=== PATIENT | female | born 1935 | race Caucasian/White ===

== ENCOUNTER 2017-10-13 20:02 | Inpatient (IN) | payer MEDICARE, OTHER ==
[2017-10-13 20:44] LABS: #Neutrophils 7.1 thou/uL (1.40-6.50); %Basophils 0.3 % (0.0-1.0); %Eosinophils 0.2 % (0.0-10.0); %Monocytes 11.1 % (0.0-10.0); Hematocrit 37.2 % (36.0-47.0); Mean Platelet Volume 7.3 fL (7.4-10.4); Red Blood Cell (RBC) Count 3.84 mill/uL (4.20-5.40); White Blood Cell (WBC) Count 9.1 thou/uL (4.8-10.8)
[2017-10-13 21:05] LABS: ALT (SGPT) 38 U/L (8-55); AST (SGOT) 43 U/L (5-34); Alkaline Phosphatase 103 U/L (40-150); Anion Gap 12 mmol/L (10-20); BUN (Urea Nitrogen) 11 mg/dL (9.8-20.1); Bilirubin, Total 1.1 mg/dL (0.2-1.2); Calc. Creatinine Clearance 0 mL/min (70-130); Calcium 9.4 mg/dL (7.8-10.44); Carbon Dioxide 30 mmol/L (23-31); Chloride 95 mmol/L (98-107); Estimated GFR-MDRD 83; Globulin 3.6 g/dL (2.4-3.5); Protein, Total 7.1 g/dL (6.0-8.3)
[2017-10-13 21:09] LABS: Troponin I 0.015 ng/mL (< 0.028)
[2017-10-13] MEDS ORDERED: Furosemide 40 MG/4 ML VIAL ONE (21:41)
[2017-10-14] MEDS ORDERED: hydrALAZINE 20 MG/ML VIAL SLOW IVP PRN (02:18)
[2017-10-14] MEDS ORDERED: Benzonatate 100 MG CAP PO PRN (02:18)
[2017-10-14] MEDS ORDERED: cloNIDine 0.1 MG TAB PO PRN (02:18)
[2017-10-14] MEDS ORDERED: Nitroglycerin 0.4 MG TAB (25 Tab Bottle) SL PRN (02:18)
[2017-10-14] MEDS ORDERED: Senokot 8.6 MG TAB PO PRN (02:18)
[2017-10-14] MEDS ORDERED: Calcium Carbonate 500 MG ChewTAB PO PRN (02:18)
[2017-10-14] MEDS ORDERED: Mag-Al 1200 mg/1200 mg/30 ML UDCUP PO PRN (02:18)
[2017-10-14] MEDS ORDERED: Bisacodyl 5 MG TAB PO PRN (02:18)
[2017-10-14] MEDS ORDERED: Guaifenesin DM 100-10/5 ML UDCUP PO PRN (02:18)
[2017-10-14] MEDS ORDERED: Ondansetron HCl/PF 4 MG/2 ML Vial IVP PRN (02:18)
[2017-10-14] MEDS ORDERED: Loratadine 10 MG TAB PO PRN (02:18)
[2017-10-14] MEDS ORDERED: traZODone HCl 50 MG TAB PO PRN (02:48)
[2017-10-14] MEDS: traZODone HCl 50 MG TAB PO PRN ×2 (03:58→20:57)
--- NOTE | 2017-10-14 04:01 | HP ---
DATE OF ADMISSION: 10/14/2017 PRIMARY CARE PHYSICIAN: Dr. Pope. CHIEF COMPLAINT: Cough and malaise. HISTORY OF PRESENT ILLNESS: Ms. Adame is a very pleasant 81-year-old female with past medical history of Alzheimer's disease, chronic atrial fibrillation as well as history of TIA and COPD who currently resides at [facility], presented to the emergency room for above-mentioned complaint s. History is mainly obtained by the present at bedside. Case has been discussed with the a dmitting ER physician and electronic medical records have been reviewed. According to Ms. Adame's she has been having worsening cough for the last day or so with produ ction of green sputum. She was taken to Urgent Care initially and was diagnosed with pneumonia and w as sent here in the emergency room for further evaluation. She reportedly also had a fever of 100.4 today. The patient herself is not able to provide any history. The visits her every other d ay and he also is not sure how long she has been not feeling well. They were recently seen by Gastroenterology, Dr. Todd for complaints of some bright red blood per rec maria m. She has history of hemorrhoids and diverticulosis. She was on Eliquis for her atrial fibrillat ion, but that was stopped on 10/13/2017. The plan was to resume the Eliquis after days on 10/16/2017 with repeat appointment with Dr. Todd on 10/19/2017. At this time, she does not have any colonoscop y scheduled. Upon presentation to the emergency room, she was hemodynamically stable with blood pressure 125/66, p ulse of 95, respirations 21 with oxygen saturation of 93% on 3 liters. Further workup included a 12- lead EKG which showed rate controlled sinus rhythm at 82 beats per minute and a chest x-ray which was consistent with right-sided pneumonia with right middle and lower lobe involvement. She also was fo und to have somewhat elevated BNP 467. She received IV Lasix x1 as well as IV antibiotics and is now being admitted for possible pneumonia as well as fluid overload/congestive heart failure. Her last transthoracic echocardiogram dated 11/2015 in our system, which was done mainly looking for thrombus. Prior to that, an echo done earlier that month showed lower limits of normal for the ejection fract ion. PAST MEDICAL HISTORY: 1. Chronic atrial fibrillation. 2. Alzheimer dementia. The patient lives at the dementia unit. 3. History of multiple compression fractures and fractures on hormone replacement therapy. 4. History of sleep apnea. 5. Chronic obstructive pulmonary disease. 6. Degenerative joint disease. 7. Hypothyroidism. PAST SURGICAL HISTORY: 1. Tonsillectomy. 2. Hysterectomy. 3. Appendectomy. 4. Bilateral cataract repair. ALLERGIES: PENICILLIN, SULFA and CODEINE. FAMILY HISTORY: Unclear at this time. The patient is not able to provide much history, but reported ly, she has no family history of premature coronary artery disease or stroke in her family. SOCIAL HISTORY: She has quit tobacco more than 30 years ago. She is and lives at [facility]. CURRENT MEDICATIONS: Need to be further clarified, but according to the ER record, she takes multivi tamin and mineral supplements. She is also on Multaq 400 mg daily as well as Eliquis 5 mg daily, whi ch is currently being held. In addition, she takes Namenda 10 mg b.i.d., and thyroid 6.25 mg once da evelyn, and trazodone 50 mg at bedtime. REVIEW OF SYSTEM: Unobtainable due to patient's dementia. She continues to say that she does not un derstand what is going on and does not feel well. PHYSICAL EXAMINATION: VITAL SIGNS: Her most recent vital signs include blood pressure 102/76, pulse of 76, respirations 20 , temperature 98.2, saturating 96% on 2 liters oxygen. GENERAL: No acute distress. The patient is lying under lots of covers and complaining of feeling ch ills. Otherwise, awake, alert, oriented to self and her . She is not in any respiratory dist ress. HEENT: Mucous membrane is moist and pink. No oropharyngeal exudate or erythema. Head is normocepha lic, atraumatic. Pupils are equal, reactive to light and accommodation. Extraocular movements intac t. NECK: Supple without any lymphadenopathy, JVD or bruit. CHEST: Clear to auscultation bilaterally with somewhat decreased breath sounds in the right side. R ate and rhythm is regular without any murmur, rubs, or gallops. ABDOMEN: Soft, nontender, nondistended with positive bowel sounds. EXTREMITIES: Free of any cyanosis, clubbing, or edema. NEUROLOGIC: Nonfocal. SKIN: Free of any rashes or bruises. VASCULAR: +2 pedal pulses felt bilaterally. PSYCHIATRIC: Normal affect. LABORATORY EXAMINATION: Her CBC shows WBCs at 9.1 with 77% neutrophils. Hemoglobin is 11.8, platele t count of 174. Serum chemistries show sodium of 134, potassium 3.4, chloride 95, glucose 127. Lact ic acid 1. AST 43, BNP of 467. Her cardiac enzymes are within normal limits. BUN and creatinine wi thin normal limits. Chest x-ray by my review shows right-sided infiltrates as per HPI. A 12-lead EK G by my review shows normal sinus rhythm without any acute ST or T-wave changes. IMPRESSION AND PLAN: 1. Community-acquired pneumonia. The patient will be treated with IV antibiotics and symptomatic an d supportive care with nebulizers, Mucinex, and incentive spirometry. We will also check for influen za. Currently, she is hemodynamically stable. 2. Elevated BNP. Possibility of congestive heart failure, likely diastolic is not ruled out as of y et. We will obtain a transthoracic echocardiogram. The patient has received 1 dose of IV Lasix in [facility] emergency room. We will try another smaller dose of IV Lasix in the morning. The patient appears euvolemic on clinical examination. 3. Chronic atrial fibrillation on chronic anticoagulation. We will continue with her Multaq for now . She is currently in sinus rhythm and rate control. Her Eliquis is on hold given recent episode of bright red blood per rectum. 4. Bright red blood per rectum. The patient will continue to hold Eliquis as per instructions from Dr. Todd from Gastroenterology services. If she is still here and is having any more bleeding per re ctum or for hemoglobin drops, we will consult Gastroenterology in house for possible colonoscopy. We will monitor H&H on a daily basis. 5. Alzheimer's dementia. 6. Code status: FULL CODE. Discussed with her who is also her medical power of transactional attorney 7. Add deep venous thrombosis and gastrointestinal prophylaxis. 8. Add p.r.n. medication orders. 9. Hypothyroidism. Resume her home medications once the dosages are confirmed. DISPOSITION: Ms. Adame is being admitted to medical floor for community-acquired pneumonia with possi ble congestive heart failure. She is currently hemodynamically stable. Estimated length of stay 2 t o 3 midnight. Further management will depend upon her clinical course.
[2017-10-14 06:13] LABS: #Lymphocytes 0.7 thou/uL (1.20-3.40); #Monocytes 0.9 thou/uL (0.11-0.59); #Neutrophils 6.2 thou/uL (1.40-6.50); %Basophils 0.2 % (0.0-1.0); %Eosinophils 0.2 % (0.0-10.0); %Lymphocytes 9.4 % (21.0-51.0); %Monocytes 11.1 % (0.0-10.0); Hematocrit 32.5 % (36.0-47.0); Mean Platelet Volume 7.5 fL (7.4-10.4); Red Blood Cell (RBC) Count 3.39 mill/uL (4.20-5.40); White Blood Cell (WBC) Count 7.9 thou/uL (4.8-10.8)
[2017-10-14] MEDS: Acetaminophen 325 MG TAB PO PRN (06:29)
[2017-10-14 06:36] LABS: Anion Gap 9 mmol/L (10-20); BUN (Urea Nitrogen) 10 mg/dL (9.8-20.1); Calc. Creatinine Clearance 0 mL/min (70-130); Calcium 8.5 mg/dL (7.8-10.44); Carbon Dioxide 35 mmol/L (23-31); Chloride 94 mmol/L (98-107); Estimated GFR-MDRD Greater than 90
[2017-10-14] MEDS: Mometasone/Formoterol 120 PUFF INHALER INH SCH ×2 (07:08→18:57)
[2017-10-14] MEDS ORDERED: Furosemide 40 MG TAB PO SCH (07:30)
[2017-10-14] MEDS ORDERED: Furosemide 20 MG TAB PO SCH (08:00)
[2017-10-14] MEDS: Dronedarone HCl 400 MG TAB PO SCH ×2 (08:38→17:56)
[2017-10-14] MEDS: guaiFENesin ER 600 MG TAB PO SCH ×3 (08:38→21:00)
[2017-10-14] MEDS ORDERED: Enoxaparin Sodium 40 MG/0.4 ML SYRINGE SC SCH (09:00)
[2017-10-14 09:15] LABS: Phosphorus 2.8 mg/dL (2.3-4.7)
[2017-10-14] MEDS ORDERED: Sodium Chloride 0.9% 500 ML IV SCH (10:15)
[2017-10-14] MEDS ORDERED: NS 0.9% w/ 40 MEQ KCL 1,000 ML IV SCH ×2 (10:15)
[2017-10-14] MEDS ORDERED: NS 0.9% w/ 40 MEQ KCL 500 ML IV SCH (10:15)
--- NOTE | 2017-10-14 10:15 | PDOC.EVN ---
Event Note - Event Note Event Note: RN called - Pt tachycardic with low BP. EKG showed Afib HR around 115. Will transfer to tele. DC Levaquin due to prolonged QTc. Will start Azactam with Doxy IV. AM labs. Cont to monitor closely. AM labs. Repeat CXR in AM. Await Echo. Patient seen and examined.
[2017-10-14] MEDS ORDERED: Aztreonam 1 GM in Sodium Chloride 0.9% 100 ML IVPB SCH (11:00)
[2017-10-14] MEDS ORDERED: ISOVUE-370 76%-LOCM 1 ML ONE (11:37)
[2017-10-14] MEDS: Aztreonam 1 GM in Sodium Chloride 0.9% 100 ML IVPB SCH (12:59)
[2017-10-14] MEDS: busPIRone HCl 5 MG TAB PO SCH ×2 (14:16→20:57)
--- NOTE | 2017-10-14 15:43 | PDOC.EVN ---
Event Note - Event Note Event Note: Echo reviewed. Will get CT chest to r/o PE due to abn Echo. Eliquis on hold per GI until Oct
--- NOTE | 2017-10-14 15:53 | EKG ---
Test Reason : Blood Pressure : / mmHG Vent. Rate : 115 BPM Atrial Rate : 141 BPM P-R Int : 000 ms QRS Dur : 156 ms QT Int : 388 ms P-R-T Axes : 000 -79 054 degrees QTc Int : 536 ms Atrial fibrillation with rapid ventricular response Left axis deviation Right bundle branch block Septal infarct (cited on or before 15-MAR-2012) Abnormal ECG When compared with ECG of 13-OCT-2017 20:20, (Unconfirmed) Atrial fibrillation has replaced Sinus rhythm Questionable change in initial forces of Septal leads Confirmed by GERONIMO MARCUS ([id number]) on 10/14/2017 3:53:35 PM Referred By: MEGHAN Confirmed By:GERONIMO MARCUS
[2017-10-14 17:27] LABS: Anion Gap 6 mmol/L (10-20); BUN (Urea Nitrogen) 11 mg/dL (9.8-20.1); Calc. Creatinine Clearance 0 mL/min (70-130); Calcium 8.3 mg/dL (7.8-10.44); Carbon Dioxide 33 mmol/L (23-31); Chloride 96 mmol/L (98-107); Estimated GFR-MDRD Greater than 90
[2017-10-14 17:36] LABS: Troponin I 0.054 ng/mL (< 0.028)
--- NOTE | 2017-10-14 17:39 | CT ---
CTA OF THE THORAX UTILIZING IV CONTRAST PE PROTOCOL AND 3D REFORMATTED IMAGING 10/14/17 INDICATION: 81-year-old female with right sided heart strain seen on echocardiogram concern for possible PE. TECHNIQUE: Multiple CTA images were obtained of the thorax with IV contrast utilizing PE protocol and 3D reforma tted imaging. COMPARISON: CT of the thorax dated 10/05/13. FINDINGS: No definite central or segmental pulmonary embolus is demonstrated. There is air space consolidation within the posterior segment of the right upper lobe as well as the lateral segment of the right middle lobe and posterolateral segment of the right lower lobe with a sm all right pleural effusion. Patchy air space opacity seen within the left lower lobe. There are prominent vascular calcification involving the thoracic aorta and coronary arteries. The ao rtic arch is mildly aneurysmal measuring 3.3 cm which is relatively stable to the prior exam. The rig ht main pulmonary artery is enlarged measuring 2.6 cm. The left main pulmonary artery is enlarged phillip suring 2.9 cm. There is severe scattered emphysema. There is moderate cardiomegaly. The visualized up per abdomen is unremarkable for acute abnormality. There is vertebroplasty change involving L1, L2, and T9. There is diffuse osteopenia. There is scatte red degenerative and osteoarthritic change. IMPRESSION: 1. No central or segmental pulmonary embolus. 2. Multifocal air space consolidation suspicious for pneumonia or aspiration. 3. Severe emphysema. 4. Enlargement of the pulmonary arterial tree likely related to underlying secondary pulmonary a rtery hypertension. 5. Stable aneurysmal dilatation of the thoracic aorta measuring up to 3.3 cm. 6. Other chronic findings as above. POS: ANGELIKA
[2017-10-14] MEDS ORDERED: Apixaban 5 MG TAB PO SCH (21:00)
[2017-10-15] MEDS: Aztreonam 1 GM in Sodium Chloride 0.9% 100 ML IVPB SCH (00:09)
[2017-10-15 05:24] LABS: #Lymphocytes 1.4 thou/uL (1.20-3.40); #Monocytes 0.8 thou/uL (0.11-0.59); #Neutrophils 5.4 thou/uL (1.40-6.50); %Eosinophils 0.2 % (0.0-10.0); %Lymphocytes 18.2 % (21.0-51.0); %Monocytes 9.9 % (0.0-10.0); Hematocrit 33.9 % (36.0-47.0); Mean Platelet Volume 7.7 fL (7.4-10.4); White Blood Cell (WBC) Count 7.6 thou/uL (4.8-10.8)
[2017-10-15] MEDS: busPIRone HCl 5 MG TAB PO SCH ×3 (05:29→21:10)
[2017-10-15 05:44] LABS: Anion Gap 8 mmol/L (10-20); BUN (Urea Nitrogen) 9 mg/dL (9.8-20.1); BUN/Creatinine Ratio 14.06; Calc. Creatinine Clearance 64 mL/min (70-130); Calcium 8.6 mg/dL (7.8-10.44); Carbon Dioxide 30 mmol/L (23-31); Chloride 100 mmol/L (98-107); Estimated GFR-MDRD 89; Magnesium 1.9 mg/dL (1.6-2.6); Phosphorus 2.5 mg/dL (2.3-4.7)
[2017-10-15] MEDS: Mometasone/Formoterol 120 PUFF INHALER INH SCH (07:02)
[2017-10-15] MEDS: Dronedarone HCl 400 MG TAB PO SCH ×2 (08:25→16:37)
[2017-10-15] MEDS: guaiFENesin ER 600 MG TAB PO SCH ×3 (08:28→21:10)
[2017-10-15] MEDS ORDERED: Digoxin 0.5 MG/2 ML AMP SLOW IVP SCH (11:00)
[2017-10-15] MEDS: Acetaminophen 325 MG TAB PO PRN (12:06)
[2017-10-15] MEDS: Aztreonam 1 GM, Admixture Fee 1 EACH in Sterile Water 10 ML SLOW IVP SCH ×2 (12:48→23:57)
--- NOTE | 2017-10-15 15:10 | CON ---
CARDIOLOGY CONSULTATION NOTE DATE OF CONSULTATION: 10/15/2017 REASON FOR CONSULTATION: AFib. PRIMARY [employer]: Dr. Andrew Alvarenga. HISTORY OF PRESENT ILLNESS: Ms. Adame is a very pleasant 81-year-old white female [facility]. She was diagnosed with a community-acquired pneumonia and possibly donal stolic dysfunction and was admitted for this. She has a history of atrial fibrillation. She is on M ultaq and Eliquis for this. Recently, she had some GI bleeding, so Eliquis was stopped after she saw a GI for this. Currently, is still on hold. She was admitted for IV antibiotics, placed in telemet ry. Yesterday, she went into atrial flutter with 2:1 block, so Cardiology has been consulted for thi s. Ms. Adame does not feel her heart pounding. She does not feel lightheaded. PAST MEDICAL HISTORY: 1. History of paroxysmal atrial fibrillation. 2. Alzheimer dementia. 3. Multiple compression fractures. 4. Sleep apnea. 5. Chronic obstructive pulmonary disease. 6. Degenerate joint disease. 7. Hypothyroidism. PAST SURGICAL HISTORY: 1. Tonsillectomy. 2. Hysterectomy. 3. Appendectomy. 4. Bilateral cataract repair. OUTPATIENT MEDICATIONS: Include; 1. Vitamin D. 2. Nature-Throid 16.25 mg a day. 3. Probiotic. 4. Dulcolax. 5. Eliquis 5 mg b.i.d. 6. Vitamin B12. 7. Vitamin B complex. 8. Trazodone. 9. Hyoscyamine. 10. Multaq 400 mg b.i.d. 11. Amantadine. 12. BuSpar 15 mg p.o. t.i.d. 13. Anoro Ellipta 1 puff daily. 14. Antioxidants b.i.d. ALLERGIES: CODEINE, PENICILLIN and SULFA DRUGS. FAMILY HISTORY: Noncontributory. SOCIAL HISTORY: Quit smoking 30 years ago. No alcohol or drugs. REVIEW OF SYSTEMS: Negative; however, it may not be significant as she has dementia. PHYSICAL EXAMINATION: VITAL SIGNS: Temperature 98.8, pulse 118, respiration rate 22, satting 94% on 2 liters and blood pre ssure 99/55. GENERAL: Awake, alert and oriented to person only, in no distress. HEENT: Normocephalic and atraumatic. NECK: Supple. LUNGS: Have reduced breath sounds bilateral. CARDIOVASCULAR: S1 and S2, irregularly irregular. Heart rate in the 120s. No murmurs. ABDOMEN: Soft. Positive bowel sounds. EXTREMITIES: No edema. SKIN: Warm and dry. LABORATORY DATA: Laboratory work was reviewed. CBC, chemistries were reviewed. Potassium was 2.8 l ast night, back to 3.8 today. Troponin was in the indeterminate range at 0.05. BNP was 467. Blood cultures are negative at 48 hours. IMAGING DATA: CT of the chest showed no PE constellation suspicious for pneumonia or aspiration, emp hysema for Karen enlarged pulmonary arterial tree secondary to pulmonary hypertension and thoracic ao rtic aneurysm at 3.3 cm. EKG and telemetry was reviewed. ASSESSMENT: 1. Atrial flutter with 2:1 AV block. 2. History of atrial fibrillation, on Multaq and Eliquis. 3. Recent lower gastrointestinal bleed, Eliquis on hold. 4. Acute on chronic diastolic heart failure. Much more euvolemic at this time. 5. Normal left ventricular function, ejection fraction at 60%. 6. Community-acquired pneumonia. PLAN: 1. Continue antibiotics. We will try to slow her or down a little bit more with digoxin. Cannot do any drips at this time as she is borderline hypotensive. We will continue Multaq for now. If she d oes not slow down and convert by tomorrow, we will switch her Multaq to IV amiodarone to try and slow it down a little bit better. 2. Electrolytes replacement. Currently, potassium is normal. Thank you for letting us to participate in the care of your patient. We will follow.
--- NOTE | 2017-10-15 15:29 | PDOC.PN ---
- Subjective Encounter Start Date: 10/15/17 Encounter Start Time: 15:27 Subjective: she thinks she is at home.reports feeling confused and scared -: she feels that she is well & does not need medical attention -: went into a-flutter yesterday - Objective Resuscitation Status: Resuscitation Status FULL:Full Resuscitation MAR Reviewed: Yes Vital Signs & Weight: Vital Signs (12 hours) Temp Pulse Resp BP Pulse Ox 10/15/17 12:12 120 H 18 96 10/15/17 11:59 117 H 10/15/17 11:31 98.8 F 118 H 22 H 99/55 L 94 L 10/15/17 08:00 99.4 F 117 H 18 91/50 L 92 L 10/15/17 07:00 116 H 18 96 10/15/17 04:00 98.0 F 117 H 20 90/54 L 97 Weight Weight 133 lb 6.4 oz I&O: 10/14/17 10/15/17 10/16/17 06:59 06:59 06:59 Intake Total 789 Output Total 250 Balance 539 Result Diagrams: 10/15/17 05:03 10/15/17 05:03 Additional Labs: Microbiology 10/13/17 20:36 Venous blood - Right Arm Blood Culture - Preliminary Specimen has been received and culture in progress. No Growth to date. 10/13/17 20:33 Venous blood - Left Arm Blood Culture - Preliminary Specimen has been received and culture in progress. No Growth to date. Laboratory Tests 10/05/13 01/20/17 10/13/17 11:18 00:45 20:36 Hgb 12.8 B-Natriuretic Peptide 379.5 H Troponin I 0.015 10/13/17 10/13/17 10/14/17 20:36 20:36 05:50 Hgb 11.8 L 10.5 L B-Natriuretic Peptide 467.7 H Troponin I 10/14/17 10/15/17 16:45 05:03 Hgb 10.7 L B-Natriuretic Peptide Troponin I 0.054 H Phys Exam - Physical Examination Constitutional: NAD HEENT: PERRLA, moist MMs, sclera anicteric, oral pharynx no lesions Neck: no nodes, no JVD, supple, full ROM Respiratory: no wheezing, no rales, no rhonchi, clear to auscultation bilateral Cardiovascular: RRR, no significant murmur Gastrointestinal: soft, non-tender, no distention, positive bowel sounds Musculoskeletal: no edema, pulses present Neurological: non-focal, normal sensation, moves all 4 limbs Psychiatric: normal affect Deviation from normal: oriented to self only Skin: no rash Dx/Plan (1) PNA (pneumonia) Code(s): J18.9 - PNEUMONIA, UNSPECIFIED ORGANISM Status: Acute (2) Atrial fibrillation with rapid ventricular response Code(s): I48.91 - UNSPECIFIED ATRIAL FIBRILLATION Status: Acute (3) Acute on chronic diastolic CHF (congestive heart failure) Code(s): I50.33 - ACUTE ON CHRONIC DIASTOLIC (CONGESTIVE) HEART FAILURE Status : Acute (4) CAD (coronary artery disease) Code(s): I25.10 - ATHSCL HEART DISEASE OF [place] CORONARY ARTERY W/O ANG PCTRS Status: Chronic (5) Dyslipidemia Code(s): E78.5 - HYPERLIPIDEMIA, UNSPECIFIED Status: Chronic (6) HTN (hypertension) Code(s): I10 - ESSENTIAL (PRIMARY) HYPERTENSION Status: Chronic (7) Hypothyroid Code(s): E03.9 - HYPOTHYROIDISM, UNSPECIFIED Status: Chronic Qualifiers: Hypothyroidism type: unspecified Qualified Code(s): E03.9 - Hypothyroidism , unspecified - Plan DVT proph w/SCDs appreciate cardiology input.Add digoxin.cont multaq.Monitor hemodynamics -: apperas euvolemic.will not give more diuretics. -: cont IV ABx.follow Cx results. -: am labs. supportive & symptomatic care -: eliquis on hold due to concerns for GIB.resume tomorrow per GI.H/H stable * . Review of Systems - Review of Systems Other: can not be obtained reliably due to dementia - Medications/Allergies Allergies/Adverse Reactions: Allergies Allergy/AdvReac Type Severity Reaction Status Date / Time codeine Allergy Verified 10/05/13 15:52 Penicillins Allergy Verified 10/05/13 15:52 Sulfa (Sulfonamide Allergy Verified 10/05/13 15:52 Antibiotics) Medications: Current Medications Acetaminophen (Tylenol) 650 mg PO Q4H PRN PRN Reason: Headache/Fever or Pain Last Admin: 10/15/17 12:06 Dose: 650 mg Al Hydroxide/Mg Hydroxide (Maalox) 30 ml PO Q6H PRN PRN Reason: Heartburn or Indigestion Albuterol/Ipratropium (Duoneb) 3 ml NEB Q6H PRN PRN Reason: SOB &/or Wheezing Albuterol/Ipratropium (Duoneb) 3 ml NEB [id number] [facility] Last Admin: 10/15/17 12:12 Dose: 3 ml Benzonatate (Tessalon) 100 mg PO Q4H PRN PRN Reason: Cough Bisacodyl (Dulcolax) 10 mg PO DAILYPRN PRN PRN Reason: Constipation Buspirone HCl (Buspar) 15 mg PO Q8HR [facility] Last Admin: 10/15/17 13:04 Dose: 15 mg Calcium Carbonate (Tums) 1,000 mg PO Q4H PRN PRN Reason: Heartburn or Indigestion Clonidine (Catapres) 0.1 mg PO Q4H PRN PRN Reason: Systolic BP > 160 Digoxin (Lanoxin) 0.25 mg PO DAILY [facility] Dronedarone (Multaq) 400 mg PO BID-[facility] Last Admin: 10/15/17 08:25 Dose: 400 mg Guaifenesin (Mucinex) 600 mg PO Q12HR [facility] Last Admin: 10/15/17 08:28 Dose: 600 mg Guaifenesin (Mucinex) 600 mg PO Q12HR [facility] Last Admin: 10/15/17 10:33 Dose: Not Given Guaifenesin/Dextromethorphan (Robitussin Dm) 15 ml PO Q4H PRN PRN Reason: Cough Hydralazine HCl (Apresoline) 10 mg SLOW IVP Q4H PRN PRN Reason: Systolic BP > 170 Doxycycline Hyclate 100 mg/ (Sodium Chloride) 100 mls @ 100 mls/hr IVPB 0100, 1300 [facility] Last Admin: 10/15/17 12:06 Dose: 100 mls Aztreonam 1 gm/ Miscellaneous Medication 1 each/ Sterile Water 10 mls @ 120 mls /hr SLOW IVP 1200,2359 [facility] Loratadine (Claritin) 10 mg PO DAILYPRN PRN PRN Reason: Sinus Symptoms Memantine (Namenda) 10 mg PO BID [facility] Last Admin: 10/15/17 08:25 Dose: 10 mg Miscellaneous Medication (Pharmacy To Dose) 0 each IVPB ASDIR PRN PRN Reason: Pharmacy to Dose [RENALLY ADJ Mometasone Furoate/Formoterol Fumar (Dulera 200 Mcg/5 Mcg Inhaler) 1 puff INH BID-RT [facility] Last Admin: 10/15/17 07:02 Dose: 1 puff Nitroglycerin (Nitrostat) 0.4 mg SL Q5MIN PRN PRN Reason: Chest Pain Ondansetron HCl (Zofran) 4 mg IVP Q6H PRN PRN Reason: Nausea/Vomiting Potassium Chloride (Klor-Con) 20 meq PO TID-[facility] Stop: 10/16/17 12:01 Last Admin: 10/15/17 12:07 Dose: 20 meq Senna (Senokot) 2 tab PO HSPRN PRN PRN Reason: Constipation Trazodone HCl (Desyrel) 50 mg PO HSPRN PRN PRN Reason: Insomnia Last Admin: 10/14/17 20:57 Dose: 50 mg
--- NOTE | 2017-10-15 16:43 | RAD ---
MODIFIED BARIUM SWALLOW WITH SPEECH THERAPIST 10/15/17 HISTORY: 81-year-old female with history of oropharyngeal dysphagia and feeding difficulty. Patient gives a hi story of dementia and pneumonia. FLUOROSCOPY TIME: 1.8 minutes. DOSE: 0.811 mGy*m2. Patient was given multiple consistencies in the upright lateral position. There was some pooling in t he vallecula with multiple consistencies but no evidence for penetration or aspiration. IMPRESSION: No penetration or aspiration. Pooling in the vallecula. Please see speech therapy report or additiona l findings and recommendations. POS: [facility]
--- NOTE | 2017-10-15 18:30 | CON ---
DATE OF SERVICE: 10/15/2017 SERVICE: Pulmonary Medicine. REASON FOR CONSULTATION: Respiratory failure. HISTORY OF PRESENT ILLNESS: The patient is an 81-year-old white female with past medical history sig nificant for advancing dementia. At baseline, she will walk around 2-3 times per day with assistance . Unfortunately, she spends most of her time in bed or in a chair. She presented to the hospital wi th increasing confusion, lethargy, and low grade fevers. She was having some coughing. In the hospi kamla, she was identified to have a pneumonia. For last 2 days, she was given some antibiotics and neb ulized medications and had a profound recovery. She does carry the diagnosis of COPD for which she t akes medications. Dr. Marrero is her primary occ ther. PAST MEDICAL HISTORY: 1. Dementia, advancing. 2. Atrial fibrillation. 3. Obstructive sleep apnea. 4. Chronic obstructive pulmonary disease. 5. Degenerative joint disease. 6. Hypothyroidism. PAST SURGICAL HISTORY: 1. Tonsillectomy. 2. Hysterectomy. 3. Appendectomy. 4. Cataract repair, bilateral. ALLERGIES: PENICILLIN, SULFA, CODEINE. MEDICATIONS: List of her inpatient medications was reviewed. No updates were made at this time. FAMILY HISTORY: Noncontributory. SOCIAL HISTORY: She has got a [id number] history of smoking, but quit over 30 years ago. She is m arried and lives in [facility]. She has no exposures to chemicals, dust, asbestosis, or tuberculosis. She does not use any alcohol or illicit drugs. REVIEW OF SYSTEMS: General, head, ears, eyes, nose, throat, cardiovascular, respiratory, GI, , mus culoskeletal, neurologic and skin is negative except as mentioned in the HPI. PHYSICAL EXAMINATION: VITAL SIGNS: Afebrile, pulse 120, blood pressure 88/54, respirations 22, saturation 95% on 2 liters nasal cannula. GENERAL: The patient is awake and alert, in no apparent distress. LUNGS: Decent air entry. There are rhonchi present. There is a prolonged expiratory phase, but I d o not appreciate anything except for very minimal expiratory wheeze. No crackles are appreciated. HEART: Normal rate, regular. ABDOMEN: Soft, nontender, nondistended, bowel sounds positive. MUSCULOSKELETAL: No cyanosis or clubbing. No pitting in the bilateral lower extremities. NEUROLOGIC: Grossly nonfocal. SKIN: There is no skin tenting. : No Zamorano. LABORATORY DATA: WBC 7.6, hemoglobin 10.7, platelets 171,000. Basic metabolic profile is completely unremarkable. Albumin is 2.8. Blood cultures x2 were unremarkable. Urinalysis and urine cultures were not performed. IMAGIN. Modified swallow evaluation demonstrates no evidence of aspiration or penetration. She does have some pooling in the vallecula. 2. CTA of the chest demonstrates no evidence of a pulmonary embolism. She does have findings consis tent with pulmonary hypertension with dilated pulmonary artery and a generous right ventricle and a l ittle deviating to the septum. She has severe emphysematous changes. There is a right lower lobe de pendently located pneumonia. This is almost certainly associated with aspiration related diseases in the supine position. 3. Echocardiogram demonstrates atrial fibrillation, dilated right ventricle and tachycardia. Ejecti on fraction is normal. ASSESSMENT: 1. Acute on chronic hypoxic respiratory failure. 2. Healthcare-associated pneumonia, almost certainly secondary to aspiration in the supine position. 3. Pulmonary hypertension. 4. Chronic obstructive pulmonary disease with acute exacerbation. 5. Atrial fibrillation. 6. Dementia, advanced. DISCUSSION AND PLAN: The patient has actually returned to her typical neurologic status. As such, wilma medina will continue doing what we are doing. My suspicion is that her culprit may very well have been th e urine. She has very powerful smelling urine. Unfortunately, urinalysis or culture was not perform ed when she came in to the hospital. The infiltrate in the lung is almost certainly associated with aspiration related disease from the supine position. The pulmonary hypertension is most likely multi factorial associated with atrial fibrillation and sleep apnea. I witnessed her having multiple sleep related events while we were in the room. She kept falling asleep and waking back up and was perfec tly appropriate. With her advanced cognitive impairment however, I do not think there is any utility in doing a formal pulmonary hypertension workup. Furthermore, is suggesting to me that unde r no circumstances would she truly be able to tolerate having a CPAP mask at this point in her life. As such, we should simply focus on minimizing aspiration related diseases from the supine position. She will continue sleeping on her wedge as she has done for many years for back discomfort. I would like for her to avoid eating or drinking anything within 2 hours of being in bed. Oxygen will be we aned away as tolerated. I will get a urinalysis and urine culture though we are unlikely to glean an y helpful information out of them because she has been on antibiotics for the past 3 days. I will di scontinue medications that suppress cough. I will continue to follow for the time being, but from my respiratory perspective, the patient is stable for discharge from the hospital. I will discontinue her inhaled Dulera. Her home inhalers can be continued on discharge.
[2017-10-16] MEDS: busPIRone HCl 5 MG TAB PO SCH ×3 (05:39→21:36)
[2017-10-16 06:06] LABS: #Eosinphils 0.1 thou/uL (0.0-0.7); #Lymphocytes 1.1 thou/uL (1.20-3.40); #Monocytes 0.5 thou/uL (0.11-0.59); #Neutrophils 5.4 thou/uL (1.40-6.50); %Basophils 0.2 % (0.0-1.0); %Eosinophils 0.8 % (0.0-10.0); %Lymphocytes 15.6 % (21.0-51.0); %Monocytes 6.9 % (0.0-10.0); Mean Platelet Volume 7.4 fL (7.4-10.4); Red Blood Cell (RBC) Count 3.59 mill/uL (4.20-5.40); White Blood Cell (WBC) Count 7.1 thou/uL (4.8-10.8)
[2017-10-16 07:00] LABS: Anion Gap 10 mmol/L (10-20); BUN (Urea Nitrogen) 10 mg/dL (9.8-20.1); Calc. Creatinine Clearance 68 mL/min (70-130); Calcium 8.5 mg/dL (7.8-10.44); Carbon Dioxide 28 mmol/L (23-31); Chloride 99 mmol/L (98-107); Estimated GFR-MDRD Greater than 90
[2017-10-16 07:06] LABS: Troponin I 0.022 ng/mL (< 0.028)
[2017-10-16] MEDS: Dronedarone HCl 400 MG TAB PO SCH (08:50)
[2017-10-16] MEDS ORDERED: Apixaban 5 MG TAB PO SCH (09:00)
[2017-10-16] MEDS: guaiFENesin ER 600 MG TAB PO SCH ×2 (09:48→21:36)
[2017-10-16] MEDS: Digoxin 0.25 MG TAB PO SCH (09:48)
[2017-10-16] MEDS: Aztreonam 1 GM, Admixture Fee 1 EACH in Sterile Water 10 ML SLOW IVP SCH (11:57)
[2017-10-16 12:00] LABS: Hematocrit 33.7 % (36.0-47.0)
--- NOTE | 2017-10-16 13:35 | PDOC.PN ---
- Subjective Encounter Start Date: 10/16/17 Encounter Start Time: 13:33 Subjective: pt reports feeling good and wants to go home -: nursing reports BRB-ME X1.[place] restarted this am - Objective Resuscitation Status: Resuscitation Status FULL:Full Resuscitation MAR Reviewed: Yes Vital Signs & Weight: Vital Signs (12 hours) Temp Pulse Resp BP Pulse Ox 10/16/17 11:46 96.5 F L 122 H 20 97/52 L 94 L 10/16/17 11:44 122 H 18 94 L 10/16/17 11:18 98 F 125 H 18 94 L 10/16/17 09:48 120 H 10/16/17 08:55 98 F 125 H 18 112/60 94 L 10/16/17 06:25 120 H 18 97 10/16/17 03:54 98.0 F 115 H 22 H 112/70 93 L Weight Weight 133 lb I&O: 10/15/17 10/16/17 10/17/17 06:59 06:59 06:59 Intake Total 789 1540 Output Total 250 1250 Balance 539 290 Result Diagrams: 10/16/17 11:49 10/16/17 05:34 Additional Labs: Microbiology 10/15/17 23:40 Urine clean catch Urine Culture - Preliminary NO GROWTH AT 12 HOURS 10/13/17 20:36 Venous blood - Right Arm Blood Culture - Preliminary NO GROWTH AT 48 HOURS 10/13/17 20:33 Venous blood - Left Arm Blood Culture - Preliminary NO GROWTH AT 48 HOURS Laboratory Tests 10/13/17 10/14/17 10/15/17 20:36 05:50 05:03 Hgb 11.8 L 10.5 L 10.7 L 10/16/17 10/16/17 05:34 11:49 Hgb 11.0 L 10.6 L Phys Exam - Physical Examination Constitutional: NAD HEENT: PERRLA, moist MMs, sclera anicteric, oral pharynx no lesions Neck: no nodes, no JVD, supple, full ROM Respiratory: no wheezing, no rales, no rhonchi, clear to auscultation bilateral Cardiovascular: RRR, no significant murmur Gastrointestinal: soft, non-tender, no distention, positive bowel sounds Musculoskeletal: no edema, pulses present Neurological: non-focal, normal sensation, moves all 4 limbs Psychiatric: normal affect Skin: no rash Dx/Plan (1) BRBPR (bright red blood per rectum) Code(s): K62.5 - HEMORRHAGE OF ANUS AND RECTUM Status: Acute (2) PNA (pneumonia) Code(s): J18.9 - PNEUMONIA, UNSPECIFIED ORGANISM Status: Acute (3) Atrial fibrillation with rapid ventricular response Code(s): I48.91 - UNSPECIFIED ATRIAL FIBRILLATION Status: Acute (4) Acute on chronic diastolic CHF (congestive heart failure) Code(s): I50.33 - ACUTE ON CHRONIC DIASTOLIC (CONGESTIVE) HEART FAILURE Status : Acute (5) CAD (coronary artery disease) Code(s): I25.10 - ATHSCL HEART DISEASE OF [place] CORONARY ARTERY W/O ANG PCTRS Status: Chronic (6) Dyslipidemia Code(s): E78.5 - HYPERLIPIDEMIA, UNSPECIFIED Status: Chronic (7) HTN (hypertension) Code(s): I10 - ESSENTIAL (PRIMARY) HYPERTENSION Status: Chronic (8) Hypothyroid Code(s): E03.9 - HYPOTHYROIDISM, UNSPECIFIED Status: Chronic Qualifiers: Hypothyroidism type: unspecified Qualified Code(s): E03.9 - Hypothyroidism , unspecified - Plan DVT proph w/SCDs Hold eliquis again.GI consult.H/H stable.monitor. -: HR still fast.May need Amiodarone drip.Cardiology following.cont Multaq -: cont IV ABx empirically for PNA. -: BAIT DIGGER cleared for pureed diet etc.no Aspiration on MBS -: not ready for DC yet.am labs * . Review of Systems - Review of Systems Constitutional: negative: Fever, Chills, Sweats, Weakness, Malaise, Other Respiratory: negative: Cough, Dry, Shortness of Breath, Hemoptysis, SOB with Excertion, Pleuritic Pain, Sputum, Wheezing Cardiovascular: negative: Chest Pain, Palpitations, Orthopnea, Paroxysmal Noc. Dyspnea, Edema, Light Headedness, Other Gastrointestinal: negative: Nausea, Vomiting, Abdominal Pain, Diarrhea, Constipation, Melena, Hematochezia, Other Genitourinary: negative: Dysuria, Frequency, Incontinence, Hematuria, Retention , Other Musculoskeletal: negative: Neck Pain, Shoulder Pain, Arm Pain, Back Pain, Hand Pain, Leg Pain, Foot Pain, Other Neurological: negative: Weakness, Numbness, Incoordination, Change in Speech, Confusion, Seizures, Other - Medications/Allergies Allergies/Adverse Reactions: Allergies Allergy/AdvReac Type Severity Reaction Status Date / Time codeine Allergy Verified 10/05/13 15:52 Penicillins Allergy Verified 10/05/13 15:52 Sulfa (Sulfonamide Allergy Verified 10/05/13 15:52 Antibiotics) Medications: Current Medications Acetaminophen (Tylenol) 650 mg PO Q4H PRN PRN Reason: Headache/Fever or Pain Last Admin: 10/15/17 12:06 Dose: 650 mg Al Hydroxide/Mg Hydroxide (Maalox) 30 ml PO Q6H PRN PRN Reason: Heartburn or Indigestion Albuterol/Ipratropium (Duoneb) 3 ml NEB [id number] [facility] Last Admin: 10/16/17 11:44 Dose: 3 ml Apixaban (Eliquis) 5 mg PO BID [facility] Last Admin: 10/16/17 09:49 Dose: 5 mg Bisacodyl (Dulcolax) 10 mg PO DAILYPRN PRN PRN Reason: Constipation Buspirone HCl (Buspar) 15 mg PO Q8HR [facility] Last Admin: 10/16/17 05:39 Dose: 15 mg Calcium Carbonate (Tums) 1,000 mg PO Q4H PRN PRN Reason: Heartburn or Indigestion Clonidine (Catapres) 0.1 mg PO Q4H PRN PRN Reason: Systolic BP > 160 Digoxin (Lanoxin) 0.25 mg PO DAILY [facility] Last Admin: 10/16/17 09:48 Dose: 0.25 mg Dronedarone (Multaq) 400 mg PO BID-[facility] Last Admin: 10/16/17 08:50 Dose: 400 mg Guaifenesin (Mucinex) 600 mg PO Q12HR [facility] Last Admin: 10/16/17 09:48 Dose: 600 mg Hydralazine HCl (Apresoline) 10 mg SLOW IVP Q4H PRN PRN Reason: Systolic BP > 170 Doxycycline Hyclate 100 mg/ (Sodium Chloride) 100 mls @ 100 mls/hr IVPB 0100, 1300 [facility] Last Admin: 10/16/17 11:57 Dose: 100 mls Aztreonam 1 gm/ Miscellaneous Medication 1 each/ Sterile Water 10 mls @ 120 mls /hr SLOW IVP 1200,2359 [facility] Last Admin: 10/16/17 11:57 Dose: 10 mls Loratadine (Claritin) 10 mg PO DAILYPRN PRN PRN Reason: Sinus Symptoms Memantine (Namenda) 10 mg PO BID [facility] Last Admin: 10/16/17 09:50 Dose: 10 mg Miscellaneous Medication (Pharmacy To Dose) 0 each IVPB ASDIR PRN PRN Reason: Pharmacy to Dose [RENALLY ADJ Nitroglycerin (Nitrostat) 0.4 mg SL Q5MIN PRN PRN Reason: Chest Pain Ondansetron HCl (Zofran) 4 mg IVP Q6H PRN PRN Reason: Nausea/Vomiting Senna (Senokot) 2 tab PO HSPRN PRN PRN Reason: Constipation Trazodone HCl (Desyrel) 50 mg PO HSPRN PRN PRN Reason: Insomnia Last Admin: 10/14/17 20:57 Dose: 50 mg
--- NOTE | 2017-10-16 14:55 | PDOC.CTH ---
Cardiology Progress Note - Subjective No new issues or complaints. - Objective Vital Signs Temp Pulse Resp BP Pulse Ox 10/16/17 11:46 96.5 F L 122 H 20 97/52 L 94 L 10/16/17 11:44 122 H 18 94 L 10/16/17 11:18 98 F 125 H 18 94 L 10/16/17 09:48 120 H 10/16/17 08:55 98 F 125 H 18 112/60 94 L 10/16/17 06:25 120 H 18 97 10/16/17 03:54 98.0 F 115 H 22 H 112/70 93 L Weight 133 lb 10/15/17 10/16/17 10/17/17 06:59 06:59 06:59 Intake Total 789 1540 Output Total 250 1250 Balance 539 290 - Physical Examination General/Neuro: alert & oriented x3, NAD Neck: no JVD present Lungs: unlabored respirations Heart: other: (irreg) Abdomen: NT/ND Extremities: other: (no edema) - Telemetry Telemetry Rhythm: A flutter 2-1 block - Labs Result Diagrams: 10/16/17 11:49 10/16/17 05:34 Troponin/CKMB CK-MB (CK-2) 5.6 ng/mL (0-6.6) 10/13/17 20:36 Troponin I 0.022 ng/mL (< 0.028) 10/16/17 05:34 - Assessment/Plan 1. Aflutter with 2-1 AV block 2. hx of afib 3. Acute on chronic diastolic heart failure., improved. 4. Aspiration pneumonia. 5. Recent lower GI bleed. PLAN: - Will switch her multaq to an amiodarone drip for better rate control. - On Eliquis for stroke prophylaxis but still on hold due to history of GI bleeding recently.
[2017-10-16] MEDS ORDERED: Amiodarone HCl 450 MG in Dextrose 5% in Water 250 ML IVPB SCH ×2 (15:00)
--- NOTE | 2017-10-16 23:36 | PRG ---
DATE OF SERVICE: 10/16/2017 SERVICE: Pulmonary Medicine. INTERVAL HISTORY: This evening I find the patient pleasantly confused. She is sleeping. When I wal ked into the room, she woke with a start and was afraid. She did not know where she was, and she tho ught that she had an intruder in her house. I was able to calm her back down and reorient her. Then , she was very upset with me for distracting her from the test that she was in the middle of. She ce rtainly was not in the middle of any test. Otherwise, there has been no interval change to her condi tion. PHYSICAL EXAMINATION: VITAL SIGNS: Afebrile, pulse 116, blood pressure 97/55, respirations 18, saturation 93% on 2 liters nasal cannula. GENERAL: Patient is awake, alert, in no apparent distress. LUNGS: Decent air entry. There is no prolonged expiratory phase or wheezing. HEART: Normal rate, regular. ABDOMEN: Soft, nontender, nondistended, bowel sounds positive. MUSCULOSKELETAL: No cyanosis or clubbing. No pitting in the bilateral lower extremities. NEUROLOGIC: Grossly nonfocal. LABORATORY DATA: WBC 7.1, hemoglobin 11.0, platelets 205,000. Basic metabolic profile is completely unremarkable. Blood cultures x2 and urine culture negative to date. ASSESSMENT: 1. Acute on chronic hypoxic respiratory failure, resolving. 2. Healthcare-associated pneumonia, almost certainly secondary to aspiration from the supine positio n. 3. Pulmonary hypertension. 4. Chronic obstructive pulmonary disease with acute exacerbation. 5. Atrial flutter with 2:1 block. 6. Dementia, advance. PLAN: Complete a 7-day course of antibiotics. Steroids can be discontinued after 5 days. From my p erspective, the patient is stable for transition out of the Hospitalist. She will need to repeat dee ging in roughly 6 weeks to verify that the infiltrate has resolved. No further workup is recommended for her pulmonary hypertension, or obstructive sleep apnea because of her advanced dementia. She sommers s no further requirements for inpatient Pulmonary Critical Care Opinion. As such, I will sign off. Please call with additional questions or concerns moving forward.
[2017-10-17] MEDS: Aztreonam 1 GM, Admixture Fee 1 EACH in Sterile Water 10 ML SLOW IVP SCH ×2 (00:31→11:53)
--- NOTE | 2017-10-17 00:49 | CON ---
DATE OF CONSULTATION: 10/16/2017 REFERRING PHYSICIAN: Dr. Mary Lynn. REASON FOR CONSULTATION: Hematochezia. HISTORY OF PRESENT ILLNESS: Ms. Julia Adame is a very pleasant 81-year-old female hospitalized with atrial fibrillation and cough with greenish sputum. The patient was found to have pneumonia and was on antibiotics. She has been seen by Dr. Chandler Rubin, Pulmonary Service's consultation. The patient also has UTI and her urine cultures were pending. The patient had seen Dr. Everette Todd recently because of hematochezia. The patient has past history of hemorrhoids and also diverticular disease. The patient takes Eliquis for atrial fibrillation.She had seen Dr. Todd few dayss ago The patient was restarted back on Eliquis this morning. She had only one dose of Eliquis. The patient had passed some blood stool this morning. I was asked to see the patient by Dr. Lynn because of rectal bleeding. I did speak to the nurse who takes care of Ms. Adame. She tells me that she is passing blood-stained mucus per rectum, but not any bleeding. The patient has history of Alzheimer dementia. Although she is awake, alert, and communicative, she is not a good historian. Unfortunately, the patient's is not in the room. I actually came twice today and both times the was not there. The patient cannot really recall having any bleeding in the past or in the present time. . The admitting history and physical reviewed and also the consult by Dr. Lawrence and Dr. Rubin reviewed. The patient at the present appears very comfortable. She is not short of breath. She denies any difficulty breathing, orthopnea, or PND. No history of any chest discomfort. She has no other relevant history. ALLERGIES: PENICILLIN, SULFA, CODEINE. MEDICAL ILLNESSES: 1. Alzheimer dementia, advanced. 2. Atrial fibrillation. 3. Sleep apnea. 4. Chronic obstructive pulmonary disease. 5. Hypothyroidism. 6. Degenerative joint disease. SURGERIES: 1. Status post hysterectomy. 2. Appendectomy. 3. Cataract surgery, both sides. 4. Tonsillectomy. SOCIAL HISTORY: The patient is . She has past history of smoking. No history of alcohol abuse. MEDICATIONS: List reviewed. REVIEW OF SYSTEMS: A 10-point system review unobtainable as the patient is not a good historian and she tends to say no to all system review questions. PHYSICAL EXAMINATION: GENERAL: The patient is awake, alert, and communicative. She is in no distress. She is not short of breath. VITAL SIGNS: Stable. Temperature 98 degrees Fahrenheit, pulse is 122, blood pressure is 97/58. HEENT: Conjunctivae clear. NECK: Supple. No adenitis or thyromegaly noted. CARDIOVASCULAR SYSTEM: First and second heart sounds normal. LUNGS: Clear to auscultation. ABDOMEN: Soft to palpate. Abdomen is nondistended. Abdomen is nontender. There is no organomegaly or masses. EXTREMITIES: Reveal no edema. RECTAL: Showed no external hemorrhoids and also, no blood on the examination finger seen. I did obtain some slight light brown stool on the examining finger , but I do not see any blood on my finger. Also, the rectum is actually empty. EXTREMITIES: Reveal no edema. LABORATORY DATA: CBC: WBC today is 7100, hemoglobin 11 today, yesterday was 10.7, the day before it was 10.5, hematocrit 35. MCV 97.3, platelet count is 205,000, polymorphs 76, lymphocytes 15, monocytes 6. Chemistries: Sodium 133, potassium 4, chloride 99, bicarbonate 28, BUN is 10, creatinine 0.60, glucose of 97, calcium 8.5. Troponin is 0.02, albumin 2.8. An 81-year-old female with aspiration pneumonia, urinary tract infection, and history of hematochezia. Surprisingly, his rectal exam showed no blood in the exam finger and also no masses felt. Rectum is empty and I do not appreciate any bright red blood in stool. CLINICAL IMPRESSION: 1. Rectal bleeding and has history of hematochezia, hemorrhoids, and also diverticular disease. At the present time, we do not see any active bleeding. It is very much possible the bleeding could be from the anal outlet as she has history of hemorrhoids. 2. Atrial fibrillation. 3. Aspiration pneumonia. 4. Urinary tract infection. 5. Sleep apnea. 6. Chronic obstructive pulmonary disease. 7. Dementia. RECOMMENDATIONS: 1. Continue present treatment. It is possible the bleeding could be from the anal outlet as the rectal exam showed no active bleeding. 2. Serial H&H. 3. Dr. Todd will assume care on Wednesday and decide if she needs any invasive procedures. I am really not sure when was the last colonoscopy. I will ask Dr. Everette Todd to decide if she needs to be scoped again. MTDD
[2017-10-17] MEDS: Amiodarone In Dextrose,Iso-Osm 200 ML IVPB SCH ×2 (01:28→15:41)
[2017-10-17] MEDS: busPIRone HCl 5 MG TAB PO SCH ×2 (05:23→13:15)
[2017-10-17] MEDS: guaiFENesin ER 600 MG TAB PO SCH ×2 (09:12→20:11)
[2017-10-17] MEDS: Digoxin 0.25 MG TAB PO SCH (09:12)
--- NOTE | 2017-10-17 11:54 | PDOC.PN ---
- Subjective Encounter Start Date: 10/17/17 Encounter Start Time: 11:53 Subjective: wants to go home.agitated as she doesn't understand the reason of stay -: no new compaints - Objective Resuscitation Status: Resuscitation Status FULL:Full Resuscitation MAR Reviewed: Yes Vital Signs & Weight: Vital Signs (12 hours) Temp Pulse Resp BP Pulse Ox 10/17/17 09:12 81 10/17/17 07:59 98.1 F 78 17 94 L 10/17/17 07:58 98.1 F 78 17 114/58 L 94 L 10/17/17 06:55 76 16 96 10/17/17 04:00 98.1 F 72 16 112/58 L 92 L 10/17/17 00:24 112 H 16 95 Weight Weight 4.766 oz I&O: 10/16/17 10/17/17 10/18/17 06:59 06:59 06:59 Intake Total 1540 2220 Output Total 1250 Balance 290 2220 Result Diagrams: 10/16/17 11:49 10/16/17 05:34 Phys Exam - Physical Examination Constitutional: NAD HEENT: PERRLA, moist MMs, sclera anicteric, oral pharynx no lesions Neck: no nodes, no JVD, supple, full ROM Respiratory: no wheezing, no rales, no rhonchi, clear to auscultation bilateral Cardiovascular: RRR, no significant murmur Gastrointestinal: soft, non-tender, no distention, positive bowel sounds Musculoskeletal: no edema, pulses present Neurological: non-focal, normal sensation, moves all 4 limbs Psychiatric: normal affect Skin: no rash Dx/Plan (1) BRBPR (bright red blood per rectum) Code(s): K62.5 - HEMORRHAGE OF ANUS AND RECTUM Status: Acute (2) PNA (pneumonia) Code(s): J18.9 - PNEUMONIA, UNSPECIFIED ORGANISM Status: Acute (3) Atrial fibrillation with rapid ventricular response Code(s): I48.91 - UNSPECIFIED ATRIAL FIBRILLATION Status: Acute (4) Acute on chronic diastolic CHF (congestive heart failure) Code(s): I50.33 - ACUTE ON CHRONIC DIASTOLIC (CONGESTIVE) HEART FAILURE Status : Acute (5) CAD (coronary artery disease) Code(s): I25.10 - ATHSCL HEART DISEASE OF [place] CORONARY ARTERY W/O ANG PCTRS Status: Chronic (6) Dyslipidemia Code(s): E78.5 - HYPERLIPIDEMIA, UNSPECIFIED Status: Chronic (7) HTN (hypertension) Code(s): I10 - ESSENTIAL (PRIMARY) HYPERTENSION Status: Chronic (8) Hypothyroid Code(s): E03.9 - HYPOTHYROIDISM, UNSPECIFIED Status: Chronic Qualifiers: Hypothyroidism type: unspecified Qualified Code(s): E03.9 - Hypothyroidism , unspecified - Plan continue antibiotics, PT/OT, director social service, out of bed/ambulate, DVT proph w/ SCDs HR controlled on IV Amiodarone. anticoagulation on hold d/t GIB -: Will consult GI Dr. Todd tomorrow if pt not cleared by cardiology for DC -: cont ABx for now. -: H/H stable. appreciate Dr. shi's input. -: hemodynamically stable * . Review of Systems - Review of Systems Other: can not be obtained due to dementia - Medications/Allergies Allergies/Adverse Reactions: Allergies Allergy/AdvReac Type Severity Reaction Status Date / Time codeine Allergy Verified 10/05/13 15:52 Penicillins Allergy Verified 10/05/13 15:52 Sulfa (Sulfonamide Allergy Verified 10/05/13 15:52 Antibiotics) Medications: Current Medications Acetaminophen (Tylenol) 650 mg PO Q4H PRN PRN Reason: Headache/Fever or Pain Last Admin: 10/15/17 12:06 Dose: 650 mg Al Hydroxide/Mg Hydroxide (Maalox) 30 ml PO Q6H PRN PRN Reason: Heartburn or Indigestion Albuterol/Ipratropium (Duoneb) 3 ml NEB [id number] [facility] Last Admin: 10/17/17 06:55 Dose: 3 ml Aspirin (Aspirin Chewable) 81 mg PO DAILY [facility] Last Admin: 10/17/17 09:11 Dose: 81 mg Bisacodyl (Dulcolax) 10 mg PO DAILYPRN PRN PRN Reason: Constipation Buspirone HCl (Buspar) 15 mg PO Q8HR [facility] Last Admin: 10/17/17 05:23 Dose: 15 mg Calcium Carbonate (Tums) 1,000 mg PO Q4H PRN PRN Reason: Heartburn or Indigestion Clonidine (Catapres) 0.1 mg PO Q4H PRN PRN Reason: Systolic BP > 160 Digoxin (Lanoxin) 0.25 mg PO DAILY [facility] Last Admin: 10/17/17 09:12 Dose: 0.25 mg Guaifenesin (Mucinex) 600 mg PO Q12HR [facility] Last Admin: 10/17/17 09:12 Dose: 600 mg Hydralazine HCl (Apresoline) 10 mg SLOW IVP Q4H PRN PRN Reason: Systolic BP > 170 Doxycycline Hyclate 100 mg/ (Sodium Chloride) 100 mls @ 100 mls/hr IVPB 0100, 1300 [facility] Last Admin: 10/17/17 00:31 Dose: 100 mls Aztreonam 1 gm/ Miscellaneous Medication 1 each/ Sterile Water 10 mls @ 120 mls /hr SLOW IVP 1200,2359 [facility] Last Admin: 10/17/17 11:53 Dose: 10 mls Amiodarone HCl/Dextrose (Nexterone) 200 mls @ 0 mls/hr IVPB INF [facility]; As Directed PRN Reason: Protocol Last Admin: 10/17/17 01:28 Dose: 200 mls Loratadine (Claritin) 10 mg PO DAILYPRN PRN PRN Reason: Sinus Symptoms Memantine (Namenda) 10 mg PO BID [facility] Last Admin: 10/17/17 09:12 Dose: 10 mg Miscellaneous Medication (Pharmacy To Dose) 0 each IVPB ASDIR PRN PRN Reason: Pharmacy to Dose [RENALLY ADJ Nitroglycerin (Nitrostat) 0.4 mg SL Q5MIN PRN PRN Reason: Chest Pain Ondansetron HCl (Zofran) 4 mg IVP Q6H PRN PRN Reason: Nausea/Vomiting Senna (Senokot) 2 tab PO HSPRN PRN PRN Reason: Constipation Trazodone HCl (Desyrel) 50 mg PO HSPRN PRN PRN Reason: Insomnia Last Admin: 10/14/17 20:57 Dose: 50 mg
--- NOTE | 2017-10-17 15:06 | PDOC.CTH ---
Cardiology Progress Note - Subjective She is doing better. No new issues. - Objective Vital Signs Temp Pulse Resp BP BP Pulse Ox 10/17/17 12:26 71 16 92 L 10/17/17 11:56 97.9 F 70 16 134/63 96 10/17/17 09:12 81 10/17/17 07:59 98.1 F 78 17 94 L 10/17/17 07:58 98.1 F 78 17 114/58 L 94 L 10/17/17 06:55 76 16 96 10/17/17 04:00 98.1 F 72 16 112/58 L 92 L Weight 4.766 oz 10/16/17 10/17/17 10/18/17 06:59 06:59 06:59 Intake Total 1540 2220 Output Total 1250 Balance 290 2220 - Physical Examination General/Neuro: alert & oriented x3, NAD Neck: no JVD present Lungs: unlabored respirations Heart: RRR Abdomen: NT/ND Extremities: other: (no edema.) - Telemetry Telemetry Rhythm: NSR - Labs Result Diagrams: 10/16/17 11:49 10/16/17 05:34 Troponin/CKMB CK-MB (CK-2) 5.6 ng/mL (0-6.6) 10/13/17 20:36 Troponin I 0.022 ng/mL (< 0.028) 10/16/17 05:34 - Assessment/Plan 1. Aflutter with 2-1 AV block, back in sinus since starting amiodarone drip. 2. Hx of afib 3. Acute on chronic diastolic heart failure., improved. 4. Aspiration pneumonia. 5. Recent lower GI bleed. PLAN: - Continue amiodarone drip for one more day, if she remains sinus may switch back to home dose of Multaq. - On Eliquis for stroke prophylaxis but still on hold due to history of GI bleeding recently. GI evaluating.
--- NOTE | 2017-10-17 15:32 | PRG ---
DATE OF SERVICE: 10/17/2017 HOSPITAL VISIT NOTE HISTORY OF PRESENT ILLNESS: This is an 81-year-old female seen by me because of hematochez ia. The rectal exam done yesterday showed no bleeding in the rectum. The patient had some light bro wn stool, but no blood on the exam finger. The patient appears to have mostly bleeding from anal out let. She has had no recurrence of bleeding. Her blood count is the same as before. On 10/14/2017 i t was 10.5 and went up to 11 yesterday and today 10.6. She offers no complaints. The patient's husb and is not there in the room. PHYSICAL EXAMINATION: VITAL SIGNS: Afebrile, pulse is 78, blood pressure 114/58. CARDIOVASCULAR SYSTEM: First and second heart sounds normal. LUNGS: Clear to auscultation. ABDOMEN: Soft to palpate. No organomegaly. No tenderness. No masses. CLINICAL IMPRESSION: Rectal bleeding, on further physical exam, it appears to be most likely from an al outlet as rectal exam does not show any blood on the exam finger. White count is stable. RECOMMENDATIONS: 1. Follow up hemoglobin and hematocrit. 2. Dr. Todd has seen the patient before and I will leave it to Dr. Todd to decide if he wants to do a colonoscopy.
[2017-10-18] MEDS ORDERED: Sodium Chloride 0.9% 20 ML ONE (00:28)
[2017-10-18] MEDS: busPIRone HCl 5 MG TAB PO SCH ×4 (00:29→21:31)
[2017-10-18] MEDS: traZODone HCl 50 MG TAB PO PRN (00:29)
[2017-10-18] MEDS: Aztreonam 1 GM, Admixture Fee 1 EACH in Sterile Water 10 ML SLOW IVP SCH ×2 (00:30→12:21)
[2017-10-18 05:24] LABS: Hematocrit 37.5 % (36.0-47.0)
[2017-10-18] MEDS: Amiodarone In Dextrose,Iso-Osm 200 ML IVPB SCH (05:35)
[2017-10-18 05:47] LABS: Anion Gap 11 mmol/L (10-20); BUN (Urea Nitrogen) 10 mg/dL (9.8-20.1); Calc. Creatinine Clearance 62 mL/min (70-130); Calcium 8.6 mg/dL (7.8-10.44); Carbon Dioxide 29 mmol/L (23-31); Chloride 99 mmol/L (98-107); Estimated GFR-MDRD 87
[2017-10-18] MEDS: Digoxin 0.25 MG TAB PO SCH (08:38)
[2017-10-18] MEDS: guaiFENesin ER 600 MG TAB PO SCH ×2 (08:38→21:32)
--- NOTE | 2017-10-18 13:40 | PRG ---
DATE OF SERVICE: 10/18/2017 Ms. Adame's status is stable. She continues to be in sinus rhythm on IV amiodarone therapy. She has previously been on Multaq. Eliquis has been held due to a gastrointestinal bleed. PHYSICAL EXAMINATION: VITAL SIGNS: Blood pressure 130/63, pulse 69, temperature 98.3. LUNGS: Clear to auscultation. CARDIAC: Regular rate and rhythm. ABDOMEN: Soft, nontender, nondistended. EXTREMITIES: No edema. IMPRESSION: 1. Paroxysmal atrial fibrillation. 2. Dementia. 3. Gastrointestinal bleed. RECOMMENDATIONS: 1. Stop IV amiodarone and add Multaq. 2. Hold anticoagulation therapy until opinion from GI is noted. 3. At this point, her rate appears to be controlled.
--- NOTE | 2017-10-18 13:47 | PDOC.PN ---
- Subjective Encounter Start Date: 10/18/17 Encounter Start Time: 13:46 Subjective: wants to go home. easily agitated as she can't remember why she is here -: pt re-orineted and care discussed w in detail on phone - Objective Resuscitation Status: Resuscitation Status FULL:Full Resuscitation MAR Reviewed: Yes Vital Signs & Weight: Vital Signs (12 hours) Temp Pulse Resp BP Pulse Ox 10/18/17 12:12 71 18 96 10/18/17 11:59 98.3 F 69 16 130/63 91 L 10/18/17 08:38 73 10/18/17 07:45 98.5 F 70 16 96 10/18/17 07:43 98.5 F 70 16 114/57 L 96 10/18/17 03:30 99.1 F 75 20 119/52 L 95 Weight Weight 132 lb 9 oz I&O: 10/17/17 10/18/17 10/19/17 06:59 06:59 06:59 Intake Total 2220 1553 Output Total 702 Balance 2220 851 Result Diagrams: 10/18/17 05:12 10/18/17 05:12 Additional Labs: Microbiology 10/15/17 23:40 Urine clean catch Urine Culture - Final NO GROWTH AT 36 HOURS 10/13/17 20:36 Venous blood - Right Arm Blood Culture - Preliminary NO GROWTH AT 48 HOURS 10/13/17 20:33 Venous blood - Left Arm Blood Culture - Preliminary NO GROWTH AT 48 HOURS Phys Exam - Physical Examination Constitutional: NAD HEENT: PERRLA, moist MMs, sclera anicteric, oral pharynx no lesions Neck: no nodes, no JVD, supple, full ROM Respiratory: no wheezing, no rales, no rhonchi, clear to auscultation bilateral Cardiovascular: RRR, no significant murmur Gastrointestinal: soft, non-tender, no distention, positive bowel sounds Musculoskeletal: no edema, pulses present Neurological: non-focal, normal sensation, moves all 4 limbs Psychiatric: normal affect, A&O x 3 Dx/Plan (1) BRBPR (bright red blood per rectum) Code(s): K62.5 - HEMORRHAGE OF ANUS AND RECTUM Status: Acute Comment: no more episodes (2) PNA (pneumonia) Code(s): J18.9 - PNEUMONIA, UNSPECIFIED ORGANISM Status: Acute (3) Atrial fibrillation with rapid ventricular response Code(s): I48.91 - UNSPECIFIED ATRIAL FIBRILLATION Status: Acute Comment: Improved rate.NSR now post IV Amiodarone (4) Acute on chronic diastolic CHF (congestive heart failure) Code(s): I50.33 - ACUTE ON CHRONIC DIASTOLIC (CONGESTIVE) HEART FAILURE Status : Acute (5) CAD (coronary artery disease) Code(s): I25.10 - ATHSCL HEART DISEASE OF [place] CORONARY ARTERY W/O ANG PCTRS Status: Chronic (6) Dyslipidemia Code(s): E78.5 - HYPERLIPIDEMIA, UNSPECIFIED Status: Chronic (7) HTN (hypertension) Code(s): I10 - ESSENTIAL (PRIMARY) HYPERTENSION Status: Chronic (8) Hypothyroid Code(s): E03.9 - HYPOTHYROIDISM, UNSPECIFIED Status: Chronic Qualifiers: Hypothyroidism type: unspecified Qualified Code(s): E03.9 - Hypothyroidism , unspecified - Plan plan discussed w/ family, PT/OT, social science analyst, respiratory therapy, incentive spirometry, DVT proph w/SCDs Apppreciate cardiology input.change amiodarone back to multaq. -: Cont holding antocoagulation pending GI eval -: H/H stable. Likley hemorrhoidal bleed. -: cont ABx. chnage to Po on DC.clinically better * . Review of Systems - Review of Systems Constitutional: negative: Fever, Chills, Sweats, Weakness, Malaise, Other Cardiovascular: negative: Chest Pain, Palpitations, Orthopnea, Paroxysmal Noc. Dyspnea, Edema, Light Headedness, Other Gastrointestinal: negative: Nausea, Vomiting, Abdominal Pain, Diarrhea, Constipation, Melena, Hematochezia, Other Genitourinary: negative: Dysuria, Frequency, Incontinence, Hematuria, Retention , Other Musculoskeletal: negative: Neck Pain, Shoulder Pain, Arm Pain, Back Pain, Hand Pain, Leg Pain, Foot Pain, Other Neurological: negative: Weakness, Numbness, Incoordination, Change in Speech, Confusion, Seizures, Other - Medications/Allergies Allergies/Adverse Reactions: Allergies Allergy/AdvReac Type Severity Reaction Status Date / Time codeine Allergy Verified 10/05/13 15:52 Penicillins Allergy Verified 10/05/13 15:52 Sulfa (Sulfonamide Allergy Verified 10/05/13 15:52 Antibiotics) Medications: Current Medications Acetaminophen (Tylenol) 650 mg PO Q4H PRN PRN Reason: Headache/Fever or Pain Last Admin: 10/15/17 12:06 Dose: 650 mg Al Hydroxide/Mg Hydroxide (Maalox) 30 ml PO Q6H PRN PRN Reason: Heartburn or Indigestion Albuterol/Ipratropium (Duoneb) 3 ml NEB [id number] [facility] Last Admin: 10/18/17 12:12 Dose: 3 ml Aspirin (Aspirin Chewable) 81 mg PO DAILY [facility] Last Admin: 10/18/17 08:38 Dose: 81 mg Bisacodyl (Dulcolax) 10 mg PO DAILYPRN PRN PRN Reason: Constipation Buspirone HCl (Buspar) 15 mg PO Q8HR [facility] Last Admin: 10/18/17 05:03 Dose: 15 mg Calcium Carbonate (Tums) 1,000 mg PO Q4H PRN PRN Reason: Heartburn or Indigestion Clonidine (Catapres) 0.1 mg PO Q4H PRN PRN Reason: Systolic BP > 160 Digoxin (Lanoxin) 0.25 mg PO DAILY [facility] Last Admin: 10/18/17 08:38 Dose: 0.25 mg Dronedarone (Multaq) 400 mg PO BID-[facility] [place] Guaifenesin (Mucinex) 600 mg PO Q12HR [facility] Last Admin: 10/18/17 08:38 Dose: 600 mg Hydralazine HCl (Apresoline) 10 mg SLOW IVP Q4H PRN PRN Reason: Systolic BP > 170 Doxycycline Hyclate 100 mg/ (Sodium Chloride) 100 mls @ 100 mls/hr IVPB 0100, 1300 [facility] Last Admin: 10/18/17 00:36 Dose: 100 mls Aztreonam 1 gm/ Miscellaneous Medication 1 each/ Sterile Water 10 mls @ 120 mls /hr SLOW IVP 1200,2359 [facility] Last Admin: 10/18/17 12:21 Dose: 10 mls Loratadine (Claritin) 10 mg PO DAILYPRN PRN PRN Reason: Sinus Symptoms Memantine (Namenda) 10 mg PO BID [facility] Last Admin: 10/18/17 08:38 Dose: 10 mg Miscellaneous Medication (Pharmacy To Dose) 0 each IVPB ASDIR PRN PRN Reason: Pharmacy to Dose [RENALLY ADJ Nitroglycerin (Nitrostat) 0.4 mg SL Q5MIN PRN PRN Reason: Chest Pain Ondansetron HCl (Zofran) 4 mg IVP Q6H PRN PRN Reason: Nausea/Vomiting Senna (Senokot) 2 tab PO HSPRN PRN PRN Reason: Constipation Trazodone HCl (Desyrel) 50 mg PO HSPRN PRN PRN Reason: Insomnia Last Admin: 10/18/17 00:29 Dose: 50 mg
[2017-10-18] MEDS: Dronedarone HCl 400 MG TAB PO SCH (17:26)
--- NOTE | 2017-10-18 18:44 | PRG ---
DATE OF SERVICE: 10/18/2017 SUBJECTIVE: The patient was seen by me in the office recently and recommended she stop her Eliquis f or few days and see if the bleeding resolved. The bleeding seemed to be an anal outlet bleeding. Ac cording to Dr. Martinez who saw her in the hospital, she did not have any blood on the examining fin marcos. She has been off the Eliquis now for several days. OBJECTIVE: VITAL SIGNS: Temperature 99.2, pulse 75, respirations 16, blood pressure 127/61. CHEST: Clear. CARDIOVASCULAR: Regular rate and rhythm. ABDOMEN: Benign. LABORATORY DATA: Shows hemoglobin 12.2, hematocrit 37.1. Chemistries significant for sodium 136. ASSESSMENT: 1. Anal outlet bleeding -- Hemoglobin and hematocrit is normal. She had a colonoscopy 4 years ago. At this time, I do not see any need to repeat that. 2. Pneumonia. 3. Atrial fibrillation. 4. Coronary artery disease. 5. Dementia. RECOMMENDATIONS: 1. Okay to resume Eliquis if needed. 2. No need to follow hemoglobin and hematocrit further. 3. No colonoscopy at this time. 4. We will sign off.
[2017-10-19] MEDS: Aztreonam 1 GM, Admixture Fee 1 EACH in Sterile Water 10 ML SLOW IVP SCH ×2 (01:59→14:09)
[2017-10-19] MEDS: busPIRone HCl 5 MG TAB PO SCH (05:07)
[2017-10-19] MEDS ORDERED: Sodium Chloride 0.9% 10 ML ONE (07:49)
[2017-10-19] MEDS ORDERED: Apixaban 5 MG TAB PO SCH (09:00)
[2017-10-19] MEDS: Digoxin 0.25 MG TAB PO SCH (09:57)
[2017-10-19] MEDS: Dronedarone HCl 400 MG TAB PO SCH (09:57)
[2017-10-19] MEDS: guaiFENesin ER 600 MG TAB PO SCH (09:57)
[2017-10-19 12:52] VITALS: BP 135/71; TEMP 98.1
--- NOTE | 2017-10-19 13:35 | PQF ---
CLINICAL DOCUMENTATION IMPROVEMENT CLARIFICATION FORM: ICD-10 Updated PLEASE DO AN ADDENDUM TO THE PROGRESS NOTE WITH ANY DOCUMENTATION UPDATES OR ADDITIONS AND CARRY THROUGH TO DC SUMMARY. THANK YOU. DATE: 10/19/17 ATTN: DR. LOYA Please exercise your independent, professional judgment in responding to the clarification form. Clinical indicators are provided on the bottom of this form for your review Please check appropriate box(s): [ ] Aspiration Pneumonia [ ] Empirically treating Gram Negative Pneumonia [ ] Empirically treating Anaerobic Pneumonia [ ] Pneumonia secondary to (specify organism / underlying disease) [ ] Simple Pneumonia (community acquired - nosocomial) [ ] Bronchopneumonia [ ] Pneumonia of unknown etiology [ ] Other diagnosis [ ] Unable to determine In addition, please specify: Present on Admission (POA): [ ] Yes [ ] No [ ] Unable to determine For continuity of documentation, please document condition throughout progress notes and discharge summary. Thank You. CLINICAL INDICATORS - SIGNS / SYMPTOMS / LABS H&P 10/14: "COMMUNITY ACQUIRED PNEUMONIA" CONSULTATION NOTE 10/15: "HEALTHCARE-ASSOCIATED PNEUMONIA, ALMOST CERTAINLY SECONDARY TO ASPIRATION IN THE SUPINE POSITION." "CHRONIC OBSTRUCTIVE PULMONARY DISEASE WITH ACUTE EXACERBATION." PROGRESS NOTE 10/17 : "PNEUMONIA-ACUTE" CT CHEST 10/14: "MULTIFOCAL AIR SPACE CONSOLIDATION SUSPICIOUS FOR PNEUMONIA OR ASPIRATION." RISKS: CONFUSION W/ HISTORY OF DEMENTIA OROPHARYNGEAL DYSPHAGIA AND FEEDING DIFFICULTY SWALLOWING STATUS 20/39% IMPAIRED PER SPEECH THERAPY NOTE 10/14 TREATMENT: PULMONARY CONSULT SPEECH THERAPY CONSULT IV AZACTAM (10/15-PRESENT) IV VIBRAMYCIN (10/14-PRESENT) MUCINEX 10/14-PRESENT) BARIUM SWALLOW ASPIRATION PRECAUTIONS PER SPEECH THERAPY NOTE 10/14 (This form is maintained as a part of the permanent medical record) 2014 [employer]. All Rights Reserved MAITE [email or web address] Office: [phone] [facility] HOSPITALSaman
--- NOTE | 2017-10-19 13:51 | DIS ---
DATE OF ADMISSION: 10/13/2017 DATE OF DISCHARGE: 10/19/2017 CONDITION AT THE TIME OF DISCHARGE: Stable and improved. PRIMARY CARE PHYSICIAN: Dr. Luciano Pope. DISCHARGE DIAGNOSES: 1. Community-acquired pneumonia. 2. Chronic atrial fibrillation with rapid ventricular rate on chronic anticoagulation. 3. Bright red blood per rectum and found to be outlet bleeding due to hemorrhoids. 4. History of chronic diastolic congestive heart failure. 5. Coronary artery disease. 6. Dyslipidemia. 7. Hypertension. 8. Hypothyroidism. DISCHARGE MEDICATIONS: Resume home medications as per my HPI. New medications include: 1. Eliquis 2.5 mg p.o. b.i.d., the dose has been decreased from 5 mg p.o. b.i.d. 2. Doxycycline 100 mg p.o. b.i.d. for 5 more days. INHOUSE CONSULTATIONS: Include: 1. Cardiology, Dr. Lawrence. 2. Gastroenterology, Dr. Martinez and Dr. Todd. 3. Pulmonary medicine, Dr. Rubin. PROCEDURES DONE: In the hospital include: 1. Transthoracic echocardiogram, which is dilated right ventricle with concerns for pulmonary emboli sm. 2. CT angio of the thorax, which is negative for any pulmonary embolism, but shows airspace consolid ation suspicious for pneumonia and pulmonary hypertension. 3. Modified barium swallow, which is negative for any penetration or aspiration. HISTORY OF PRESENT ILLNESS: Ms. Adame is a pleasant 81-year-old female who was brought in from [facility] by her for complaints of cough, fever, and malaise. She had a fever of 100.4 at the Urgent Care. She was found to be stable upon presentation, but the chest x-ray was cons istent with right-sided pneumonia and also mildly elevated BNP with concerns of possible acute diasto lic congestive heart failure. She was admitted after she received IV Lasix and IV antibiotic in the emergency room. Please see admission history and physical for further details. HOSPITAL COURSE: The patient was stabilized and continued on IV antibiotics. Cardiology was consult ed when she started to have rapid ventricular rate, given her history of chronic atrial fibrillation. She was already on Multaq, which was tried in the hospital, but with rapid ventricular rate, she sommers s to be transiently treated with IV amiodarone, which helped convert her into normal sinus rhythm and controlled her heart rate. She was switched back to Multaq. Upon presentation, the patient gave the history that her Eliquis was held by Gastroenterology for teagan e concerns of bright red blood per rectum. Instructions were followed and it was supposed to be rest arted on 10/16/2017. She did receive 1 dose, but unfortunately had some mucousy bloody stools, after that Eliquis was held again and Gastroenterology was consulted in house. Initially, Dr. Martinez s aw the patient and in his opinion, it was all outlet bleeding. He deferred the care to her own gastr oenterologist, Dr. Todd, who also saw the patient yesterday. He restarted her Eliquis at a lower dos e and recommended the same thing that it is an outlet bleeding. Her H&H was followed and it remained stable and actually improved without any transfusion. She, at this time, is not requiring any furth er Gastroenterology workup. She was also seen by Dr. Rubin for complaints of respiratory distress upon presentation. She mariposa lly follows up with Dr. Marrero at the pulmonary clinic. Dr. Rubin followed along. There was a suspicion of some sleep apnea, but with advanced dementia, it was doubtful that the patient will b e able to wear the CPAP mask. There was also concern for aspiration, so she underwent a modified bar ium swallow, which was negative for the same. Eventually, the patient was stable. Her hemoglobin has remained stable. Gastroenterology and Cardio logy as well as Pulmonary Medicine has signed off. The patient has been eager to go home and at this time, she is not having any respiratory distress or any bleeding per rectum. Her heart rate is unde r control with oral Multaq. She will be discharged back to [facility]. She was seen and examined prior to discharge. PHYSICAL EXAMINATION: GENERAL: No acute distress. VITAL SIGNS: Temperature 98.1, pulse of 70, respirations 18, saturating 97% on room air, blood press ure 135/71. CHEST: Clear to auscultation without any wheezing, rales or rhonchi. Rate and rhythm is regular wit hout any murmur, rubs or gallops. LABORATORY DATA: Hemoglobin is 12.2 with hematocrit of 37.5. Serum chemistry shows sodium of 135, o therwise unremarkable. Cardiac enzymes, troponin peaked to 0.054 and trended down to of 0.022. Her urine culture and blood culture have remained negative. Discharge plan was discussed with the patient's who verbalized understanding. Total time spent in the discharge of this patient 32 minutes.
--- NOTE | 2017-10-20 14:13 | PRG ---
DATE OF SERVICE: 10/19/2017 SUBJECTIVE: Ms. Adame is doing well, no significant changes in her mentation. She continues to be co nfused. She continues to be in sinus rhythm. OBJECTIVE: VITAL SIGNS: Blood pressure 135/71, pulse 78, temperature 98.1. LUNGS: Clear to auscultation. CARDIAC: Regular rate and rhythm. ABDOMEN: Soft, nontender, nondistended. EXTREMITIES: No edema. IMPRESSION: Atrial fibrillation with rapid ventricular response. RECOMMENDATIONS: She is currently in sinus rhythm. We will resume Multaq. Dr. Everette Todd did seen and evaluated Ms. Adame and felt that was okay to resume Eliquis. We will resume 2.5 mg p.o. b.i.d. Plan is to have Ms. Adame to follow up with Dr. Andrew Alvarenga. No further recommendations for Ms. Adame.
== END 2017-10-19 14:15 | DRG 193 ==
LOC: ERS 20:02 → SURG A 22:18 → 2NO 10-14 11:22
PROVIDERS: ADMIT Internal Medicine; ATTEND Internal Medicine
DX: J18.9 Pneumonia, unspecified organism (principal); J96.21 Acute and chronic respiratory failure with hypoxia; I50.33 Acute on chronic diastolic (congestive) heart failure; I48.92 Unspecified atrial flutter; I11.0 Hypertensive heart disease with heart failure; I48.0 Paroxysmal atrial fibrillation; G30.9 Alzheimer's disease, unspecified; I48.2 Chronic atrial fibrillation; F02.80 Dementia in other diseases classified elsewhere, unspecified severity, without behavioral disturbance, psychotic disturbance, mood disturbance, and anxiety; J43.9 Emphysema, unspecified; K64.8 Other hemorrhoids; I25.10 Atherosclerotic heart disease of native coronary artery without angina pectoris; E78.5 Hyperlipidemia, unspecified; E03.9 Hypothyroidism, unspecified; Z79.02 Long term (current) use of antithrombotics/antiplatelets; G47.30 Sleep apnea, unspecified; I27.20 Pulmonary hypertension, unspecified; Z86.73 Personal history of transient ischemic attack (TIA), and cerebral infarction without residual deficits
CPT/HCPCS: 36415; 71275; 74230; 80048; 80053; 80069; 82553; 83605; 83735; 83880; 84100; 84484; 85014; 85018; 85025; 87040; 87086; 93005; 93010; 93306; 94640; 94760; 96365; 96366; 96367; 96375; A4216; G8978-GP-CL; G8979-GP-CK; G8987-GO-CK; G8988-GO-CJ; G8996-GN-CI; G8996-GN-CJ; G8997-GN-CI; J0282; J1160; J1650; J1940; J1956; J3370; J3490; J7050; J7070; J7620

== ENCOUNTER 2017-11-09 15:56 | Inpatient (IN) | payer MEDICARE, OTHER ==
--- NOTE | 2017-11-09 17:49 | RAD ---
LEFT FEMUR TWO VIEWS 11/09/17 HISTORY: Fall. Pain. COMPARISON: None. FINDINGS/IMPRESSION: Extensive vascular calcifications. No fracture. No cortical irregularity or periosteal reaction. No posttraumatic change. POS: ANGELIKA
[2017-11-09] MEDS ORDERED: Fentanyl 100 MCG/2 ML VIAL ONE ×2 (17:53→19:52)
--- NOTE | 2017-11-09 17:58 | RAD ---
EXAM: TWO VIEWS LEFT HUMERUS 11/09/17 HISTORY: Fall. Left shoulder deformity and pain. COMPARISON: None. FINDINGS: Displaced proximal humerus fracture is present. Refer to shoulder radiograph for further details. No additional humeral fractures. IMPRESSION: Proximal humerus fracture. POS: ANGELIKA
[2017-11-09 18:01] LABS: #Eosinphils 0.1 thou/uL (0.0-0.7); #Lymphocytes 1.4 thou/uL (1.20-3.40); #Monocytes 0.6 thou/uL (0.11-0.59); #Neutrophils 3.9 thou/uL (1.40-6.50); %Basophils 0.4 % (0.0-1.0); %Eosinophils 1.4 % (0.0-10.0); %Lymphocytes 23.8 % (21.0-51.0); %Monocytes 10.2 % (0.0-10.0); %Neutrophils 64.2 % (42.0-75.0); Hemoglobin 10.5 g/dL (12.0-16.0); Mean Corpuscular Hemoglobin 30.4 pg (27.0-31.0); Mean Corpuscular Volume 98.2 fl (81.0-99.0); Mean Platelet Volume 6.8 fL (7.4-10.4); Platelet Count 209 thou/uL (130-400); RBC Distribution Width 14.3 % (11.5-14.5); Red Blood Cell (RBC) Count 3.46 mill/uL (4.20-5.40); White Blood Cell (WBC) Count 6.1 thou/uL (4.8-10.8)
--- NOTE | 2017-11-09 18:05 | RAD ---
TWO VIEWS LEFT FOREARM: 11/09/17 HISTORY: Injury. Pain. COMPARISON: None. FINDINGS: Mild bone demineralization. No fracture. No cortical irregularity. No periosteal reaction. Nonspecifi c soft tissue calcifications. IMPRESSION: No fracture. POS: ANGELIKA
[2017-11-09 18:26] LABS: ALT (SGPT) 16 U/L (8-55); AST (SGOT) 22 U/L (5-34); Albumin 2.8 g/dL (3.4-4.8); Alkaline Phosphatase 81 U/L (40-150); Anion Gap 12 mmol/L (10-20); BUN (Urea Nitrogen) 8 mg/dL (9.8-20.1); Bilirubin, Total 0.4 mg/dL (0.2-1.2); CK (CPK) 83 U/L (29-168); CKMB 2.9 ng/mL (0-6.6); Calc. Creatinine Clearance 0 mL/min (70-130); Calcium 8.6 mg/dL (7.8-10.44); Carbon Dioxide 27 mmol/L (23-31); Chloride 101 mmol/L (98-107); Estimated GFR-MDRD Greater than 90; Globulin 3.2 g/dL (2.4-3.5); Glucose 104 mg/dL (83-110); Lipase 13 U/L (8-78); Potassium 3.4 mmol/L (3.5-5.1); Sodium 137 mmol/L (136-145); Troponin I Less than 0.010 ng/mL (< 0.028)
--- NOTE | 2017-11-09 18:31 | RAD ---
RIGHT SHOULDER THREE VIEWS: 11/09/17 HISTORY: Injury. Fall. Deformity and pain. COMPARISON: None. FINDINGS: Impacted proximal left humeral fracture with mild angulation and cortical disruption. Acromioclavicular and coracoclavicular distance is maintained. Visualized left ribs do not demonstrat e fracture. IMPRESSION: Proximal humerus fracture with deformity. POS: [facility]
--- NOTE | 2017-11-09 18:37 | RAD ---
EXAM: ONE VIEW CHEST 11/09/17 COMPARISON: 01/20/17 HISTORY: Fall. Injury. Pain. FINDINGS: Atherosclerosis of the aorta. Enlarged cardiac silhouette. Pulmonary vessels are slightly prominent. Patchy interstitial opacities which are felt to be chronic change. More focal opacification likely al veolar in the right mid lung and right lung base. Lungs are mildly hyperinflated. There is no pneumot horax. There is diffuse bone demineralization. Previous vertebroplasty changes noted at multiple levels. IMPRESSION: 1. Cardiomegaly. 2. Atherosclerosis. 3. Chronic interstitial changes. 4. Focal opacity in the right upper lobe and right lower lobe. Multilobar infiltrate is suspecte d. Continued surveillance to ensure resolution. POS: [facility]
--- NOTE | 2017-11-09 18:39 | RAD ---
RADIOGRAPH PELVIS 1 VIEW: Date: 11/09/17 Time: 4:58 p.m. HISTORY: 81-year-old female status post traumatic injury to the pelvis. FINDINGS: Vertebroplasty cement is demonstrated at L5. There is diffuse osteopenia. No grossly displaced pelvic fracture is identified (although the osteopenia could mask a mildly displaced or nondisplaced fractu re). There is no dislocation of bilateral hips. The bilateral hips appear fairly normal. IMPRESSION: 1. Osteopenia. 2. No grossly displaced acute fracture identified. 3. Status post vertebroplasty of lower lumbar spine. POS: [facility]
[2017-11-09] MEDS ORDERED: Senokot 8.6 MG TAB PO PRN (19:48)
[2017-11-09] MEDS ORDERED: predniSONE 20 MG TAB PO SCH (20:00)
--- NOTE | 2017-11-09 20:29 | RAD ---
RADIOGRAPH LEFT HAND 3 VIEWS: Date: 11/09/17 Time: 4:57 p.m. HISTORY: 81-year-old female status post acute traumatic injury to the left hand. FINDINGS: There is diffuse, severe osteopenia. No displaced fracture is identified. The osteopenia could mask a nondisplaced fracture. On the AP view, there are vertically oriented linear lucencies at the base of the first metacarpal, extending to the mid shaft, questionable for a nondisplaced acute fracture. Th ere is DJD, severe at the first CMC, second DIP, third PIP and DIP, fourth PIP. There are central ero sions associated with these severe degenerative changes at the PIPs and DIPs. There are also central erosions with moderate degree of DJD at fifth DIP. The MCPs and the rest of the carpal joints are rel atively spared. IMPRESSION: 1. Questionable nondisplaced fracture (versus trabecular lines) at the mid and proximal aspect o f the first metacarpal. 2. Severe osteoporosis. 3. Severe osteoarthritis at the first carpometacarpal joint, and several of the proximal interph alangeal joints and distal interphalangeal joints, in a pattern suggestive of erosive osteoarthritis. POS: [facility]
[2017-11-09] MEDS ORDERED: Cefepime 1 GM in Sodium Chloride 0.9% 100 ML IVPB SCH (21:00)
--- NOTE | 2017-11-09 21:10 | CT ---
EXAM: NONCONTRAST HEAD CT 11/09/17 HISTORY: Injury. Fall. Posttraumatic fracture. COMPARISON: 01/20/17. TECHNIQUE: Noncontrast head CT is performed from skull base to skull vertex. FINDINGS: No parenchymal hemorrhage. No extra-axial hematoma. No midline shift. Basilar cisterns are patent. Age appropriate atrophy. Cortical kelley-white matter differentiation is preserved. The ventricles and sulci are patent and symmetric. Adequate aeration of the mastoid air cells. There is left sphenoid sinus and right maxillary sinus di sease. Small mucous retention cyst in the left maxillary sinus. The calvarium is intact. IMPRESSION: No intracranial posttraumatic sequela. POS: [facility]
--- NOTE | 2017-11-09 21:19 | CT ---
EXAM: CT CERVICAL SPINE WITHOUT CONTRAST 11/09/17 HISTORY: Injury. Fall. Posttraumatic fractures. COMPARISON: 01/20/17. TECHNIQUE: Cervical spine CT is performed without contrast. Reformatted images are submitted for interpretation. FINDINGS: Lateral masses or C1 and C2 articulate appropriately. Appropriate articulation of the facets. Odontoi d process is intact. There is straightening of the normal cervical lordosis which may be due to patient position, muscle s pasm or cervical collar. Current study is not tailored to assess for ligamentous injury. The visualized soft tissue neck structures, upper mediastinum, and lung apices do not demonstrate any posttraumatic change. Mild bullous change in both lung apices. Varying degrees of central canal sten osis and foraminal narrowing on the basis of degenerative change. Evaluation is limited by technique. Cervical spine vertebral body height is maintained. No fracture. IMPRESSION: 1. No fracture. 2. Straightening of the normal cervical lordosis as above. POS: [facility]
[2017-11-09] MEDS ORDERED: Ondansetron HCl/PF 4 MG/2 ML Vial IVP PRN (21:42)
[2017-11-09] MEDS ORDERED: Ondansetron ODT 4 MG TAB SL PRN (21:42)
[2017-11-09] MEDS: Apixaban 5 MG TAB PO SCH (22:15)
[2017-11-09] MEDS: Fluticasone Propionate Nasal Spray 16 gm Bottle NASAL SCH (22:18)
[2017-11-09] MEDS: Cefepime 1 GM, Admixture Fee 1 EACH in Sterile Water 10 ML SLOW IVP SCH (23:05)
[2017-11-09] MEDS: Sodium Chloride 0.9% 1,000 ML IV SCH (23:05)
[2017-11-09] MEDS: Famotidine 20 MG TAB PO SCH (23:06)
[2017-11-09] MEDS: Lactinex Tablet PO SCH (23:07)
[2017-11-09] MEDS: busPIRone HCl 10 MG TAB PO SCH (23:07)
[2017-11-09] MEDS: traZODone HCl 50 MG TAB PO SCH (23:07)
[2017-11-09] MEDS: Acetaminophen 325 MG TAB PO PRN (23:07)
[2017-11-09 23:48] VITALS: BMI 22.6
--- NOTE | 2017-11-10 01:05 | HP ---
REASON FOR ADMISSION: Possible right lung pneumonia. HISTORY OF PRESENTING ILLNESS: The patient was sent from [facility] after she had a f all around 3:40 p.m. The retirement called her about the fall. He is here at bedside and gives all the information as patient has dementia. She has had multiple imaging studies done in the emergency room and was found to have had left proximal humerus fracture. The left upper extremity wa s placed in a sling. The also mentions that 2 weeks back she was admitted here for pneumonia . He also mentions that when she gets stressed out her atrial fibrillation will act up. She has got chronic COPD and is on home oxygen at retirement. PAST MEDICAL AND SURGICAL HISTORY: Dementia; atrial fibrillation; hypertension; prior history of com pression fractures; sleep apnea; COPD, which is oxygen dependent; osteoarthritis; hypothyroidism; ton sillectomy; hysterectomy; appendectomy; and cataract surgery. CURRENT MEDICATIONS: Per retirement records, the patient is on buspirone 15 mg p.o. 3 times daily, Colace 100 mg p.o. daily, Eliquis 2.5 mg p.o. twice daily, fluticasone nasal spray one spray to each nostril at bedtime, Namenda 10 mg p.o. twice daily, Multaq 400 mg p.o. twice daily, thyroid 16.25 mg p.o. daily, trazodone 50 mg p.o. at bedtime. Please note the patient is on multiple over the counte r medications. ALLERGIES: Allergic to PENICILLIN, SULFA, and CODEINE. PERSONAL HISTORY: Quit smoking more than 20 years ago, but has smoked for nearly 35 years before clay[place] t. Does not abuse alcohol or drugs. FAMILY HISTORY: Mother in her 90s and has had pneumonia. Father had dementia and of old a ge at the age of 86 years. REVIEW OF SYSTEMS: The following complete review of systems was negative, unless otherwise mentioned in the HPI or below: Constitutional: Weight loss or gain, ability to conduct usual activities. Skin: Rash, itching. Eyes: Double vision, pain. ENT/Mouth: Nose bleeding, neck stiffness, pain, tenderness. Cardiovascular: Palpitations, dyspnea on exertion, orthopnea. Respiratory: Shortness of breath, wheezing, cough, hemoptysis, fever or night sweats. Gastrointestinal: Poor appetite, abdominal pain, heartburn, nausea, vomiting, constipation, or diarr hea. Genitourinary: Urgency, frequency, dysuria, nocturia. Musculoskeletal: Pain, swelling. Neurologic/Psychiatric: Anxiety, depression. Allergy/Immunologic: Skin rash, bleeding tendency. PHYSICAL EXAMINATION: GENERAL: The patient is an 81-year-old female, who is currently not in any acute distress. VITAL SIGNS: Blood pressure 137/64, pulse 76 per minute, respiratory rate 19 per minute, temperature 98.1 degrees Fahrenheit, saturating 94% on 2 liters nasal cannula. NECK: Supple, no elevated JVD. HEENT: Eyes: Extraocular muscles are intact. Pupils are reacting to light. Oral cavity: Mucous m embranes are dry. No exudates or congestion. CARDIOVASCULAR SYSTEM: S1, S2 heard. Irregular rhythm. RESPIRATORY SYSTEM: Air entry 1+ bilateral. Scattered rhonchi plus bilateral. ABDOMEN: Soft, bowel sounds heard. No tenderness, rigidity or guarding. EXTREMITIES: Mild peripheral edema, no calf tenderness. VASCULAR SYSTEM: Peripheral pulses 1+ bilateral. No ischemic ulcerations or gangrene. Left upper e xtremity is in a sling. Also, the swelling of left shoulder joint felt. She is able to move all the fingers on the left upper extremity. Radial and ulnar pulses are felt. CENTRAL NERVOUS SYSTEM: No gross focal deficits seen. PSYCHIATRIC SYSTEM: The patient is anxious, otherwise no hallucinations or delusions. LABORATORY AND X-RAY FINDINGS: Has had multiple imaging studies including pelvic x-ray done shows os teopenia, no displaced acute fracture seen. There is vertebroplasty of lower lumbar spine seen. Two -view left forearm x-ray shows no fracture. Left shoulder three-view shows proximal humerus fracture with deformity, acromioclavicular and coracoclavicular distances maintained, visualize left ribs do not show any fracture. Two-view left humerus fracture again confirms proximal humerus fracture. lef t femur two-view shows no fracture. White count of 6, H&H 10 and 33, platelet count is 209 with 64% neutrophils, MCV is 98. Potassium 3.4, BUN 8, creatinine 0.5, glucose is 104. Liver enzymes within normal limits. Albumin is 2.8. Lipase is 13. One set of cardiac enzymes are negative. Please note her CT brain and CT cervical spine, CAT scan results are pending at present. CLINICAL IMPRESSION AND PLAN: The patient will be admitted to medical floor for recurrent pneumonia. It is unclear if she is aspirating. states she is on a mechanical soft diet and occasional ly coughs when she is eating, but not always. She will be placed on cefepime and Levaquin for now, o n normal saline at 70 mL per hour. DuoNeb q.6 hourly. We will also place her on a small dose of tawny roids, oral prednisone 10 mg daily. We will consult Dr. Rubin, who has evaluated the patient karyn cruzito in the month of October for pneumonia. We will continue her Eliquis, Multaq, buspirone, Namenda , trazodone, thyroid pork as before. She will be on aspiration precautions. We will also consult sp eech therapy for evaluation while she is here. I have discussed code status with and patient , they would want to be FULL CODE for now.
[2017-11-10] MEDS ORDERED: Lorazepam 1 MG TAB PO SCH (02:00)
[2017-11-10] MEDS: Guaifenesin DM 100-10/5 ML UDCUP PO PRN ×2 (02:13→20:30)
[2017-11-10 06:36] LABS: #Monocytes 0.3 thou/uL (0.11-0.59); #Neutrophils 5.1 thou/uL (1.40-6.50); %Basophils 0.4 % (0.0-1.0); %Eosinophils 0.4 % (0.0-10.0); %Lymphocytes 15.4 % (21.0-51.0); %Monocytes 4.5 % (0.0-10.0); %Neutrophils 79.3 % (42.0-75.0); Hemoglobin 9.5 g/dL (12.0-16.0); Mean Corpuscular HGB CONC 30.5 g/dL (32.0-36.0); Mean Corpuscular Hemoglobin 29.8 pg (27.0-31.0); Mean Corpuscular Volume 97.8 fl (81.0-99.0); Mean Platelet Volume 6.8 fL (7.4-10.4); Platelet Count 193 thou/uL (130-400); RBC Distribution Width 14.3 % (11.5-14.5); Red Blood Cell (RBC) Count 3.17 mill/uL (4.20-5.40); White Blood Cell (WBC) Count 6.5 thou/uL (4.8-10.8)
[2017-11-10 06:51] LABS: Anion Gap 9 mmol/L (10-20); BUN (Urea Nitrogen) 7 mg/dL (9.8-20.1); Calc. Creatinine Clearance 66 mL/min (70-130); Calcium 8.2 mg/dL (7.8-10.44); Carbon Dioxide 30 mmol/L (23-31); Chloride 103 mmol/L (98-107); Estimated GFR-MDRD Greater than 90; Glucose 127 mg/dL (83-110); Potassium 3.3 mmol/L (3.5-5.1); Sodium 139 mmol/L (136-145)
[2017-11-10] MEDS ORDERED: predniSONE 20 MG TAB PO SCH (08:00)
--- NOTE | 2017-11-10 08:00 | CON ---
DATE OF CONSULTATION: 11/10/2017 CHIEF COMPLAINT: Left shoulder pain. HISTORY OF PRESENT ILLNESS: Ms. Adame is an 81-year-old female. She presented to the emergency depar tment yesterday after a fall. She has been at [facility]. She lost her balance. She has been having a cough from a recent admission for pneumonia. She has been feeling weak. She was found to have a left proximal humerus fracture. Upon evaluation, Orthopedics was consulted for this. She has been admitted to the hospital for her pulmonary condition and I have been consulted to jenae patel the humerus. She is resting in a sling. She denies significant pain currently. PAST MEDICAL HISTORY: Dementia, atrial fibrillation, hypertension, sleep apnea, COPD on home oxygen, osteoarthritis, hypothyroidism, and osteoporosis. PAST SURGICAL HISTORY: Tonsillectomy, hysterectomy, appendectomy, previous cataract surgery. ALLERGIES: PENICILLIN, SULFA, and CODEINE. SOCIAL HISTORY: The patient denies smoking, alcohol or drug use. She lives in a nursing facility. FAMILY MEDICAL HISTORY: Noncontributory. REVIEW OF SYSTEMS: The patient complains of mild shoulder pain with motion. She complains of the ur ge to urinate. Otherwise, 10 point review of systems is negative. PHYSICAL EXAMINATION: VITAL SIGNS: Temperature is 98.0, pulse is 81, respiratory rate 19, oxygen saturation 94% on oxygen, blood pressure is 122/61. GENERAL: The patient is lying supine. She is somewhat confused, but will answer questions. HEENT: Normocephalic, atraumatic. RESPIRATORY: Breathing comfortably. ABDOMEN: Soft, nontender, nondistended. MUSCULOSKELETAL: Left arm is resting in a sling. She has swelling about her shoulder. She has pain with shoulder motion. She is neurovascularly intact in the hand and has a palpable radial pulse. IMAGING DATA: X-rays of the left shoulder demonstrate a two-part proximal humerus fracture with mild angulation. IMPRESSION: Elderly female with dementia with a proximal humerus fracture and underlying pneumonia. PLAN: At this point, the patient will have her ongoing treatment for her COPD and pulmonary infectio n. She can be treated in a sling regarding her shoulder without any plans for operative intervention . She can remove the sling for hygiene and for range of motion of the elbow and wrist. She should f ollow up in the Orthopedic Clinic in 3-4 weeks for reevaluation with x-ray. Orthopedics will sign of f for now.
[2017-11-10] MEDS: Dronedarone HCl 400 MG TAB PO SCH ×2 (08:54→17:35)
[2017-11-10] MEDS: busPIRone HCl 10 MG TAB PO SCH ×3 (08:54→20:32)
[2017-11-10] MEDS: Docusate 100 MG CAP PO SCH (08:56)
[2017-11-10] MEDS: Famotidine 20 MG TAB PO SCH ×2 (08:57→20:31)
[2017-11-10] MEDS: Apixaban 5 MG TAB PO SCH ×2 (08:58→19:53)
[2017-11-10] MEDS: Cefepime 1 GM, Admixture Fee 1 EACH in Sterile Water 10 ML SLOW IVP SCH ×2 (10:44→20:31)
--- NOTE | 2017-11-10 12:20 | PDOC.PN ---
- Subjective Encounter Start Date: 11/10/17 Encounter Start Time: 11:25 Subjective: awake, responds to verbal questions -: not in distress, not fully oriented - Objective Resuscitation Status: Resuscitation Status FULL:Full Resuscitation MAR Reviewed: Yes Vital Signs & Weight: Vital Signs (12 hours) Temp Pulse Resp BP Pulse Ox 11/10/17 08:00 98.0 F 80 15 115/62 98 11/10/17 04:00 98.0 F 81 19 122/61 94 L 11/10/17 02:04 94 L 11/10/17 02:02 94 L Weight Weight 132 lb 2 oz I&O: 11/09/17 11/10/17 11/11/17 06:59 06:59 06:59 Intake Total 1160 Balance 1160 Result Diagrams: 11/10/17 06:15 11/10/17 06:16 Phys Exam - Physical Examination HEENT: PERRLA, moist MMs Neck: no nodes, no JVD Respiratory: no wheezing, no rales Cardiovascular: RRR, no significant murmur Gastrointestinal: soft, non-tender, positive bowel sounds Musculoskeletal: no edema, pulses present Neurological: moves all 4 limbs left shoulder in sling Dx/Plan (1) PNA (pneumonia) Code(s): J18.9 - PNEUMONIA, UNSPECIFIED ORGANISM Status: Acute Qualifiers: Pneumonia type: aspiration pneumonia Aspiration pneumonia type: due to regurgitated food Laterality: right (2) left humerus fracture Status: Acute Comment: prox, per (3) Dementia Code(s): F03.90 - UNSPECIFIED DEMENTIA WITHOUT BEHAVIORAL DISTURBANCE Status: Chronic Qualifiers: Dementia type: Alzheimer's disease Dementia behavioral disturbance: without behavioral disturbance (4) Chronic a-fib Code(s): I48.2 - CHRONIC ATRIAL FIBRILLATION Status: Chronic (5) CAD (coronary artery disease) Code(s): I25.10 - ATHSCL HEART DISEASE OF [place] CORONARY ARTERY W/O ANG PCTRS Status: Chronic Qualifiers: Associated angina: without angina (6) Dyslipidemia Code(s): E78.5 - HYPERLIPIDEMIA, UNSPECIFIED Status: Chronic (7) HTN (hypertension) Code(s): I10 - ESSENTIAL (PRIMARY) HYPERTENSION Status: Chronic Qualifiers: Hypertension type: essential hypertension Qualified Code(s): I10 - Essential (primary) hypertension - Plan is on cefepime and levaquin -: nebs, may dc prednisone in am -: multaq and eliquis for afib, rate controlled -: dc plan in am to snf if stable -: on [facility] soft diet * . Review of Systems - Medications/Allergies Allergies/Adverse Reactions: Allergies Allergy/AdvReac Type Severity Reaction Status Date / Time codeine Allergy Verified 10/05/13 15:52 Penicillins Allergy Verified 10/05/13 15:52 Sulfa (Sulfonamide Allergy Verified 10/05/13 15:52 Antibiotics) Medications: Current Medications Acetaminophen (Tylenol) 650 mg PO Q4H PRN PRN Reason: Headache/Fever or Pain Last Admin: 11/09/17 23:07 Dose: 650 mg Acidophilus (Floranex) 1 tab PO HS [facility] Last Admin: 11/09/17 23:07 Dose: 1 tab Albuterol/Ipratropium (Duoneb) 3 ml NEB [id number] [facility] Last Admin: 11/10/17 02:02 Dose: 3 ml Apixaban (Eliquis) 2.5 mg PO BID [facility] Last Admin: 11/10/17 08:58 Dose: 2.5 mg Buspirone HCl (Buspar) 15 mg PO TID [facility] Last Admin: 11/10/17 08:54 Dose: 15 mg Docusate Sodium (Colace) 100 mg PO DAILY [facility] Last Admin: 11/10/17 08:56 Dose: 100 mg Dronedarone (Multaq) 400 mg PO BID-[facility] Last Admin: 11/10/17 08:54 Dose: 400 mg Famotidine (Pepcid) 20 mg PO BID [facility] Last Admin: 11/10/17 08:57 Dose: 20 mg Fluticasone Propionate (Flonase Nasal [place]) 0 gm NASAL HS [facility] Last Admin: 11/09/17 22:18 Dose: Not Given Guaifenesin/Dextromethorphan (Robitussin Dm) 15 ml PO Q4H PRN PRN Reason: Cough Last Admin: 11/10/17 02:13 Dose: 15 ml Levofloxacin 500 mg/ Device 100 mls @ 100 mls/hr IVPB 2000 [facility] Sodium Chloride (Normal Saline 0.9%) 1,000 mls @ 70 mls/hr IV .[id number] [facility] Last Admin: 11/09/17 23:05 Dose: 1,000 mls Cefepime HCl 1 gm/Miscellaneous Medication 1 each/ Sterile Water 10 mls @ 120 mls/hr SLOW IVP Q12HR [facility] Last Admin: 11/10/17 10:44 Dose: 10 mls Memantine (Namenda) 10 mg PO BID [facility] Last Admin: 11/10/17 08:56 Dose: 10 mg Prednisone (Prednisone) 10 mg PO QAM-WM [facility] Last Admin: 11/10/17 08:55 Dose: 10 mg Senna (Senokot) 2 tab PO HSPRN PRN PRN Reason: Constipation Sodium Chloride (Flush - Normal Saline) 10 ml IVF Q12HR [facility] Last Admin: 11/10/17 10:47 Dose: Not Given Sodium Chloride (Flush - Normal Saline) 10 ml IVF PRN PRN PRN Reason: Saline Flush Thyroid ([place] Thyroid) 15 mg PO DAILY [facility] Last Admin: 11/10/17 10:45 Dose: 15 mg Trazodone HCl (Desyrel) 50 mg PO HS [facility] Last Admin: 11/09/17 23:07 Dose: 50 mg
[2017-11-10] MEDS: Sodium Chloride 0.9% 1,000 ML IV SCH (13:45)
[2017-11-10] MEDS: Acetaminophen 325 MG TAB PO PRN (20:31)
[2017-11-10] MEDS: traZODone HCl 50 MG TAB PO SCH (20:32)
[2017-11-10] MEDS: Lactinex Tablet PO SCH (20:32)
[2017-11-10] MEDS: Fluticasone Propionate Nasal Spray 16 gm Bottle NASAL SCH (20:33)
--- NOTE | 2017-11-11 00:22 | CON ---
DATE OF CONSULTATION: 11/10/2017 SERVICE: Pulmonary Medicine. HISTORY OF PRESENT ILLNESS: Patient is an 81-year-old white female with past medical history signifi cant for advancing cognitive impairment. She was in her usual state of health at [facility]. She fell around 3:40 p.m. After multiple imaging studies were performed, a proximal left hu merus fracture was identified. The left upper extremity was placed in a sling. Two weeks ago, she w as admitted for pneumonia. She has a history of COPD. She underwent full course of therapy for the pneumonia. It is my understanding that this fall was not associated with illness. PAST MEDICAL HISTORY: 1. Dementia, advanced. 2. Atrial fibrillation, paroxysmal. 3. Hypertension. 4. Dyslipidemia. 5. Essential sleep apnea. 6. Chronic obstructive pulmonary disease, possible. 7. Osteoarthritis. 8. Hypothyroidism. PAST SURGICAL HISTORY: 1. Tonsillectomy. 2. Hysterectomy. 3. Appendectomy. 4. Cataract surgery. ALLERGIES: PENICILLIN, SULFA, CODEINE. MEDICATIONS LIST FOR INPATIENT MEDICATIONS: Reviewed. No specific updates were made at this time. SOCIAL HISTORY: She had a 30-40 pack year history of smoking, but quit over 20 years ago. She does not use any alcohol or illicit drugs. She is currently in the [facility]. FAMILY HISTORY: Noncontributory. REVIEW OF SYSTEMS: The patient is completely unaware of why she is here. She tells me that she has no pain or difficulty breathing. Entire review of systems including general, head, eyes, nose, throa t, cardiovascular, respiratory, GI, , musculoskeletal, neurologic and skin is negative except as me ntioned in the HPI though. Her cognitive impairment precludes accurate recent evaluation of these th ings. PHYSICAL EXAMINATION: VITAL SIGNS: Afebrile, pulse 82, blood pressure 98/59, respiration 16, saturation 93% on 2 liters na davonte cannula. GENERAL: The patient is awake and alert. She is in absolutely no distress. LUNGS: There is very excellent air entry with no prolonged expiratory phase or wheezing present. HEART: Normal rate, regular. ABDOMEN: Soft, nontender, nondistended. Bowel sounds are positive. MUSCULOSKELETAL: No cyanosis or clubbing. No pitting in the bilateral lower extremities. NEUROLOGIC: Grossly nonfocal. LABORATORY DATA: WBC 6.5, hemoglobin 9.5, platelets 193,000. Basic metabolic profile is otherwise u nremarkable. Potassium is 3.5. IMAGIN. CT of the C-spine demonstrates no acute osseous abnormality or subluxation. There is straighteni ng of the normal cervical lordosis: 2. CT of the brain demonstrates no acute intracranial abnormality. 3. Chest x-ray demonstrates cardiomegaly, atherosclerosis, interstitial changes, and focal opacity i n the right upper lobe, and right lower lobe. 4. Pelvis x-ray, forearm x-ray, hand x-ray, femur x-ray were unremarkable. 5. Shoulder x-ray demonstrates proximal humerus fracture with deformity. 6. Humerus x-ray demonstrates a fracture of the proximal humerus. ASSESSMENT: 1. Chronic hypoxic respiratory failure. 2. Chronic obstructive pulmonary disease without current exacerbation. 3. Oropharyngeal dysphagia. 4. Dementia, advanced. 5. Chronic aspiration related changes to the lung. DISCUSSION AND PLAN: At this point, the patient is not tachycardic. She is euthymic and has a [place] l white blood cell count. She is certainly not tachypneic and is breathing very comfortably. I have very little suspicion of a true new acute infectious process. Typically, pneumonia can take 6-8 wee ks to resolve. That being said, she has ongoing oropharyngeal dysphagia and almost certainly has asp irated on a day by day basis. These infiltrates do not need to be treated currently. Palliative Car e consult should be considered. There is no further requirements for antibiotics directed at lung pa thology. As such, these things will be discontinued. Nebulized medications will be continued for th e time being. If at any point, she spikes a fever or has a significant shift in her white blood cell count, I think it would be reasonable for us to treat her for healthcare associated pneumonia. Repe at chest x-ray should be considered in 1 month. That being said, the infiltrate persists once again with negative evidence for any inflammatory profile, I probably would not treat it at that point eith er. She will receive a dose of potassium. Currently, the patient has no further requirements for in patient Pulmonary Critical Care opinion. I will sign off. Please call with additional questions or concerns.
[2017-11-11] MEDS: Sodium Chloride 0.9% 1,000 ML IV SCH (03:06)
[2017-11-11] MEDS ORDERED: busPIRone HCl 5 MG TAB PO SCH (09:00)
[2017-11-11] MEDS: Apixaban 5 MG TAB PO SCH (09:31)
[2017-11-11] MEDS: Dronedarone HCl 400 MG TAB PO SCH (09:31)
[2017-11-11] MEDS: Famotidine 20 MG TAB PO SCH (09:32)
[2017-11-11] MEDS: Docusate 100 MG CAP PO SCH (09:32)
[2017-11-11 10:50] VITALS: BP 110/67; TEMP 97.7
--- NOTE | 2017-11-11 12:39 | PDOC.PN ---
- Subjective Encounter Start Date: 11/11/17 Encounter Start Time: 10:20 Subjective: awake, sitting on bed, no trouble breathing - Objective Resuscitation Status: Resuscitation Status FULL:Full Resuscitation MAR Reviewed: Yes Vital Signs & Weight: Vital Signs (12 hours) Temp Pulse Resp BP Pulse Ox 11/11/17 10:49 97.7 F 82 16 110/67 98 11/11/17 08:26 75 99 11/11/17 08:00 97.9 F 61 14 120/76 100 11/11/17 03:49 97.9 F 92 16 114/62 99 11/11/17 02:00 94 L Weight Weight 132 lb 2 oz I&O: 11/10/17 11/11/17 11/12/17 06:59 06:59 06:59 Intake Total 1160 2640 Balance 1160 2640 Result Diagrams: 11/10/17 06:15 11/10/17 06:16 Phys Exam - Physical Examination HEENT: PERRLA, moist MMs Neck: no JVD, supple Respiratory: no wheezing, no rales Cardiovascular: RRR, no significant murmur Gastrointestinal: soft, non-tender, positive bowel sounds Musculoskeletal: no edema, pulses present Neurological: non-focal, moves all 4 limbs Dx/Plan (1) PNA (pneumonia) Code(s): J18.9 - PNEUMONIA, UNSPECIFIED ORGANISM Status: Acute Qualifiers: Pneumonia type: aspiration pneumonia Aspiration pneumonia type: due to regurgitated food Laterality: right (2) left humerus fracture Status: Acute Comment: prox, per (3) Dementia Code(s): F03.90 - UNSPECIFIED DEMENTIA WITHOUT BEHAVIORAL DISTURBANCE Status: Chronic Qualifiers: Dementia type: Alzheimer's disease Dementia behavioral disturbance: without behavioral disturbance (4) Chronic a-fib Code(s): I48.2 - CHRONIC ATRIAL FIBRILLATION Status: Chronic (5) CAD (coronary artery disease) Code(s): I25.10 - ATHSCL HEART DISEASE OF [place] CORONARY ARTERY W/O ANG PCTRS Status: Chronic Qualifiers: Associated angina: without angina (6) Dyslipidemia Code(s): E78.5 - HYPERLIPIDEMIA, UNSPECIFIED Status: Chronic (7) HTN (hypertension) Code(s): I10 - ESSENTIAL (PRIMARY) HYPERTENSION Status: Chronic Qualifiers: Hypertension type: essential hypertension Qualified Code(s): I10 - Essential (primary) hypertension - Plan hemostable -: dc pt to snf -: cleared by -: has chronic aspiration * .
--- NOTE | 2017-11-12 14:38 | DIS ---
DATE OF ADMISSION: 11/09/2017 DATE OF DISCHARGE: 11/11/2017 DISCHARGE DISPOSITION: To [facility]. PRIMARY DISCHARGE DIAGNOSES: Aspiration pneumonia and left proximal humerus fracture. SECONDARY DISCHARGE DIAGNOSES: Chronic atrial fibrillation, which is rate controlled; dementia, like ly advanced; coronary artery disease; dyslipidemia; and hypertension. PROCEDURES DONE DURING HOSPITALIZATION: Please note patient has had multiple imaging studies done, a ll of which revealed proximal humerus fracture on the left. There were no other acute abnormalities. Blood cultures x2 no growth. Hemoglobin and hematocrit 9 and 31, platelet count 193. MCV was 97, BUN 7, creatinine 0.6. One set of cardiac enzymes were negative. Albumin is 2.8. INPATIENT CONSULTS: Dr. Samson for Orthopedics and Dr. Rubin for Pulmonology. DISCHARGE PLAN: Patient to follow up with her primary care physician in 1 week. BRIEF COURSE DURING HOSPITALIZATION: Patient initially was sent from [facility] after she had a fall around 3:40 p.m. She has had multiple imaging studies done. She was also found to h ave had right lung pneumonia which likely is due to aspiration with her advanced dementia. She is no rmally on mechanical soft diet and has had prior episodes of aspirations. Her left shoulder x-ray sh owed proximal humerus fracture with deformity and has had consultation with Dr. Samson for the jose e. She is in a splint with sling for nonoperative management at present. Dr. Rubin evaluated the patient here. The patient has chronic aspiration and she was not septic at present and all her antib iotics were discontinued. She needs to follow aspiration precautions at the [facility]. She is be ing discharged to [facility]. A total of 35 minutes was spent on discharge plan. She needs to follow up with Dr. Samson in 4 we eks to see progress of her fracture healing. Please see a face to face documentation on [facility] for the day of discharge. DISCHARGE MEDICATIONS: Eliquis 2.5 mg twice daily, buspirone 5 mg twice daily, Colace 100 mg daily, Multaq 400 mg twice daily, memantine 10 mg twice daily, thyroid pork 16.25 mg daily, trazodone 50 mg at bedtime and host of over the counter medications. ALLERGIES: CODEINE, PENICILLIN, SULFA, MILK, and ORANGE JUICE.
== END 2017-11-11 11:47 | DRG 178 ==
LOC: ERS 15:56 → SURG A 19:41
PROVIDERS: ADMIT Internal Medicine; ATTEND Internal Medicine
DX: J69.0 Pneumonitis due to inhalation of food and vomit (principal); S42.202A Unspecified fracture of upper end of left humerus, initial encounter for closed fracture; J96.11 Chronic respiratory failure with hypoxia; I48.2 Chronic atrial fibrillation; R13.12 Dysphagia, oropharyngeal phase; Z99.81 Dependence on supplemental oxygen; J44.0 Chronic obstructive pulmonary disease with (acute) lower respiratory infection; G30.9 Alzheimer's disease, unspecified; F02.80 Dementia in other diseases classified elsewhere, unspecified severity, without behavioral disturbance, psychotic disturbance, mood disturbance, and anxiety; E03.9 Hypothyroidism, unspecified; M19.90 Unspecified osteoarthritis, unspecified site; I10 Essential (primary) hypertension; Z87.81 Personal history of (healed) traumatic fracture; Z88.5 Allergy status to narcotic agent; Z88.0 Allergy status to penicillin; Z88.2 Allergy status to sulfonamides; Z91.011 Allergy to milk products; Z91.018 Allergy to other foods; Z81.8 Family history of other mental and behavioral disorders; Z83.1 Family history of other infectious and parasitic diseases; W19.XXXA Unspecified fall, initial encounter
CPT/HCPCS: 36415; 70450; 71045; 72125; 72170; 80048; 80053; 82550; 82553; 83605; 83690; 84484; 85025; 87040; 87070; 87205; 94640; 96374; A4216; G8978-GP-CM; G8979-GP-CK; G8996-GN-CL; G8997-GN-CK; J0692; J1956; J3010; J7506; J7620

== ENCOUNTER 2018-03-16 14:28 | Outpatient (CLI) | payer MEDICARE, OTHER | END 2018-03-16 14:29 | disposition home or self-care (01) | LOC: BICMAMMO 14:28 | PROVIDERS: ATTEND Physician Assistant Surgical | DX: M81.0 Age-related osteoporosis without current pathological fracture (principal); M85.852 Other specified disorders of bone density and structure, left thigh | CPT/HCPCS: 77080 ==

== ENCOUNTER 2018-04-30 18:24 | Inpatient (IN) | payer MEDICARE, OTHER ==
[~2018-04-30 18:24] MED LIST: ISOVUE-370 76%-LOCM 1 ML ONE
[2018-04-30 18:58] LABS: #Lymphocytes 1.6 thou/uL (1.20-3.40); #Neutrophils 11.2 thou/uL (1.40-6.50); %Basophils 0.3 % (0.0-1.0); %Eosinophils 0.1 % (0.0-10.0); %Lymphocytes 11.8 % (21.0-51.0); %Monocytes 7.3 % (0.0-10.0); %Neutrophils 80.6 % (42.0-75.0); Hemoglobin 11.1 g/dL (12.0-16.0); Mean Corpuscular HGB CONC 33.1 g/dL (32.0-36.0); Mean Corpuscular Hemoglobin 27.2 pg (27.0-31.0); Mean Platelet Volume 9.2 fL (7.4-10.4); Platelet Count 166 thou/uL (130-400); RBC Distribution Width 15.9 % (11.5-14.5); White Blood Cell (WBC) Count 13.9 thou/uL (4.8-10.8)
[2018-04-30] MEDS ORDERED: Cefepime 2 GM VIAL ONE (19:08)
[2018-04-30] MEDS ORDERED: Acetaminophen 500 MG TAB ONE (19:13)
--- NOTE | 2018-04-30 19:14 | RAD ---
PORTABLE CHEST ONE VIEW: 04/30/18 at 6:11 p.m. HISTORY: Abdominal pain. FINDINGS: Comparison is made with exam of 10/13/17. The heart size is normal. The aorta is tortuous. The lungs are well expanded without focal areas of c onsolidation, pneumothoraces or pleural effusions. There are changes of vertebroplasty in the spine. IMPRESSION: No radiographic evidence of acute cardiopulmonary process. POS: BILL
[2018-04-30 19:20] LABS: ALT (SGPT) 12 U/L (8-55); AST (SGOT) 24 U/L (5-34); Albumin 3.8 g/dL (3.4-4.8); Alkaline Phosphatase 104 U/L (40-150); Anion Gap 18 mmol/L (10-20); BUN (Urea Nitrogen) 13 mg/dL (9.8-20.1); CK (CPK) 28 U/L (29-168); Calc. Creatinine Clearance 0 mL/min (70-130); Calcium 9.1 mg/dL (7.8-10.44); Carbon Dioxide 23 mmol/L (23-31); Chloride 95 mmol/L (98-107); Estimated GFR-MDRD 65; Globulin 3.4 g/dL (2.4-3.5); Glucose 207 mg/dL (83-110); Lipase 12 U/L (8-78); Protein, Total 7.2 g/dL (6.0-8.3); Sodium 133 mmol/L (136-145)
[2018-04-30 19:23] LABS: CKMB 1.1 ng/mL (0-6.6); Potassium 2.7 mmol/L (3.5-5.1); Troponin I Less than 0.010 ng/mL (< 0.028)
[2018-04-30] MEDS ORDERED: D5 1/2 NS w/40 mEq KCL 1,000 ML IV SCH (20:30)
[2018-04-30 21:28] LABS: Bilirubin Negative (Negative); Blood, Urine Negative (Negative); Clarity CLEAR (Clear); Glucose, Urine (Dipstick) Negative (Negative); Leukocyte Negative (Negative); Nitrite Negative (Negative); Protein, Urine (Dipstick) Negative (Neg-Trace); Specific Gravity, Urine 1.027 (1.002-1.036); Urobilinogen 0.2 mg/dL (0.2-1.0)
[2018-04-30] MEDS ORDERED: Potassium Chloride 20 MEQ TAB ONE (21:31)
--- NOTE | 2018-04-30 21:43 | CT ---
CT BRAIN WITHOUT CONTRAST: 04/30/18 HISTORY: Altered mental status. FINDINGS: Comparison is made with the exam of 11/09/17. Changes of cortical atrophy and chronic small vessel ischemic disease again seen. The ventricular siz e is stable and the basilar cisterns patent. No evidence of acute infarct, hemorrhage, midline shift or abnormal extra-axial fluid collections are seen. The bony calvarium is intact. The visualized para nasal sinuses and mastoid air cells are well aerated. IMPRESSION: No CT evidence of acute intracranial process. POS: [facility]
[2018-04-30] MEDS ORDERED: Norepinephrine 8 MG/0.9% NS 250 ML ONE (21:55)
[2018-04-30] MEDS ORDERED: CCU Electrolyte Replacement 1 EACH FS ONE (22:04)
[2018-04-30] MEDS ORDERED: Ondansetron HCl/PF 4 MG/2 ML Vial IVP PRN (22:04)
[2018-04-30] MEDS ORDERED: Potassium Phosphate 9 MMOL in Sodium Chloride 0.9% 100 ML IVPB PRN (22:10)
[2018-04-30] MEDS ORDERED: Potassium Phosphate 15 MMOL in Sodium Chloride 0.9% 250 ML 250 ML IV PRN (22:10)
[2018-04-30] MEDS ORDERED: Potassium Chloride 20 MEQ TAB PO PRN (22:10)
[2018-04-30] MEDS ORDERED: CCU ELECTROLYTE REPLACEMENT PROTOCOL FS PRN (22:10)
[2018-04-30] MEDS ORDERED: Magnesium Oxide 400 MG TAB PO PRN ×2 (22:10)
[2018-04-30] MEDS ORDERED: Potassium Chloride 40 MEQ in Sodium Chloride 0.9% 250 ML 250 ML IVPB PRN (22:10)
[2018-04-30] MEDS ORDERED: Magnesium 2 GM/NS 0.9% 100 ML 2 GM in Premix Bag 1 BAG IVPB PRN (22:10)
[2018-04-30] MEDS ORDERED: Potassium Phosphate 12 MMOL in Sodium Chloride 0.9% 250 ML 250 ML IV PRN (22:10)
[2018-04-30] MEDS ORDERED: Norepinephrine 8 MG/0.9% NS 250 ML IVPB PRN (22:14)
[2018-04-30] MEDS ORDERED: Lorazepam 2 MG/ML VIAL ONE ×2 (22:17→22:30)
--- NOTE | 2018-04-30 22:24 | CT ---
CTA ABDOMEN WITH IV CONTRAST AND 3D POSTPROCESSING CTA PELVIS WITH IV CONTRAST AND 3D POSTPROCESSING 04/30/18 HISTORY: Concern for mesenteric ischemia. Patient complains of abdominal pain, fever, tachycardia, hypertensio n. No nausea, vomiting or diarrhea. FINDINGS: A small right basilar infiltrate is present. Vascular calcifications are present without evidence of aneurysmal dilation of the thoracic aorta. No intraluminal intimal flap is seen to suggest dissection . There is mild stenosis at the origins of the celiac axis and SMA. There is good flow in the celiac axis, SMA and ARABELLA. There is moderate stenosis at the origin of the right renal artery and mild stenos is at the origin of the left renal artery. No free air is seen. There is a tiny amount of free fluid noted in the pelvis. The small bowel loops are not abnormally dilated. There is sigmoid diverticulosis with thickening of the all of the sigmoid and descending colon with mild pericolonic inflammatory changes in the left lower quadrant. No calcified gallstones are noted. An indeterminate 1 cm cortical lesion is seen in the left mid kidn ey. There are postop changes of vertebroplasty in the lumbar spine at multiple levels. IMPRESSION: 1. Colonic diverticulosis with diverticulitis in the left lower quadrant. 2. Probable right basilar pneumonia. 3. Indeterminate 1 cm left renal lesion. POS: [facility]
[2018-04-30] MEDS ORDERED: VANCOMYCIN IVPB PRN (22:46)
--- NOTE | 2018-04-30 23:24 | RAD ---
PORTABLE CHEST ONE VIEW: 04/30/18 at 10:22 p.m. HISTORY: Central line placement. FINDINGS/IMPRESSION: Comparison is made to earlier exam from the same date. There has been interval placement of a right subclavian central line with tip in the projection of th e SVC. No pneumothorax is seen. The remainder of the exam is otherwise stable. POS: BILL
[2018-04-30 23:33] LABS: Lactic Acid 0.8 mmol/L (0.5-2.2)
[2018-05-01 00:55] VITALS: BMI 21.4
[2018-05-01] MEDS: Sodium Chloride 0.9% 1,000 ML IV SCH ×3 (02:33→17:02)
[2018-05-01] MEDS: Potassium Chloride 40 MEQ in Premix Bag 1 BAG IVPB PRN (02:33)
--- NOTE | 2018-05-01 02:59 | HP ---
PRIMARY CARE PHYSICIAN: Dr. Luciano Pope. CODE STATUS: FULL CODE. TIME OF EVALUATION: 2145 hours. CHIEF COMPLAINT: Change in mental status, difficulty breathing. HISTORY OF PRESENT ILLNESS: This is an 82-year-old female patient with past medical history of COPD, skilled nursing resident, history of Alzheimer dementia, came to the hospital after having change in mental status, difficulty breathing , needing higher oxygen that which she wears in the skilled nursing. The symptoms have been present for the past few days, also associated with failure to thrive. Symptoms are severe. No paresthesias, no alleviating factors. In the ER, she was found to have multilobar pneumonia. She has been admitted for that reason. Initially, blood pressure was in the 70s and 60s and after hydration, the blood pressure was recorded to 100 and has returned back down to the 80s. We have placed a central line, placed the patient on vasopressors. We will place the patient in ICU. We consult the ICU for assisting with this case. I have discussed details with the family member, as of now decisions are to do all the medical treatment needed, including life-sustaining measures. REVIEW OF SYSTEMS: Unable to obtain since patient has dementia, and also who is confused. PAST MEDICAL HISTORY: COPD, Alzheimer's, atrial fibrillation, TIA. FAMILY HISTORY: Reviewed and noncontributory for current presentation. PAST SURGICAL HISTORY: Back surgery x6, hysterectomy, appendectomy, cholecystectomy. PSYCHIATRIC HISTORY: Anxiety and depression. SOCIAL HISTORY: No alcohol, no smoking. The patient quit smoking more than 10 years ago. ALLERGIES: CODEINE SULFATE, MILK CONTAINING PRODUCTS, PENICILLIN, SULFA. REPORTED MEDICATIONS: Buspirone 15 mg 3 times a day, Breo Ellipta inhalation 1 puff inhaled once a day, Docusate 100 mg orally once a day, Eliquis 2.5 mg orally 2 times a day, fluticasone 50 mcg intranasal once a day, furosemide 20 mg once a day, lithium carbonate 150 mg orally b.i.d. with meals, magnesium 100 mg a day, Namenda 10 mg 2 times a day, montelukast 10 mg orally 2 times a day, Multaq 400 mg orally 2 times a day, and acetylcysteine 600 mg orally once a day , hyoscyamine orally 4 times a day, phosphatidylserine patient has 150 mg orally 2 times a day, Refresh Optive 0.5-0.9 ophthalmic 2 drops both eyes 4 times a day. Thyroid 16.25 mg orally once a day, trazodone 50 mg orally once a day. PHYSICAL EXAMINATION: VITAL SIGNS: Blood pressure on presentation with a systolic blood pressure 75/ 59 with heart rate 124, respiratory rate was 22, oxygen saturation 96 on 2 liters oxygen after initial bolus x2 liters. Her blood pressure improved to 100 after a few minutes, it dropped into the 80s. GENERAL: The patient is alert, disoriented, not in acute distress. HEENT: Eyes, normocephalic, conjunctivae. Dry oral mucosa. Anicteric. NECK: No JVD. RESPIRATORY: Bilateral air entry. No rales, no wheezing. Symmetric expansion. CARDIOVASCULAR: Tachycardia, hypertension. No murmurs, no gallop. No edema. ABDOMEN: Soft, normal bowel sounds. MUSCULOSKELETAL: Baseline range of motion and strength. No tenderness. SKIN: Warm and intact. No pallor, no rash, no redness. NEUROLOGIC: Baseline sensory. No evidence of any new focal weakness. Baseline speech. Cranial nerves. SENSORY: Intact. PSYCHIATRIC: The patient is in a good mood. The patient reacts due to acute process. LABORATORY DATA: Reviewed. The patient has white count 13.9, hemoglobin 11.1, MCV 82, platelet count 166. Sodium 133, potassium 2.7, chloride 95, carbon dioxide 23, anion gap 18, BUN 13, creatinine 0.8, GFR 65, glucose 207. Lactic acid 3.1, repeat lactic acid 0.8. Beta natriuretic peptide 334. Urine was negative. IMAGING: A chest x-ray was reviewed. The patient had right subclavian central line with tip in the projection of the SVC. No pneumothorax. Abdomen and pelvis CTA was done. The patient had colonic diverticulosis with diverticulitis in the left lower quadrant, probably right basilar pneumonia, indeterminate 1 cm left renal lesion. Brain CT was negative and this chest x- ray that was done showed no radiographic evidence of acute pulmonary process. EKG as discussed with performing physician from ER showed atrial fibrillation with RVR at the rate of 134 with wide complex tachycardia . ASSESSMENT AND PLAN: 1. Septic shock, patient presented with a systolic in the 70s, initially responding to fluids, after 2 L plus of fluids. The blood pressure dropped again to 80s. We have placed the patient on Levophed, central lines have been placed by ER. The patient has been started on broad-spectrum antibiotics, monitor cultures. 1. Possible right lower lobe pneumonia as seen on the CAT scan of the abdomen, treatment as above. 2. Acute diverticulitis, the patient is already on broad-spectrum antibiotics. We will monitor. We will adjust treatment as needed. 3. Acute encephalopathy, on top of underlying dementia, this is likely secondary to sepsis. We will monitor. We will treat the underlying condition. 4. Normocytic anemia, this may be a chronic finding. We will monitor, no need for any acute intervention. 5. Hyponatremia, replace electrolytes as needed. 6. Hypokalemia. Potassium 2.7, this is moderate. Replace electrolytes as needed as per protocol. 7. Hyperglycemia. No reported diabetes, likely due to underlying physical distress and sepsis. We will monitor. We will treat accordingly. 8. Lactic acidosis on presentation secondary to sepsis. It was 3.1, came down to 0.8 after hydration. - resolved. 9. Deep venous thrombosis prophylaxis. 10. Acute on chronic respiratory failure- likely secondary to pna, pt needing higher level of oxygen, continue respiratory support. MTDD
[2018-05-01] MEDS ORDERED: Sodium Chloride 0.9% 1,000 ML IV SCH (05:30)
[2018-05-01] MEDS ORDERED: Potassium Chloride 40 MEQ in Premix Bag 1 BAG IVPB SCH (06:00)
[2018-05-01 06:01] LABS: #Lymphocytes 1.8 thou/uL (1.20-3.40); #Monocytes 1.3 thou/uL (0.11-0.59); %Basophils 0.1 % (0.0-1.0); %Eosinophils 0.4 % (0.0-10.0); %Lymphocytes 16.4 % (21.0-51.0); %Monocytes 11.7 % (0.0-10.0); %Neutrophils 71.4 % (42.0-75.0); Hemoglobin 8.9 g/dL (12.0-16.0); Mean Corpuscular HGB CONC 31.8 g/dL (32.0-36.0); Mean Corpuscular Hemoglobin 26.4 pg (27.0-31.0); Mean Corpuscular Volume 83.2 fL (78.0-98.0); Mean Platelet Volume 8.8 fL (7.4-10.4); Platelet Count 135 thou/uL (130-400); RBC Distribution Width 16.2 % (11.5-14.5); Red Blood Cell (RBC) Count 3.37 mill/uL (4.20-5.40); White Blood Cell (WBC) Count 11.2 thou/uL (4.8-10.8)
[2018-05-01 06:29] LABS: Anion Gap 8 mmol/L (10-20); BUN (Urea Nitrogen) 10 mg/dL (9.8-20.1); Calc. Creatinine Clearance 69 mL/min (70-130); Calcium 7.9 mg/dL (7.8-10.44); Carbon Dioxide 25 mmol/L (23-31); Chloride 107 mmol/L (98-107); Estimated GFR-MDRD Greater than 90; Glucose 94 mg/dL (83-110); Potassium 4.3 mmol/L (3.5-5.1); Sodium 136 mmol/L (136-145)
[2018-05-01] MEDS ORDERED: Cefepime 2 GM in Sodium Chloride 0.9% 100 ML IVPB SCH (07:00)
[2018-05-01 07:14] LABS: Magnesium 2.1 mg/dL (1.6-2.6); Phosphorus 2.7 mg/dL (2.3-4.7)
[2018-05-01] MEDS: metroNIDAZOLE 500 MG in Premix Bag 1 BAG IVPB SCH ×3 (07:28→23:54)
[2018-05-01] MEDS: Docusate 100 MG CAP PO SCH (09:06)
[2018-05-01] MEDS: Dronedarone HCl 400 MG TAB PO SCH ×2 (09:06→16:52)
[2018-05-01] MEDS: GENTEAL SEVERE 10 GM TUBE EA EYE SCH ×4 (09:06→21:10)
--- NOTE | 2018-05-01 11:00 | CON ---
DATE OF CONSULTATION: 05/01/2018 SERVICE: Pulmonary Medicine. REASON FOR CONSULTATION: ICU patient. HISTORY OF PRESENT ILLNESS: The patient is an 82-year-old white female who is known to me. She has dementia with oropharyngeal dysphagia and is having recurrent aspiration related pneumonias. She presented to the hospital with increasing altered mentation and complains of abdominal discomfort. Ultimately , chest x-ray was abnormal. There was also CT of the abdomen and pelvis that had findings consistent with diverticulitis. She was given 3 liters of fluid, but failed to completely correct period of a central line was placed, and she was initiated on some pressors. She is tucked in the ICU. She came in with an acute kidney injury and was profoundly dehydrated. This is improved ever so slightly and she start to make a little urine output. Otherwise, there were no events overnight. PAST MEDICAL HISTORY: 1. Alzheimer's disease. 2. Oropharyngeal dysphagia. 3. Atrial fibrillation. 4. History of transient ischemic attack. 5. Hypothyroidism. 6. Osteoarthritis with degenerative joint disease. 7. Chronic obstructive pulmonary disease. 8. Obstructive sleep apnea. PAST SURGICAL HISTORY: 1. Tonsillectomy. 2. Hysterectomy. 3. Cataract surgery. 4. Appendectomy. 5. Back surgeries, multiple. SOCIAL HISTORY: Negative for alcohol, tobacco or illicit drug use. She got a greater than [id number] history of smoking, but quit over 10 years ago. FAMILY HISTORY: Noncontributory. ALLERGIES: CODEINE, MILK, PENICILLIN, SULFA. MEDICATIONS: List of her inpatient medications were reviewed. Couple of small updates were made at this time. REVIEW OF SYSTEMS: General, head, ears, eyes, nose, throat, cardiovascular, respiratory, GI, , musculoskeletal, neurologic and skin is negative except as mentioned in the HPI. PHYSICAL EXAMINATION: VITAL SIGNS: Afebrile, pulse 107, blood pressure 108/66, respirations 14, saturation 99% on 2 liters nasal cannula. HEENT: Normocephalic, atraumatic. Sclerae are white, conjunctivae pink. Oral mucosa is moist without lesions. LUNGS: Decent air entry bilaterally. I do not hear any prolonged expiratory phase, wheezing or rhonchi present. HEART: Normal rate, regular. ABDOMEN: Tender and distended. There is minimal rebound. No guarding is present. Bowel sounds are hypoactive. GENITOURINARY: Zamorano catheter in place. NEUROLOGIC: Grossly nonfocal. LABORATORY DATA: WBC 13.9, hemoglobin 11.1, platelets 166,000. INR 1.2. Potassium 2.7. Basic metabolic profile and liver function studies are otherwise unremarkable. Lactate was 3.1, but has subsequently cleared. BNP 334. Urinalysis was unremarkable. IMAGIN. Chest x-ray demonstrates right subclavian central venous catheter is in good position projecting over the cavoatrial junction. No pneumothorax is identified. I do not see acute cardiopulmonary abnormality present. 2. CT of the brain demonstrates no acute intracranial abnormality. 3. CT of the abdomen and pelvis demonstrates diverticulosis without evidence of diverticulitis in the left lower quadrant, possible aspiration of the right lower lobe. There is also evidence of diverticulitis in the left lower quadrant. ASSESSMENT: 1. Septic shock. 2. Diverticulitis. 3. Oropharyngeal dysphagia with chronic aspiration related changes of the lung without acute process. 4. Dehydration, severe. 5. Hypokalemia. 6. Dementia, advanced. DISCUSSION AND PLAN: We are going to mobilize the patient to the best of our ability while she is here. I will give her another liter of fluid because clinically she is still dry. We will wean Levophed away. When she is off of this drip, she can be considered for transition to the floor. Potassium will be replaced aggressively. We will also check magnesium and phosphorus with the morning laboratories. Pulmonary Critical Care will continue to follow along. 70 minutes have been devoted to this patient in various activities. I personally reviewed all imaging studies and laboratory data noted within this document. For fifty percent of this time, I was interacting with the patient at the bedside or coordinating care with the care team. For the remainder of the time I was immediately available to the patient in the hospital unit. [facility]
[2018-05-01] MEDS: busPIRone HCl 5 MG TAB PO SCH ×2 (12:36→21:09)
[2018-05-01] MEDS: Apixaban 2.5 MG TAB PO SCH ×2 (12:36→21:09)
--- NOTE | 2018-05-01 13:48 | PDOC.PN ---
- Subjective Encounter Start Date: 05/01/18 Encounter Start Time: 13:47 (seen and examined ) Subjective: remains forgetful and confused but awake and alert. -: re orineted multiple times .no acute events overnight - Objective Resuscitation Status: Resuscitation Status FULL:Full Resuscitation MAR Reviewed: Yes Vital Signs & Weight: Vital Signs (12 hours) Temp Pulse Ox 05/01/18 11:00 98.3 F 05/01/18 07:00 98.1 F 05/01/18 06:47 100 05/01/18 04:00 98.8 F 05/01/18 02:04 96 Weight Weight 136 lb 7.458 oz Most Recent Monitor Data Heart Rate from ECG 101 NIBP 93/55 NIBP BP-Mean 63 Respiration from ECG 15 SpO2 100 I&O: 04/30/18 05/01/18 05/02/18 06:59 06:59 06:59 Intake Total 700 500 Output Total 675 375 Balance 25 125 Result Diagrams: 05/01/18 05:40 05/01/18 05:40 Additional Labs: Microbiology 10/15/17 23:40 Urine clean catch Urine Culture - Final NO GROWTH AT 36 HOURS 10/13/17 20:36 Venous blood - Right Arm Blood Culture - Final NO GROWTH IN 5 DAYS 10/13/17 20:33 Venous blood - Left Arm Blood Culture - Final NO GROWTH IN 5 DAYS 04/30/18 21:13 Urine Straight Catheter Urine Culture - Preliminary NO GROWTH AT 12 HOURS 04/30/18 18:49 Venous blood - Left Hand Blood Culture - Preliminary Specimen has been received and culture in progress. No Growth to date. 04/30/18 18:33 Venous blood - Right Arm Blood Culture - Preliminary Specimen has been received and culture in progress. No Growth to date. Laboratory Tests 05/01/18 05:40 Phosphorus 2.7 Magnesium 2.1 labs reviewed Radiology Reviewed by me: Yes Phys Exam - Physical Examination Constitutional: NAD HEENT: PERRLA, moist MMs, sclera anicteric, oral pharynx no lesions Neck: no nodes, no JVD, supple, full ROM Respiratory: no wheezing, no rales, no rhonchi, clear to auscultation bilateral Cardiovascular: RRR, no significant murmur, no rub Gastrointestinal: soft, non-tender, no distention, positive bowel sounds Musculoskeletal: no edema, pulses present Neurological: non-focal, normal sensation, moves all 4 limbs Deviation from normal: oriented to self only,awake and alert Dx/Plan (1) Septic shock Code(s): A41.9 - SEPSIS, UNSPECIFIED ORGANISM; R65.21 - SEVERE SEPSIS WITH SEPTIC SHOCK Status: Acute (2) Sepsis Code(s): A41.9 - SEPSIS, UNSPECIFIED ORGANISM Status: Acute (3) Acute diverticulitis Code(s): K57.92 - DVTRCLI OF INTEST, PART UNSP, W/O PERF OR ABSCESS W/O BLEED Status: Acute (4) Aspiration pneumonia Code(s): J69.0 - PNEUMONITIS DUE TO INHALATION OF FOOD AND VOMIT Status: Acute (5) CAD (coronary artery disease) Code(s): I25.10 - ATHSCL HEART DISEASE OF [place] CORONARY ARTERY W/O ANG PCTRS Status: Chronic Qualifiers: Associated angina: without angina (6) Chronic a-fib Code(s): I48.2 - CHRONIC ATRIAL FIBRILLATION Status: Chronic Comment: rate controlled . cont multaq and eliquis.Monitor H/H in setting of anticoagulation with Acute diverticultis (7) Dementia Code(s): F03.90 - UNSPECIFIED DEMENTIA WITHOUT BEHAVIORAL DISTURBANCE Status: Chronic Qualifiers: Dementia type: Alzheimer's disease Dementia behavioral disturbance: without behavioral disturbance (8) Dyslipidemia Code(s): E78.5 - HYPERLIPIDEMIA, UNSPECIFIED Status: Chronic (9) HTN (hypertension) Code(s): I10 - ESSENTIAL (PRIMARY) HYPERTENSION Status: Chronic Qualifiers: Hypertension type: essential hypertension Qualified Code(s): I10 - Essential (primary) hypertension (10) Hypothyroid Code(s): E03.9 - HYPOTHYROIDISM, UNSPECIFIED Status: Chronic Qualifiers: Hypothyroidism type: unspecified Qualified Code(s): E03.9 - Hypothyroidism , unspecified - Plan krause catheter, continue antibiotics, PT/OT, respiratory therapy, incentive spirometry, DVT proph w/SCDs cont broad spectrum IV ABx, IV fluids,supportive care. -: wean off levophed.advance diet as tolerated -: home meds as below. -: clinically stable now.appreciate PCCM input. -: replace & recheck lytes prn.am labs. * . Review of Systems - Review of Systems Other: can not be obtained due confusion and dementia.does not follow commands - Medications/Allergies Allergies/Adverse Reactions: Allergies Allergy/AdvReac Type Severity Reaction Status Date / Time codeine Allergy Verified 10/05/13 15:52 Penicillins Allergy Verified 10/05/13 15:52 Sulfa (Sulfonamide Allergy Verified 10/05/13 15:52 Antibiotics) milk AdvReac Verified 11/11/17 11:02 orange juice AdvReac Verified 11/11/17 11:02 Medications: Current Medications Acidophilus (Floranex) 1 tab PO HS [facility] Apixaban (Eliquis) 2.5 mg PO BID [facility] Last Admin: 05/01/18 12:36 Dose: 2.5 mg Buspirone HCl (Buspar) 5 mg PO BID [facility] Last Admin: 05/01/18 12:36 Dose: 5 mg Docusate Sodium (Colace) 100 mg PO DAILY [facility] Last Admin: 05/01/18 09:06 Dose: 100 mg Dronedarone (Multaq) 400 mg PO BID[facility] Last Admin: 05/01/18 09:06 Dose: 400 mg Fluticasone Propionate (Flonase Nasal [place]) 0 gm NASAL HS [facility] Hypromellose (Genteal Severe) 0 gm EA EYE QID [facility] Last Admin: 05/01/18 12:38 Dose: 2 drop Sodium Chloride (Normal Saline 0.9%) 1,000 mls @ 100 mls/hr IV .Q10H [facility] Last Admin: 05/01/18 09:07 Dose: 1,000 mls Potassium Chloride 40 meq/ (Sodium Chloride) 270 mls @ 135 mls/hr IVPB ASDIR PRN PRN Reason: FOR SERUM K+ 2.5 - 3.5 Potassium Chloride 40 meq/ (Device) 100 mls @ 50 mls/hr IVPB ASDIR PRN PRN Reason: FOR SERUM K+ 2.5 - 3.5 Last Admin: 05/01/18 02:33 Dose: 100 mls Magnesium Sulfate 1 gm/ Sodium (Chloride) 102 mls @ 102 mls/hr IV PRN PRN PRN Reason: MAG LEVEL 1.4 - 2.0 Magnesium Sulfate 2 gm/ Device 100 mls @ 100 mls/hr IVPB ASDIR PRN PRN Reason: MAGNESIUM < 1.4 Potassium Phosphate 9 mmol/ (Sodium Chloride) 103 mls @ 25.75 mls/hr IVPB ASDIR PRN PRN Reason: Phosphate 1.0-1.8 Potassium Phosphate 12 mmol/ (Sodium Chloride) 254 mls @ 63.5 mls/hr IV ASDIR PRN PRN Reason: Serum phosphate 0.5-0.9 Potassium Phosphate 15 mmol/ (Sodium Chloride) 255 mls @ 63.75 mls/hr IV ASDIR PRN PRN Reason: Serum Phos < 0.5 Norepinephrine Bitartrate (Levophed) 250 mls @ 0 mls/hr IVPB INF PRN; Protocol ; Titrate PRN Reason: SBP<90,MAP<65 Ciprofloxacin/Dextrose 400 mg/ (Device) 200 mls @ 200 mls/hr IVPB Q12HR [facility] Last Admin: 05/01/18 09:07 Dose: 200 mls Metronidazole 500 mg/ Device 100 mls @ 100 mls/hr IVPB Q8HR [facility] Last Admin: 05/01/18 07:28 Dose: 100 mls Magnesium Oxide (Magnesium Oxide) 400 mg PO BIDPRN PRN PRN Reason: FOR SERUM MAG 1.4 - 2.0 Magnesium Oxide (Magnesium Oxide) 800 mg PO PRN PRN PRN Reason: FOR SERUM MAG < 1.4 Miscellaneous Medication (Phos-Nak) 1 pkt PO TIDPRN PRN PRN Reason: FOR PHOS LEVEL 1.0 - 1.8 Miscellaneous Medication (Phos-Nak) 2 pkt PO TIDPRN PRN PRN Reason: FOR PHOS LEVEL 0.5 - 1.0 Miscellaneous Medication (Pharmacy To Dose) 1 each IVPB PRN PRN PRN Reason: RPH TO DOSE Non-Formulary Medication (Acetylcysteine [Nac]) 600 mg PO QAM [facility]cu Electrolyte (Replacement Protocol) 0 each FS PRN PRN PRN Reason: FOR ELECTROLYTE REPLACEMENT Ondansetron HCl (Zofran) 4 mg IVP Q6H PRN PRN Reason: Nausea/Vomiting ([place] Orotate 10 (Mg)) 1 each PO BID [facility] (Magnesium L (Threonate 144 Mg)) 1 each PO BID [facility] (Thyroid,Pork [ Nature-Throid] 16.25 Mg) 1 each PO QAM [facility] Potassium Chloride (K-Dur) 40 meq PO ASDIR PRN PRN Reason: FOR SERUM K+ 2.5 - 3.5 Potassium Chloride (Klor-Con) 40 meq PER TUBE ASDIR PRN PRN Reason: FOR SERUM K+ 2.5-3.5 Trazodone HCl (Desyrel) 50 mg PO HS [facility]
[2018-05-01] MEDS ORDERED: Vancomycin HCl 1 GM in Premix Bag 1 BAG IVPB SCH (18:00)
[2018-05-01] MEDS: traZODone HCl 50 MG TAB PO SCH (21:09)
[2018-05-01] MEDS: Lactinex Tablet PO SCH (21:09)
[2018-05-01] MEDS: Fluticasone Propionate Nasal Spray 16 gm Bottle NASAL SCH (21:10)
[2018-05-02] MEDS: Sodium Chloride 0.9% 1,000 ML IV SCH ×2 (04:48→08:32)
[2018-05-02 05:07] LABS: #Eosinphils 0.1 thou/uL (0.0-0.7); #Lymphocytes 1.8 thou/uL (1.20-3.40); #Monocytes 0.6 thou/uL (0.11-0.59); #Neutrophils 5.3 thou/uL (1.40-6.50); %Basophils 0.3 % (0.0-1.0); %Lymphocytes 22.8 % (21.0-51.0); %Monocytes 7.9 % (0.0-10.0); Hemoglobin 8.2 g/dL (12.0-16.0); Mean Corpuscular HGB CONC 31.1 g/dL (32.0-36.0); Mean Corpuscular Hemoglobin 26.1 pg (27.0-31.0); Mean Corpuscular Volume 84.1 fL (78.0-98.0); Mean Platelet Volume 8.9 fL (7.4-10.4); Platelet Count 121 thou/uL (130-400); RBC Distribution Width 16.3 % (11.5-14.5); Red Blood Cell (RBC) Count 3.16 mill/uL (4.20-5.40); White Blood Cell (WBC) Count 7.8 thou/uL (4.8-10.8)
[2018-05-02 05:11] LABS: Anion Gap 8 mmol/L (10-20); BUN (Urea Nitrogen) 8 mg/dL (9.8-20.1); Calc. Creatinine Clearance 71 mL/min (70-130); Calcium 7.9 mg/dL (7.8-10.44); Carbon Dioxide 24 mmol/L (23-31); Chloride 107 mmol/L (98-107); Estimated GFR-MDRD Greater than 90; Glucose 83 mg/dL (83-110); Magnesium 1.7 mg/dL (1.6-2.6); Phosphorus 2.6 mg/dL (2.3-4.7); Potassium 3.1 mmol/L (3.5-5.1); Sodium 136 mmol/L (136-145)
[2018-05-02] MEDS: metroNIDAZOLE 500 MG in Premix Bag 1 BAG IVPB SCH ×3 (06:15→21:49)
[2018-05-02] MEDS: Potassium Chloride 40 MEQ in Premix Bag 1 BAG IVPB PRN (06:47)
[2018-05-02] MEDS ORDERED: Potassium Chloride 40 MEQ in Sodium Chloride 0.9% 250 ML 250 ML IVPB SCH (07:00)
[2018-05-02] MEDS ORDERED: Magnesium 2 GM/NS 0.9% 100 ML 2 GM in Premix Bag 1 BAG IVPB SCH (07:00)
--- NOTE | 2018-05-02 07:07 | PRG ---
DATE OF SERVICE: 05/02/2018 SERVICE: Pulmonary Medicine INTERVAL HISTORY: The patient is a little confused this morning. She gave me a third tongue lashing for not knowing where her was at this hour. That being said, she does not have any complain ts of fevers, chills, shortness of breath or chest discomfort. PHYSICAL EXAMINATION: VITAL SIGNS: Afebrile, pulse 105, blood pressure 106/64, respirations 21, saturation 100% on room ai r. GENERAL: The patient is awake and alert, in no apparent distress. LUNGS: Decent air entry. I do not appreciate wheezing, rhonchi or crackles. HEART: Normal rate, regular. ABDOMEN: Soft. Minimal tenderness to palpation in the right upper quadrant. No rebound or guarding is appreciated. Bowel sounds are present. GENITOURINARY: Zamorano catheter in place. NEUROLOGIC: Grossly nonfocal. LABORATORY: WBC 7.8, hemoglobin 8.2, platelets 121,000 and down trending. Her potassium 3.1. Basic metabolic profile, magnesium and phosphorus are otherwise unremarkable. Blood cultures x2 and urine culture unremarkable. ASSESSMENT: 1. Septic shock, resolved. 2. Diverticulitis. 3. Oropharyngeal dysphagia with chronic aspiration related changes of the lung without acute process . 4. Dehydration, severe. 5. Hypokalemia. 6. Dementia, advanced. DISCUSSION AND PLAN: We will replace potassium and magnesium today. At this point, she is stable fo r transition to the medical unit. Pulmonary Critical Care will continue to follow along for the time being, but if she remains stable, she can likely transition home on oral antibiotics within 24-48 ho urs.
[2018-05-02] MEDS: Potassium Chloride 20 MEQ TAB PO SCH ×2 (09:57→14:36)
[2018-05-02] MEDS: Docusate 100 MG CAP PO SCH (09:57)
[2018-05-02] MEDS: busPIRone HCl 5 MG TAB PO SCH ×2 (09:57→21:40)
[2018-05-02] MEDS ORDERED: Magnesium Sulfate 2 GM in Sodium Chloride 0.9% 100 ML IVPB SCH (10:30)
[2018-05-02] MEDS: Dronedarone HCl 400 MG TAB PO SCH ×2 (11:10→17:02)
[2018-05-02] MEDS: Apixaban 2.5 MG TAB PO SCH ×2 (11:10→21:00)
[2018-05-02] MEDS: GENTEAL SEVERE 10 GM TUBE EA EYE SCH ×4 (11:10→21:00)
[2018-05-02] MEDS: Magnesium Sulfate 2 GM in Sodium Chloride 0.9% 100 ML IVPB SCH ×2 (12:25→13:05)
--- NOTE | 2018-05-02 12:32 | PDOC.PN ---
- Subjective Encounter Start Date: 05/02/18 Encounter Start Time: 12:30 Subjective: no overnight events. transferred to medical this morning -: more alert today and keeps asking about her - Objective Resuscitation Status: Resuscitation Status FULL:Full Resuscitation MAR Reviewed: Yes Vital Signs & Weight: Vital Signs (12 hours) Temp Pulse Resp BP Pulse Ox 05/02/18 11:30 97.7 F 106 H 20 98/54 L 93 L 05/02/18 08:30 97.5 F L 107 H 18 98/53 L 90 L 05/02/18 08:00 97.5 F L 107 H 18 90 L 05/02/18 04:00 98.5 F Weight Weight 136 lb 7.458 oz Most Recent Monitor Data Heart Rate from ECG 106 NIBP 98/70 NIBP BP-Mean 79 Respiration from ECG 28 SpO2 100 I&O: 05/01/18 05/02/18 05/03/18 06:59 06:59 06:59 Intake Total 700 4709 Output Total 675 1680 130 Balance 25 3029 -130 Result Diagrams: 05/02/18 04:25 05/02/18 04:25 Additional Labs: Microbiology 04/30/18 21:13 Urine Straight Catheter Urine Culture - Final NO GROWTH AT 36 HOURS 04/30/18 18:49 Venous blood - Left Hand Blood Culture - Preliminary Specimen has been received and culture in progress. No Growth to date. 04/30/18 18:33 Venous blood - Right Arm Blood Culture - Preliminary Specimen has been received and culture in progress. No Growth to date. Labs reviewed Phys Exam - Physical Examination Constitutional: NAD HEENT: PERRLA, moist MMs, sclera anicteric, oral pharynx no lesions Neck: no nodes, no JVD, supple, full ROM Respiratory: no wheezing, no rales, no rhonchi, clear to auscultation bilateral Cardiovascular: RRR, no significant murmur Gastrointestinal: soft, non-tender, no distention, positive bowel sounds Musculoskeletal: no edema, pulses present Neurological: non-focal, normal sensation, moves all 4 limbs Psychiatric: normal affect, A&O x 3 Skin: no rash Dx/Plan (1) Sepsis Code(s): A41.9 - SEPSIS, UNSPECIFIED ORGANISM Status: Acute (2) Acute diverticulitis Code(s): K57.92 - DVTRCLI OF INTEST, PART UNSP, W/O PERF OR ABSCESS W/O BLEED Status: Acute (3) Aspiration pneumonia Code(s): J69.0 - PNEUMONITIS DUE TO INHALATION OF FOOD AND VOMIT Status: Acute (4) Hypokalemia Code(s): E87.6 - HYPOKALEMIA Status: Acute (5) CAD (coronary artery disease) Code(s): I25.10 - ATHSCL HEART DISEASE OF [place] CORONARY ARTERY W/O ANG PCTRS Status: Chronic Qualifiers: Associated angina: without angina (6) Chronic a-fib Code(s): I48.2 - CHRONIC ATRIAL FIBRILLATION Status: Chronic Comment: rate controlled . cont multaq and eliquis.Monitor H/H in setting of anticoagulation with Acute diverticultis (7) Dementia Code(s): F03.90 - UNSPECIFIED DEMENTIA WITHOUT BEHAVIORAL DISTURBANCE Status: Chronic Qualifiers: Dementia type: Alzheimer's disease Dementia behavioral disturbance: without behavioral disturbance (8) Dyslipidemia Code(s): E78.5 - HYPERLIPIDEMIA, UNSPECIFIED Status: Chronic (9) HTN (hypertension) Code(s): I10 - ESSENTIAL (PRIMARY) HYPERTENSION Status: Chronic Qualifiers: Hypertension type: essential hypertension Qualified Code(s): I10 - Essential (primary) hypertension (10) Hypothyroid Code(s): E03.9 - HYPOTHYROIDISM, UNSPECIFIED Status: Chronic Qualifiers: Hypothyroidism type: unspecified Qualified Code(s): E03.9 - Hypothyroidism , unspecified (11) Septic shock Code(s): A41.9 - SEPSIS, UNSPECIFIED ORGANISM; R65.21 - SEVERE SEPSIS WITH SEPTIC SHOCK Status: Resolved - Plan continue antibiotics, PT/OT, respiratory therapy, incentive spirometry, out of bed/ambulate, DVT proph w/SCDs hemodynamically stable. off of pressors & BP stable.cont IVF -: cont empiric IV Abx. follow Cx -: replace & recheeck Potassium. -: encourage ambulation -: am labs * . Review of Systems - Review of Systems Constitutional: negative: fever, chills, sweats, weakness, malaise, other Respiratory: negative: Cough, Dry, Shortness of Breath, Hemoptysis, SOB with Excertion, Pleuritic Pain, Sputum, Wheezing Cardiovascular: negative: chest pain, palpitations, orthopnea, paroxysmal nocturnal dyspnea, edema, light headedness, other Gastrointestinal: negative: Nausea, Vomiting, Abdominal Pain, Diarrhea, Constipation, Melena, Hematochezia, Other Genitourinary: negative: Dysuria, Frequency, Incontinence, Hematuria, Retention , Other Musculoskeletal: negative: Neck Pain, Shoulder Pain, Arm Pain, Back Pain, Hand Pain, Leg Pain, Foot Pain, Other Neurological: negative: Weakness, Numbness, Incoordination, Change in Speech, Confusion, Seizures, Other - Medications/Allergies Allergies/Adverse Reactions: Allergies Allergy/AdvReac Type Severity Reaction Status Date / Time codeine Allergy Verified 10/05/13 15:52 Penicillins Allergy Verified 10/05/13 15:52 Sulfa (Sulfonamide Allergy Verified 10/05/13 15:52 Antibiotics) milk AdvReac Verified 11/11/17 11:02 orange juice AdvReac Verified 11/11/17 11:02 Medications: Current Medications Acidophilus (Floranex) 1 tab PO HS [facility] Last Admin: 05/01/18 21:09 Dose: 1 tab Apixaban (Eliquis) 2.5 mg PO BID [facility] Last Admin: 05/02/18 11:10 Dose: Not Given Buspirone HCl (Buspar) 5 mg PO BID [facility] Last Admin: 05/02/18 09:57 Dose: 5 mg Docusate Sodium (Colace) 100 mg PO DAILY [facility] Last Admin: 05/02/18 09:57 Dose: 100 mg Dronedarone (Multaq) 400 mg PO BID-[facility] Last Admin: 05/02/18 11:10 Dose: Not Given Fluticasone Propionate (Flonase Nasal [place]) 0 gm NASAL HS [facility] Last Admin: 05/01/18 21:10 Dose: 1 spr Hypromellose (Genteal Severe) 0 gm EA EYE QID [facility] Last Admin: 05/02/18 11:10 Dose: Not Given Ciprofloxacin/Dextrose 400 mg/ (Device) 200 mls @ 200 mls/hr IVPB Q12HR [facility] Last Admin: 05/02/18 10:03 Dose: 200 mls Metronidazole 500 mg/ Device 100 mls @ 100 mls/hr IVPB Q8HR [facility] Last Admin: 05/02/18 06:15 Dose: 100 mls Sodium Chloride (Normal Saline 0.9%) 1,000 mls @ 50 mls/hr IV .Q20H [facility] Last Admin: 05/02/18 08:32 Dose: Not Given Miscellaneous Medication (Phos-Nak) 1 pkt PO TIDPRN PRN PRN Reason: FOR PHOS LEVEL 1.0 - 1.8 Miscellaneous Medication (Phos-Nak) 2 pkt PO TIDPRN PRN PRN Reason: FOR PHOS LEVEL 0.5 - 1.0 Miscellaneous Medication (Pharmacy To Dose) 1 each IVPB PRN PRN PRN Reason: RPH TO DOSE Non-Formulary Medication (Acetylcysteine [Nac]) 600 mg PO QAM [facility] Ondansetron HCl (Zofran) 4 mg IVP Q6H PRN PRN Reason: Nausea/Vomiting ([place] Orotate 10 (Mg)) 1 each PO BID [facility] (Magnesium L (Threonate 144 Mg)) 1 each PO BID [facility] (Thyroid,Pork [ Nature-Throid] 16.25 Mg) 1 each PO QAM [facility] Trazodone HCl (Desyrel) 50 mg PO HS [facility] Last Admin: 05/01/18 21:09 Dose: 50 mg
[2018-05-02] MEDS ORDERED: Potassium Chloride 40 MEQ in Premix Bag 1 BAG IVPB ONE (14:30)
[2018-05-02] MEDS: Fluticasone Propionate Nasal Spray 16 gm Bottle NASAL SCH (21:00)
[2018-05-02] MEDS: Lactinex Tablet PO SCH (21:39)
[2018-05-02] MEDS: traZODone HCl 50 MG TAB PO SCH (21:40)
[2018-05-03] MEDS: Sodium Chloride 0.9% 1,000 ML IV SCH (03:03)
[2018-05-03] MEDS: metroNIDAZOLE 500 MG in Premix Bag 1 BAG IVPB SCH ×3 (05:14→22:03)
[2018-05-03 05:45] LABS: Hemoglobin 8.8 g/dL (12.0-16.0)
[2018-05-03 06:08] LABS: Anion Gap 10 mmol/L (10-20); BUN (Urea Nitrogen) 7 mg/dL (9.8-20.1); Calc. Creatinine Clearance 71 mL/min (70-130); Carbon Dioxide 23 mmol/L (23-31); Chloride 108 mmol/L (98-107); Estimated GFR-MDRD Greater than 90; Glucose 84 mg/dL (83-110); Potassium 3.5 mmol/L (3.5-5.1); Sodium 137 mmol/L (136-145)
[2018-05-03] MEDS: Dronedarone HCl 400 MG TAB PO SCH ×2 (09:03→16:39)
[2018-05-03] MEDS: busPIRone HCl 5 MG TAB PO SCH ×2 (09:03→20:29)
[2018-05-03] MEDS: Apixaban 2.5 MG TAB PO SCH ×2 (09:03→20:28)
[2018-05-03] MEDS: GENTEAL SEVERE 10 GM TUBE EA EYE SCH ×4 (09:07→20:27)
[2018-05-03] MEDS: Docusate 100 MG CAP PO SCH (09:07)
[2018-05-03 10:53] LABS: Hemoglobin 9.3 g/dL (12.0-16.0)
[2018-05-03] MEDS: Dicyclomine 10 MG CAP PO PRN (11:54)
[2018-05-03] MEDS ORDERED: Carvedilol 3.125 MG TAB PO SCH (12:00)
--- NOTE | 2018-05-03 13:53 | PDOC.PN ---
- Subjective Encounter Start Date: 05/03/18 Encounter Start Time: 13:52 Subjective: c/o severe abd pain in lower half and poor appetite -: nursing report high HR. -: care discussed w at bedside - Objective Resuscitation Status: Resuscitation Status FULL:Full Resuscitation MAR Reviewed: Yes Vital Signs & Weight: Vital Signs (12 hours) Temp Pulse Resp BP Pulse Ox 05/03/18 11:25 98.0 F 111 H 18 113/59 L 92 L 05/03/18 08:11 97.9 F 110 H 16 130/69 95 05/03/18 08:00 97.9 F 110 H 16 95 Weight Weight 136 lb 7.458 oz Most Recent Monitor Data Heart Rate from ECG 106 NIBP 98/70 NIBP BP-Mean 79 Respiration from ECG 28 SpO2 100 I&O: 05/02/18 05/03/18 05/04/18 06:59 06:59 06:59 Intake Total 4709 Output Total 1680 130 Balance 3029 -130 Result Diagrams: 05/03/18 10:42 05/03/18 05:30 Additional Labs: Microbiology 04/30/18 21:13 Urine Straight Catheter Urine Culture - Final NO GROWTH AT 36 HOURS 04/30/18 18:49 Venous blood - Left Hand Blood Culture - Preliminary NO GROWTH AT 48 HOURS 04/30/18 18:33 Venous blood - Right Arm Blood Culture - Preliminary NO GROWTH AT 48 HOURS labs reviewed Phys Exam - Physical Examination Constitutional: NAD HEENT: PERRLA, moist MMs, sclera anicteric, oral pharynx no lesions Neck: no nodes, no JVD, supple, full ROM Respiratory: no wheezing, no rales, no rhonchi, clear to auscultation bilateral Cardiovascular: RRR, no significant murmur, no rub Gastrointestinal: soft, no distention, positive bowel sounds TTP lower abdomen Musculoskeletal: no edema, pulses present Neurological: non-focal, normal sensation, moves all 4 limbs Psychiatric: normal affect, A&O x 3 Skin: no rash Dx/Plan (1) Atrial fibrillation with rapid ventricular response Code(s): I48.91 - UNSPECIFIED ATRIAL FIBRILLATION Status: Acute Comment: Improved rate.NSR now post IV Amiodarone (2) Sepsis Code(s): A41.9 - SEPSIS, UNSPECIFIED ORGANISM Status: Acute (3) Acute diverticulitis Code(s): K57.92 - DVTRCLI OF INTEST, PART UNSP, W/O PERF OR ABSCESS W/O BLEED Status: Acute (4) Aspiration pneumonia Code(s): J69.0 - PNEUMONITIS DUE TO INHALATION OF FOOD AND VOMIT Status: Acute (5) Hypokalemia Code(s): E87.6 - HYPOKALEMIA Status: Acute (6) CAD (coronary artery disease) Code(s): I25.10 - ATHSCL HEART DISEASE OF [place] CORONARY ARTERY W/O ANG PCTRS Status: Chronic Qualifiers: Associated angina: without angina (7) Chronic a-fib Code(s): I48.2 - CHRONIC ATRIAL FIBRILLATION Status: Chronic Comment: rate controlled . cont multaq and eliquis.Monitor H/H in setting of anticoagulation with Acute diverticultis (8) Dementia Code(s): F03.90 - UNSPECIFIED DEMENTIA WITHOUT BEHAVIORAL DISTURBANCE Status: Chronic Qualifiers: Dementia type: Alzheimer's disease Dementia behavioral disturbance: without behavioral disturbance (9) Dyslipidemia Code(s): E78.5 - HYPERLIPIDEMIA, UNSPECIFIED Status: Chronic (10) HTN (hypertension) Code(s): I10 - ESSENTIAL (PRIMARY) HYPERTENSION Status: Chronic Qualifiers: Hypertension type: essential hypertension Qualified Code(s): I10 - Essential (primary) hypertension (11) Hypothyroid Code(s): E03.9 - HYPOTHYROIDISM, UNSPECIFIED Status: Chronic Qualifiers: Hypothyroidism type: unspecified Qualified Code(s): E03.9 - Hypothyroidism , unspecified (12) Septic shock Code(s): A41.9 - SEPSIS, UNSPECIFIED ORGANISM; R65.21 - SEVERE SEPSIS WITH SEPTIC SHOCK Status: Resolved (13) Anemia Code(s): D64.9 - ANEMIA, UNSPECIFIED Status: Acute Qualifiers: Anemia type: unspecified type Qualified Code(s): D64.9 - Anemia, unspecified Comment: H/H drop likley due to IVF.no hematochezia or melena. (14) Chronic diastolic CHF (congestive heart failure) Code(s): I50.32 - CHRONIC DIASTOLIC (CONGESTIVE) HEART FAILURE Status: Chronic - Plan plan discussed w/ family, continue antibiotics, PT/OT, DVT proph w/SCDs Check FOBt as pt on Anticoagulation.recheck H/h better. -: consult Gi for worsening AP despite ABx for diverticulitis.add prn Bentyl. -: Add Coreg for rate control for RVR.cont Multaq and Eliquis for now. -: change diet to full liquid.cont gentle IVF cautiously -: am labs. monitor lytes * .high risk of aspiration * blood and urine Cx -ve so far. follow * am labs Review of Systems - Review of Systems Constitutional: weakness, malaise Gastrointestinal: Abdominal Pain Other: difficult to obtain due to Abd pain - Medications/Allergies Allergies/Adverse Reactions: Allergies Allergy/AdvReac Type Severity Reaction Status Date / Time codeine Allergy Verified 10/05/13 15:52 Penicillins Allergy Verified 10/05/13 15:52 Sulfa (Sulfonamide Allergy Verified 10/05/13 15:52 Antibiotics) orange juice AdvReac Verified 11/11/17 11:02 dairy Allergy Uncoded 05/02/18 17:08 Medications: Current Medications Acidophilus (Floranex) 1 tab PO HS [facility] Last Admin: 05/02/18 21:39 Dose: 1 tab Apixaban (Eliquis) 2.5 mg PO BID [facility] Last Admin: 05/03/18 09:03 Dose: 2.5 mg Buspirone HCl (Buspar) 5 mg PO BID [facility] Last Admin: 05/03/18 09:03 Dose: 5 mg Carvedilol (Coreg) 3.125 mg PO BID[facility] Carvedilol (Coreg) 3.125 mg PO NOW [facility] Stop: 05/03/18 14:00 Last Admin: 05/03/18 12:04 Dose: 3.125 mg Dicyclomine HCl (Bentyl) 10 mg PO QID PRN PRN Reason: abdominal cramps Last Admin: 05/03/18 11:54 Dose: 10 mg Docusate Sodium (Colace) 100 mg PO DAILY [facility] Last Admin: 05/03/18 09:07 Dose: Not Given Dronedarone (Multaq) 400 mg PO BID[facility] Last Admin: 05/03/18 09:03 Dose: 400 mg Fluticasone Propionate (Flonase Nasal [place]) 0 gm NASAL HS [facility] Last Admin: 05/02/18 21:00 Dose: Not Given Hypromellose (Genteal Severe) 0 gm EA EYE QID [facility] Last Admin: 06/26/18 09:07 Dose: Not Given Ciprofloxacin/Dextrose 400 mg/ (Device) 200 mls @ 200 mls/hr IVPB Q12HR [facility] Last Admin: 05/03/18 09:04 Dose: 200 mls Metronidazole 500 mg/ Device 100 mls @ 100 mls/hr IVPB Q8HR [facility] Last Admin: 05/03/18 05:14 Dose: 100 mls Sodium Chloride (Normal Saline 0.9%) 1,000 mls @ 50 mls/hr IV .Q20H [facility] Last Admin: 05/03/18 03:03 Dose: Not Given Miscellaneous Medication (Phos-Nak) 1 pkt PO TIDPRN PRN PRN Reason: FOR PHOS LEVEL 1.0 - 1.8 Miscellaneous Medication (Phos-Nak) 2 pkt PO TIDPRN PRN PRN Reason: FOR PHOS LEVEL 0.5 - 1.0 Miscellaneous Medication (Pharmacy To Dose) 1 each IVPB PRN PRN PRN Reason: RPH TO DOSE Non-Formulary Medication (Acetylcysteine [Nac]) 600 mg PO QAM [facility] Ondansetron HCl (Zofran) 4 mg IVP Q6H PRN PRN Reason: Nausea/Vomiting ([place] Orotate 10 (Mg)) 1 each PO BID [facility] (Magnesium L (Threonate 144 Mg)) 1 each PO BID [facility] (Thyroid,Pork [ Nature-Throid] 16.25 Mg) 1 each PO QAM [facility] Trazodone HCl (Desyrel) 50 mg PO HS [facility] Last Admin: 05/02/18 21:40 Dose: 50 mg
[2018-05-03] MEDS: Sodium Chloride 0.45% 1,000 ML IV SCH (16:39)
--- NOTE | 2018-05-03 16:43 | PRG ---
DATE OF SERVICE: 05/03/2018 SERVICE: Pulmonary Medicine. INTERVAL HISTORY: The patient is doing great from a respiratory standpoint. She denies any current chest pain, nausea, vomiting, fevers or chills. Otherwise, there has been no interval change to her condition. PHYSICAL EXAMINATION: VITAL SIGNS: Afebrile, pulse 111, blood pressure 113/59, respirations 18, saturation 92% on room air . GENERAL: The patient is awake, alert, no apparent distress. LUNGS: Excellent air entry. There is no prolonged expiratory phase, wheezing, rhonchi, or crackles present. HEART: Normal rate, regular. ABDOMEN: Soft, nontender, nondistended. Bowel sounds are positive. MUSCULOSKELETAL: No cyanosis or clubbing. There is no pitting in the bilateral lower extremities. NEUROLOGIC: Grossly nonfocal. GENITOURINARY: No Zamorano. LABORATORY: Hemoglobin 9.3 and roughly stable, basic metabolic profile is essentially unremarkable. Potassium 3.5. Blood cultures x2 are unremarkable. Urine culture is normal. ASSESSMENT: 1. Acute hypoxic respiratory failure, resolved. 2. Septic shock, resolved. 3. Diverticulitis. 4. Oropharyngeal dysphagia with chronic aspiration related changes of the lung without acute process . 5. Dehydration, resolved. 6. Hypokalemia. 7. Dementia, advanced. DISCUSSION AND PLAN: At this point, the patient has been weaned down to room air. She has no furthe r requirements for inpatient Pulmonary or Critical Care opinion. Potassium will be replaced once aga in. No antibiotics require directed at lung issues. There is no pneumonia here. We do know that carmen medina is a chronic aspirator and will be at increased risk of developing respiratory related infections f or the rest of her life. We will continue to monitor for this and try to minimize aspiration by keep ing her upright and observing good swallow technique. She has no further requirements for Pulmonary opinion. As such, I will sign off.
[2018-05-03] MEDS: Carvedilol 3.125 MG TAB PO SCH (17:30)
[2018-05-03] MEDS: traZODone HCl 50 MG TAB PO SCH (20:28)
[2018-05-03] MEDS: Lactinex Tablet PO SCH (20:29)
[2018-05-03] MEDS: Fluticasone Propionate Nasal Spray 16 gm Bottle NASAL SCH (20:40)
[2018-05-03] MEDS ORDERED: Melatonin 3 MG TAB PO SCH (22:00)
[2018-05-04 04:33] LABS: #Eosinphils 0.1 thou/uL (0.0-0.7); #Lymphocytes 1.7 thou/uL (1.20-3.40); #Monocytes 0.4 thou/uL (0.11-0.59); #Neutrophils 3.8 thou/uL (1.40-6.50); %Basophils 0.5 % (0.0-1.0); %Lymphocytes 27.9 % (21.0-51.0); %Monocytes 7.1 % (0.0-10.0); %Neutrophils 63.6 % (42.0-75.0); Hemoglobin 8.6 g/dL (12.0-16.0); Mean Corpuscular HGB CONC 31.7 g/dL (32.0-36.0); Mean Corpuscular Volume 85.1 fL (78.0-98.0); Mean Platelet Volume 9.6 fL (7.4-10.4); Platelet Count 123 thou/uL (130-400); RBC Distribution Width 16.5 % (11.5-14.5); Red Blood Cell (RBC) Count 3.19 mill/uL (4.20-5.40)
[2018-05-04 04:39] LABS: Anion Gap 9 mmol/L (10-20); BUN (Urea Nitrogen) 5 mg/dL (9.8-20.1); Calc. Creatinine Clearance 69 mL/min (70-130); Calcium 8.1 mg/dL (7.8-10.44); Carbon Dioxide 25 mmol/L (23-31); Chloride 105 mmol/L (98-107); Estimated GFR-MDRD Greater than 90; Glucose 103 mg/dL (83-110); Magnesium 1.7 mg/dL (1.6-2.6); Potassium 3.2 mmol/L (3.5-5.1); Sodium 136 mmol/L (136-145)
--- NOTE | 2018-05-04 05:17 | CON ---
HISTORY OF PRESENT ILLNESS: Patient is an 82-year-old female well known to me from prior t reatment of irritable bowel syndrome who presented on 04/30/2018 with septic shock and diagnosed with acute diverticulitis. She is also diagnosed with a pneumonia; however, according to nursing that sommers s been ruled out. She reports that her abdominal pain is in the lower abdomen. She kind of points a ll over her abdomen when asking about the pain. She has had one bowel movement. She denies any sixto na, hematochezia. She was last seen by me in 10/2017, at that time for some low anal outlet bleeding . Her last colonoscopy and endoscopy was in 11/07/2013 showed a normal EGD and diffuse diverticula, internal hemorrhoids, but no other abnormalities. The patient underwent a CT, which showed sigmoid d iverticulosis with thickening of all of the sigmoid colon and descending colon with some mild pericol onic inflammatory changes in the left lower quadrant. 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 PAST MEDICAL HISTORY: Significant for Alzheimer dementia, atrial fibrillation, COPD, and transient i schemic attacks. PAST MEDICAL HISTORY: Includes back surgery, hysterectomy, appendectomy, cholecystectomy. SOCIAL HISTORY: She is presently in memory care. Does not smoke or drink. ALLERGIES: CODEINE, MILK, PENICILLIN and SULFA. MEDICATIONS: Include buspirone 15 mg p.o. t.i.d., magnesium 144 mg p.o. b.i.d., Probiotic 1 p.o. at bedtime, hyoscyamine 0.125 mg sublingual q.i.d. p.r.n., fluticasone 50 mg each naris b.i.d., Dulcolax 100 mg p.o. daily, Lasix 20 mg p.o. q.a.m., Eliquis 2.5 mg p.o. b.i.d., Multaq 400 mg p.o. b.i.d., m emantine 10 mg p.o. b.i.d., trazodone 50 mg p.o. at bedtime. ALLERGIES: Include as mentioned CODEINE, PENICILLIN, SULFA, ORANGE JUICE, and DAIRY. REVIEW OF SYSTEMS: Unobtainable. PHYSICAL EXAMINATION: GENERAL: Shows an elderly white female in no acute distress. VITAL SIGNS: Temperature 97.9, pulse 110, respiratory rate 16, blood pressure 107/59. HEENT: Unremarkable. NECK: Supple. CHEST: Clear. CARDIOVASCULAR: Regular rate and rhythm. ABDOMEN: Soft, diffusely tender, somewhat tympanitic. Bowel sounds are present. RECTAL: Deferred. EXTREMITIES: Normal. NEUROLOGIC: Nonfocal. LABORATORY: Shows a hemoglobin 11.1, decreasing to 9.3. Last white blood cell count was 7.8. Chemi stries shows a potassium 3.1, CO2 of 24, BUN 8, creatinine 0.58. ASSESSMENT: 1. Left-sided colitis - more suspicious for ischemic colitis and diverticulitis. 2. Alzheimer dementia. 3. History of diffuse diverticulosis coli. RECOMMENDATIONS: 1. Would continue conservative treatment with liquid diet and antibiotics. 2. Keep patient active. 3. May need flex-sig to secure diagnosis.
[2018-05-04] MEDS: metroNIDAZOLE 500 MG in Premix Bag 1 BAG IVPB SCH ×3 (06:06→21:58)
[2018-05-04] MEDS: Dicyclomine 10 MG CAP PO PRN (06:37)
[2018-05-04] MEDS: Dronedarone HCl 400 MG TAB PO SCH ×2 (09:27→17:13)
[2018-05-04] MEDS: Carvedilol 3.125 MG TAB PO SCH ×2 (09:27→17:13)
[2018-05-04] MEDS: busPIRone HCl 5 MG TAB PO SCH ×2 (09:27→21:29)
[2018-05-04] MEDS: Sodium Chloride 0.45% 1,000 ML IV SCH ×2 (09:28→17:24)
[2018-05-04] MEDS: Docusate 100 MG CAP PO SCH (09:29)
[2018-05-04] MEDS: GENTEAL SEVERE 10 GM TUBE EA EYE SCH ×4 (09:30→21:29)
--- NOTE | 2018-05-04 12:25 | PDOC.PN ---
- Subjective Encounter Start Date: 05/04/18 Encounter Start Time: 11:15 Subjective: no abd pain or nausea -: tolerating oral liq diet -: not fully oriented - Objective Resuscitation Status: Resuscitation Status FULL:Full Resuscitation MAR Reviewed: Yes Vital Signs & Weight: Vital Signs (12 hours) Temp Pulse Resp BP Pulse Ox 05/04/18 07:22 97.7 F 82 20 130/60 97 05/04/18 07:15 97.7 F 82 20 97 Weight Weight 136 lb 7.458 oz Most Recent Monitor Data Heart Rate from ECG 106 NIBP 98/70 NIBP BP-Mean 79 Respiration from ECG 28 SpO2 100 I&O: 05/03/18 05/04/18 05/05/18 06:59 06:59 06:59 Intake Total 3005 Output Total 130 Balance -130 3005 Result Diagrams: 05/04/18 04:21 05/04/18 04:21 Phys Exam - Physical Examination HEENT: PERRLA, moist MMs Neck: no JVD, supple Respiratory: no wheezing, no rales Cardiovascular: RRR, no significant murmur Gastrointestinal: soft, no distention, positive bowel sounds Musculoskeletal: no edema, pulses present Neurological: non-focal, moves all 4 limbs Dx/Plan (1) Acute diverticulitis Code(s): K57.92 - DVTRCLI OF INTEST, PART UNSP, W/O PERF OR ABSCESS W/O BLEED Status: Acute (2) Chronic diastolic CHF (congestive heart failure) Code(s): I50.32 - CHRONIC DIASTOLIC (CONGESTIVE) HEART FAILURE Status: Chronic (3) CAD (coronary artery disease) Code(s): I25.10 - ATHSCL HEART DISEASE OF [place] CORONARY ARTERY W/O ANG PCTRS Status: Chronic Qualifiers: [place] vs. transplanted heart: [place] heart Associated angina: without angina (4) Chronic a-fib Code(s): I48.2 - CHRONIC ATRIAL FIBRILLATION Status: Chronic Comment: rate controlled . cont multaq (5) Dementia Code(s): F03.90 - UNSPECIFIED DEMENTIA WITHOUT BEHAVIORAL DISTURBANCE Status: Chronic Qualifiers: Dementia type: Alzheimer's disease Dementia behavioral disturbance: without behavioral disturbance (6) Dyslipidemia Code(s): E78.5 - HYPERLIPIDEMIA, UNSPECIFIED Status: Chronic (7) HTN (hypertension) Code(s): I10 - ESSENTIAL (PRIMARY) HYPERTENSION Status: Chronic Qualifiers: Hypertension type: essential hypertension Qualified Code(s): I10 - Essential (primary) hypertension (8) Hypothyroid Code(s): E03.9 - HYPOTHYROIDISM, UNSPECIFIED Status: Chronic Qualifiers: Hypothyroidism type: unspecified Qualified Code(s): E03.9 - Hypothyroidism , unspecified (9) Acute blood loss anemia Code(s): D62 - ACUTE POSTHEMORRHAGIC ANEMIA Status: Acute - Plan hold eliquis due to Hb of 8g this am -: continue cipro and flagyl -: encourage po intake -: likely dc plan in am to snf if stable -: may dc iv fluids if tolerating oral diet well, advance diet per GI advice * . Review of Systems - Medications/Allergies Allergies/Adverse Reactions: Allergies Allergy/AdvReac Type Severity Reaction Status Date / Time codeine Allergy Verified 10/05/13 15:52 Penicillins Allergy Verified 10/05/13 15:52 Sulfa (Sulfonamide Allergy Verified 10/05/13 15:52 Antibiotics) orange juice AdvReac Verified 11/11/17 11:02 dairy Allergy Uncoded 05/02/18 17:08 Medications: Current Medications Acidophilus (Floranex) 1 tab PO HS [facility] Last Admin: 05/03/18 20:29 Dose: 1 tab Buspirone HCl (Buspar) 5 mg PO BID [facility] Last Admin: 05/04/18 09:27 Dose: 5 mg Carvedilol (Coreg) 3.125 mg PO BID-[facility] Last Admin: 05/04/18 09:27 Dose: 3.125 mg Dicyclomine HCl (Bentyl) 10 mg PO QID PRN PRN Reason: abdominal cramps Last Admin: 05/04/18 06:37 Dose: 10 mg Docusate Sodium (Colace) 100 mg PO DAILY [facility] Last Admin: 05/04/18 09:29 Dose: Not Given Dronedarone (Multaq) 400 mg PO BID-[facility] Last Admin: 05/04/18 09:27 Dose: 400 mg Fluticasone Propionate (Flonase Nasal [place]) 0 gm NASAL HS [facility] Last Admin: 05/03/18 20:40 Dose: Not Given Hypromellose (Genteal Severe) 0 gm EA EYE QID [facility] Last Admin: 05/04/18 09:30 Dose: Not Given Ciprofloxacin/Dextrose 400 mg/ (Device) 200 mls @ 200 mls/hr IVPB Q12HR [facility] Last Admin: 05/04/18 09:28 Dose: 200 mls Metronidazole 500 mg/ Device 100 mls @ 100 mls/hr IVPB Q8HR [facility] Last Admin: 05/04/18 06:06 Dose: 100 mls Sodium Chloride (1/2 Normal Saline) 1,000 mls @ 75 mls/hr IV .[id number] [facility] Last Admin: 05/04/18 09:28 Dose: 1,000 mls Miscellaneous Medication (Phos-Nak) 1 pkt PO TIDPRN PRN PRN Reason: FOR PHOS LEVEL 1.0 - 1.8 Miscellaneous Medication (Phos-Nak) 2 pkt PO TIDPRN PRN PRN Reason: FOR PHOS LEVEL 0.5 - 1.0 Miscellaneous Medication (Pharmacy To Dose) 1 each IVPB PRN PRN PRN Reason: RPH TO DOSE Non-Formulary Medication (Acetylcysteine [Nac]) 600 mg PO QAM [facility] Ondansetron HCl (Zofran) 4 mg IVP Q6H PRN PRN Reason: Nausea/Vomiting ([place] Orotate 10 (Mg)) 1 each PO BID [facility] (Magnesium L (Threonate 144 Mg)) 1 each PO BID [facility] (Thyroid,Pork [ Nature-Throid] 16.25 Mg) 1 each PO QAM [facility] Trazodone HCl (Desyrel) 50 mg PO HS [facility] Last Admin: 05/03/18 20:28 Dose: 50 mg
--- NOTE | 2018-05-04 19:54 | PRG ---
DATE OF SERVICE: 05/04/2018 DATE OF SERVICE: The patient is feeling better today. She has had a bowel movement. She is tolerat ing diet fairly well. OBJECTIVE: VITAL SIGNS: Temperature is 97.7, pulse 82, respiratory rate 20, blood pressure 130/60. CHEST: Clear. CARDIOVASCULAR: Regular rate and rhythm. ABDOMEN: Protuberant, somewhat tympanitic, but less tender than yesterday. LABORATORY DATA: Shows white blood cell count of 6.0, hemoglobin of 8.6, hematocrit of 27.2, and rupesh telet count 123. Chemistries significant for potassium 3.2 and creatinine 0.59. ASSESSMENT: 1. Descending and sigmoid colitis - suspect ischemia, less likely diverticulitis. 2. Alzheimer's dementia. RECOMMENDATIONS: 1. Agree with antibiotics and continue these for a total course of 10-14 days. 2. Increase activity. 3. Stable for discharge from gastrointestinal standpoint tomorrow if doing better.
[2018-05-04] MEDS: Lactinex Tablet PO SCH (21:28)
[2018-05-04] MEDS: traZODone HCl 50 MG TAB PO SCH (21:28)
[2018-05-04] MEDS: Fluticasone Propionate Nasal Spray 16 gm Bottle NASAL SCH (21:29)
[2018-05-04] MEDS ORDERED: Temazepam 15 MG CAP PO SCH (23:45)
[2018-05-05 03:48] LABS: Anion Gap 10 mmol/L (10-20); BUN (Urea Nitrogen) 4 mg/dL (9.8-20.1); Calc. Creatinine Clearance 68 mL/min (70-130); Calcium 8.1 mg/dL (7.8-10.44); Carbon Dioxide 25 mmol/L (23-31); Chloride 106 mmol/L (98-107); Estimated GFR-MDRD Greater than 90; Glucose 97 mg/dL (83-110); Magnesium 1.7 mg/dL (1.6-2.6); Potassium 3.1 mmol/L (3.5-5.1); Sodium 138 mmol/L (136-145)
[2018-05-05] MEDS: metroNIDAZOLE 500 MG in Premix Bag 1 BAG IVPB SCH (05:16)
[2018-05-05] MEDS: Dronedarone HCl 400 MG TAB PO SCH ×2 (09:38→17:42)
[2018-05-05] MEDS: Carvedilol 3.125 MG TAB PO SCH ×2 (09:38→17:42)
[2018-05-05] MEDS: metroNIDAZOLE 500 MG TAB PO SCH ×3 (09:38→21:33)
[2018-05-05] MEDS: busPIRone HCl 5 MG TAB PO SCH ×2 (09:38→21:33)
[2018-05-05] MEDS: Docusate 100 MG CAP PO SCH (09:39)
[2018-05-05] MEDS: GENTEAL SEVERE 10 GM TUBE EA EYE SCH ×4 (09:39→21:33)
[2018-05-05] MEDS: Potassium Chloride 20 MEQ TAB PO SCH ×2 (09:39→17:42)
[2018-05-05] MEDS ORDERED: Furosemide 40 MG/4 ML VIAL SLOW IVP SCH (09:45)
--- NOTE | 2018-05-05 09:51 | PDOC.PN ---
- Subjective Encounter Start Date: 05/05/18 Encounter Start Time: 09:15 Subjective: is sitting up in bed and eating breakfast -: no sob but had to be put on oxygen this am for low spo2 of 85% -: no abd pain or nausea, not fully oriented - Objective Resuscitation Status: Resuscitation Status FULL:Full Resuscitation MAR Reviewed: Yes Vital Signs & Weight: Weight Weight 136 lb 7.458 oz Most Recent Monitor Data Heart Rate from ECG 106 NIBP 98/70 NIBP BP-Mean 79 Respiration from ECG 28 SpO2 100 I&O: 05/04/18 05/05/18 05/06/18 06:59 06:59 06:59 Intake Total 3005 1795 Balance 3005 1795 Result Diagrams: 05/04/18 04:21 05/05/18 03:17 Phys Exam - Physical Examination HEENT: PERRLA, moist MMs Neck: no JVD, supple Respiratory: no wheezing, no rales Cardiovascular: RRR, no significant murmur Gastrointestinal: soft, non-tender, positive bowel sounds Musculoskeletal: no edema, pulses present Neurological: non-focal, moves all 4 limbs Dx/Plan (1) Acute diverticulitis Code(s): K57.92 - DVTRCLI OF INTEST, PART UNSP, W/O PERF OR ABSCESS W/O BLEED Status: Acute (2) Chronic diastolic CHF (congestive heart failure) Code(s): I50.32 - CHRONIC DIASTOLIC (CONGESTIVE) HEART FAILURE Status: Chronic (3) CAD (coronary artery disease) Code(s): I25.10 - ATHSCL HEART DISEASE OF [place] CORONARY ARTERY W/O ANG PCTRS Status: Chronic Qualifiers: [place] vs. transplanted heart: [place] heart Associated angina: without angina (4) Chronic a-fib Code(s): I48.2 - CHRONIC ATRIAL FIBRILLATION Status: Chronic Comment: rate controlled . cont multaq (5) Dementia Code(s): F03.90 - UNSPECIFIED DEMENTIA WITHOUT BEHAVIORAL DISTURBANCE Status: Chronic Qualifiers: Dementia type: Alzheimer's disease Dementia behavioral disturbance: without behavioral disturbance (6) Dyslipidemia Code(s): E78.5 - HYPERLIPIDEMIA, UNSPECIFIED Status: Chronic (7) HTN (hypertension) Code(s): I10 - ESSENTIAL (PRIMARY) HYPERTENSION Status: Chronic Qualifiers: Hypertension type: essential hypertension Qualified Code(s): I10 - Essential (primary) hypertension (8) Hypothyroid Code(s): E03.9 - HYPOTHYROIDISM, UNSPECIFIED Status: Chronic Qualifiers: Hypothyroidism type: unspecified Qualified Code(s): E03.9 - Hypothyroidism , unspecified (9) Acute blood loss anemia Code(s): D62 - ACUTE POSTHEMORRHAGIC ANEMIA Status: Acute - Plan will get cxr with abd xray for f/u -: one dose iv lasix, off iv fluids -: encourage po intake -: on cipro and flagyl -: multaq, coreg, solid diet. Replace K * . Review of Systems - Medications/Allergies Allergies/Adverse Reactions: Allergies Allergy/AdvReac Type Severity Reaction Status Date / Time codeine Allergy Verified 10/05/13 15:52 Penicillins Allergy Verified 10/05/13 15:52 Sulfa (Sulfonamide Allergy Verified 10/05/13 15:52 Antibiotics) orange juice AdvReac Verified 11/11/17 11:02 Medications: Current Medications Acidophilus (Floranex) 1 tab PO HS [facility] Last Admin: 05/04/18 21:28 Dose: 1 tab Buspirone HCl (Buspar) 5 mg PO BID [facility] Last Admin: 05/04/18 21:29 Dose: 5 mg Carvedilol (Coreg) 3.125 mg PO BID-[facility] Last Admin: 05/04/18 17:13 Dose: 3.125 mg Ciprofloxacin (Cipro) 500 mg PO 06,1999 [facility] Dicyclomine HCl (Bentyl) 10 mg PO QID PRN PRN Reason: abdominal cramps Last Admin: 05/04/18 06:37 Dose: 10 mg Docusate Sodium (Colace) 100 mg PO DAILY [facility] Last Admin: 05/04/18 09:29 Dose: Not Given Dronedarone (Multaq) 400 mg PO BID-[facility] Last Admin: 05/04/18 17:13 Dose: 400 mg Fluticasone Propionate (Flonase Nasal [place]) 0 gm NASAL HS [facility] Last Admin: 05/04/18 21:29 Dose: Not Given Furosemide (Lasix) 40 mg SLOW IVP ONE [facility] Stop: 05/05/18 11:00 Hypromellose (Genteal Severe) 0 gm EA EYE QID [facility] Last Admin: 05/04/18 21:29 Dose: Not Given Metronidazole (Flagyl) 500 mg PO TID [facility] Miscellaneous Medication (Phos-Nak) 1 pkt PO TIDPRN PRN PRN Reason: FOR PHOS LEVEL 1.0 - 1.8 Miscellaneous Medication (Phos-Nak) 2 pkt PO TIDPRN PRN PRN Reason: FOR PHOS LEVEL 0.5 - 1.0 Miscellaneous Medication (Pharmacy To Dose) 1 each IVPB PRN PRN PRN Reason: RPH TO DOSE Ondansetron HCl (Zofran) 4 mg IVP Q6H PRN PRN Reason: Nausea/Vomiting Potassium Chloride (K-Dur) 40 meq PO BID-[facility] Sodium Chloride (Flush - Normal Saline) 10 ml IVF Q12HR [facility] Sodium Chloride (Flush - Normal Saline) 10 ml IVF PRN PRN PRN Reason: Saline Flush Trazodone HCl (Desyrel) 50 mg PO HS [facility] Last Admin: 05/04/18 21:28 Dose: 50 mg
[2018-05-05] MEDS: ACETYLCYSTEINE 600 MG PO SCH ×2 (11:52→11:58)
[2018-05-05] MEDS: LITHIUM OROTATE PO SCH ×2 (11:53→11:59)
[2018-05-05] MEDS: MAGNESIUM L THREONATE PO SCH ×4 (11:57→12:00)
[2018-05-05] MEDS: THYROID PORK 16.25 MG PO SCH ×2 (11:58→12:00)
--- NOTE | 2018-05-05 12:13 | RAD ---
CHEST 1 VIEW ABDOMEN 2 VIEWS: HISTORY: Chest and abdomen pain. COMPARISON: 04/30/18. FINDINGS: Cardiac silhouette magnified and upper limits of normal in size. Pulmonary vasculature is unremarkab le. Mediastinum midline with aortic calcification and a right subclavian central venous catheter in place. Mild atelectasis projects over the right lung base. Blunting of each costophrenic angle. No evidence of free subdiaphragmatic gas. Gas and stool are apparent within the colon and rectum. Air fluid levels are apparent within the col on. No differential air fluid levels within the small bowel or evidence of free intraperitoneal gas. Multilevel vertebroplasty cement of the thoracolumbar spine. Osseous structures are demineralized. Degenerative changes of the hips. IMPRESSION: 1. Nonspecific bowel gas pattern. 2. Mild right basilar lung atelectasis. Small bilateral pleural effusions. Cause is not evident. 3. Atherosclerosis. 4. Osteoporosis. POS: ANGELIKA
[2018-05-05 16:12] LABS: #Eosinphils 0.1 thou/uL (0.0-0.7); #Lymphocytes 1.3 thou/uL (1.20-3.40); #Monocytes 0.7 thou/uL (0.11-0.59); #Neutrophils 3.7 thou/uL (1.40-6.50); %Basophils 0.2 % (0.0-1.0); %Eosinophils 2.3 % (0.0-10.0); %Lymphocytes 22.6 % (21.0-51.0); %Monocytes 11.7 % (0.0-10.0); %Neutrophils 63.2 % (42.0-75.0); Hemoglobin 9.1 g/dL (12.0-16.0); Mean Corpuscular HGB CONC 31.8 g/dL (32.0-36.0); Mean Corpuscular Hemoglobin 26.7 pg (27.0-31.0); Mean Corpuscular Volume 83.9 fL (78.0-98.0); Mean Platelet Volume 9.5 fL (7.4-10.4); Platelet Count 138 thou/uL (130-400); RBC Distribution Width 16.8 % (11.5-14.5); White Blood Cell (WBC) Count 5.8 thou/uL (4.8-10.8)
--- NOTE | 2018-05-05 16:18 | PRG ---
DATE OF SERVICE: 05/05/2018 SUBJECTIVE: The patient is without new complaints. OBJECTIVE: VITAL SIGNS: Temperature 97.4, pulse 73, respiratory rate 18, blood pressure 144/71. CHEST: Clear. CARDIOVASCULAR: Regular rate and rhythm. ABDOMEN: Soft, protuberant without much muscle tone, tympanitic. Bowel sounds are present. She is nontender. LABORATORY DATA: Shows hemoglobin 8.6, hematocrit 27.2, potassium 3.1. Abdominal films show nonspecific bowel gas pattern. ASSESSMENT: 1. Colitis - suspect ischemia. 2. Alzheimer dementia. RECOMMENDATIONS: Flex sig tomorrow.
[2018-05-05] MEDS ORDERED: Magnesium Citrate 300 ML BOT PO SCH (18:15)
[2018-05-05] MEDS: Lactinex Tablet PO SCH (21:33)
[2018-05-05] MEDS: Ciprofloxacin 500 MG TAB PO SCH (21:33)
[2018-05-05] MEDS: Fluticasone Propionate Nasal Spray 16 gm Bottle NASAL SCH (21:33)
[2018-05-05] MEDS: Temazepam 15 MG CAP PO PRN (21:34)
[2018-05-05] MEDS: traZODone HCl 50 MG TAB PO SCH (21:34)
[2018-05-06 04:44] LABS: #Eosinphils 0.1 thou/uL (0.0-0.7); #Lymphocytes 1.5 thou/uL (1.20-3.40); #Monocytes 0.6 thou/uL (0.11-0.59); #Neutrophils 2.5 thou/uL (1.40-6.50); %Basophils 0.9 % (0.0-1.0); %Lymphocytes 31.2 % (21.0-51.0); %Monocytes 13.2 % (0.0-10.0); %Neutrophils 52.7 % (42.0-75.0); Hemoglobin 8.4 g/dL (12.0-16.0); Mean Corpuscular Hemoglobin 26.3 pg (27.0-31.0); Mean Corpuscular Volume 84.6 fL (78.0-98.0); Mean Platelet Volume 9.1 fL (7.4-10.4); Platelet Count 143 thou/uL (130-400); RBC Distribution Width 17.1 % (11.5-14.5); Red Blood Cell (RBC) Count 3.21 mill/uL (4.20-5.40); White Blood Cell (WBC) Count 4.7 thou/uL (4.8-10.8)
[2018-05-06 04:55] LABS: Anion Gap 9 mmol/L (10-20); BUN (Urea Nitrogen) 4 mg/dL (9.8-20.1); Calc. Creatinine Clearance 68 mL/min (70-130); Calcium 7.9 mg/dL (7.8-10.44); Carbon Dioxide 29 mmol/L (23-31); Chloride 106 mmol/L (98-107); Estimated GFR-MDRD Greater than 90; Glucose 88 mg/dL (83-110); Magnesium 1.8 mg/dL (1.6-2.6); Potassium 3.5 mmol/L (3.5-5.1); Sodium 140 mmol/L (136-145)
[2018-05-06] MEDS: Ciprofloxacin 500 MG TAB PO SCH (05:40)
[2018-05-06] MEDS: metroNIDAZOLE 500 MG TAB PO SCH ×2 (08:38→15:33)
[2018-05-06] MEDS: Potassium Chloride 20 MEQ TAB PO SCH ×2 (08:38→17:19)
[2018-05-06] MEDS: Dronedarone HCl 400 MG TAB PO SCH ×2 (08:38→17:18)
[2018-05-06] MEDS: Carvedilol 3.125 MG TAB PO SCH ×2 (08:38→17:19)
[2018-05-06] MEDS: Docusate 100 MG CAP PO SCH (08:38)
[2018-05-06] MEDS: busPIRone HCl 5 MG TAB PO SCH ×2 (08:38→20:22)
[2018-05-06] MEDS: GENTEAL SEVERE 10 GM TUBE EA EYE SCH ×4 (08:53→20:26)
[2018-05-06] MEDS ORDERED: Iopamidol 370 76% 100 ML VIAL ONE (10:00)
[2018-05-06] MEDS ORDERED: PROPOFOL 200 MG/20 ML VIAL ONE (10:22)
[2018-05-06] MEDS ORDERED: Ketamine 50 MG/ML VIAL ONE (11:11)
[2018-05-06] MEDS ORDERED: Midazolam HCl 2 mg/2 ml Vial ONE (11:16)
[2018-05-06] MEDS ORDERED: Ondansetron HCl/PF 4 MG/2 ML Vial IVP PRN (11:29)
--- NOTE | 2018-05-06 12:26 | OP ---
DATE OF PROCEDURE: 05/06/2018 PROCEDURE: Flexible sigmoidoscopy with biopsy. INDICATIONS FOR PROCEDURE: Abnormal GI imaging, hematochezia. DESCRIPTION OF PROCEDURE: After the risks and benefits of the procedure were explained to the patien t's surrogate including risk of bleeding, infection, perforation, reaction to anesthesia and/or pain, informed consent was obtained. The patient was then taken to the endoscopy suite where deep sedatio n was administered via ketamine and Ativan. Once adequate sedation was achieved, a digital rectal ex amination was performed followed by the introduction of the standard colonoscope into the rectum and advanced to approximately 60 cm past the anal verge. The quality of the prep was good. Further pass age of the colonoscope past 60 cm was difficult due to increased patient's discomfort during the proc edure and significant diverticulosis and tortuosity of the colon. The patient tolerated the procedur e fairly well with no immediate perioperative complications. Flexible sigmoidoscopy findings. Digital rectal examination normal. COLON FINDINGS: The colonoscope was advanced to approximately 60 cm past the anal verge with further progression, difficult due to increasing patient discomfort as well as tortuosity of the colon in li ght of significant diverticulosis. The colon was then carefully visualized upon withdrawal. From ap proximately 60 cm to 45 cm, there was significant diverticulosis, characterized as small and large di verticula without any evidence of diverticulitis. There was no evidence of increased mucosal erythem a, erosions or ulcerations in this region; however, extending from 20 to 40 cm past the anal verge, t here was a large fungating mass located along one wall of the rectosigmoid and sigmoid colon. The ma ss was nonobstructive and occupying approximately 50% of the colonic lumen and easily traversed with the colonoscope; however, it was extremely friable to the passage of the colonoscope with oozing of b lood upon further examination. Multiple biopsies were taken from this mass for pathology evaluation for probable adenocarcinoma. Two tattoos were then placed along the colonic mucosa at the proximal a nd distal end to further delineate the extent of involvement of this particular mass. The remainder of the colon from 20 cm to the rectum was normal without any evidence of polyps, erosions, ulceration s, or mass lesions. Normal appearance of the colon was upon rectal retroflexion. IMPRESSION: 1. A large linear fungating mass extending from 20 to 40 cm in the colon occupying approximately 50% of the colonic lumen consistent with colonic malignancy, now status post biopsies for evaluation. 2. Moderate to severe left-sided diverticulosis. RECOMMENDATIONS: 1. We will follow up on the biopsy results with further plan of care depending on these results. 2. Would obtain staging CT to determine extent of invasion of this colonic mass. 3. Would consider Oncology and/or General Surgery consultation for evaluation of the patient and opt ions presented. However, given the patient's advanced age and dementia, she is a poor surgical ivett date. 4. We will continue to trend hemoglobin and hematocrit and transfuse as necessary to maintain an hem oglobin and hematocrit of 7/21. 5. Continue to monitor for signs of active gastrointestinal bleeding. We will continue to follow. Please call with any questions.
--- NOTE | 2018-05-06 15:47 | PDOC.PN ---
- Subjective Encounter Start Date: 05/06/18 Encounter Start Time: 15:45 Subjective: f/u for abd pain and GI bleeding with flex sig showing large fungating -: mass in colon. Surgery eval pending but likely will need hospice due to -: co-morbid status and advanced dementia. - Objective Resuscitation Status: Resuscitation Status FULL:Full Resuscitation MAR Reviewed: Yes Vital Signs & Weight: Vital Signs (12 hours) Temp Pulse Resp BP Pulse Ox 05/06/18 13:17 98.1 F 75 20 122/56 L 93 L 05/06/18 08:00 98.8 F 72 20 133/63 92 L 05/06/18 04:07 98.6 F 64 16 115/57 L 92 L Weight Weight 136 lb 7.458 oz Most Recent Monitor Data Heart Rate from ECG 106 NIBP 98/70 NIBP BP-Mean 79 Respiration from ECG 28 SpO2 100 I&O: 05/05/18 05/06/18 05/07/18 06:59 06:59 06:59 Intake Total 1795 120 Balance 1795 120 Result Diagrams: 05/06/18 04:35 05/06/18 04:35 Additional Labs: Microbiology 05/03/18 13:47 Stool Stool Occult Blood (LILI) - Final 04/30/18 21:13 Urine Straight Catheter Urine Culture - Final NO GROWTH AT 36 HOURS 04/30/18 18:49 Venous blood - Left Hand Blood Culture - Final NO GROWTH IN 5 DAYS 04/30/18 18:33 Venous blood - Right Arm Blood Culture - Final NO GROWTH IN 5 DAYS Laboratory Tests 05/03/18 05/03/18 05/03/18 05:30 05:30 10:42 Hgb 8.8 L 9.3 L Potassium 3.5 05/04/18 05/04/18 05/05/18 04:21 04:21 03:17 Hgb 8.6 L Potassium 3.2 L 3.1 L 05/05/18 15:55 Hgb 9.1 L Potassium Radiology Reviewed by me: Yes (Flex sig - large fungating mass approx 20cm in length) Phys Exam - Physical Examination Constitutional: NAD HEENT: PERRLA, sclera anicteric, oral pharynx no lesions Neck: no nodes, no JVD, supple, full ROM Respiratory: no wheezing, no rales, no rhonchi, clear to auscultation bilateral S1, S2 Cardiovascular: no significant murmur, no rub, gallop, irregular Gastrointestinal: soft, non-tender, no distention, positive bowel sounds Musculoskeletal: no edema, pulses present Neurological: normal sensation, moves all 4 limbs A x O x 1 Skin: no rash, normal turgor, cap refill <2 seconds Dx/Plan (1) Colonic mass Code(s): K63.9 - DISEASE OF INTESTINE, UNSPECIFIED Status: Acute Comment: Suspicious for adenocarcinoma with biopsy pending, likely not a candidate for surgical resection however will have surgery evaluation for an opinion (2) Acute blood loss anemia Code(s): D62 - ACUTE POSTHEMORRHAGIC ANEMIA Status: Acute Comment: Likely due to #1, serial H/H monitoring (3) Dementia Code(s): F03.90 - UNSPECIFIED DEMENTIA WITHOUT BEHAVIORAL DISTURBANCE Status: Chronic Qualifiers: Dementia type: Alzheimer's disease Dementia behavioral disturbance: without behavioral disturbance Comment: Advanced, continue (4) Chronic a-fib Code(s): I48.2 - CHRONIC ATRIAL FIBRILLATION Status: Chronic Comment: rate controlled . cont multaq, Coreg, no anticoagulation due to GI bleeding - Plan plan discussed w/ family, PT/OT, [employer] social worker, out of bed/ambulate, DVT proph w/SCDs Stable currently -: D/C Cipro and Flagyl -: Await Gen surgery evaluation -: CT of abd/pelvis for staging purposes -: Continue Reg Diet * May consider Hospice evaluation * AM lab: BMP, Mg++, H/H
--- NOTE | 2018-05-06 17:38 | CT ---
CT CHEST WITH CONTRAST: 05/06/18 Multiple axial tomograms obtained through the chest with IV enhancement. INDICATIONS: Dementia. History of colon cancer. Staging for colon cancer. FINDINGS: There are bilateral pleural effusions, slightly larger on the right. There is bibasilar lung atelecta sis. Lung diaz are otherwise clear. The pulmonary arteries are well opacified and there is no evidence of pulmonary embolus. The thoracic aorta is opacified and there is no evidence of aortic dissection. Atherosclerotic changes are noted. No evidence of adenopathy. There are chronic lung parenchymal changes. Images through the upper abdo men appear unremarkable. Prior vertebroplasty procedures are noted in the mid thoracic vertebrae as well as the upper lumbar v ertebrae. IMPRESSION: 1. Small bilateral pleural effusions and bibasilar lung atelectasis. 2. No evidence of pulmonary nodule or infiltrate. POS: BILL
[2018-05-06] MEDS: Temazepam 15 MG CAP PO PRN (20:22)
[2018-05-06] MEDS: traZODone HCl 50 MG TAB PO SCH (20:22)
[2018-05-06] MEDS: Lactinex Tablet PO SCH (20:22)
[2018-05-06] MEDS: Fluticasone Propionate Nasal Spray 16 gm Bottle NASAL SCH (20:26)
[2018-05-07 05:05] LABS: Hemoglobin 9.2 g/dL (12.0-16.0); Platelet Count 161 thou/uL (130-400)
[2018-05-07 05:18] LABS: Anion Gap 10 mmol/L (10-20); BUN (Urea Nitrogen) 4 mg/dL (9.8-20.1); Calc. Creatinine Clearance 68 mL/min (70-130); Calcium 8.1 mg/dL (7.8-10.44); Carbon Dioxide 29 mmol/L (23-31); Chloride 102 mmol/L (98-107); Estimated GFR-MDRD Greater than 90; Glucose 94 mg/dL (83-110); Magnesium 1.8 mg/dL (1.6-2.6); Potassium 3.6 mmol/L (3.5-5.1); Sodium 137 mmol/L (136-145)
[2018-05-07] MEDS: Dronedarone HCl 400 MG TAB PO SCH ×2 (08:24→17:26)
[2018-05-07] MEDS: busPIRone HCl 5 MG TAB PO SCH ×2 (08:24→20:27)
[2018-05-07] MEDS: Docusate 100 MG CAP PO SCH (08:24)
[2018-05-07] MEDS: Carvedilol 3.125 MG TAB PO SCH ×2 (08:24→17:26)
[2018-05-07] MEDS: Potassium Chloride 20 MEQ TAB PO SCH ×2 (08:25→17:26)
[2018-05-07] MEDS: GENTEAL SEVERE 10 GM TUBE EA EYE SCH ×4 (08:27→20:27)
--- NOTE | 2018-05-07 11:22 | PDOC.PN ---
- Subjective Encounter Start Date: 05/07/18 Encounter Start Time: 08:00 Subjective: awake, no abd pain or nausea - Objective Resuscitation Status: Resuscitation Status FULL:Full Resuscitation MAR Reviewed: Yes Vital Signs & Weight: Vital Signs (12 hours) Temp Pulse Resp BP Pulse Ox 05/07/18 08:00 97.9 F 73 16 145/70 H 93 L 05/07/18 00:14 93 L Weight Weight 136 lb 7.458 oz Most Recent Monitor Data Heart Rate from ECG 106 NIBP 98/70 NIBP BP-Mean 79 Respiration from ECG 28 SpO2 100 I&O: 05/06/18 05/07/18 05/08/18 06:59 06:59 06:59 Intake Total 120 1300 250 Output Total 5 Balance 120 1295 250 Result Diagrams: 05/07/18 04:59 05/07/18 04:59 Phys Exam - Physical Examination HEENT: PERRLA, moist MMs Neck: no JVD, supple Respiratory: no wheezing, no rales Cardiovascular: RRR, no significant murmur Gastrointestinal: soft, non-tender, positive bowel sounds Musculoskeletal: no edema, pulses present Neurological: non-focal, moves all 4 limbs Psychiatric: A&O x 3 Dx/Plan (1) sigmoid colon mass Status: Acute (2) Acute diverticulitis Code(s): K57.92 - DVTRCLI OF INTEST, PART UNSP, W/O PERF OR ABSCESS W/O BLEED Status: Chronic (3) Chronic diastolic CHF (congestive heart failure) Code(s): I50.32 - CHRONIC DIASTOLIC (CONGESTIVE) HEART FAILURE Status: Chronic (4) CAD (coronary artery disease) Code(s): I25.10 - ATHSCL HEART DISEASE OF [place] CORONARY ARTERY W/O ANG PCTRS Status: Chronic Qualifiers: [place] vs. transplanted heart: [place] heart Associated angina: without angina (5) Chronic a-fib Code(s): I48.2 - CHRONIC ATRIAL FIBRILLATION Status: Chronic Comment: rate controlled . cont multaq, Coreg, no anticoagulation due to GI bleeding (6) Dementia Code(s): F03.90 - UNSPECIFIED DEMENTIA WITHOUT BEHAVIORAL DISTURBANCE Status: Chronic Qualifiers: Dementia type: Alzheimer's disease Dementia behavioral disturbance: without behavioral disturbance Comment: Advanced, continue (7) Dyslipidemia Code(s): E78.5 - HYPERLIPIDEMIA, UNSPECIFIED Status: Chronic (8) HTN (hypertension) Code(s): I10 - ESSENTIAL (PRIMARY) HYPERTENSION Status: Chronic Qualifiers: Hypertension type: essential hypertension Qualified Code(s): I10 - Essential (primary) hypertension (9) Hypothyroid Code(s): E03.9 - HYPOTHYROIDISM, UNSPECIFIED Status: Chronic Qualifiers: Hypothyroidism type: unspecified Qualified Code(s): E03.9 - Hypothyroidism , unspecified (10) Acute blood loss anemia Code(s): D62 - ACUTE POSTHEMORRHAGIC ANEMIA Status: Acute Comment: Likely due to #1, serial H/H monitoring - Plan will get CT abd/pelvis -: surgical opinion -: d/w at bedside, is aware of mass in colon, is wanting to talk to -: -. -: h/h are stable today * . continue, coreg and multaq. If no surgery is planned then hospice at snf. Await histopath report, clinically was more like cancer with fungating mass on flex sig. Review of Systems - Medications/Allergies Allergies/Adverse Reactions: Allergies Allergy/AdvReac Type Severity Reaction Status Date / Time codeine Allergy Verified 10/05/13 15:52 Penicillins Allergy Verified 10/05/13 15:52 Sulfa (Sulfonamide Allergy Verified 10/05/13 15:52 Antibiotics) orange juice AdvReac Verified 11/11/17 11:02 Medications: Current Medications Acidophilus (Floranex) 1 tab PO HS [facility] Last Admin: 05/06/18 20:22 Dose: 1 tab Buspirone HCl (Buspar) 5 mg PO BID [facility] Last Admin: 05/07/18 08:24 Dose: 5 mg Carvedilol (Coreg) 3.125 mg PO BID-[facility] Last Admin: 05/07/18 08:24 Dose: 3.125 mg Dicyclomine HCl (Bentyl) 10 mg PO QID PRN PRN Reason: abdominal cramps Last Admin: 05/04/18 06:37 Dose: 10 mg Docusate Sodium (Colace) 100 mg PO DAILY [facility] Last Admin: 05/07/18 08:24 Dose: 100 mg Dronedarone (Multaq) 400 mg PO BID-[facility] Last Admin: 05/07/18 08:24 Dose: 400 mg Fluticasone Propionate (Flonase Nasal [place]) 0 gm NASAL [facility] Last Admin: 05/06/18 20:26 Dose: Not Given Hypromellose (Genteal Severe) 0 gm EA EYE QID [facility] Last Admin: 05/07/18 08:27 Dose: 1 drop Miscellaneous Medication (Phos-Nak) 1 pkt PO TIDPRN PRN PRN Reason: FOR PHOS LEVEL 1.0 - 1.8 Miscellaneous Medication (Phos-Nak) 2 pkt PO TIDPRN PRN PRN Reason: FOR PHOS LEVEL 0.5 - 1.0 Miscellaneous Medication (Pharmacy To Dose) 1 each IVPB PRN PRN PRN Reason: RPH TO DOSE Ondansetron HCl (Zofran) 4 mg IVP Q6H PRN PRN Reason: Nausea/Vomiting Potassium Chloride (K-Dur) 40 meq PO BID-[facility] Last Admin: 05/07/18 08:25 Dose: 40 meq Sodium Chloride (Flush - Normal Saline) 10 ml IVF Q12HR [facility] Last Admin: 05/07/18 08:26 Dose: 10 ml Sodium Chloride (Flush - Normal Saline) 10 ml IVF PRN PRN PRN Reason: Saline Flush Last Admin: 05/05/18 09:59 Dose: 10 ml Temazepam (Restoril) 15 mg PO HS PRN PRN Reason: Insomnia Last Admin: 05/06/18 20:22 Dose: 15 mg Trazodone HCl (Desyrel) 50 mg PO HS [facility] Last Admin: 05/06/18 20:22 Dose: 50 mg
--- NOTE | 2018-05-07 12:09 | CON ---
DATE OF CONSULTATION: 05/07/2018 CHIEF COMPLAINT: Colon mass. HISTORY OF PRESENT ILLNESS: This is an 82-year-old female who has dementia who normally resides in a Alzheimer's type unit who presents to the hospital after being admitted for what her states was feeling ill. Overall not feeling well, not eating, having some diarrhea. Evaluation in the hosp ital thus far has led to colonoscopy, which revealed colon mass. The colon mass extends from 10 cm t o 20 cm in the sigmoid colon. The patient has not necessarily had obstructive symptoms, only loose s tools. No significant blood in stools. CT of the chest reveals no obvious pulmonary metastatic dise ase. She had CT of the abdomen and pelvis, which was an angio on admission for unknown reason and th is showed no obvious intra-abdominal metastatic disease either. The biopsy specimens from the colono scopy are still pending. There is no family history of GI malignancy. No history of chronic abdomin al pain, anorexia, nausea, vomiting, weight loss. She is comfortable today and smiling, although gurvinder ble to participate in the history exam, her does most of it. PAST MEDICAL HISTORY: Includes COPD, history of atrial fibrillation, dementia. PAST SURGICAL HISTORY: Multiple back surgeries, hysterectomy, appendectomy, cholecystectomy. MEDICINES: See list. ALLERGIES: CODEINE, MILK, PENICILLIN and SULFA. SOCIAL HISTORY: Former smoker, no alcohol. Lives in the jail type facility. GI is noncontr ibutory to GI malignancy or anesthetic related complication. REVIEW OF SYSTEMS: Ten system review of systems is performed with the 's assistance and other dupont negative. PHYSICAL EXAMINATION: VITAL SIGNS: Blood pressure is 145/70, pulse 73, respirations 16. She is afebrile. HEENT: Sclerae are anicteric. Oropharynx clear. NECK: No lymphadenopathy. CHEST: Clear. HEART: Regular rate and rhythm. ABDOMEN: Soft, nontender, nondistended, well healed incisions without hernia. EXTREMITIES: No ischemia or edema to extremities. LABORATORY DATA AND IMAGING: The hemoglobin and hematocrit are 9 and 29.9 today, creatinine was 0.6 yesterday. Urine was clear. CT of the chest reveals no obvious intra-chest evidence of metastatic d isease. CTA of the abdomen revealed no obvious metastatic disease. ASSESSMENT: 1. Colon mass, likely cancer. Pathology pending on biopsies. 2. History of dementia. 3. Chronic obstructive pulmonary disease. PLAN: I had a long discussion with the about treatment options. One option would be to do n othing at all. Ultimately, this would lead to colon obstruction and . Another option would be only a diverting type procedure. I think it would be reasonable to perform sigmoid colectomy in a pa lliative fashion, but not perform anastomosis. This would significantly lower her risk of surgery, t here to be no anastomosis with the potential for leak. My plan would be sigmoid colectomy with end c olostomy. The seems amenable to this. My plan would be to perform that on Wednesday.
[2018-05-07] MEDS ORDERED: ISOVUE-370 76%-LOCM 1 ML ONE (14:25)
--- NOTE | 2018-05-07 14:50 | EKG ---
Test Reason : Blood Pressure : / mmHG Vent. Rate : 134 BPM Atrial Rate : 098 BPM P-R Int : 000 ms QRS Dur : 162 ms QT Int : 332 ms P-R-T Axes : 000 -85 062 degrees QTc Int : 495 ms Atrial fibrillation with rapid ventricular response with premature ventricular or aberrantly conducte d complexes Left axis deviation Right bundle branch block Anteroseptal infarct , age undetermined Abnormal ECG Confirmed by AZAM WASHINGTON ([id number]), supervising editor news reel BELINDA BORDEN ([id number]) on 05/07/2018 2:49:58 PM Referred By: Confirmed By:AZAM WASHINGTON
--- NOTE | 2018-05-07 14:51 | CT ---
CT ABDOMEN AND PELVIS WITH IV CONTRAST: Date: 05/07/18 Multiple axial tomograms obtained through the abdomen and pelvis with IV enhancement. Oral contrast w as administered. INDICATION: Sigmoid mass. Exam performed for staging. Correlation made to recent CT angio abdomen and pelvis dated 04/30/18. FINDINGS: Small bilateral pleural effusions have occurred since prior exam. There is bibasilar atelectasis, mor e prominent in the right lung base. Liver, spleen, and pancreas are unremarkable. Adrenal glands unremarkable. Kidneys unremarkable. There are tiny low density lesions in both kidneys, which are too small to adeq uately characterize, all being subcentimeter in dimension. No hydronephrosis. Small bowel loops are opacified and appear unremarkable. There is a 3.6 cm exophytic mass from the mid sigmoid which doesn't appear to involve the sigmoid muc eric. Mild mural thickening of the sigmoid with mild diverticulosis. Aorta shows calcification, but normal caliber. No adenopathy identified. Nonspecific periaortic lymph nodes are seen. A left periaortic lymph node measures 1.0 cm. Aortocaval lymph node measures up to 1 .0 cm. Osseous structures show osteopenia and degenerative change. Evidence of prior vertebroplasty. IMPRESSION: 1. Small bilateral pleural effusions and bibasilar atelectasis, more prominent on the right. 2. Exophytic mass in the mid sigmoid with mural thickening in the mid sigmoid associated with this e xophytic mass. 3. Tiny low density lesions in both kidneys, too small to adequately characterize. 4. Nonspecific periaortic lymph nodes. POS: ANGELIKA
--- NOTE | 2018-05-07 15:36 | PRG ---
DATE OF SERVICE: 05/07/2018 REASON FOR CONSULTATION: Abnormal gastrointestinal imaging, hematochezia. The patient states that she is doing well this morning with no acute events or problems overnight. S he denies any abdominal pain at the current point in time, but could not remember having a procedure performed yesterday. OBJECTIVE: VITAL SIGNS: Temperature 97.9, pulse 67, blood pressure 138/64, respiratory rate 18, satting 94% on 3 liters nasal cannula. GENERAL: The patient is alert and awake, oriented only to self. CARDIOVASCULAR: Regular rate and rhythm. RESPIRATORY: Clear to auscultation bilaterally. ABDOMEN: Soft, nontender, nondistended, normoactive bowel sounds. EXTREMITIES: No cyanosis, clubbing, or edema. LABORATORY DATA: CBC with a hemoglobin of 9.2, hematocrit 29.9. Chemistry with a sodium of 137, pot assium 3.6, chloride 102, CO2 of 29, BUN 4, creatinine 0.6, glucose 94. IMAGING DATA: CT scan of the chest revealed no obvious intrathoracic or metastatic disease. CT of t he abdomen also did not reveal any evidence of metastatic disease. ASSESSMENT: The patient is an 82-year-old female with past medical history of chronic obstructive pu lmonary disease, atrial fibrillation, and [id number] dementia, presenting with probable colon m alignancy. Colonic malignancy. The patient was admitted to the hospital with complaints of general malaise and diarrhea. During the hospitalization, she did have some minimal hematochezia that prompted further e valuation. CT of the abdomen and pelvis showed possible diverticulitis, but given her symptoms, this was felt to be unlikely. She ultimately underwent a flexible sigmoidoscopy on 05/06/2018, which song wed the presence of a large colonic lesion within the rectosigmoid and extending proximally into the sigmoid and descending colon concerning for colonic malignancy. At this point, the biopsies are stil l pending for the mass lesions, but a colonic malignancy is likely. RECOMMENDATIONS: I agree with consultation with Colorectal Surgery, given lack of evidence of metast atic disease on both the CT of the chest and abdomen/pelvis. We will sign off at this time. Please call with any additional questions.
[2018-05-07] MEDS: Temazepam 15 MG CAP PO PRN (20:27)
[2018-05-07] MEDS: traZODone HCl 50 MG TAB PO SCH (20:27)
[2018-05-07] MEDS: Lactinex Tablet PO SCH (20:27)
[2018-05-07] MEDS: Fluticasone Propionate Nasal Spray 16 gm Bottle NASAL SCH (20:28)
[2018-05-08 05:34] LABS: Anion Gap 9 mmol/L (10-20); BUN (Urea Nitrogen) 4 mg/dL (9.8-20.1); Calc. Creatinine Clearance 73 mL/min (70-130); Calcium 8.1 mg/dL (7.8-10.44); Carbon Dioxide 32 mmol/L (23-31); Chloride 100 mmol/L (98-107); Estimated GFR-MDRD Greater than 90; Glucose 87 mg/dL (83-110); Magnesium 1.7 mg/dL (1.6-2.6); Potassium 3.8 mmol/L (3.5-5.1); Sodium 137 mmol/L (136-145)
[2018-05-08] MEDS: Carvedilol 3.125 MG TAB PO SCH ×2 (08:28→17:20)
[2018-05-08] MEDS: Dronedarone HCl 400 MG TAB PO SCH ×2 (08:28→17:20)
[2018-05-08] MEDS: busPIRone HCl 5 MG TAB PO SCH ×2 (08:28→20:38)
[2018-05-08] MEDS: Potassium Chloride 20 MEQ TAB PO SCH ×2 (08:28→17:20)
[2018-05-08] MEDS: Docusate 100 MG CAP PO SCH (08:30)
[2018-05-08] MEDS: GENTEAL SEVERE 10 GM TUBE EA EYE SCH ×4 (08:30→20:50)
[2018-05-08] MEDS ORDERED: Magnesium Citrate 300 ML BOT PO SCH (12:45)
--- NOTE | 2018-05-08 12:46 | PRG ---
DATE OF SERVICE: 05/08/2018 Ms. Adame has no complaints. Her is not available. I had discussed with the yesterda y treatment options, one of which would include no surgical treatment at all, however, ultimately thi s area in her sigmoid colon is going to advance to obstructive disease, we can prevent that by resect ion, even though that would be a palliative resection. Even if she were to have positive lymph node, she is no candidate for chemotherapy given her dementia. My plan would be a sigmoid colectomy with end colostomy. He understands the risks, benefits, alternative. After a long discussion including t he option of doing nothing at all, he does wish to proceed with local resection. We will give magnes ium citrate prep today and plan for surgery tomorrow.
--- NOTE | 2018-05-08 18:30 | PDOC.PN ---
- Subjective Encounter Start Date: 05/08/18 Encounter Start Time: 18:28 Ms. Adame was seen today in follow-up of colon mass. She does not have any complaints. - Objective Resuscitation Status: Resuscitation Status FULL:Full Resuscitation MAR Reviewed: Yes Vital Signs & Weight: Vital Signs (12 hours) Temp Pulse Resp BP 05/08/18 08:25 98.5 F 74 16 05/08/18 08:10 98.5 F 74 16 140/67 Weight Weight 136 lb 7.458 oz Most Recent Monitor Data Heart Rate from ECG 106 NIBP 98/70 NIBP BP-Mean 79 Respiration from ECG 28 SpO2 100 I&O: 05/07/18 05/08/18 05/09/18 06:59 06:59 06:59 Intake Total 1300 840 Output Total 5 Balance 1295 840 Result Diagrams: 05/07/18 04:59 05/08/18 05:16 Phys Exam - Physical Examination HEENT: PERRLA Respiratory: no wheezing, no rales, no rhonchi, clear to auscultation bilateral Cardiovascular: RRR, no significant murmur, no rub Gastrointestinal: soft, non-tender, no distention, positive bowel sounds Musculoskeletal: no edema Dx/Plan (1) Colonic mass Code(s): K63.9 - DISEASE OF INTESTINE, UNSPECIFIED Status: Acute Comment: Suspicious for adenocarcinoma with biopsy pending, likely not a candidate for surgical resection however will have surgery evaluation for an opinion (2) Sepsis Code(s): A41.9 - SEPSIS, UNSPECIFIED ORGANISM Status: Suspected (3) CAD (coronary artery disease) Code(s): I25.10 - ATHSCL HEART DISEASE OF [place] CORONARY ARTERY W/O ANG PCTRS Status: Chronic Qualifiers: [place] vs. transplanted heart: [place] heart Associated angina: without angina (4) Dementia Code(s): F03.90 - UNSPECIFIED DEMENTIA WITHOUT BEHAVIORAL DISTURBANCE Status: Chronic Qualifiers: Dementia type: Alzheimer's disease Dementia behavioral disturbance: without behavioral disturbance Comment: Advanced, continue - Plan * Colon Mass- the patient's has decided to proceed with partial colectomy * CAD- stable * Sepsis and aspiration pneumonia have been ruled out * Dementia- advanced.
[2018-05-08] MEDS: traZODone HCl 50 MG TAB PO SCH (20:38)
[2018-05-08] MEDS: Lactinex Tablet PO SCH (20:38)
[2018-05-08] MEDS: Temazepam 15 MG CAP PO PRN (20:38)
[2018-05-08] MEDS: Fluticasone Propionate Nasal Spray 16 gm Bottle NASAL SCH (20:50)
[2018-05-09 04:06] LABS: Anion Gap 8 mmol/L (10-20); BUN (Urea Nitrogen) Less than 4 mg/dL (9.8-20.1); Calc. Creatinine Clearance 74 mL/min (70-130); Calcium 8.1 mg/dL (7.8-10.44); Carbon Dioxide 33 mmol/L (23-31); Chloride 100 mmol/L (98-107); Estimated GFR-MDRD Greater than 90; Glucose 83 mg/dL (83-110); Magnesium 1.9 mg/dL (1.6-2.6); Potassium 3.6 mmol/L (3.5-5.1); Sodium 137 mmol/L (136-145)
--- NOTE | 2018-05-09 07:15 | PDOC.PN ---
- Subjective Encounter Start Date: 05/09/18 Encounter Start Time: 07:14 Ms. Adame was see today in follow-up of colon mass. She does not have any complaints. - Objective Resuscitation Status: Resuscitation Status FULL:Full Resuscitation MAR Reviewed: Yes Vital Signs & Weight: Vital Signs (12 hours) Temp Pulse Resp BP Pulse Ox 05/08/18 20:00 97.8 F 62 16 126/60 97 Weight Weight 136 lb 7.458 oz Most Recent Monitor Data Heart Rate from ECG 106 NIBP 98/70 NIBP BP-Mean 79 Respiration from ECG 28 SpO2 100 I&O: 05/08/18 05/09/18 05/10/18 06:59 06:59 06:59 Intake Total 840 Balance 840 Result Diagrams: 05/07/18 04:59 05/09/18 03:00 Phys Exam - Physical Examination HEENT: PERRLA, sclera anicteric Respiratory: no wheezing, no rales, no rhonchi, clear to auscultation bilateral Cardiovascular: RRR, no significant murmur, no rub Gastrointestinal: soft, non-tender, no distention, positive bowel sounds Musculoskeletal: no edema Dx/Plan (1) Colonic mass Code(s): K63.9 - DISEASE OF INTESTINE, UNSPECIFIED Status: Acute Comment: Suspicious for adenocarcinoma with biopsy pending, likely not a candidate for surgical resection however will have surgery evaluation for an opinion (2) Sepsis Code(s): A41.9 - SEPSIS, UNSPECIFIED ORGANISM Status: Suspected (3) CAD (coronary artery disease) Code(s): I25.10 - ATHSCL HEART DISEASE OF [place] CORONARY ARTERY W/O ANG PCTRS Status: Chronic Qualifiers: [place] vs. transplanted heart: [place] heart Associated angina: without angina (4) Dementia Code(s): F03.90 - UNSPECIFIED DEMENTIA WITHOUT BEHAVIORAL DISTURBANCE Status: Chronic Qualifiers: Dementia type: Alzheimer's disease Dementia behavioral disturbance: without behavioral disturbance Comment: Advanced, continue (5) COPD (chronic obstructive pulmonary disease) Status: Chronic (6) Chronic a-fib Code(s): I48.2 - CHRONIC ATRIAL FIBRILLATION Status: Chronic Comment: rate controlled . cont multaq, Coreg, no anticoagulation due to GI bleeding - Plan * CAD- stable * Chronic AFIB- her heart rate is controlled- on Multaq * Sepsis- ruled out * COPD- stable * Sigmoid colon mass- plan is for surgery today.
[2018-05-09] MEDS: Dronedarone HCl 400 MG TAB PO SCH ×2 (08:05→16:58)
[2018-05-09] MEDS: Carvedilol 3.125 MG TAB PO SCH ×2 (08:05→16:57)
[2018-05-09] MEDS: Potassium Chloride 20 MEQ TAB PO SCH (08:06)
[2018-05-09] MEDS: Docusate 100 MG CAP PO SCH (08:06)
[2018-05-09] MEDS: GENTEAL SEVERE 10 GM TUBE EA EYE SCH ×4 (08:06→20:31)
[2018-05-09] MEDS: busPIRone HCl 5 MG TAB PO SCH ×2 (08:06→21:30)
[2018-05-09] MEDS ORDERED: Midazolam HCl 2 mg/2 ml Vial ONE (08:15)
[2018-05-09] MEDS ORDERED: Fentanyl 100 MCG/2 ML VIAL ONE ×3 (08:15→14:07)
[2018-05-09] MEDS ORDERED: Bupivacaine/Epinephrine 0.25% 30 ML VIAL ONE (10:50)
[2018-05-09] MEDS ORDERED: Fentanyl 250 MCG/5 ML VIAL ONE (10:53)
[2018-05-09] MEDS ORDERED: Levofloxacin 500 mg/D5W 100 ml Premix Bag ONE (11:03)
[2018-05-09] MEDS ORDERED: Albumin 5% 500 ML ONE (11:11)
[2018-05-09] MEDS ORDERED: Promethazine HCl 25 MG/ML VIAL SLOW IVP PRN ×2 (13:21→13:40)
[2018-05-09] MEDS ORDERED: Promethazine HCl 25 MG/ML VIAL IM PRN ×3 (13:21→14:59)
[2018-05-09] MEDS ORDERED: Ondansetron HCl/PF 4 MG/2 ML Vial IVP PRN ×3 (13:21→14:59)
[2018-05-09] MEDS ORDERED: Dexamethasone 20 MG/5 ML VIAL ONE (14:40)
[2018-05-09] MEDS ORDERED: Ondansetron HCl/PF 4 MG/2 ML Vial ONE (14:40)
[2018-05-09] MEDS ORDERED: Glycopyrrolate 0.2 MG/ML 5 ML SYRINGE ONE (14:40)
[2018-05-09] MEDS ORDERED: PROPOFOL 200 MG/20 ML VIAL ONE (14:40)
[2018-05-09] MEDS ORDERED: Lidocaine 1% PF 5 ML VIAL ONE (14:40)
[2018-05-09] MEDS ORDERED: ePHEDrine/0.9% NaCl/PF SYRINGE 50 mg/10 ml ONE (14:40)
[2018-05-09] MEDS ORDERED: hydrALAZINE 20 MG/ML VIAL SLOW IVP PRN (14:59)
[2018-05-09] MEDS ORDERED: Fentanyl 100 MCG/2 ML VIAL SLOW IVP PRN (14:59)
[2018-05-09] MEDS: Sodium Chloride 0.9% 1,000 ML IV SCH (15:33)
[2018-05-09] MEDS: Acetaminophen 1,000 MG in Premix Bag 1 BAG IVPB SCH (18:27)
[2018-05-09] MEDS: Famotidine/PF 20 mg/2ml Vial SLOW IVP SCH (20:30)
[2018-05-09] MEDS: Fluticasone Propionate Nasal Spray 16 gm Bottle NASAL SCH (20:31)
[2018-05-09] MEDS: Enoxaparin Sodium 40 MG/0.4 ML SYRINGE SC SCH (21:30)
[2018-05-09] MEDS: Famotidine 20 MG TAB PO SCH (21:30)
[2018-05-10] MEDS: Acetaminophen 1,000 MG in Premix Bag 1 BAG IVPB SCH ×3 (00:38→12:30)
[2018-05-10 06:09] LABS: #Lymphocytes 1.2 thou/uL (1.20-3.40); #Monocytes 0.7 thou/uL (0.11-0.59); #Neutrophils 8.6 thou/uL (1.40-6.50); %Basophils 0.2 % (0.0-1.0); %Eosinophils 0.1 % (0.0-10.0); %Lymphocytes 11.4 % (21.0-51.0); %Monocytes 6.9 % (0.0-10.0); %Neutrophils 81.5 % (42.0-75.0); Anion Gap 8 mmol/L (10-20); BUN (Urea Nitrogen) 5 mg/dL (9.8-20.1); Calc. Creatinine Clearance 73 mL/min (70-130); Calcium 7.8 mg/dL (7.8-10.44); Carbon Dioxide 32 mmol/L (23-31); Chloride 99 mmol/L (98-107); Estimated GFR-MDRD Greater than 90; Glucose 113 mg/dL (83-110); Hemoglobin 8.8 g/dL (12.0-16.0); Mean Corpuscular HGB CONC 30.8 g/dL (32.0-36.0); Mean Corpuscular Hemoglobin 26.7 pg (27.0-31.0); Mean Corpuscular Volume 86.6 fL (78.0-98.0); Mean Platelet Volume 9.6 fL (7.4-10.4); Platelet Count 145 thou/uL (130-400); Potassium 3.8 mmol/L (3.5-5.1); RBC Distribution Width 16.8 % (11.5-14.5); Red Blood Cell (RBC) Count 3.31 mill/uL (4.20-5.40); Sodium 135 mmol/L (136-145); White Blood Cell (WBC) Count 10.5 thou/uL (4.8-10.8)
[2018-05-10] MEDS: Famotidine 20 MG TAB PO SCH ×2 (08:34→20:14)
[2018-05-10] MEDS: Dronedarone HCl 400 MG TAB PO SCH ×2 (08:34→18:00)
[2018-05-10] MEDS: busPIRone HCl 5 MG TAB PO SCH ×2 (08:35→20:14)
[2018-05-10] MEDS: Carvedilol 3.125 MG TAB PO SCH ×2 (09:35→18:00)
[2018-05-10] MEDS: Famotidine/PF 20 mg/2ml Vial SLOW IVP SCH ×2 (09:37→20:14)
[2018-05-10] MEDS: GENTEAL SEVERE 10 GM TUBE EA EYE SCH ×4 (09:37→20:19)
[2018-05-10] MEDS: Sodium Chloride 0.9% 1,000 ML IV SCH (12:30)
[2018-05-10] MEDS ORDERED: Sodium Chloride 0.9% 1,000 ML IV SCH (14:03)
--- NOTE | 2018-05-10 14:05 | PDOC.GSPN ---
Surgery Progress Note: Subj - Subjective Narrative: No complaints today. Denies nausea although confused Surgery Progress Note: Obj - Vital signs Vital signs: Vital Signs - Most Recent Temp Pulse Resp BP Pulse Ox 98.4 F 72 14 107/61 95 05/10/18 11:09 05/10/18 11:09 05/10/18 11:09 05/10/18 11:09 05/10/18 11:09 - Physical Exam General: no distress Cardiovascular: no murmur Respiratory: clear to auscultation Abdomen: soft, non tender, distended, other (Colostomy viable, no stool in bag yet) Wound: healing well Surgery Progress Note: Results - Labs Result Diagrams: 05/10/18 05:36 05/10/18 05:36 Lab results: Laboratory Results - last 24 hr 05/10/18 05/10/18 05:36 05:36 WBC 10.5 RBC 3.31 L Hgb 8.8 L Hct 28.6 L MCV 86.6 MCH 26.7 L MCHC 30.8 L RDW 16.8 H Plt Count 145 MPV 9.6 Neutrophils % 81.5 H Lymphocytes % 11.4 L Monocytes % 6.9 Eosinophils % 0.1 Basophils % 0.2 Neutrophils # 8.6 H Lymphocytes # 1.2 Monocytes # 0.7 H Eosinophils # 0.0 Basophils # 0.0 Sodium 135 L Potassium 3.8 Chloride 99 Carbon Dioxide 32 H Anion Gap 8 L BUN 5 L Creatinine 0.56 L Estimated GFR (MDRD) Greater than 90 Glucose 113 H Calcium 7.8 Surgery Progress Note: A/P - Problem (1) Colonic mass Current Visit: Yes Code(s): K63.9 - DISEASE OF INTESTINE, UNSPECIFIED Status : Acute - Plan Plan: Distended today. Will encourage her to go slow on liquids. Await bowel function
--- NOTE | 2018-05-10 14:38 | PDOC.PN ---
- Subjective Encounter Start Date: 05/10/18 Encounter Start Time: 12:35 Subjective: pt up in bed appears confused - Objective Resuscitation Status: Resuscitation Status FULL:Full Resuscitation Vital Signs & Weight: Vital Signs (12 hours) Temp Pulse Resp BP BP Pulse Ox 05/10/18 11:09 98.4 F 72 14 107/61 95 05/10/18 08:48 98.5 F 77 15 103/59 L 99 05/10/18 08:28 98.5 F 77 15 97 05/10/18 08:20 118/65 97 05/10/18 03:58 97.6 F 73 16 90/50 L 98 Weight Admit Weight 136 lb 7.456 oz Weight 136 lb 7.456 oz Most Recent Monitor Data Heart Rate from ECG 106 NIBP 98/70 NIBP BP-Mean 79 Respiration from ECG 28 SpO2 100 I&O: 05/09/18 05/10/18 05/11/18 06:59 06:59 06:59 Intake Total 1820 Output Total 835 Balance 985 Result Diagrams: 05/10/18 05:36 05/10/18 05:36 Phys Exam - Physical Examination HEENT: PERRLA, moist MMs, sclera anicteric, TM's clear, oral pharynx no lesions , 2+ tonsils Neck: no nodes, no JVD, supple, full ROM Respiratory: no wheezing, no rales, no rhonchi, wheezing present, clear to auscultation bilateral Cardiovascular: RRR, no significant murmur, no rub, gallop, irregular mild distention, bsx2, colostomy and mid abd inscision intact Musculoskeletal: no edema, pulses present, edema present Dx/Plan (1) Acute blood loss anemia Code(s): D62 - ACUTE POSTHEMORRHAGIC ANEMIA Status: Acute Comment: Likely due to #1, serial H/H monitoring (2) Colonic mass Code(s): K63.9 - DISEASE OF INTESTINE, UNSPECIFIED Status: Acute Comment: Suspicious for adenocarcinoma with biopsy pending, likely not a candidate for surgical resection however will have surgery evaluation for an opinion (3) Dementia Code(s): F03.90 - UNSPECIFIED DEMENTIA WITHOUT BEHAVIORAL DISTURBANCE Status: Chronic Qualifiers: Dementia type: Alzheimer's disease Dementia behavioral disturbance: without behavioral disturbance Comment: Advanced, continue (4) HTN (hypertension) Code(s): I10 - ESSENTIAL (PRIMARY) HYPERTENSION Status: Chronic Qualifiers: Hypertension type: essential hypertension Qualified Code(s): I10 - Essential (primary) hypertension - Plan PT ordered for pt. will check hh and transfuse if hh <7. -: palliative care consulted. pt takes lithum and thyroid pork? will ask -: . * . Review of Systems - Review of Systems Other: unable to obtain - Medications/Allergies Allergies/Adverse Reactions: Allergies Allergy/AdvReac Type Severity Reaction Status Date / Time codeine Allergy Verified 10/05/13 15:52 Penicillins Allergy Verified 10/05/13 15:52 Sulfa (Sulfonamide Allergy Verified 10/05/13 15:52 Antibiotics) orange juice AdvReac Verified 11/11/17 11:02 Medications: Current Medications Acetaminophen (Tylenol) 650 mg PO Q4H PRN PRN Reason: Headache/Fever Or Mild Pain Albuterol/Ipratropium (Duoneb) 3 ml NEB Q4H PRN PRN Reason: Wheezing Buspirone HCl (Buspar) 5 mg PO BID [facility] Last Admin: 05/10/18 08:35 Dose: 5 mg Carvedilol (Coreg) 3.125 mg PO BID-[facility] Last Admin: 05/10/18 09:35 Dose: 3.125 mg Dronedarone (Multaq) 400 mg PO BID-[facility] Last Admin: 05/10/18 08:34 Dose: 400 mg Enoxaparin Sodium (Lovenox) 40 mg SC 2100 [facility] Last Admin: 05/09/18 21:30 Dose: 40 mg Famotidine (Pepcid) 20 mg PO Q12HR [facility] Last Admin: 05/10/18 08:34 Dose: 20 mg Famotidine (Pepcid) 20 mg SLOW IVP Q12HR [facility] Last Admin: 05/10/18 09:37 Dose: Not Given Fentanyl (Sublimaze) 25 mcg SLOW IVP Q2H PRN PRN Reason: Moderate to Severe Pain (6-10) Fluticasone Propionate (Flonase Nasal [place]) 0 gm NASAL HS [facility] Last Admin: 05/09/18 20:31 Dose: Not Given Hydralazine HCl (Apresoline) 10 mg SLOW IVP Q4H PRN PRN Reason: SBP > 170 or DBP > 100 Hypromellose (Genteal Severe) 0 gm EA EYE QID [facility] Last Admin: 05/10/18 14:04 Dose: Not Given Sodium Chloride (Normal Saline 0.9%) 1,000 mls @ 0 mls/hr IV .Q0M [facility] PRN Reason: KVO Ondansetron HCl (Zofran) 4 mg IVP Q6H PRN PRN Reason: Nausea/Vomiting Promethazine HCl (Phenergan) 12.5 mg IM Q4H PRN PRN Reason: Nausea/Vomiting Sodium Chloride (Flush - Normal Saline) 10 ml IVF PRN PRN PRN Reason: Saline Flush Last Admin: 05/10/18 08:37 Dose: 10 ml
[2018-05-10] MEDS: Acetaminophen 325 MG TAB PO PRN ×2 (18:31→22:45)
[2018-05-10] MEDS: Enoxaparin Sodium 40 MG/0.4 ML SYRINGE SC SCH (20:14)
[2018-05-10] MEDS: Fluticasone Propionate Nasal Spray 16 gm Bottle NASAL SCH (20:19)
[2018-05-11 05:43] LABS: #Eosinphils 0.1 thou/uL (0.0-0.7); #Lymphocytes 1.3 thou/uL (1.20-3.40); #Monocytes 0.6 thou/uL (0.11-0.59); #Neutrophils 8.1 thou/uL (1.40-6.50); %Basophils 0.2 % (0.0-1.0); %Eosinophils 0.5 % (0.0-10.0); %Monocytes 5.8 % (0.0-10.0); %Neutrophils 80.6 % (42.0-75.0); Hemoglobin 9.3 g/dL (12.0-16.0); Mean Corpuscular HGB CONC 30.8 g/dL (32.0-36.0); Mean Corpuscular Hemoglobin 26.1 pg (27.0-31.0); Mean Corpuscular Volume 84.6 fL (78.0-98.0); Mean Platelet Volume 9.1 fL (7.4-10.4); Platelet Count 159 thou/uL (130-400); RBC Distribution Width 16.9 % (11.5-14.5); Red Blood Cell (RBC) Count 3.55 mill/uL (4.20-5.40); White Blood Cell (WBC) Count 10.1 thou/uL (4.8-10.8)
[2018-05-11 06:06] LABS: Anion Gap 9 mmol/L (10-20); BUN (Urea Nitrogen) 6 mg/dL (9.8-20.1); Calc. Creatinine Clearance 72 mL/min (70-130); Calcium 7.9 mg/dL (7.8-10.44); Carbon Dioxide 32 mmol/L (23-31); Chloride 99 mmol/L (98-107); Estimated GFR-MDRD Greater than 90; Glucose 107 mg/dL (83-110); Potassium 3.6 mmol/L (3.5-5.1); Sodium 136 mmol/L (136-145)
[2018-05-11] MEDS: Dronedarone HCl 400 MG TAB PO SCH ×2 (08:12→16:35)
[2018-05-11] MEDS: Acetaminophen 325 MG TAB PO PRN (08:12)
[2018-05-11] MEDS: Famotidine 20 MG TAB PO SCH ×2 (08:12→21:15)
[2018-05-11] MEDS: Carvedilol 3.125 MG TAB PO SCH ×2 (08:12→16:35)
[2018-05-11] MEDS: busPIRone HCl 5 MG TAB PO SCH ×2 (08:12→21:14)
[2018-05-11] MEDS: Famotidine/PF 20 mg/2ml Vial SLOW IVP SCH ×2 (08:20→21:15)
[2018-05-11] MEDS: GENTEAL SEVERE 10 GM TUBE EA EYE SCH ×4 (08:20→21:17)
--- NOTE | 2018-05-11 08:31 | PDOC.GSPN ---
Surgery Progress Note: Subj - Subjective Narrative: More distended today. Says she is not feeling well. Surgery Progress Note: Obj - Vital signs Vital signs: Vital Signs - Most Recent Temp Pulse Resp BP Pulse Ox 97.4 F L 83 18 149/68 H 94 L 05/11/18 04:09 05/11/18 04:09 05/11/18 04:09 05/11/18 04:09 05/11/18 04:09 - Physical Exam General: no distress Abdomen: soft, distended, other (occasional bowel sounds, colostomy mucosa pink) Wound: healing well Surgery Progress Note: Results - Labs Result Diagrams: 05/11/18 05:25 05/11/18 05:25 Lab results: Laboratory Results - last 24 hr 05/11/18 05/11/18 05:25 05:25 WBC 10.1 RBC 3.55 L Hgb 9.3 L Hct 30.0 L MCV 84.6 MCH 26.1 L MCHC 30.8 L RDW 16.9 H Plt Count 159 MPV 9.1 Neutrophils % 80.6 H Lymphocytes % 13.0 L Monocytes % 5.8 Eosinophils % 0.5 Basophils % 0.2 Neutrophils # 8.1 H Lymphocytes # 1.3 Monocytes # 0.6 H Eosinophils # 0.1 Basophils # 0.0 Sodium 136 Potassium 3.6 Chloride 99 Carbon Dioxide 32 H Anion Gap 9 L BUN 6 L Creatinine 0.57 L Estimated GFR (MDRD) Greater than 90 Glucose 107 Calcium 7.9 Surgery Progress Note: A/P - Problem (1) Colonic mass Current Visit: Yes Code(s): K63.9 - DISEASE OF INTESTINE, UNSPECIFIED Status : Acute Assessment and Plan: POD 2. -will back up to sips of clears only. I don't want her to vomit and risk aspiration. -keep hob elevated
[2018-05-11] MEDS: D5 1/2 NS w/20 mEq KCL 1,000 ML IV SCH ×2 (09:04→21:23)
--- NOTE | 2018-05-11 16:37 | PDOC.PN ---
- Subjective Encounter Start Date: 05/11/18 Encounter Start Time: 11:00 Subjective: pt up in bed confused. Pt complains of abdominal pain - Objective Resuscitation Status: Resuscitation Status DNR:Do Not Resuscitate Vital Signs & Weight: Vital Signs (12 hours) Temp Pulse Resp BP Pulse Ox 05/11/18 16:21 98.6 F 65 16 100/59 L 94 L 05/11/18 11:17 98.3 F 70 16 124/65 95 05/11/18 08:12 98.6 F 76 14 96 05/11/18 07:39 98.6 F 76 14 138/77 96 Weight Admit Weight 136 lb 7.456 oz Weight 136 lb 7.456 oz Most Recent Monitor Data Heart Rate from ECG 106 NIBP 98/70 NIBP BP-Mean 79 Respiration from ECG 28 SpO2 100 I&O: 05/10/18 05/11/18 05/12/18 06:59 06:59 06:59 Intake Total 1820 2120 Output Total 835 1550 Balance 985 570 Result Diagrams: 05/11/18 05:25 05/11/18 05:25 Phys Exam - Physical Examination HEENT: PERRLA, moist MMs, sclera anicteric, TM's clear, oral pharynx no lesions , 2+ tonsils Neck: no nodes, no JVD, supple, full ROM Respiratory: no wheezing, no rales, no rhonchi, wheezing present, clear to auscultation bilateral Cardiovascular: RRR, no significant murmur, no rub, gallop, irregular Gastrointestinal: soft mild distention, bowl sound present, incision intact Musculoskeletal: no edema, pulses present, edema present Dx/Plan (1) Acute blood loss anemia Code(s): D62 - ACUTE POSTHEMORRHAGIC ANEMIA Status: Acute Comment: Likely due to #1, serial H/H monitoring (2) Colonic mass Code(s): K63.9 - DISEASE OF INTESTINE, UNSPECIFIED Status: Acute Comment: Suspicious for adenocarcinoma with biopsy pending, likely not a candidate for surgical resection however will have surgery evaluation for an opinion (3) Dementia Code(s): F03.90 - UNSPECIFIED DEMENTIA WITHOUT BEHAVIORAL DISTURBANCE Status: Chronic Qualifiers: Dementia type: Alzheimer's disease Dementia behavioral disturbance: without behavioral disturbance Comment: Advanced, continue (4) HTN (hypertension) Code(s): I10 - ESSENTIAL (PRIMARY) HYPERTENSION Status: Chronic Qualifiers: Hypertension type: essential hypertension Qualified Code(s): I10 - Essential (primary) hypertension - Plan pt is on cl liquid diet -: Pt is being ambulated by PT -: hh stable * . Review of Systems - Review of Systems Eyes: negative: Pain, Vision Change, Conjunctivae Inflammation, Eyelid Inflammation, Redness, Other ENT: negative: Ear Pain, Ear Discharge, Nose Pain, Nose Discharge, Nose Congestion, Mouth Pain, Mouth Swelling, Throat Pain, Throat Swelling, Other Respiratory: negative: Cough, Dry, Shortness of Breath, Hemoptysis, SOB with Excertion, Pleuritic Pain, Sputum, Wheezing Gastrointestinal: Abdominal Pain Genitourinary: negative: Dysuria, Frequency, Incontinence, Hematuria, Retention , Other - Medications/Allergies Allergies/Adverse Reactions: Allergies Allergy/AdvReac Type Severity Reaction Status Date / Time codeine Allergy Verified 10/05/13 15:52 Penicillins Allergy Verified 10/05/13 15:52 Sulfa (Sulfonamide Allergy Verified 10/05/13 15:52 Antibiotics) orange juice AdvReac Verified 11/11/17 11:02 Medications: Current Medications Acetaminophen (Tylenol) 650 mg PO Q4H PRN PRN Reason: Headache/Fever Or Mild Pain Last Admin: 05/11/18 08:12 Dose: 650 mg Albuterol/Ipratropium (Duoneb) 3 ml NEB Q4H PRN PRN Reason: Wheezing Buspirone HCl (Buspar) 5 mg PO BID [facility] Last Admin: 05/11/18 08:12 Dose: 5 mg Carvedilol (Coreg) 3.125 mg PO BID-[facility] Last Admin: 05/11/18 16:35 Dose: 3.125 mg Dronedarone (Multaq) 400 mg PO BID-[facility] Last Admin: 05/11/18 16:35 Dose: 400 mg Enoxaparin Sodium (Lovenox) 40 mg SC 2100 [facility] Last Admin: 05/10/18 20:14 Dose: 40 mg Famotidine (Pepcid) 20 mg PO Q12HR [facility] Last Admin: 05/11/18 08:12 Dose: 20 mg Famotidine (Pepcid) 20 mg SLOW IVP Q12HR [facility] Last Admin: 05/11/18 08:20 Dose: Not Given Fentanyl (Sublimaze) 25 mcg SLOW IVP Q2H PRN PRN Reason: Moderate to Severe Pain (6-10) Fluticasone Propionate (Flonase Nasal [place]) 0 gm NASAL HS [facility] Last Admin: 05/10/18 20:19 Dose: Not Given Hydralazine HCl (Apresoline) 10 mg SLOW IVP Q4H PRN PRN Reason: SBP > 170 or DBP > 100 Hypromellose (Genteal Severe) 0 gm EA EYE QID [facility] Last Admin: 05/11/18 16:35 Dose: Not Given Potassium Chloride/Dextrose/Sod Cl (D5 1/2 Ns W/20 Meq Kcl) 1,000 mls @ 75 mls/ hr IV .[id number] [facility] Last Admin: 05/11/18 09:04 Dose: 1,000 mls Ondansetron HCl (Zofran) 4 mg IVP Q6H PRN PRN Reason: Nausea/Vomiting Last Admin: 05/11/18 08:16 Dose: 4 mg Promethazine HCl (Phenergan) 12.5 mg IM Q4H PRN PRN Reason: Nausea/Vomiting Sodium Chloride (Flush - Normal Saline) 10 ml IVF PRN PRN PRN Reason: Saline Flush Last Admin: 05/11/18 08:13 Dose: 10 ml
[2018-05-11] MEDS: Enoxaparin Sodium 40 MG/0.4 ML SYRINGE SC SCH (21:14)
[2018-05-11] MEDS: Fluticasone Propionate Nasal Spray 16 gm Bottle NASAL SCH (21:17)
[2018-05-12 05:59] LABS: #Eosinphils 0.1 thou/uL (0.0-0.7); #Lymphocytes 1.2 thou/uL (1.20-3.40); #Monocytes 0.6 thou/uL (0.11-0.59); #Neutrophils 5.3 thou/uL (1.40-6.50); %Basophils 0.1 % (0.0-1.0); %Lymphocytes 17.2 % (21.0-51.0); %Neutrophils 73.8 % (42.0-75.0); Hemoglobin 8.3 g/dL (12.0-16.0); Mean Corpuscular HGB CONC 31.3 g/dL (32.0-36.0); Mean Corpuscular Hemoglobin 26.7 pg (27.0-31.0); Mean Corpuscular Volume 85.1 fL (78.0-98.0); Platelet Count 148 thou/uL (130-400); RBC Distribution Width 16.9 % (11.5-14.5); Red Blood Cell (RBC) Count 3.11 mill/uL (4.20-5.40); White Blood Cell (WBC) Count 7.2 thou/uL (4.8-10.8)
[2018-05-12 06:08] LABS: Anion Gap 7 mmol/L (10-20); BUN (Urea Nitrogen) 5 mg/dL (9.8-20.1); Calc. Creatinine Clearance 72 mL/min (70-130); Calcium 7.7 mg/dL (7.8-10.44); Carbon Dioxide 33 mmol/L (23-31); Chloride 100 mmol/L (98-107); Estimated GFR-MDRD Greater than 90; Glucose 118 mg/dL (83-110); Potassium 3.7 mmol/L (3.5-5.1); Sodium 136 mmol/L (136-145)
[2018-05-12] MEDS: Dronedarone HCl 400 MG TAB PO SCH ×2 (09:30→17:43)
[2018-05-12] MEDS: Acetaminophen 325 MG TAB PO PRN (09:31)
[2018-05-12] MEDS: Famotidine 20 MG TAB PO SCH ×2 (09:31→21:06)
[2018-05-12] MEDS: busPIRone HCl 5 MG TAB PO SCH ×2 (09:31→21:06)
[2018-05-12] MEDS: Carvedilol 3.125 MG TAB PO SCH ×2 (09:31→17:44)
[2018-05-12] MEDS: Famotidine/PF 20 mg/2ml Vial SLOW IVP SCH ×2 (09:31→21:28)
[2018-05-12] MEDS: GENTEAL SEVERE 10 GM TUBE EA EYE SCH ×4 (09:32→20:48)
[2018-05-12] MEDS: D5 1/2 NS w/20 mEq KCL 1,000 ML IV SCH (11:11)
--- NOTE | 2018-05-12 14:56 | OP ---
PREOPERATIVE DIAGNOSIS: Rectosigmoid colon mass. POSTOPERATIVE DIAGNOSIS: Rectosigmoid colon mass. PROCEDURE: Open left colectomy with colostomy. SURGEON: Dr. Stephens. ANESTHESIA: General. ESTIMATED BLOOD LOSS: 50 mL. COMPLICATIONS: None. SPECIMEN: Left colon with stitch on distal. INDICATION: The patient is an 82-year-old female who presents with diarrhea and bleeding per rectum. Inpatient colonoscopy reveals partially obstructing mass at the rectosigmoid junction. After a hever g discussion with her , we decided on surgery because of her bedbound state dementia and advan michell age, the decision was made to perform resection and diversion without anastomosis to lower her pe rioperative risk. DESCRIPTION OF PROCEDURE: Taken to the operating room after tap blocks were performed. Abdomen is p repped and draped in a sterile fashion and a Zamorano was placed. Left subcostal 5-mm Optiview trocar p laced. High-flow pneumoperitoneum was obtained. Two right lower quadrant 5 mm ports were placed. T he patient had multiple adhesions in her pelvis that made getting the small bowel up and out away fro m the sigmoid colon very difficult. Decision was made to open. Midline incision is made. Bookwalte r retractor was placed. Small bowel adhesions are taken down sharply. The peritoneum is incised on the medial aspect of the rectosigmoid. A window was made to the left lateral thigh. The ureter was found and excluded from the dissection. The ARABELLA artery was taken using Mitali clamp and silk ties. D issection taken down on top of the pelvis bone all the way into the pelvis. Circumferential dissecti on performed on the upper rectum. Staplers fired across the upper rectum. The left colon was mobili zed along the white line of Toldt. Reload of the stapler was fired across the descending colon above the sigmoid junction. The specimen is marked distal and sent to path for final diagnosis. Ellipse of skin is made in the left abdomen and a tunnel and cruciate incision is made in the fascia and is a ble to be brought up through this opening under no tension. All instrument counts, needle counts, la p counts were correct. The abdomen is irrigated using sterile saline until returns are clear. No on going bleeding, no damage to any intraabdominal structures. Small bowel was run from ligament of Nakul ifeanyi to ileocecal valve without evidence of obvious injury. PDS was used to close the fascia defect f rom the top and the bottom and tied in the middle. Subcutaneous tissues are irrigated, closed using 3-0 Vicryl, 4-0 Monocryl, and Dermabond. The other laparoscopic port sites were closed using 4-0 Mon ocryl and Dermabond. The colostomy was then matured in the usual fashion using 3-0 Vicryl. Colostom y devices placed. The patient en route to recovery in stable condition. All instrument counts, need le counts, lap counts are correct.
[2018-05-12] MEDS ORDERED: D5 1/2 NS w/20 mEq KCL 1,000 ML IV SCH (16:41)
--- NOTE | 2018-05-12 16:43 | PDOC.GSPN ---
Surgery Progress Note: Subj - Subjective Narrative: More colostomy gas. Surgery Progress Note: Obj - Vital signs Vital signs: Vital Signs - Most Recent Temp Pulse Resp BP Pulse Ox 98.2 F 67 14 92/56 L 92 L 05/12/18 15:00 05/12/18 15:00 05/12/18 15:00 05/12/18 15:00 05/12/18 15:00 - Physical Exam General: no distress Respiratory: clear to auscultation Abdomen: soft, non tender, nondistended, positive bowel sounds Wound: dressing clean,dry,intact Surgery Progress Note: Results - Labs Result Diagrams: 05/12/18 05:30 05/12/18 05:30 Lab results: Laboratory Results - last 24 hr 05/12/18 05/12/18 05:30 05:30 WBC 7.2 RBC 3.11 L Hgb 8.3 L Hct 26.5 L MCV 85.1 MCH 26.7 L MCHC 31.3 L RDW 16.9 H Plt Count 148 MPV 9.0 Neutrophils % 73.8 Lymphocytes % 17.2 L Monocytes % 8.0 Eosinophils % 1.0 Basophils % 0.1 Neutrophils # 5.3 Lymphocytes # 1.2 Monocytes # 0.6 H Eosinophils # 0.1 Basophils # 0.0 Sodium 136 Potassium 3.7 Chloride 100 Carbon Dioxide 33 H Anion Gap 7 L BUN 5 L Creatinine 0.57 L Estimated GFR (MDRD) Greater than 90 Glucose 118 H Calcium 7.7 L Surgery Progress Note: A/P - Problem (1) Colonic mass Current Visit: Yes Code(s): K63.9 - DISEASE OF INTESTINE, UNSPECIFIED Status : Acute - Plan Plan: More bowel function: -clears today, likely advance tomorrow -back to [facility] next few days.
--- NOTE | 2018-05-12 18:07 | PDOC.PN ---
- Subjective Encounter Start Date: 05/12/18 Encounter Start Time: 11:30 Subjective: pt up in walking appears confused - Objective Resuscitation Status: Resuscitation Status DNR:Do Not Resuscitate Vital Signs & Weight: Vital Signs (12 hours) Temp Pulse Resp BP BP Pulse Ox 05/12/18 17:41 60 18 105/62 97 05/12/18 15:00 98.2 F 67 14 92/56 L 92 L 05/12/18 11:27 98.3 F 68 16 103/66 92 L 05/12/18 08:00 98.6 F 64 14 97 05/12/18 07:02 98.6 F 64 14 115/64 94 L Weight Admit Weight 136 lb 7.456 oz Weight 136 lb 7.456 oz Most Recent Monitor Data Heart Rate from ECG 106 NIBP 98/70 NIBP BP-Mean 79 Respiration from ECG 28 SpO2 100 I&O: 05/11/18 05/12/18 05/13/18 06:59 06:59 06:59 Intake Total 2120 1945 850 Output Total 1550 435 200 Balance 570 1510 650 Result Diagrams: 05/12/18 05:30 05/12/18 05:30 Phys Exam - Physical Examination HEENT: PERRLA, moist MMs, sclera anicteric, TM's clear, oral pharynx no lesions , 2+ tonsils Neck: no nodes, no JVD, supple, full ROM mild crackles to bases Cardiovascular: RRR, no significant murmur, no rub, gallop, irregular Gastrointestinal: soft, positive bowel sounds colostomy with flatus Musculoskeletal: no edema, pulses present, edema present Dx/Plan (1) Acute blood loss anemia Code(s): D62 - ACUTE POSTHEMORRHAGIC ANEMIA Status: Acute Comment: Likely due to #1, serial H/H monitoring (2) Colonic mass Code(s): K63.9 - DISEASE OF INTESTINE, UNSPECIFIED Status: Acute Comment: Suspicious for adenocarcinoma with biopsy pending, likely not a candidate for surgical resection however will have surgery evaluation for an opinion (3) Dementia Code(s): F03.90 - UNSPECIFIED DEMENTIA WITHOUT BEHAVIORAL DISTURBANCE Status: Chronic Qualifiers: Dementia type: Alzheimer's disease Dementia behavioral disturbance: without behavioral disturbance Comment: Advanced, continue (4) HTN (hypertension) Code(s): I10 - ESSENTIAL (PRIMARY) HYPERTENSION Status: Chronic Qualifiers: Hypertension type: essential hypertension Qualified Code(s): I10 - Essential (primary) hypertension - Plan HH is low normal -: will decrease fluids to 50ml/hr -: will check electrolytes in am * . Review of Systems - Review of Systems ENT: negative: Ear Pain, Ear Discharge, Nose Pain, Nose Discharge, Nose Congestion, Mouth Pain, Mouth Swelling, Throat Pain, Throat Swelling, Other Respiratory: negative: Cough, Dry, Shortness of Breath, Hemoptysis, SOB with Excertion, Pleuritic Pain, Sputum, Wheezing Cardiovascular: negative: chest pain, palpitations, orthopnea, paroxysmal nocturnal dyspnea, edema, light headedness, other Gastrointestinal: negative: Nausea, Vomiting, Abdominal Pain, Diarrhea, Constipation, Melena, Hematochezia, Other - Medications/Allergies Allergies/Adverse Reactions: Allergies Allergy/AdvReac Type Severity Reaction Status Date / Time codeine Allergy Verified 10/05/13 15:52 Penicillins Allergy Verified 10/05/13 15:52 Sulfa (Sulfonamide Allergy Verified 10/05/13 15:52 Antibiotics) orange juice AdvReac Verified 11/11/17 11:02 Medications: Current Medications Acetaminophen (Tylenol) 650 mg PO Q4H PRN PRN Reason: Headache/Fever Or Mild Pain Last Admin: 05/12/18 09:31 Dose: 650 mg Albuterol/Ipratropium (Duoneb) 3 ml NEB Q4H PRN PRN Reason: Wheezing Buspirone HCl (Buspar) 5 mg PO BID [facility] Last Admin: 05/12/18 09:31 Dose: 5 mg Carvedilol (Coreg) 3.125 mg PO BID-[facility] Last Admin: 05/12/18 17:44 Dose: Not Given Dronedarone (Multaq) 400 mg PO BID-[facility] Last Admin: 05/12/18 17:43 Dose: 400 mg Enoxaparin Sodium (Lovenox) 40 mg SC 2100 [facility] Last Admin: 05/11/18 21:14 Dose: 40 mg Famotidine (Pepcid) 20 mg PO Q12HR [facility] Last Admin: 05/12/18 09:31 Dose: 20 mg Famotidine (Pepcid) 20 mg SLOW IVP Q12HR [facility] Last Admin: 05/12/18 09:31 Dose: Not Given Fentanyl (Sublimaze) 25 mcg SLOW IVP Q2H PRN PRN Reason: Moderate to Severe Pain (6-10) Fluticasone Propionate (Flonase Nasal [place]) 0 gm NASAL HS [facility] Last Admin: 05/11/18 21:17 Dose: Not Given Hydralazine HCl (Apresoline) 10 mg SLOW IVP Q4H PRN PRN Reason: SBP > 170 or DBP > 100 Hypromellose (Genteal Severe) 0 gm EA EYE QID [facility] Last Admin: 05/12/18 12:30 Dose: 1 drop Potassium Chloride/Dextrose/Sod Cl (D5 1/2 Ns W/20 Meq Kcl) 1,000 mls @ 0 mls/ hr IV .Q0M [facility] PRN Reason: KVO Ondansetron HCl (Zofran) 4 mg IVP Q6H PRN PRN Reason: Nausea/Vomiting Last Admin: 05/11/18 08:16 Dose: 4 mg Promethazine HCl (Phenergan) 12.5 mg IM Q4H PRN PRN Reason: Nausea/Vomiting Sodium Chloride (Flush - Normal Saline) 10 ml IVF PRN PRN PRN Reason: Saline Flush Last Admin: 05/11/18 08:13 Dose: 10 ml
[2018-05-12] MEDS: Fluticasone Propionate Nasal Spray 16 gm Bottle NASAL SCH (20:48)
[2018-05-12] MEDS: Enoxaparin Sodium 40 MG/0.4 ML SYRINGE SC SCH (21:06)
[2018-05-13 05:32] LABS: #Eosinphils 0.1 thou/uL (0.0-0.7); #Lymphocytes 1.3 thou/uL (1.20-3.40); #Monocytes 0.4 thou/uL (0.11-0.59); #Neutrophils 3.7 thou/uL (1.40-6.50); %Basophils 0.3 % (0.0-1.0); %Eosinophils 1.4 % (0.0-10.0); %Lymphocytes 24.4 % (21.0-51.0); %Monocytes 6.7 % (0.0-10.0); %Neutrophils 67.2 % (42.0-75.0); Hemoglobin 8.4 g/dL (12.0-16.0); Mean Corpuscular HGB CONC 30.8 g/dL (32.0-36.0); Mean Corpuscular Hemoglobin 26.1 pg (27.0-31.0); Mean Corpuscular Volume 84.6 fL (78.0-98.0); Mean Platelet Volume 8.8 fL (7.4-10.4); Platelet Count 149 thou/uL (130-400); RBC Distribution Width 16.8 % (11.5-14.5); Red Blood Cell (RBC) Count 3.21 mill/uL (4.20-5.40); White Blood Cell (WBC) Count 5.4 thou/uL (4.8-10.8)
[2018-05-13 05:55] LABS: Anion Gap 6 mmol/L (10-20); BUN (Urea Nitrogen) 4 mg/dL (9.8-20.1); Calc. Creatinine Clearance 73 mL/min (70-130); Carbon Dioxide 34 mmol/L (23-31); Chloride 100 mmol/L (98-107); Estimated GFR-MDRD Greater than 90; Glucose 102 mg/dL (83-110); Magnesium 1.8 mg/dL (1.6-2.6); Phosphorus 2.9 mg/dL (2.3-4.7); Potassium 3.8 mmol/L (3.5-5.1); Sodium 136 mmol/L (136-145)
[2018-05-13] MEDS: Carvedilol 3.125 MG TAB PO SCH ×2 (09:03→17:39)
[2018-05-13] MEDS: Famotidine 20 MG TAB PO SCH ×2 (09:03→21:18)
[2018-05-13] MEDS: busPIRone HCl 5 MG TAB PO SCH ×2 (09:03→21:18)
[2018-05-13] MEDS: Dronedarone HCl 400 MG TAB PO SCH ×2 (09:03→17:39)
[2018-05-13] MEDS: Famotidine/PF 20 mg/2ml Vial SLOW IVP SCH ×2 (09:04→20:20)
[2018-05-13] MEDS: GENTEAL SEVERE 10 GM TUBE EA EYE SCH ×4 (09:04→20:21)
--- NOTE | 2018-05-13 10:38 | PDOC.GSPN ---
Surgery Progress Note: Subj - Subjective Patient reports: no new complaints, tolerating liquids well Surgery Progress Note: Obj - Vital signs Vital signs: Vital Signs - Most Recent Temp Pulse Resp BP Pulse Ox 98.8 F 71 12 114/58 L 93 L 05/13/18 08:10 05/13/18 08:10 05/13/18 08:10 05/13/18 08:10 05/13/18 08:10 - Physical Exam General: no distress Abdomen: soft, non tender, nondistended, positive bowel sounds Wound: healing well Surgery Progress Note: Results - Labs Result Diagrams: 05/13/18 05:19 05/13/18 05:19 Lab results: Laboratory Results - last 24 hr 05/13/18 05/13/18 05:19 05:19 WBC 5.4 RBC 3.21 L Hgb 8.4 L Hct 27.1 L MCV 84.6 MCH 26.1 L MCHC 30.8 L RDW 16.8 H Plt Count 149 MPV 8.8 Neutrophils % 67.2 Lymphocytes % 24.4 Monocytes % 6.7 Eosinophils % 1.4 Basophils % 0.3 Neutrophils # 3.7 Lymphocytes # 1.3 Monocytes # 0.4 Eosinophils # 0.1 Basophils # 0.0 Sodium 136 Potassium 3.8 Chloride 100 Carbon Dioxide 34 H Anion Gap 6 L BUN 4 L Creatinine 0.56 L Estimated GFR (MDRD) Greater than 90 Glucose 102 Calcium 8.0 Phosphorus 2.9 Magnesium 1.8 Surgery Progress Note: A/P - Problem (1) Colonic mass Current Visit: Yes Code(s): K63.9 - DISEASE OF INTESTINE, UNSPECIFIED Status : Acute - Plan Plan: Post op left colectomy/colostomy -advance to full liquids -likely ready to transfer to care home tomorrow or Wednesday
--- NOTE | 2018-05-13 14:18 | PDOC.PN ---
- Subjective Encounter Start Date: 05/13/18 Encounter Start Time: 10:30 Subjective: pt up in bed confused, denies any pain - Objective Resuscitation Status: Resuscitation Status DNR:Do Not Resuscitate Vital Signs & Weight: Vital Signs (12 hours) Temp Pulse Resp BP Pulse Ox 05/13/18 11:41 99.8 F H 77 18 144/75 H 91 L 05/13/18 08:10 98.8 F 71 12 114/58 L 93 L 05/13/18 08:00 99.8 F H 77 18 05/13/18 04:30 98.6 F 67 14 119/68 93 L Weight Admit Weight 136 lb 7.456 oz Weight 136 lb 7.456 oz Most Recent Monitor Data Heart Rate from ECG 106 NIBP 98/70 NIBP BP-Mean 79 Respiration from ECG 28 SpO2 100 I&O: 05/12/18 05/13/18 05/14/18 06:59 06:59 06:59 Intake Total 1945 1310 Output Total 435 200 Balance 1510 1110 Result Diagrams: 05/13/18 05:19 05/13/18 05:19 Phys Exam - Physical Examination HEENT: PERRLA, moist MMs, sclera anicteric, TM's clear, oral pharynx no lesions , 2+ tonsils Neck: no nodes, no JVD, supple, full ROM mild crackles to bases Cardiovascular: RRR, no significant murmur, no rub, gallop, irregular Gastrointestinal: soft, positive bowel sounds Musculoskeletal: no edema, pulses present, edema present Dx/Plan (1) Acute blood loss anemia Code(s): D62 - ACUTE POSTHEMORRHAGIC ANEMIA Status: Acute Comment: Likely due to #1, serial H/H monitoring (2) Colonic mass Code(s): K63.9 - DISEASE OF INTESTINE, UNSPECIFIED Status: Acute Comment: Suspicious for adenocarcinoma with biopsy pending, likely not a candidate for surgical resection however will have surgery evaluation for an opinion (3) Dementia Code(s): F03.90 - UNSPECIFIED DEMENTIA WITHOUT BEHAVIORAL DISTURBANCE Status: Chronic Qualifiers: Dementia type: Alzheimer's disease Dementia behavioral disturbance: without behavioral disturbance Comment: Advanced, continue (4) HTN (hypertension) Code(s): I10 - ESSENTIAL (PRIMARY) HYPERTENSION Status: Chronic Qualifiers: Hypertension type: essential hypertension Qualified Code(s): I10 - Essential (primary) hypertension - Plan hh is stable -: diet advanced per surgery -: will give one dose of lasix iv now * . Review of Systems - Review of Systems ENT: negative: Ear Pain, Ear Discharge, Nose Pain, Nose Discharge, Nose Congestion, Mouth Pain, Mouth Swelling, Throat Pain, Throat Swelling, Other Respiratory: negative: Cough, Dry, Shortness of Breath, Hemoptysis, SOB with Excertion, Pleuritic Pain, Sputum, Wheezing Cardiovascular: negative: chest pain, palpitations, orthopnea, paroxysmal nocturnal dyspnea, edema, light headedness, other Gastrointestinal: negative: Nausea, Vomiting, Abdominal Pain, Diarrhea, Constipation, Melena, Hematochezia, Other Genitourinary: negative: Dysuria, Frequency, Incontinence, Hematuria, Retention , Other - Medications/Allergies Allergies/Adverse Reactions: Allergies Allergy/AdvReac Type Severity Reaction Status Date / Time codeine Allergy Verified 10/05/13 15:52 Penicillins Allergy Verified 10/05/13 15:52 Sulfa (Sulfonamide Allergy Verified 10/05/13 15:52 Antibiotics) orange juice AdvReac Verified 11/11/17 11:02 Medications: Current Medications Acetaminophen (Tylenol) 650 mg PO Q4H PRN PRN Reason: Headache/Fever Or Mild Pain Last Admin: 05/12/18 09:31 Dose: 650 mg Albuterol/Ipratropium (Duoneb) 3 ml NEB Q4H PRN PRN Reason: Wheezing Buspirone HCl (Buspar) 5 mg PO BID [facility] Last Admin: 05/13/18 09:03 Dose: 5 mg Carvedilol (Coreg) 3.125 mg PO BID-[facility] Last Admin: 05/13/18 09:03 Dose: Not Given Dronedarone (Multaq) 400 mg PO BID-[facility] Last Admin: 05/13/18 09:03 Dose: 400 mg Enoxaparin Sodium (Lovenox) 40 mg SC 2100 [facility] Last Admin: 05/12/18 21:06 Dose: 40 mg Famotidine (Pepcid) 20 mg PO Q12HR [facility] Last Admin: 05/13/18 09:03 Dose: 20 mg Famotidine (Pepcid) 20 mg SLOW IVP Q12HR [facility] Last Admin: 05/13/18 09:04 Dose: Not Given Fentanyl (Sublimaze) 25 mcg SLOW IVP Q2H PRN PRN Reason: Moderate to Severe Pain (6-10) Fluticasone Propionate (Flonase Nasal [place]) 0 gm NASAL HS [facility] Last Admin: 05/12/18 20:48 Dose: Not Given Furosemide (Lasix) 20 mg SLOW IVP [facility] Hydralazine HCl (Apresoline) 10 mg SLOW IVP Q4H PRN PRN Reason: SBP > 170 or DBP > 100 Hypromellose (Genteal Severe) 0 gm EA EYE QID [facility] Last Admin: 05/13/18 12:44 Dose: Not Given Ondansetron HCl (Zofran) 4 mg IVP Q6H PRN PRN Reason: Nausea/Vomiting Last Admin: 05/11/18 08:16 Dose: 4 mg Promethazine HCl (Phenergan) 12.5 mg IM Q4H PRN PRN Reason: Nausea/Vomiting Sodium Chloride (Flush - Normal Saline) 10 ml IVF PRN PRN PRN Reason: Saline Flush Last Admin: 05/11/18 08:13 Dose: 10 ml
[2018-05-13] MEDS ORDERED: Furosemide 20 MG/2 ML VIAL SLOW IVP SCH (14:30)
[2018-05-13] MEDS: Fluticasone Propionate Nasal Spray 16 gm Bottle NASAL SCH (20:21)
[2018-05-13] MEDS: Enoxaparin Sodium 40 MG/0.4 ML SYRINGE SC SCH (21:18)
[2018-05-13] MEDS: Acetaminophen 325 MG TAB PO PRN (21:18)
[2018-05-14] MEDS: Dronedarone HCl 400 MG TAB PO SCH ×2 (08:11→16:44)
[2018-05-14] MEDS: Famotidine 20 MG TAB PO SCH ×2 (08:11→20:32)
[2018-05-14] MEDS: busPIRone HCl 5 MG TAB PO SCH ×2 (08:11→20:32)
[2018-05-14] MEDS: Carvedilol 3.125 MG TAB PO SCH ×2 (08:16→16:42)
[2018-05-14] MEDS: GENTEAL SEVERE 10 GM TUBE EA EYE SCH ×4 (08:16→20:19)
[2018-05-14] MEDS: Acetaminophen 325 MG TAB PO PRN (11:15)
--- NOTE | 2018-05-14 13:54 | PDOC.PN ---
- Subjective Encounter Start Date: 05/14/18 Encounter Start Time: 11:15 Subjective: pt up in bed confused - Objective Resuscitation Status: Resuscitation Status DNR:Do Not Resuscitate Vital Signs & Weight: Vital Signs (12 hours) Temp Pulse Resp BP BP Pulse Ox 05/14/18 10:32 95 05/14/18 08:21 98.7 F 66 15 106/64 95 05/14/18 08:11 98.7 F 66 15 95 05/14/18 04:00 98.4 F 69 18 104/61 94 L 05/14/18 02:03 94 L Weight Admit Weight 136 lb 7.456 oz Weight 136 lb 7.456 oz Most Recent Monitor Data Heart Rate from ECG 106 NIBP 98/70 NIBP BP-Mean 79 Respiration from ECG 28 SpO2 100 I&O: 05/13/18 05/14/18 05/15/18 06:59 06:59 06:59 Intake Total 1310 1470 1000 Output Total 200 875 Balance 0266 378 1661 Result Diagrams: 05/13/18 05:19 05/13/18 05:19 Additional Labs: Accuchecks 05/13/18 16:14 POC Glucose 133 H Phys Exam - Physical Examination HEENT: PERRLA, moist MMs, sclera anicteric, TM's clear, oral pharynx no lesions , 2+ tonsils Neck: no nodes, no JVD, supple, full ROM Respiratory: no wheezing, no rales, no rhonchi, wheezing present, clear to auscultation bilateral Gastrointestinal: soft, positive bowel sounds colostomy has output Musculoskeletal: no edema, pulses present, edema present Dx/Plan (1) Acute blood loss anemia Code(s): D62 - ACUTE POSTHEMORRHAGIC ANEMIA Status: Acute Comment: Likely due to #1, serial H/H monitoring (2) Colonic mass Code(s): K63.9 - DISEASE OF INTESTINE, UNSPECIFIED Status: Acute Comment: Suspicious for adenocarcinoma with biopsy pending, likely not a candidate for surgical resection however will have surgery evaluation for an opinion (3) Dementia Code(s): F03.90 - UNSPECIFIED DEMENTIA WITHOUT BEHAVIORAL DISTURBANCE Status: Chronic Qualifiers: Dementia type: Alzheimer's disease Dementia behavioral disturbance: without behavioral disturbance Comment: Advanced, continue (4) HTN (hypertension) Code(s): I10 - ESSENTIAL (PRIMARY) HYPERTENSION Status: Chronic Qualifiers: Hypertension type: essential hypertension Qualified Code(s): I10 - Essential (primary) hypertension - Plan pt's bp is low she is only only coreg which has been held. -: will give pt one unit of blood for symtomatic anemia * . Review of Systems - Review of Systems ENT: negative: Ear Pain, Ear Discharge, Nose Pain, Nose Discharge, Nose Congestion, Mouth Pain, Mouth Swelling, Throat Pain, Throat Swelling, Other Respiratory: negative: Cough, Dry, Shortness of Breath, Hemoptysis, SOB with Excertion, Pleuritic Pain, Sputum, Wheezing Cardiovascular: negative: chest pain, palpitations, orthopnea, paroxysmal nocturnal dyspnea, edema, light headedness, other Gastrointestinal: negative: Nausea, Vomiting, Abdominal Pain, Diarrhea, Constipation, Melena, Hematochezia, Other - Medications/Allergies Allergies/Adverse Reactions: Allergies Allergy/AdvReac Type Severity Reaction Status Date / Time codeine Allergy Verified 10/05/13 15:52 Penicillins Allergy Verified 10/05/13 15:52 Sulfa (Sulfonamide Allergy Verified 10/05/13 15:52 Antibiotics) orange juice AdvReac Verified 11/11/17 11:02 Medications: Current Medications Acetaminophen (Tylenol) 650 mg PO Q4H PRN PRN Reason: Headache/Fever Or Mild Pain Last Admin: 05/14/18 11:15 Dose: 650 mg Albuterol/Ipratropium (Duoneb) 3 ml NEB Q4H PRN PRN Reason: Wheezing Buspirone HCl (Buspar) 5 mg PO BID [facility] Last Admin: 05/14/18 08:11 Dose: 5 mg Carvedilol (Coreg) 3.125 mg PO BID-[facility] Last Admin: 05/14/18 08:16 Dose: Not Given Dronedarone (Multaq) 400 mg PO BID-[facility] Last Admin: 05/14/18 08:11 Dose: 400 mg Enoxaparin Sodium (Lovenox) 40 mg SC 2100 [facility] Last Admin: 05/13/18 21:18 Dose: 40 mg Famotidine (Pepcid) 20 mg PO Q12HR [facility] Last Admin: 05/14/18 08:11 Dose: 20 mg Fentanyl (Sublimaze) 25 mcg SLOW IVP Q2H PRN PRN Reason: Moderate to Severe Pain (6-10) Fluticasone Propionate (Flonase Nasal [place]) 0 gm NASAL HS [facility] Last Admin: 05/13/18 20:21 Dose: Not Given Hydralazine HCl (Apresoline) 10 mg SLOW IVP Q4H PRN PRN Reason: SBP > 170 or DBP > 100 Hypromellose (Genteal Severe) 0 gm EA EYE QID [facility] Last Admin: 05/14/18 13:43 Dose: Not Given Ondansetron HCl (Zofran) 4 mg IVP Q6H PRN PRN Reason: Nausea/Vomiting Last Admin: 05/11/18 08:16 Dose: 4 mg Promethazine HCl (Phenergan) 12.5 mg IM Q4H PRN PRN Reason: Nausea/Vomiting Sodium Chloride (Flush - Normal Saline) 10 ml IVF PRN PRN PRN Reason: Saline Flush Last Admin: 05/11/18 08:13 Dose: 10 ml
--- NOTE | 2018-05-14 15:54 | PRG ---
DATE OF SERVICE: 05/14/2018 SUBJECTIVE: Ms. Adame doing well after colon resection and colostomy. She remains in her demented st ate. She has questions and appropriate. OBJECTIVE: VITAL SIGNS: 99.7 degrees, 66, 106/64. GENERAL: The patient is nonambulatory and does not orthostatic. VITAL SIGNS: Her blood pressure is the same and has been since admission. LUNGS: Clear to auscultation. CARDIAC: Regular rate and rhythm without murmur or gallop. ABDOMEN: Soft and nontender. LABORATORY DATA: Hemoglobin stable at 8.4, white count 5.4. Basic metabolic profile normal. ASSESSMENT AND PLAN: 1. Patient's colostomy is functioning well. She is eating well. [facility] can be [facility] to [facility] at any time 2. Anemia, stable and asymptomatic. She is nonambulatory.
[2018-05-14] MEDS: Fluticasone Propionate Nasal Spray 16 gm Bottle NASAL SCH (20:19)
[2018-05-14] MEDS: Enoxaparin Sodium 40 MG/0.4 ML SYRINGE SC SCH (20:32)
[2018-05-15] MEDS: Carvedilol 3.125 MG TAB PO SCH ×2 (08:27→16:46)
[2018-05-15] MEDS: Dronedarone HCl 400 MG TAB PO SCH ×2 (08:27→16:48)
[2018-05-15] MEDS: Famotidine 20 MG TAB PO SCH ×2 (08:27→20:41)
[2018-05-15] MEDS: busPIRone HCl 5 MG TAB PO SCH ×2 (08:27→20:41)
[2018-05-15] MEDS: GENTEAL SEVERE 10 GM TUBE EA EYE SCH ×4 (08:29→20:44)
[2018-05-15] MEDS: Acetaminophen 325 MG TAB PO PRN (09:44)
[2018-05-15 09:58] LABS: #Monocytes 0.6 thou/uL (0.11-0.59); #Neutrophils 3.7 thou/uL (1.40-6.50); %Basophils 0.7 % (0.0-1.0); %Eosinophils 0.8 % (0.0-10.0); %Monocytes 10.2 % (0.0-10.0); %Neutrophils 69.3 % (42.0-75.0); Hemoglobin 9.7 g/dL (12.0-16.0); Mean Corpuscular HGB CONC 31.5 g/dL (32.0-36.0); Mean Corpuscular Hemoglobin 26.9 pg (27.0-31.0); Mean Corpuscular Volume 85.2 fL (78.0-98.0); Platelet Count 148 thou/uL (130-400); RBC Distribution Width 16.3 % (11.5-14.5); Red Blood Cell (RBC) Count 3.62 mill/uL (4.20-5.40); White Blood Cell (WBC) Count 5.4 thou/uL (4.8-10.8)
--- NOTE | 2018-05-15 14:24 | PDOC.PN ---
- Subjective Encounter Start Date: 05/15/18 Encounter Start Time: 11:00 Subjective: pt up in bed confused - Objective Resuscitation Status: Resuscitation Status DNR:Do Not Resuscitate Vital Signs & Weight: Vital Signs (12 hours) Temp Pulse Resp BP BP Pulse Ox 05/15/18 11:01 97.5 F L 63 16 111/66 96 05/15/18 08:27 98.3 F 75 14 95 05/15/18 07:49 98.3 F 75 14 135/75 96 05/15/18 04:00 98.3 F 63 16 124/66 95 Weight Admit Weight 136 lb 7.456 oz Weight 136 lb 7.456 oz Most Recent Monitor Data Heart Rate from ECG 106 NIBP 98/70 NIBP BP-Mean 79 Respiration from ECG 28 SpO2 100 I&O: 05/14/18 05/15/18 05/16/18 06:59 06:59 06:59 Intake Total 1470 2490 960 Output Total 875 900 Balance 595 1590 960 Result Diagrams: 05/15/18 09:39 05/13/18 05:19 Phys Exam - Physical Examination HEENT: PERRLA, moist MMs, sclera anicteric, TM's clear, oral pharynx no lesions , 2+ tonsils Neck: no nodes, no JVD, supple, full ROM Respiratory: no wheezing, no rales, no rhonchi, wheezing present, clear to auscultation bilateral Cardiovascular: RRR, no significant murmur, no rub, gallop, irregular Gastrointestinal: soft, positive bowel sounds Musculoskeletal: no edema, pulses present, edema present Dx/Plan (1) Acute blood loss anemia Code(s): D62 - ACUTE POSTHEMORRHAGIC ANEMIA Status: Acute Comment: Likely due to #1, serial H/H monitoring (2) Colonic mass Code(s): K63.9 - DISEASE OF INTESTINE, UNSPECIFIED Status: Acute Comment: Suspicious for adenocarcinoma with biopsy pending, likely not a candidate for surgical resection however will have surgery evaluation for an opinion (3) Dementia Code(s): F03.90 - UNSPECIFIED DEMENTIA WITHOUT BEHAVIORAL DISTURBANCE Status: Chronic Qualifiers: Dementia type: Alzheimer's disease Dementia behavioral disturbance: without behavioral disturbance Comment: Advanced, continue (4) HTN (hypertension) Code(s): I10 - ESSENTIAL (PRIMARY) HYPERTENSION Status: Chronic Qualifiers: Hypertension type: essential hypertension Qualified Code(s): I10 - Essential (primary) hypertension - Plan s/p one unit of blood hh is stable -: possible discharge to snf soon -: bp still soft holding parameter for her coreg * . Review of Systems - Review of Systems ENT: negative: Ear Pain, Ear Discharge, Nose Pain, Nose Discharge, Nose Congestion, Mouth Pain, Mouth Swelling, Throat Pain, Throat Swelling, Other Respiratory: negative: Cough, Dry, Shortness of Breath, Hemoptysis, SOB with Excertion, Pleuritic Pain, Sputum, Wheezing Cardiovascular: negative: chest pain, palpitations, orthopnea, paroxysmal nocturnal dyspnea, edema, light headedness, other Gastrointestinal: negative: Nausea, Vomiting, Abdominal Pain, Diarrhea, Constipation, Melena, Hematochezia, Other Genitourinary: negative: Dysuria, Frequency, Incontinence, Hematuria, Retention , Other - Medications/Allergies Allergies/Adverse Reactions: Allergies Allergy/AdvReac Type Severity Reaction Status Date / Time codeine Allergy Verified 10/05/13 15:52 Penicillins Allergy Verified 10/05/13 15:52 Sulfa (Sulfonamide Allergy Verified 10/05/13 15:52 Antibiotics) orange juice AdvReac Verified 11/11/17 11:02 Medications: Current Medications Acetaminophen (Tylenol) 650 mg PO Q4H PRN PRN Reason: Headache/Fever Or Mild Pain Last Admin: 05/15/18 09:44 Dose: 650 mg Albuterol/Ipratropium (Duoneb) 3 ml NEB Q4H PRN PRN Reason: Wheezing Buspirone HCl (Buspar) 5 mg PO BID [facility] Last Admin: 05/15/18 08:27 Dose: 5 mg Carvedilol (Coreg) 3.125 mg PO BID-[facility] Last Admin: 05/15/18 08:27 Dose: 3.125 mg Dronedarone (Multaq) 400 mg PO BID-[facility] Last Admin: 05/15/18 08:27 Dose: 400 mg Enoxaparin Sodium (Lovenox) 40 mg SC 2100 [facility] Last Admin: 05/14/18 20:32 Dose: 40 mg Famotidine (Pepcid) 20 mg PO Q12HR [facility] Last Admin: 05/15/18 08:27 Dose: 20 mg Fentanyl (Sublimaze) 25 mcg SLOW IVP Q2H PRN PRN Reason: Moderate to Severe Pain (6-10) Fluticasone Propionate (Flonase Nasal [place]) 0 gm NASAL HS [facility] Last Admin: 05/14/18 20:19 Dose: Not Given Hydralazine HCl (Apresoline) 10 mg SLOW IVP Q4H PRN PRN Reason: SBP > 170 or DBP > 100 Hypromellose (Genteal Severe) 0 gm EA EYE QID [facility] Last Admin: 05/15/18 08:29 Dose: Not Given Ondansetron HCl (Zofran) 4 mg IVP Q6H PRN PRN Reason: Nausea/Vomiting Last Admin: 05/11/18 08:16 Dose: 4 mg Promethazine HCl (Phenergan) 12.5 mg IM Q4H PRN PRN Reason: Nausea/Vomiting Sodium Chloride (Flush - Normal Saline) 10 ml IVF PRN PRN PRN Reason: Saline Flush Last Admin: 05/11/18 08:13 Dose: 10 ml
[2018-05-15] MEDS ORDERED: Acetaminophen 500 MG TAB PO PRN (16:03)
[2018-05-15] MEDS ORDERED: traMADol HCl 50 MG TAB PO PRN ×2 (16:03)
[2018-05-15] MEDS ORDERED: Ibuprofen 100 MG/5 ML UDCUP PO PRN (16:03)
--- NOTE | 2018-05-15 16:47 | PRG ---
DATE OF SERVICE: 05/15/2018 SUBJECTIVE: Julia Adame is doing well today. OBJECTIVE: VITAL SIGNS: Temperature 97.5 degrees, pulse 63, respiratory rate 16. HEENT: Unremarkable. LUNGS: Clear to auscultation. CARDIAC: Regular rate and rhythm without murmur or gallop. ABDOMEN: Soft. Colostomy healthy. Wound looks good. ASSESSMENT AND PLAN: Doing well. Patient is ready for transfer to [facility] tomorrow. The patient is 4 days postop.
[2018-05-15] MEDS: Fluticasone Propionate Nasal Spray 16 gm Bottle NASAL SCH (20:44)
[2018-05-15] MEDS: Enoxaparin Sodium 40 MG/0.4 ML SYRINGE SC SCH (20:44)
[2018-05-16 08:19] VITALS: TEMP 98.1
[2018-05-16] MEDS ORDERED: Polyethylene Glycol 3350 17 GM Packet PO SCH (09:00)
[2018-05-16] MEDS: Famotidine 20 MG TAB PO SCH (09:41)
[2018-05-16] MEDS: busPIRone HCl 5 MG TAB PO SCH (09:41)
[2018-05-16] MEDS: GENTEAL SEVERE 10 GM TUBE EA EYE SCH (09:41)
[2018-05-16] MEDS: Carvedilol 3.125 MG TAB PO SCH (09:41)
[2018-05-16] MEDS: Dronedarone HCl 400 MG TAB PO SCH (09:41)
[2018-05-16 12:27] VITALS: BP 137/81
--- NOTE | 2018-05-18 12:02 | PQF ---
LILIA YINTHIA GINO BURCIAGA [id number] [facility] 3336 [id number] CLINICAL DOCUMENTATION CLARIFICATION FORM: POST DISCHARGE Addendum to original discharge summary date: ____ Late entry note date: __ Your assistance is needed to assign the appropriate principal diagnosis. Documetation within the H&P and early progress notes indicate the diagnosis of SEPTIC SHOCK. However, begining with progress note 05/08, documetation indicates .......SEPTIC SHOCK- RULED OUT Please confirm the presence of Septic shock. Please exercise your independent, professional judgment in responding to the clarification form. Clinical indicators are provided on the bottom of this form for your review Please check appropriate box(s): Conflicting documentation was noted in the Medical Record, please clarify if patient is being treated/monitored for: [ ] SEPTIC SHOCK [ x]SEPTIC SHOCK RULED OUT In addition, please specify: Present on Admission (POA): [ ] Yes [x ] No [ ] Unable to determine For continuity of documentation, please document condition throughout progress notes and discharge summary. Thank You. CLINICAL INDICATORS - SIGNS / SYMPTOMS/ LABS ? aspiration pneumonia abnormal lab finding RISK FACTORS colon mass diverticulosis TREATMENT antibiotics (This form is maintained as a part of the permanent medical record) 2014 [employer]. All Rights Reserved Batool [email or web address] [phone] MTDD
--- NOTE | 2018-05-18 12:07 | PQF ---
LILIA YINTHIA GINO BURCIAGA [id number] [facility] 3336 [id number] CLINICAL DOCUMENTATION CLARIFICATION FORM: POST DISCHARGE Addendum to original discharge summary date: ____ Late entry note date: __ Your assistance is needed to confirm or deny the diagnosis of Aspiration Pneumonia, as 05/08 progress note indicated ...Aspiration Pneumonia- Ruled out. Please exercise your independent, professional judgment in responding to the clarification form. Clinical indicators are provided on the bottom of this form for your review Please check appropriate box(s): Conflicting documentation was noted in the Medical Record, please clarify if patient is being treated/monitored for: [ ] ASPIRATION PNEUMONIA [ x ]ASPIRATION PNEUMONIA RULED OUT In addition, please specify: Present on Admission (POA): [ ] Yes [ ] No [x ] Unable to determine For continuity of documentation, please document condition throughout progress notes and discharge summary. Thank You. CLINICAL INDICATORS - SIGNS / SYMPTOMS/ LABS confusion respirations of 20 n 2L oxygen RISK FACTORS oropharyngeal dysphagia TREATMENT nasal cannula/oxygen (This form is maintained as a part of the permanent medical record) 2014 [employer]. All Rights Reserved Rin [email or web address] [phone] [email or web address]
== END 2018-05-16 12:50 | DRG 329 ==
LOC: ERS 18:24 → CCU 21:29 → ONC 05-02 08:38 → SURG A 05-09 14:32
PROVIDERS: ADMIT Hospitalist; ATTEND Hospitalist
PROC: 3E043XZ Introduction of Vasopressor into Central Vein, Percutaneous Approach (ICD-10-PCS; 2018-04-30)
PROC: 02HV33Z Insertion of Infusion Device into Superior Vena Cava, Percutaneous Approach (ICD-10-PCS; 2018-04-30)
PROC: 3E053XZ Introduction of Vasopressor into Peripheral Artery, Percutaneous Approach (ICD-10-PCS; 2018-04-30)
PROC: 0DBN8ZX Excision of Sigmoid Colon, Via Natural or Artificial Opening Endoscopic, Diagnostic (ICD-10-PCS; 2018-05-06)
PROC: 0DTG0ZZ Resection of Left Large Intestine, Open Approach (ICD-10-PCS; principal; 2018-05-09)
PROC: 0DN80ZZ Release Small Intestine, Open Approach (ICD-10-PCS; 2018-05-09)
PROC: 0D1M0Z4 Bypass Descending Colon to Cutaneous, Open Approach (ICD-10-PCS; 2018-05-09)
DX: C18.6 Malignant neoplasm of descending colon (principal); G93.41 Metabolic encephalopathy; J96.20 Acute and chronic respiratory failure, unspecified whether with hypoxia or hypercapnia; E87.1 Hypo-osmolality and hyponatremia; E87.2 Acidosis; I50.32 Chronic diastolic (congestive) heart failure; D62 Acute posthemorrhagic anemia; K57.30 Diverticulosis of large intestine without perforation or abscess without bleeding; I48.2 Chronic atrial fibrillation; I11.0 Hypertensive heart disease with heart failure; K66.0 Peritoneal adhesions (postprocedural) (postinfection); I45.10 Unspecified right bundle-branch block; E87.6 Hypokalemia; G30.9 Alzheimer's disease, unspecified; F02.80 Dementia in other diseases classified elsewhere, unspecified severity, without behavioral disturbance, psychotic disturbance, mood disturbance, and anxiety; R73.9 Hyperglycemia, unspecified; R13.12 Dysphagia, oropharyngeal phase; F41.9 Anxiety disorder, unspecified; E03.9 Hypothyroidism, unspecified; I25.10 Atherosclerotic heart disease of native coronary artery without angina pectoris; E86.0 Dehydration; E78.5 Hyperlipidemia, unspecified; F32.9 Major depressive disorder, single episode, unspecified; J44.9 Chronic obstructive pulmonary disease, unspecified; M19.90 Unspecified osteoarthritis, unspecified site; Z66 Do not resuscitate; G47.33 Obstructive sleep apnea (adult) (pediatric); Z78.1 Physical restraint status; Z91.81 History of falling; Z86.73 Personal history of transient ischemic attack (TIA), and cerebral infarction without residual deficits; Z87.891 Personal history of nicotine dependence; Z90.49 Acquired absence of other specified parts of digestive tract; Z90.710 Acquired absence of both cervix and uterus; Z91.011 Allergy to milk products; Z88.5 Allergy status to narcotic agent; Z88.0 Allergy status to penicillin; Z88.2 Allergy status to sulfonamides; Z91.09 Other allergy status, other than to drugs and biological substances; Z79.01 Long term (current) use of anticoagulants; Z79.51 Long term (current) use of inhaled steroids; Z79.899 Other long term (current) drug therapy; Z74.01 Bed confinement status
CPT/HCPCS: 36415; 36416; 36430; 36556; 51701; 70450; 71045; 71260; 74022; 74174; 74177; 80048; 80053; 81003; 82274; 82553; 83605; 83690; 83735; 83880; 84100; 84484; 85014; 85018; 85025; 85049; 86850; 86900; 86901; 87040; 87086; 88305; 88309; 93005; 94760; 96361; 96365; 96366; 96367; 96375; A4216; A4353; G8978-GP-CL; G8978-GP-CM; G8979-GP-CJ; G8996-GN-CJ; G8997-GN-CJ; J0131; J0360; J0692; J0744; J1100; J1650; J1940; J1956; J2001; J2060; J2250; J2405; J2704; J3010; J3370; J3475; J3480; J7050; P9016; P9045

== ENCOUNTER 2018-07-27 15:33 | Outpatient (CLI) | payer MEDICARE, OTHER ==
--- NOTE | 2018-07-27 23:42 | HP ---
DATE OF ADMISSION: 07/27/2018 HISTORY OF PRESENT ILLNESS: Ms. Julia Adame is a very pleasant 82-year-old accompanied by her spo use who presents to the [facility] for evaluation of a midline abdominal wound subsequent to open l eft colectomy with colostomy for a mass at the rectosigmoid colon. 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 The patient presently resides at [facility]. The patient's hu sband states that at the time of the visit with Dr. Stephens on 07/19/2018, the wound was treated with the application of silver nitrate. The patient's states that he was told by Dr. Angelo arnold t the healing of the wound appears to be complicated by stitch abscesses. The patient underwent open left colectomy with a colostomy on 05/09/2018. PAST MEDICAL HISTORY: 1. COPD. 2. Anemia. 3. Hypertension. 4. History of transient ischemic attack. 5. Hypothyroidism. 6. Alzheimer's. 7. Adenocarcinoma of the sigmoid colon. PAST SURGICAL HISTORY: 1. Open left colectomy with colostomy. 2. Back surgery. 3. Hysterectomy. 4. Knee surgery x3. MEDICATIONS: 1. Pepcid. 2. Theanine. 3. Trazodone. 4. Trelegy Ellipta. 5. Vitamin B. 6. Doxycycline. 7. Singulair. 8. [facility]. 9. Multaq. 10. Nature-Throid. 11. . 12. Coreg. 13. Lasix. ALLERGIES: PENICILLIN, SULFA, CODEINE. SOCIAL HISTORY: Negative for tobacco or ETOH use. FAMILY HISTORY: Negative for diabetes mellitus or coronary artery disease. PHYSICAL EXAMINATION: VITAL SIGNS: Temperature 98.2, pulse 72, respirations 21, blood pressure 104/61. GENERAL: An 82-year-old female lying on stretcher in examination room in no acute distress. HEENT: Normocephalic, atraumatic. NECK: No nuchal rigidity. CHEST: Clear to auscultation. CARDIAC: Regular rate and rhythm. ABDOMEN: Soft. BACK: A midline abdominal incision is present, which measures approximately 13.0 x 1.5 cm. The inci sharmin has divided into multiple smaller wounds. Granulation tissue is present within the margins of e ach wound. No purulent drainage is associated with any of the wounds. No cellulitis of the anterior abdominal wall is present. No maceration of the skin of the periwound of any of the wounds is noted . EXTREMITIES: No clubbing or cyanosis. ASSESSMENT AND PLAN: 1. Midline abdominal wound as described above, subsequent to open left colectomy with colostomy on 0 05/09/2018. Dressing changes of Silvercel followed by ABD and tape will be initiated today. These dr essing changes are to be performed 3 times per week after cleansing and irrigation at [facility]. I will see Ms. Adame again in two weeks. The patient's understands and is in agreement with e preceding treatment plan. 2. Chronic obstructive pulmonary disease. 3. Anemia. 4. Hypertension. 5. History of transient ischemic attack. 6. Hypothyroidism. 7. Alzheimer's. 8. Adenocarcinoma of the colon.
== END 2018-07-27 15:34 | disposition home or self-care (01) ==
LOC: WCC 15:33
PROVIDERS: ATTEND Family Medicine
DX: T81.89XD Other complications of procedures, not elsewhere classified, subsequent encounter (principal); J44.9 Chronic obstructive pulmonary disease, unspecified; D64.9 Anemia, unspecified; I10 Essential (primary) hypertension; E03.9 Hypothyroidism, unspecified; G30.9 Alzheimer's disease, unspecified; F02.80 Dementia in other diseases classified elsewhere, unspecified severity, without behavioral disturbance, psychotic disturbance, mood disturbance, and anxiety; C18.9 Malignant neoplasm of colon, unspecified; Z93.3 Colostomy status; Z86.73 Personal history of transient ischemic attack (TIA), and cerebral infarction without residual deficits; Z88.0 Allergy status to penicillin; Z88.5 Allergy status to narcotic agent; Z88.2 Allergy status to sulfonamides; Z98.890 Other specified postprocedural states; Z79.899 Other long term (current) drug therapy
CPT/HCPCS: 97602; 99204; G0463

== ENCOUNTER 2018-08-10 14:26 | Outpatient (CLI) | payer MEDICARE, OTHER ==
--- NOTE | 2018-08-10 16:39 | PRG ---
DATE OF SERVICE: 08/10/2018 HISTORY: Ms. Julia Adame is a very pleasant 82-year-old accompanied by her spouse who presents t o the [facility] for evaluation of a midline abdominal wound subsequent to open left colectomy with colostomy for a mass of the rectosigmoid colon. Pathology returned invasive moderately differentiat ed adenocarcinoma. The patient continues to reside at [facility]. The patient has been previously stated that at the time of the patient's visit with Dr. Stephens on 07/19/2018, the wound was treated with the application of silver nitrate. The patient's stated that he was told by Dr. Stephens that the healing of the wound appeared to be complicated by stitch abscesses. The patient underwent open left colectomy with a colostomy on 05/09/2018. PHYSICAL EXAMINATION: VITAL SIGNS: Temperature 98.0, pulse 59, respirations 18, blood pressure 115/60. ABDOMEN: A midline abdominal incision is present which has divided into multiple smaller wounds monique uring 1.9 x 1.0 cm, 0.8 x 1.0 cm, 0.7 x 0.8 cm, 1.5 x 1.0 cm and 0.4 x 0.5 cm. Granulation tissue is present within the margins of each wound. No purulent drainage is associated with any of the wounds . No cellulitis of the anterior abdominal wall is present. No maceration of the skin of the periwou nd of any of the wounds is noted. ASSESSMENT AND PLAN: 1. Midline abdominal wound as described above, subsequent to open left colectomy with colostomy on 0 05/09/2018. Dressing changes of Xeroform gauze will be initiated today. An ABD secured with tape natan l be utilized as a secondary dressing. These dressing changes are to be performed 3 times per week a fter cleansing and irrigation at [facility]. I will see Ms. Adame again in two weeks. The patient's understands and is in agreement with the preceding treatment plan. The patient will be seen by Dr. Stephens in one week. 2. Chronic obstructive pulmonary disease. 3. Anemia. 4. Hypertension. 5. History of transient ischemic attack. 6. Hypothyroidism. 7. Alzheimer's. 8. Adenocarcinoma of the colon.
== END 2018-08-10 14:27 | disposition home or self-care (01) ==
LOC: WCC 14:26
PROVIDERS: ATTEND Family Medicine
DX: T81.89XD Other complications of procedures, not elsewhere classified, subsequent encounter (principal); J44.9 Chronic obstructive pulmonary disease, unspecified; I10 Essential (primary) hypertension; D64.9 Anemia, unspecified; E03.9 Hypothyroidism, unspecified; G30.9 Alzheimer's disease, unspecified; C18.9 Malignant neoplasm of colon, unspecified; Z86.73 Personal history of transient ischemic attack (TIA), and cerebral infarction without residual deficits

== ENCOUNTER 2018-08-24 15:08 | Outpatient (CLI) | payer MEDICARE, OTHER ==
[~2018-08-24 15:08] MED LIST changes: -ISOVUE-370 76%-LOCM 1 ML ONE; +Sodium Chloride 0.9% 15 ML NEB ONE
--- NOTE | 2018-08-24 16:25 | PRG ---
DATE OF SERVICE: 08/24/2018 HISTORY: Ms. Julia dAame is an 82-year-old accompanied by her spouse who presents to the [facility] enter for evaluation of a midline abdominal wound subsequent to open left colectomy with colostomy fo r a mass of the rectosigmoid colon. Pathology returned invasive moderately differentiated adenocarci noma. The patient is still residing at [facility]. The patient's previously stated that at the time of the patient's visit with Dr. Stephens on 07/19/2018, the wound was treated with the appli cation of silver nitrate. The patient's stated that he was told by Dr. Stephens that the heal ing of the wound appeared to be complicated by stitch abscesses. The patient underwent open left col ectomy with colostomy on 05/09/2018. PHYSICAL EXAMINATION: VITAL SIGNS: Temperature 97.8, pulse 54, respirations 17, blood pressure 126/64. ABDOMEN: A midline abdominal incision is present, which has divided into multiple smaller wounds phillip suring 0.8 x 0.3 cm, 0.5 x 0.6 cm, 0.4 x 0.4 cm, 0.8 x 0.2 cm and 0.4 x 0.4 cm. Granulation tissue i s present within the margins of each wound. No purulent drainage is associated with any of the wound s. No cellulitis of the anterior abdominal wall is present. No maceration of the skin of the periwo und of any of the wounds is noted. ASSESSMENT AND PLAN: 1. Midline abdominal wound as described above subsequent to open left colectomy with colostomy on . Dressing changes of Xeroform gauze followed by an ABD secured with tape will be continued 3 times per week after cleansing and irrigation at [facility]. I will see Ms. Adame again in 4 weeks if her wounds are still present at this time. The patient's understands and is in agreement with the preceding treatment plan. 2. Chronic obstructive pulmonary disease. 3. Anemia. 4. Hypertension. 5. History of transient ischemic attack. 6. Hypothyroidism. 7. Alzheimer's. 8. Adenocarcinoma of the colon.
== END 2018-08-24 15:09 | disposition home or self-care (01) ==
LOC: WCC 15:08
PROVIDERS: ATTEND Family Medicine
DX: T81.89XD Other complications of procedures, not elsewhere classified, subsequent encounter (principal); J44.9 Chronic obstructive pulmonary disease, unspecified; D64.9 Anemia, unspecified; I10 Essential (primary) hypertension; E03.9 Hypothyroidism, unspecified; C18.9 Malignant neoplasm of colon, unspecified; G30.9 Alzheimer's disease, unspecified; Z86.73 Personal history of transient ischemic attack (TIA), and cerebral infarction without residual deficits
CPT/HCPCS: A4218

== ENCOUNTER 2018-11-22 13:46 | Outpatient (CLI) | payer MEDICARE, OTHER ==
[2018-11-22 14:30] LABS: Actual Bicarbonate (HCO3a) 24.1 mEq/L (22-28); Analyzer IN Cardio OR; Base Excess (BEa) -1.3 mEq/L (-2.0 to +3.0); CO2 Tension 43.2 mmHg (35.0-45.0); Calcium, Ionized 1.14 mmol/L (1.12-1.30); Carboxyhemoglobin (COHb) 0.8 gm% (0.0-3.0); Hemoglobin (Hb) 11.1 g/dL (12.0-16.0); Potassium - ABG Lab 3.86 mmol/L (3.70-5.30); pH, Arterial 7.36 (7.35-7.45)
[2018-11-22 14:33] LABS: O2 Tension (PaO2) 56.4 mmHg (> 60.0)
--- NOTE | 2018-11-24 08:04 | PFT ---
PATIENT HISTORY: HEIGHT: 65 IN WEIGHT: SMOKER: NO HOW LONG: PACKS PER DAY PRODUCTIVE COUGH: LUNG DISEASE: PHYSICIAN INTERPRETATION FINAL REPORT: Blood gas obtained showed severe hypoxemia otherwise normal acid base balance. no PFT done. Family Program Specialist: Rn Diabetes: TRI ENCINAS
== END 2018-11-22 13:47 | disposition home or self-care (01) ==
LOC: CP 13:46
PROVIDERS: ATTEND Internal Medicine
DX: J44.9 Chronic obstructive pulmonary disease, unspecified (principal); J96.11 Chronic respiratory failure with hypoxia
CPT/HCPCS: 82805

== ENCOUNTER 2018-11-30 14:10 | Inpatient (IN) | payer MEDICARE, OTHER ==
--- NOTE | 2018-11-30 15:10 | RAD ---
CHEST ONE VIEW: HISTORY: Dyspnea. COMPARISON: 04/30/2018 FINDINGS: The cardiac silhouette is magnified and enlarged. The pulmonary vasculature is unremarkable. The me diastinum is midline with aortic calcification. No lobar consolidation or evidence of pneumothorax. knockout machine operator leads overly the chest. IMPRESSION: 1. Borderline cardiomegaly. 2. Atherosclerosis . 3. No active cardiopulmonary abnormalities are otherwise demonstrated. POS: BILL
[2018-11-30] MEDS ORDERED: Dexamethasone 10 MG/ML VIAL ONE (15:16)
[2018-11-30] MEDS ORDERED: Magnesium 2 GM/50 ML BAG (IN WATER) ONE (15:16)
[2018-11-30 15:20] LABS: ALT (SGPT) 50 U/L (8-55); AST (SGOT) 44 U/L (5-34); Albumin 3.5 g/dL (3.4-4.8); Alkaline Phosphatase 90 U/L (40-150); Anion Gap 12 mmol/L (10-20); BUN (Urea Nitrogen) 14 mg/dL (9.8-20.1); Bilirubin, Total 0.9 mg/dL (0.2-1.2); Calc. Creatinine Clearance 0 mL/min (70-130); Calcium 8.5 mg/dL (7.8-10.44); Carbon Dioxide 26 mmol/L (23-31); Chloride 103 mmol/L (98-107); Estimated GFR-MDRD 80; Globulin 3.2 g/dL (2.4-3.5); Glucose 164 mg/dL (83-110); Potassium 3.7 mmol/L (3.5-5.1); Protein, Total 6.7 g/dL (6.0-8.3); Sodium 137 mmol/L (136-145)
[2018-11-30 15:29] LABS: Actual Bicarbonate (HCO3a) 25.5 mEq/L (22-28); Analyzer IN Cardio ER; Base Excess (BEa) -0.3 mEq/L (-2.0 to +3.0); CO2 Tension 46.9 mmHg (35.0-45.0); Calcium, Ionized 1.13 mmol/L (1.12-1.30); Carboxyhemoglobin (COHb) 0.6 gm% (0.0-3.0); Hemoglobin (Hb) 10.9 g/dL (12.0-16.0); O2 Tension (PaO2) 98.1 mmHg (> 60.0); Potassium - ABG Lab 3.64 mmol/L (3.70-5.30); pH, Arterial 7.35 (7.35-7.45)
[2018-11-30 15:29] LABS: Bilirubin Negative (Negative); Blood, Urine Negative (Negative); Clarity CLOUDY (Clear); Glucose, Urine (Dipstick) Negative (Negative); Leukocyte Negative (Negative); Nitrite Negative (Negative); Protein, Urine (Dipstick) 30 mg/dL (Neg-Trace); Specific Gravity, Urine 1.021 (1.002-1.036); pH, Urine 5.5 (5.0-9.0)
[2018-11-30 15:30] LABS: Bacteria/HPF None Seen HPF (None Seen); Hyaline Casts/LPF 4-6 HYALINE CAST LPF (0-3 Hyaline); Pathc Cast-AUWi Flag 0.43 (0-2.49); RBC/HPF 0-3 HPF (0-3); Squamous Epithelial 0-3 HPF (0-3); WBC/HPF 0-3 HPF (0-3)
[2018-11-30] MEDS ORDERED: Albuterol Sulfate 2.5 mg/0.5 ml Neb ONE (15:32)
[2018-11-30 15:34] LABS: ALV-art Gradient 71.435 (0-20); Puncture Site L.R.
[2018-11-30 16:29] LABS: CK (CPK) 41 U/L (29-168); Lipase 8 U/L (8-78)
[2018-11-30 16:59] LABS: #Lymphocytes 1.7 thou/uL (1.20-3.40); #Monocytes 0.7 thou/uL (0.11-0.59); %Basophils 0.5 % (0.0-1.0); %Eosinophils 0.2 % (0.0-10.0); %Lymphocytes 17.9 % (21.0-51.0); %Monocytes 6.9 % (0.0-10.0); %Neutrophils 74.5 % (42.0-75.0); Hemoglobin 10.1 g/dL (12.0-16.0); Mean Corpuscular HGB CONC 30.8 g/dL (32.0-36.0); Mean Corpuscular Hemoglobin 27.9 pg (27.0-31.0); Mean Corpuscular Volume 90.5 fL (78.0-98.0); Mean Platelet Volume 11.4 fL (7.4-10.4); Platelet Count 94 thou/uL (130-400); RBC Distribution Width 18.3 % (11.5-14.5); Red Blood Cell (RBC) Count 3.64 mill/uL (4.20-5.40); White Blood Cell (WBC) Count 9.4 thou/uL (4.8-10.8)
[2018-11-30] MEDS ORDERED: Metoprolol Tartrate 5 MG/5 ML VIAL ONE (18:58)
[2018-11-30] MEDS ORDERED: Furosemide 40 MG/4 ML VIAL ONE (18:58)
[2018-11-30] MEDS ORDERED: Nitroglycerin 2% Ointment 1 INCH/1 GM Packet ONE (18:58)
[2018-11-30] MEDS ORDERED: Ondansetron ODT 4 MG TAB SL PRN (21:13)
[2018-11-30] MEDS ORDERED: Ondansetron PF 4 MG/2 ML Vial IVP PRN (21:13)
[2018-11-30 21:48] VITALS: BMI 23.9
[2018-11-30] MEDS ORDERED: Nitroglycerin 2% Ointment 1 INCH/1 GM Packet TOP SCH (23:59)
[2018-12-01] MEDS ORDERED: hydrALAZINE 20 MG/ML VIAL SLOW IVP PRN (00:41)
[2018-12-01] MEDS ORDERED: Acetaminophen 325 MG TAB PO PRN (00:41)
[2018-12-01] MEDS ORDERED: Hyoscyamine Sulfate SL 0.125 mg Tablet SL PRN (00:41)
--- NOTE | 2018-12-01 04:49 | HP ---
CHIEF COMPLAINT: Shortness of breath. HISTORY OF PRESENT ILLNESS: Ms. Adame is a pleasant 83-year-old female, who has advanced dementia and therefore, I am unable to get any history from the patient. There is also no family at bedside. Therefore, the history of present illness is extremely limited. The patient herself feels that we have made a mistake and that she is not sick. The records from the [facility] state that she was hypoxic and this is the reason they sent her, also that her heart rate was elevated and she does have a history of atrial fibrillation. The patient currently says that she does not feel well. She is very upset that her has not been called. She again says "I am not sick and you must have the wrong person," and says that she feels fine. The patient has a history of atrial fibrillation, which appears to be permanent atrial fibrillation, also with review from the electronic record, she was recently diagnosed with colon cancer and had a left colectomy, and no chemotherapy was initiated due to her advanced dementia. It is also noted in her records that her code status is DNR. REVIEW OF SYSTEMS: Unobtainable due to the patient's advanced dementia. PAST MEDICAL HISTORY: The past medical history is taken from previous history and physical by Dr. Malin on April 30, 2018. It includes chronic respiratory failure due to COPD, Alzheimer dementia, atrial fibrillation, TIA as well as colon cancer which was adenocarcinoma, which was moderately differentiated. PAST SURGICAL HISTORY: She has had back surgery, hysterectomy, appendectomy, cholecystectomy, and a left colectomy and colostomy. ALLERGIES: CODEINE, PENICILLIN, AND SULFA. FAMILY HISTORY: Unknown. SOCIAL HISTORY: She is . She is a former smoker. She quit 10 years ago. Denies any alcohol use. Her code status from the correction records is a DNR. She also has an [id number] DNR in the chart which has been signed. CURRENT MEDICATIONS: Include; acetylcysteine, alpha-lipoic acid, aspirin 81 mg daily, BuSpar 15 mg twice a day, at bedtime, carvedilol 3.125 mg twice daily, vitamin B12 5000 mcg daily, docusate 100 mg daily, Multaq 400 mg twice daily, Pepcid 20 mg twice a day, fluticasone 50 mcg intranasally daily, furosemide 20 mg daily, GenTeal 10 mg q.i.d., Levsin 0.125 mg sublingual twice daily, probiotic daily, lithium 10 mg twice a day, twice a day, Namenda 10 mg twice daily, Singulair 10 mg daily, MiraLAX 17 g daily, phosphatidylserine 150 mg t.i.d., Nature-Throid 15 mg daily, tramadol 50 to 100 mg q.6, trazodone 50 mg at bedtime and vitamin B complex 200 mg daily. PHYSICAL EXAMINATION: GENERAL: She is alert, but disoriented. She is oriented to person and place. She knew it was [facility]. She is well developed and well nourished. VITAL SIGNS: Blood pressure is 115/68, heart rate 102, respiratory rate of 18, temperature is 97.8. HEENT: Her pupils are equal, round, and reactive. Extraocular muscles are intact. Her sclerae are anicteric. Throat, no erythema, no exudates. NECK: No adenopathy, no bruits. LUNGS: She has some very faint rales or crackles throughout her lung diaz, only an occasional wheeze. There are no rhonchi. CARDIOVASCULAR: Heart rhythm is irregular. The rate is variable. She does not have any murmurs, no clicks, no rubs. ABDOMEN: Soft. She has a midline abdominal scar. Colostomy is in place. There is no erythema or induration from the colostomy. She has positive bowel sounds. There is no rebound, no guarding. EXTREMITIES: She has trace nonpitting edema. No calf tenderness. No erythema. NEUROLOGIC: Her cranial nerves 2 through 12 are gross grossly intact. Her muscle strength is 5/5 in both her upper and lower extremities. SKIN AND INTEGUMENT: There are no skin changes. No rash. LAB RESULTS: Her white blood cell count is 9.4, hemoglobin 10.1, hematocrit is 32.9, platelet count is 94. Sodium 137, potassium 3.7, chloride is 103, CO2 is 26, BUN of 14, creatinine 0.7, glucose is 164. Her natriuretic peptide is elevated at 1511. TSH was normal at 1.3. [place] level was low at 0.1. She had a chest x-ray which showed mild cardiomegaly with increased pulmonary vascular markings, this is by my reading. ASSESSMENT: 1. This is a pleasant 83-year-old female, who was sent to the emergency room by the correction staff due to concerns for possible hypoxemia and shortness of breath. She has already been treated with antibiotics, DuoNeb and a dose of Lasix in the ER and by the time I see her, her symptoms appear to be almost completely resolved. Given the elevation in the proBNP, it is likely that volume overload is her most likely culprit causing her symptoms. She has been admitted to the medical floor. We will give her another dose of IV Lasix and recheck her BNP in the a.m. She has had an echocardiogram in 2017, which demonstrated a normal ejection fraction at that time. However, given her advanced age and comorbid conditions, we can likely hold off on repeating the echo if her symptoms continue to improve by tomorrow. 2. Chronic obstructive pulmonary disease. This appears to be clinically stable at this time. We will continue DuoNeb. Since there is not any significant wheezing, I think we can hold off on any additional steroids and continue her previous home medications. 3. Atrial fibrillation. Her heart rate has been variable, but currently it is more or less controlled. We will continue Multaq. It does not appear that she is on any stroke prevention, but she has a history in the records of previous gastrointestinal bleed and it looks like she had been taken off Eliquis in the past due to this reason. Otherwise, if the patient is improved in the next day or two with the current regimen, then she can likely be transitioned back to the correction. Job ID: [id number]
[2018-12-01] MEDS: Furosemide 40 MG/4 ML VIAL SLOW IVP SCH ×2 (05:19→14:24)
[2018-12-01] MEDS ORDERED: Furosemide 40 MG/4 ML VIAL SLOW IVP SCH (06:00)
[2018-12-01] MEDS ORDERED: Docusate 100 MG CAP PO SCH (09:00)
[2018-12-01] MEDS ORDERED: Non-Formulary Item 1 EACH (Fluticasone/Umeclidin/Vilanter [Trelegy Ellipta 100-62.5-25] 1 IH SCH (09:00)
[2018-12-01] MEDS ORDERED: Fluticasone/Umeclidin/Vilanter [Trelegy Ellipta 100-62.5-25] NEB SCH (09:00)
[2018-12-01] MEDS ORDERED: LITHIUM OROTATE PO SCH (09:00)
[2018-12-01] MEDS: Carvedilol 3.125 MG TAB PO SCH ×2 (10:03→17:52)
[2018-12-01] MEDS: Montelukast Sodium 10 mg Tablet PO SCH (10:04)
[2018-12-01] MEDS: Dronedarone HCl 400 MG TAB PO SCH ×2 (10:04→17:51)
[2018-12-01] MEDS: busPIRone HCl 10 MG TAB PO SCH ×2 (10:04→20:40)
[2018-12-01] MEDS: Famotidine 20 MG TAB PO SCH ×2 (10:04→20:40)
[2018-12-01] MEDS: Polyethylene Glycol 3350 17 GM Packet PO SCH (10:05)
[2018-12-01] MEDS: Doxycycline 100 MG CAP PO SCH ×2 (10:09→20:41)
[2018-12-01] MEDS: Thyroid 30 MG TAB PO SCH (10:09)
[2018-12-01] MEDS: Fluticasone Propionate Nasal Spray 16 gm Bottle NASAL SCH (11:05)
--- NOTE | 2018-12-01 12:34 | PDOC.PN ---
- Subjective Encounter Start Date: 12/01/18 Encounter Start Time: 10:30 Subjective: feels cold, has nearly 4 or 5 blankets on her -: didn't want to eat -: no sob or in distress - Objective Resuscitation Status - Order Detail: 12/01/18 00:29 Resuscitation Status Routine Resuscitation Status: DNAR: NO Resuscitation Discussed with: Per [place] records MAR Reviewed: Yes Vital Signs & Weight: Vital Signs (12 hours) Temp Pulse Resp BP Pulse Ox 12/01/18 11:44 98.3 F 77 19 94/61 98 12/01/18 08:00 97.6 F 98 16 112/73 97 12/01/18 07:57 90 16 12/01/18 04:00 97.5 F L 82 16 111/68 98 Weight Weight 138 lb 9 oz I&O: 11/30/18 12/01/18 12/02/18 06:59 06:59 06:59 Intake Total 360 Balance 360 Result Diagrams: 11/30/18 14:45 11/30/18 14:44 Phys Exam - Physical Examination HEENT: PERRLA, moist MMs Neck: no JVD, supple Respiratory: no wheezing, no rales Cardiovascular: RRR, no significant murmur Gastrointestinal: soft, non-tender, positive bowel sounds colostomy+ Musculoskeletal: no edema, pulses present Neurological: non-focal, moves all 4 limbs Dx/Plan (1) Acute on chronic diastolic CHF (congestive heart failure) Code(s): I50.33 - ACUTE ON CHRONIC DIASTOLIC (CONGESTIVE) HEART FAILURE Status : Acute (2) Acute encephalopathy Code(s): G93.40 - ENCEPHALOPATHY, UNSPECIFIED Status: Acute (3) Hypothyroidism Code(s): E03.9 - HYPOTHYROIDISM, UNSPECIFIED Status: Chronic Qualifiers: Hypothyroidism type: unspecified Qualified Code(s): E03.9 - Hypothyroidism , unspecified (4) CAD (coronary artery disease) Code(s): I25.10 - ATHSCL HEART DISEASE OF [place] CORONARY ARTERY W/O ANG PCTRS Status: Chronic Qualifiers: Coronary Disease-Associated Artery/Lesion type: [place] artery [place] vs. transplanted heart: [place] heart Associated angina: without angina Qualified Code(s): I25.10 - Atherosclerotic heart disease of [place] coronary artery without angina pectoris (5) COPD (chronic obstructive pulmonary disease) Status: Chronic Qualifiers: COPD type: COPD with acute exacerbation Qualified Code(s): J44.1 - Chronic obstructive pulmonary disease with (acute) exacerbation (6) Chronic a-fib Code(s): I48.2 - CHRONIC ATRIAL FIBRILLATION Status: Chronic Comment: rate controlled . cont multaq, Coreg, no anticoagulation due to GI bleeding (7) Dyslipidemia Code(s): E78.5 - HYPERLIPIDEMIA, UNSPECIFIED Status: Chronic (8) HTN (hypertension) Code(s): I10 - ESSENTIAL (PRIMARY) HYPERTENSION Status: Chronic Qualifiers: Hypertension type: essential hypertension - Plan is on lasix, gentle diuresis -: dc plan in am -: continue asp, multaq, coreg, namenda -: doxy, nebs -: mobilize as tolerated * . Review of Systems - Medications/Allergies Allergies/Adverse Reactions: Allergies Allergy/AdvReac Type Severity Reaction Status Date / Time codeine Allergy Verified 10/05/13 15:52 Penicillins Allergy Verified 10/05/13 15:52 Sulfa (Sulfonamide Allergy Verified 10/05/13 15:52 Antibiotics) orange juice AdvReac Verified 11/11/17 11:02 Medications: Current Medications Acetaminophen (Tylenol) 650 mg PO Q4H PRN PRN Reason: Headache/Fever/Mild Pain (1-3) Acidophilus (Floranex) 1 tab PO HS [facility] Albuterol/Ipratropium (Duoneb) 3 ml NEB Q4H PRN PRN Reason: SOB &/or Wheezing Albuterol/Ipratropium (Duoneb) 3 ml NEB [id number] [facility] Last Admin: 12/01/18 07:57 Dose: 3 ml Aspirin (Aspirin Chewable) 81 mg PO DAILY [facility] Last Admin: 12/01/18 10:04 Dose: 81 mg Buspirone HCl (Buspar) 10 mg PO BID [facility] Last Admin: 12/01/18 10:04 Dose: 10 mg Carvedilol (Coreg) 3.125 mg PO BID-[facility] Last Admin: 12/01/18 10:03 Dose: 3.125 mg Docusate Sodium (Colace) 100 mg PO DAILY [facility] Last Admin: 12/01/18 09:42 Dose: 100 mg Doxycycline Hyclate (Vibramycin) 100 mg PO BID [facility] Last Admin: 12/01/18 10:09 Dose: 100 mg Dronedarone (Multaq) 400 mg PO BID-WM [facility] Last Admin: 12/01/18 10:04 Dose: 400 mg Famotidine (Pepcid) 20 mg PO BID [facility] Last Admin: 12/01/18 10:04 Dose: 20 mg Fluticasone Propionate (Flonase Nasal [place]) 0 gm NASAL DAILY [facility] Last Admin: 12/01/18 11:05 Dose: 1 applic Furosemide (Lasix) 40 mg SLOW IVP 0600,1400 [facility] Last Admin: 12/01/18 05:19 Dose: 40 mg Hydralazine HCl (Apresoline) 10 mg SLOW IVP Q4H PRN PRN Reason: SBP > 180 and HR < 70 Hyoscyamine Sulfate (Levsin Sl) 0.125 mg SL BIDPRN PRN PRN Reason: GI Cramping Memantine (Namenda) 10 mg PO BID [facility] Last Admin: 12/01/18 10:04 Dose: 10 mg Montelukast Sodium (Singulair) 10 mg PO DAILY [facility] Last Admin: 12/01/18 10:04 Dose: 10 mg [place] Orotate 10 (Mg) 10 mg PO BID [facility] Fluticasone/Umeclidin/Vilanter [ Trelegy Ellipta 100- 62.5-25] 0 each NEB DAILY [facility] Polyethylene Glycol (Miralax) 17 gm PO DAILY [facility] Last Admin: 12/01/18 10:05 Dose: 17 gm Thyroid ([place] Thyroid) 15 mg PO QAM [facility] Last Admin: 12/01/18 10:09 Dose: 15 mg Trazodone HCl (Desyrel) 50 mg PO [facility]
[2018-12-01 14:38] LABS: #Lymphocytes 1.7 thou/uL (1.20-3.40); #Monocytes 0.8 thou/uL (0.11-0.59); %Basophils 0.5 % (0.0-1.0); %Eosinophils 0.2 % (0.0-10.0); %Lymphocytes 22.2 % (21.0-51.0); %Monocytes 10.7 % (0.0-10.0); %Neutrophils 66.4 % (42.0-75.0); Hemoglobin 10.2 g/dL (12.0-16.0); Mean Corpuscular HGB CONC 30.8 g/dL (32.0-36.0); Mean Corpuscular Hemoglobin 27.3 pg (27.0-31.0); Mean Corpuscular Volume 88.9 fL (78.0-98.0); Mean Platelet Volume 11.6 fL (7.4-10.4); Platelet Count 95 thou/uL (130-400); RBC Distribution Width 18.2 % (11.5-14.5); Red Blood Cell (RBC) Count 3.74 mill/uL (4.20-5.40); White Blood Cell (WBC) Count 7.5 thou/uL (4.8-10.8)
[2018-12-01 15:08] LABS: Anion Gap 15 mmol/L (10-20); BUN (Urea Nitrogen) 20 mg/dL (9.8-20.1); Calc. Creatinine Clearance 45 mL/min (70-130); Calcium 8.8 mg/dL (7.8-10.44); Carbon Dioxide 28 mmol/L (23-31); Chloride 96 mmol/L (98-107); Estimated GFR-MDRD 60; Glucose 168 mg/dL (83-110); Potassium 3.2 mmol/L (3.5-5.1); Sodium 136 mmol/L (136-145)
[2018-12-01] MEDS ORDERED: Diabetic Tussin 200 MG/10 ML UDCUP PO PRN (17:18)
[2018-12-01] MEDS ORDERED: Lactinex Tablet PO SCH (21:00)
[2018-12-01] MEDS ORDERED: traZODone HCl 50 MG TAB PO SCH (21:00)
[2018-12-01] MEDS ORDERED: BIEST PO SCH (21:00)
[2018-12-01] MEDS ORDERED: PROGEST PO SCH (21:00)
[2018-12-02] MEDS: Furosemide 40 MG/4 ML VIAL SLOW IVP SCH (04:47)
[2018-12-02 07:21] LABS: Free T4 (Free Thyroxine) 0.99 ng/dL (0.70-1.48); Thyroid Stimulating Hormone 3.9688 uIU/mL (0.35-4.94)
[2018-12-02] MEDS ORDERED: Potassium Chloride 20 MEQ TAB PO SCH (08:00)
[2018-12-02] MEDS: Polyethylene Glycol 3350 17 GM Packet PO SCH (08:15)
[2018-12-02] MEDS: busPIRone HCl 10 MG TAB PO SCH (08:16)
[2018-12-02] MEDS: Carvedilol 3.125 MG TAB PO SCH (08:16)
[2018-12-02] MEDS: Famotidine 20 MG TAB PO SCH (08:17)
[2018-12-02] MEDS: Dronedarone HCl 400 MG TAB PO SCH (08:17)
[2018-12-02] MEDS: Montelukast Sodium 10 mg Tablet PO SCH (08:17)
[2018-12-02] MEDS: Fluticasone Propionate Nasal Spray 16 gm Bottle NASAL SCH (08:18)
[2018-12-02] MEDS ORDERED: Furosemide 40 MG TAB PO SCH (09:00)
[2018-12-02] MEDS ORDERED: Senokot S 8.6-50 MG TAB PO SCH (09:00)
[2018-12-02] MEDS ORDERED: Cyanocobalamin (Vitamin B-12) 1,000 MCG TAB PO SCH (09:00)
[2018-12-02] MEDS ORDERED: Polyethylene Glycol 3350 17 GM Packet PO SCH (09:00)
[2018-12-02 09:34] VITALS: BP 96/64; TEMP 97.8
[2018-12-02] MEDS: Thyroid 30 MG TAB PO SCH (10:09)
[2018-12-02] MEDS: Doxycycline 100 MG CAP PO SCH (10:10)
--- NOTE | 2018-12-02 13:02 | PDOC.PN ---
- Subjective Encounter Start Date: 12/02/18 Encounter Start Time: 08:00 Subjective: feels better, no sob or chest pain -: ate her breakfast - Objective Resuscitation Status - Order Detail: 12/01/18 17:22 Resuscitation Status Routine Resuscitation Status: FULL: Full Resuscitation MAR Reviewed: Yes Vital Signs & Weight: Vital Signs (12 hours) Temp Pulse Resp BP Pulse Ox Pulse Ox 12/02/18 10:01 89 L 12/02/18 08:00 97.8 F 87 20 96/64 98 12/02/18 07:07 97 12/02/18 07:05 76 16 97 12/02/18 04:14 98.5 F 86 18 105/69 94 L Weight Weight 141 lb 1 oz I&O: 12/01/18 12/02/18 12/03/18 06:59 06:59 06:59 Intake Total 360 1280 Output Total 0 Balance 360 1280 Result Diagrams: 12/01/18 14:24 12/01/18 14:24 Phys Exam - Physical Examination HEENT: PERRLA, moist MMs Neck: no JVD, supple Respiratory: no wheezing, no rales Cardiovascular: RRR, no significant murmur Gastrointestinal: soft, non-tender, positive bowel sounds Musculoskeletal: no edema, pulses present Neurological: non-focal, moves all 4 limbs Dx/Plan (1) Acute on chronic diastolic CHF (congestive heart failure) Code(s): I50.33 - ACUTE ON CHRONIC DIASTOLIC (CONGESTIVE) HEART FAILURE Status : Acute (2) Acute encephalopathy Code(s): G93.40 - ENCEPHALOPATHY, UNSPECIFIED Status: Resolved (3) Hypothyroidism Code(s): E03.9 - HYPOTHYROIDISM, UNSPECIFIED Status: Chronic Qualifiers: Hypothyroidism type: unspecified Qualified Code(s): E03.9 - Hypothyroidism , unspecified (4) CAD (coronary artery disease) Code(s): I25.10 - ATHSCL HEART DISEASE OF [place] CORONARY ARTERY W/O ANG PCTRS Status: Chronic Qualifiers: Coronary Disease-Associated Artery/Lesion type: [place] artery [place] vs. transplanted heart: [place] heart Associated angina: without angina Qualified Code(s): I25.10 - Atherosclerotic heart disease of [place] coronary artery without angina pectoris (5) COPD (chronic obstructive pulmonary disease) Status: Chronic Qualifiers: COPD type: COPD with acute exacerbation Qualified Code(s): J44.1 - Chronic obstructive pulmonary disease with (acute) exacerbation (6) Chronic a-fib Code(s): I48.2 - CHRONIC ATRIAL FIBRILLATION Status: Chronic Comment: rate controlled . cont multaq, Coreg, no anticoagulation due to GI bleeding (7) Dyslipidemia Code(s): E78.5 - HYPERLIPIDEMIA, UNSPECIFIED Status: Chronic (8) HTN (hypertension) Code(s): I10 - ESSENTIAL (PRIMARY) HYPERTENSION Status: Chronic Qualifiers: Hypertension type: essential hypertension - Plan thyroid studies are normal -: no further c/o feeling cold like yesterday -: almost euvolemic now -: dc pt to snf, lasix and kdur x 15 days -: tried to call , cant reach him to give updates * .
--- NOTE | 2018-12-02 15:26 | PQF ---
DATE: 12-02-18 ATTN: DR. LILY TREJO Please exercise your independent, professional judgment in responding to the clarification form. Clinical indicators are provided on the bottom of this form for your review Please check appropriate box(s): [ ] Encephalopathy: Type: [ x ] Acute [ ] Subacute [ ] Chronic Etiology: [ x ] Metabolic [ ] Toxic [ ] Hypoxic [ ] Transient Alteration of Awareness [ ] Other diagnosis [ ] Unable to determine In addition, please specify: Present on Admission (POA): [x ] Yes [ ] No [ ] Unable to determine For continuity of documentation, please document condition throughout progress notes and discharge summary. Thank You. CLINICAL INDICATORS - SIGNS / SYMPTOMS / LABS ER DX: ACUTE RESPIRATORY DISTRESS, ACUTE HYPOXIA, CHF EXACERBATION, COPD FLARE, DEMENTIA H&P: UNOBTAINABLE DUE TO THE PATIENTS ADVANCED DEMENTIA, SHE IS ALERT BUT DISORIENTED PN DR. TREJO 12-01-18: ACUTE ENCEPHALOPATHY RISK FACTORS: H&P: HX OF ADVANCED DEMENTIA, RECENTLY DIAGNOSED WITH COLON CANCER, AFIB , TIA, FORMER SMOKER, COPD, CAD, HYPOTHYROIDISM TREATMENTS: ER: LASIX INJ, METOPROLOL, MAGNESIUM SULFATE, DUONEB, IVF RESP ASSESSMENT 11-30-18: O2 NC 4L (This form is maintained as a part of the permanent medical record) 2014 [employer]. All Rights Reserved MAITE [email or web address] Office: [phone] MTDD
--- NOTE | 2018-12-03 20:55 | EKG ---
Test Reason : Blood Pressure : / mmHG Vent. Rate : 096 BPM Atrial Rate : 087 BPM P-R Int : 000 ms QRS Dur : 150 ms QT Int : 400 ms P-R-T Axes : 000 -73 -12 degrees QTc Int : 505 ms Atrial fibrillation Left axis deviation Right bundle branch block Anterior infarct , age undetermined Anterior ischemia Abnormal ECG Confirmed by TASHA BANUELOS, CHANDAN Mancilla ([id number]), editor managing newspaper ALIZA VELASQUEZ ([id number]) on 12/03/2018 8:55:09 PM Referred By: Confirmed By:CHANDAN CORDOVA MD
--- NOTE | 2018-12-04 15:34 | DIS ---
DATE OF ADMISSION: 11/30/2018 DATE OF DISCHARGE: 12/02/2018 DISCHARGE DISPOSITION: intermediate. PRIMARY DISCHARGE DIAGNOSES: Acute on chronic congestive heart failure exacerbation with diastolic dysfunction likely stage C; acute encephalopathy, resolved. SECONDARY DISCHARGE DIAGNOSES: Coronary artery disease, hypothyroidism, chronic obstructive pulmonary disease, chronic atrial fibrillation, dyslipidemia, and hypertension. PROCEDURES DONE DURING HOSPITALIZATION: Chest x-ray done on the day of admission showed pulmonary vascular congestion with cardiomegaly. Blood cultures x2, no growth. Urine culture, no growth. H and H 10 and 33, platelet count is 95, MCV 88 with 66% neutrophils. Free T4 of 0.9, free T3 of 1.90, TSH 3.96, BUN 20, creatinine 0.9. BNP was 1511. Troponin x1 is negative. Albumin 3.5. Lactic acid 1.1. UA showed no signs of infection. DISCHARGE MEDICATION: 1. Aspirin 81 mg p.o. daily. 2. Colace 100 mg p.o. daily. 3. Multaq 400 mg p.o. twice daily. 4. Pepcid 20 mg twice daily. 5. [place] orotate 10 mg twice daily. 6. Namenda 10 mg twice daily. 7. Singulair 10 mg daily. 8. Trazodone 50 mg p.o. at bedtime. 9. Buspirone 10 mg twice daily. 10. Coreg 3.125 mg p.o. twice daily. 11. Lasix 40 mg daily for 15 days. 12. K-Dur 20 mEq p.o. daily for 15 days. 13. Ultram p.r.n. for pain. ALLERGIES: ALLERGIC TO CODEINE, PENICILLIN, SULFA, AND ORANGE JUICE. DISCHARGE PLAN: The patient is being discharged back to [facility]. She needs to follow up with her primary care physician in one week and her insurance loss adjuster in 4 weeks. BRIEF COURSE DURING HOSPITALIZATION: The patient initially came in with complaints of shortness of breath. She was in fact [facility] for the same. She is also feeling hot and cold. The patient has underlying dementia and was confused as well on arrival. She was essentially admitted for acute on chronic congestive heart failure exacerbation with diastolic dysfunction. She has responded well to diuresis. The patient appears to be at her baseline cognitive function. She has had thyroid studies done, which have all been within normal limits. The patient has been wheelchair and bed bound at the prison. She is almost achieved euvolemic status here and has been advised to continue Lasix with potassium supplements for another 15 days, and to discontinue after that. The patient will benefit from outpatient appointment in 4 weeks with her primary insurance loss adjuster. A total of 35 minutes was spent on discharge plan. Please see a [id number] documentation for the day of discharge on [employer]. Job ID: [id number]
== END 2018-12-02 13:58 | DRG 291 ==
LOC: ERS 14:10 → T4-A 18:21
PROVIDERS: ADMIT Emergency Medicine; ATTEND Emergency Medicine
DX: I11.0 Hypertensive heart disease with heart failure (principal); G93.41 Metabolic encephalopathy; I50.33 Acute on chronic diastolic (congestive) heart failure; J44.9 Chronic obstructive pulmonary disease, unspecified; Z66 Do not resuscitate; G30.9 Alzheimer's disease, unspecified; F02.80 Dementia in other diseases classified elsewhere, unspecified severity, without behavioral disturbance, psychotic disturbance, mood disturbance, and anxiety; E03.9 Hypothyroidism, unspecified; I25.10 Atherosclerotic heart disease of native coronary artery without angina pectoris; I48.2 Chronic atrial fibrillation; E78.5 Hyperlipidemia, unspecified; Z86.73 Personal history of transient ischemic attack (TIA), and cerebral infarction without residual deficits; Z85.038 Personal history of other malignant neoplasm of large intestine; Z90.710 Acquired absence of both cervix and uterus; Z90.49 Acquired absence of other specified parts of digestive tract; Z98.890 Other specified postprocedural states; Z88.0 Allergy status to penicillin; Z88.2 Allergy status to sulfonamides; Z88.5 Allergy status to narcotic agent; Z87.891 Personal history of nicotine dependence
CPT/HCPCS: 36415; 71045; 80048; 80053; 80178; 81003; 81015; 82550; 82805; 83605; 83690; 83880; 84439; 84443; 84481; 84484; 85025; 87040; 87086; 93005; 93798; 94640; 94644; 96365; 96367; 96375; A4353; J1100; J1940; J1956; J7611; J7620

== ENCOUNTER 2018-12-13 16:07 | Inpatient (IN) | payer MEDICARE, OTHER ==
[2018-12-13 18:05] LABS: #Lymphocytes 1.3 thou/uL (1.20-3.40); #Monocytes 0.7 thou/uL (0.11-0.59); #Neutrophils 8.7 thou/uL (1.40-6.50); %Basophils 0.3 % (0.0-1.0); %Eosinophils 0.1 % (0.0-10.0); %Lymphocytes 12.4 % (21.0-51.0); %Monocytes 6.4 % (0.0-10.0); %Neutrophils 80.8 % (42.0-75.0); Hemoglobin 10.7 g/dL (12.0-16.0); Mean Corpuscular HGB CONC 30.3 g/dL (32.0-36.0); Mean Corpuscular Hemoglobin 26.8 pg (27.0-31.0); Mean Corpuscular Volume 88.5 fL (78.0-98.0); Mean Platelet Volume 11.2 fL (7.4-10.4); Platelet Count 129 thou/uL (130-400); RBC Distribution Width 18.6 % (11.5-14.5); Red Blood Cell (RBC) Count 3.98 mill/uL (4.20-5.40); White Blood Cell (WBC) Count 10.8 thou/uL (4.8-10.8)
[2018-12-13] MEDS ORDERED: methylPREDNISolone Sod Succ/PF 125 MG/2 ML VIAL ONE (18:17)
[2018-12-13 18:21] LABS: ALT (SGPT) 53 U/L (8-55); AST (SGOT) 41 U/L (5-34); Albumin 3.7 g/dL (3.4-4.8); Alkaline Phosphatase 119 U/L (40-150); Anion Gap 11 mmol/L (10-20); BUN (Urea Nitrogen) 20 mg/dL (9.8-20.1); Bilirubin, Total 0.9 mg/dL (0.2-1.2); Calc. Creatinine Clearance 0 mL/min (70-130); Calcium 8.9 mg/dL (7.8-10.44); Carbon Dioxide 29 mmol/L (23-31); Chloride 102 mmol/L (98-107); Estimated GFR-MDRD 66; Globulin 3.2 g/dL (2.4-3.5); Glucose 131 mg/dL (83-110); Potassium 3.9 mmol/L (3.5-5.1); Protein, Total 6.9 g/dL (6.0-8.3); Sodium 138 mmol/L (136-145)
[2018-12-13 18:37] LABS: Base Excess-Venous 5.7 mmol/L (0 (+/- 2.5)); CO2 Tension (PvCO2) 41.9 mmHg (41.0-51.0); Calcium, Ionized 1.17 mmol/L (1.12-1.32); O2 Tension (PvO2) 52.8 mmHg (35.0-45.0); Potassium 3.9 mmol/L (3.4-4.7); T. Carbon Dioxide 31.3 mmol/L (1.0-85.0); pH (Venous) 7.463 (7.35-7.45); vO2 Saturation-calc 88.6 % (94-98)
--- NOTE | 2018-12-13 18:47 | RAD ---
PORTABLE CHEST ONE VIEW: 12/13/18 at 6:09 p.m. HISTORY: COPD. FINDINGS/IMPRESSION: Comparison made to exam of 11/30/18. Borderline cardiomegaly is stable. The lungs are well expanded without focal areas of consolidation, pneumothoraces, idalmis pulmonary edema or large effusions. Changes of vertebroplasty again seen. POS: MZA
[2018-12-13] MEDS ORDERED: Furosemide 20 MG/2 ML VIAL ONE (20:56)
[2018-12-13 22:16] LABS: Troponin I 0.018 ng/mL (< 0.028)
[2018-12-13] MEDS ORDERED: Ondansetron PF 4 MG/2 ML Vial IVP PRN (22:26)
[2018-12-13] MEDS ORDERED: Acetaminophen 325 MG TAB PO PRN (22:26)
[2018-12-13] MEDS ORDERED: Ondansetron ODT 4 MG TAB PO PRN (22:26)
[2018-12-14 00:58] LABS: Troponin I 0.012 ng/mL (< 0.028)
[2018-12-14 01:10] VITALS: BMI 26.2
[2018-12-14] MEDS ORDERED: Diltiazem 125 MG in Sodium Chloride 0.9% 100 ML IVPB PRN (02:48)
--- NOTE | 2018-12-14 03:36 | HP ---
PRIMARY CARE DOCTOR: Dr. Luciano Pope. CODE STATUS: Full code. TIME OF EVALUATION: 08:30 p.m. CHIEF COMPLAINT: Change in mental status. HISTORY OF PRESENT ILLNESS: This is an 83-year-old female patient with past medical history of dementia, osteoarthritis, arrhythmia, atrial fibrillation, Alzheimer' s disease, TIA, COPD, came to the hospital after having change in mental status, on and off. It has been reported that patient has continued to have heart failure , Dr. Rubin has seen the patient and has sent the patient to the hospital. It looks like there has been some conversation regarding hospice. I have discussed in detail code status and goals of care with the patient, family, and . They are not willing to go for hospice yet. It does not seem that they have a clear idea what the condition of the patient is currently and what their choices for treatment are regarding hospice and palliative care. The symptoms that patient presented were moderate. No clear triggers, no alleviating factors. REVIEW OF SYSTEMS: I am unable to obtain. The patient has dementia. ALLERGIES: KNOWN ALLERGIES TO CODEINE, PENICILLIN, SULFA. Family history, Surgical history : unable to obtain due to underlying dementia. Personal history as mentioned in hpi REPORTED MEDICATIONS: 1. Buspirone. 2. Docusate. 3. Fluticasone. 4. Furosemide. 5. N-acetylcysteine. PHYSICAL EXAMINATION: VITAL SIGNS: On presentation, heart rate is 121, blood pressure 122/93, respiratory rate was 21, pain was 0/10, oxygen saturation 86% on 2 L oxygen. CONSTITUTIONAL: The patient had some confusion, agitation. The patient is in discomfort. HEENT: Eyes, normal conjunctiva. Dry oral mucosa. Anicteric. NECK: No JVD. RESPIRATORY: Bilateral air entry. Scattered rales in the bases. No wheezing. Symmetric expansion. CARDIOVASCULAR: Normal rate. The patient has tachycardia, irregular rhythm, systolic murmur, no gallop, bilateral leg edema. ABDOMEN: Soft, normal bowel sounds. MUSCULOSKELETAL: Baseline range of motion and strength. No tenderness. SKIN: Warm, intact. No pallor. No rash. No redness. Peripheral pulses are present. Capillary refill seems to intact. NEUROLOGIC: The patient is confused. I am unable to fully explore. The patient has underlying dementia. As per report, this is not her baseline. PSYCHIATRIC: Unable to explore. The patient has underlying dementia. DIAGNOSTIC STUDIES: EKG, the patient has had a fibrillation with rapid ventricular response, left axis deviation, right bundle branch block. Heart rate 127, QRS 146, QT corrected 426. Chest x-ray was reviewed. The patient has borderline cardiomegaly, stable. Lungs well expanded without any focal areas of consolidation, pneumothorax, idalmis pulmonary edema of large effusions, changes of vertebroplasty again seen. LABORATORY DATA: Labs were reviewed. The patient has white count 10.8 with hemoglobin 10.7, hematocrit 35.3, MCV 88.5, platelet count 129, neutrophils 80.8. Blood gas; VBG; pH 7.46. Chemistry; sodium 138, potassium 3.9, chloride 102, carbon dioxide 29, anion gap 11, BUN 20, creatinine 0.8, GFR 66, glucose 131, lactic acid 1.4, calcium 9.9, total bilirubin 0.9. LFTs were normal. Troponin was negative x3. Beta natriuretic peptide was 779. ASSESSMENT AND PLAN: The patient will be placed in the hospital with following medical problems: 1. Acute encephalopathy, unclear etiology. The patient has underlying dementia , but has per family, this is her baseline mental status. We will treat underlying condition, could be related to underlying possible pneumonitis versus congestive heart failure. The patient has been started on Lasix, we will monitor, we will adjust treatment as needed. 2. Atrial fibrillation with rapid ventricular response. The patient will be started on Cardizem drip, Cardiology consult, reconcile home medications. We will follow recommendations. 3. Deep venous thrombosis prophylaxis. Diltiazem drip. We will place consultation for Cardiology. We will follow recommendations. 4. The patient has a history of chronic obstructive pulmonary disease. We will reconcile home medications. We will place the patient on [facility]. Job ID: [id number] MTDD
[2018-12-14 05:37] LABS: Anion Gap 16 mmol/L (10-20); BUN (Urea Nitrogen) 18 mg/dL (9.8-20.1); Calc. Creatinine Clearance 57 mL/min (70-130); Calcium 8.7 mg/dL (7.8-10.44); Carbon Dioxide 25 mmol/L (23-31); Chloride 101 mmol/L (98-107); Estimated GFR-MDRD 69; Glucose 162 mg/dL (83-110); Potassium 3.7 mmol/L (3.5-5.1); Sodium 138 mmol/L (136-145)
[2018-12-14] MEDS: Furosemide 40 MG/4 ML VIAL SLOW IVP SCH ×2 (05:43→15:25)
[2018-12-14 05:47] LABS: Acanthocytes SLIGHT = 1-5 cells (100X) (None Seen); Anisocytosis SLIGHT = 6-15 cells (100X) (0-5/hpf); Band 20 % (5-11); Elliptocytes SLIGHT = 2-5 cells (100X) (0-1/hpf); Lymphocytes 7 % (21-51); MDiff Complete? YES; Mean Corpuscular HGB CONC 30.5 g/dL (32.0-36.0); Mean Corpuscular Hemoglobin 27.4 pg (27.0-31.0); Mean Corpuscular Volume 89.7 fL (78.0-98.0); Mean Platelet Volume 8.5 fL (7.4-10.4); Monocytes 7 % (0-10); Neutrophil 66 % (42-75); Platelet Count 87 thou/uL (130-400); Platelet Morphology Comment Appears Decreased; Poikilocytosis MODERATE=16-30 cells (100X) (0-5/hpf); RBC Distribution Width 18.9 % (11.5-14.5); Red Blood Cell (RBC) Count 4.02 mill/uL (4.20-5.40); Schistocytes SLIGHT = 2-5 cells (100X) (0-1/hpf); White Blood Cell (WBC) Count 14.1 thou/uL (4.8-10.8)
[2018-12-14] MEDS: Aspirin 325 MG TAB PO SCH (08:50)
[2018-12-14] MEDS ORDERED: Lorazepam 2 MG/ML VIAL SLOW IVP SCH (10:45)
[2018-12-14] MEDS ORDERED: Digoxin 0.5 MG/2 ML AMP SLOW IVP SCH (12:45)
[2018-12-14] MEDS ORDERED: Morphine 10 MG/0.5 ML ORAL SYRINGE SL PRN (12:46)
--- NOTE | 2018-12-14 12:46 | PDOC.PN ---
- Subjective Encounter Start Date: 12/14/18 Encounter Start Time: 12:41 Patient seen and examined, at bedside, all questions answered. - Objective Resuscitation Status - Order Detail: 12/14/18 12:38 Resuscitation Status Routine Resuscitation Status: DNAR: NO Resuscitation Discussed with: Additional comments: doesn't want chest compressions or intubation Vital Signs & Weight: Vital Signs (12 hours) Temp Pulse Resp BP Pulse Ox 12/14/18 12:00 99.1 F 118 H 18 104/68 93 L 12/14/18 10:31 120 H 20 90 L 12/14/18 07:48 99.2 F 96 18 108/74 88 L 12/14/18 06:37 90 L 12/14/18 06:34 118 H 24 H 90 L 12/14/18 04:00 97.3 F L 107 H 20 121/74 94 L Weight Weight 146 lb Result Diagrams: 12/14/18 04:58 12/14/18 04:58 Phys Exam - Physical Examination Constitutional: NAD HEENT: PERRLA, moist MMs, sclera anicteric Neck: no nodes, no JVD, supple Respiratory: no wheezing, no rales, no rhonchi Cardiovascular: no rub IRRR 2/6 JOIE Gastrointestinal: soft, non-tender, no distention Musculoskeletal: pulses present, edema present Dx/Plan (1) Atrial fibrillation with rapid ventricular response Code(s): I48.91 - UNSPECIFIED ATRIAL FIBRILLATION Status: Acute Comment: Improved rate.NSR now post IV Amiodarone (2) CAD (coronary artery disease) Code(s): I25.10 - ATHSCL HEART DISEASE OF [place] CORONARY ARTERY W/O ANG PCTRS Status: Chronic Qualifiers: (3) COPD (chronic obstructive pulmonary disease) Status: Chronic Qualifiers: (4) Dementia Code(s): F03.90 - UNSPECIFIED DEMENTIA WITHOUT BEHAVIORAL DISTURBANCE Status: Chronic Comment: Advanced, continue - Plan * long discussion held with * will opt for hospice care * will give anxiety medications * DC cardizem drip for now, will give digoxin 0.125mg x 1 and start cardizem 30mg po ACHS, cardio consult pending * overall poor prognosis * dementia is pretty bad, the patient is very confused * will consult CM and hospice * DC plans to hospice once arranged and once cleared by cardio, would like to make patient DNR and pursue aggressive medical care with oral medical managment only * case and plan d/w patient's at length, he understood and agreed with this plan.
[2018-12-14] MEDS: ALPRAZolam 0.25 MG TAB PO PRN (16:08)
--- NOTE | 2018-12-14 17:24 | CON ---
DATE OF CONSULTATION: REASON FOR CONSULTATION: Atrial fibrillation with RVR. HISTORY OF PRESENT ILLNESS: This is an 83-year-old woman, who has been seen and evaluated by Dr. Stallings in the past, and would like to change their followups to [facility]. She has been in and out of different nursing homes over the last several years. Her states she has been in 4 different nursing homes, had switched for various reasons. I last saw her in 2016, where she underwent cardioversion successfully. She was placed on Eliquis and flecainide. Today, she is now on Multaq, but is not on anticoagulation therapy. They are unsure why. She does have underlying Alzheimer dementia. She is unable to tell me why she is here, but her states she had change in mental status and became concerned. No significant chest pain, pressure, or associated symptoms. PAST MEDICAL HISTORY: Atrial fibrillation, unknown whether or not chronic versus paroxysmal; osteoarthritis; dementia; TIA; COPD. ALLERGIES: CODEINE, PENICILLIN. MEDICATIONS: Buspirone, docusate, Flonase, Lasix, N-acetylcysteine, ? Multaq. REVIEW OF SYSTEMS: Unable to obtain. PHYSICAL EXAMINATION: GENERAL: Patient is a pleasant 83-year-old female, who is in no acute distress. The patient appears their stated age. VITAL SIGNS: Blood pressure 102/62, pulse 118, temperature 97. NEUROLOGIC: The patient is alert and oriented x3 with no focal neurologic deficits. HEENT: Sclerae without icterus. Mouth has moist mucous membranes with normal pallor. NECK: No JVD. Carotid upstroke brisk. No bruits bilaterally. LUNGS: Clear to auscultation with unlabored respirations. BACK: No scoliosis or kyphosis. CARDIAC: Irregularly irregular with normal S1 and S2. No S3 or S4 noted. No significant rubs, murmurs, thrills, or gallops noted throughout the precordium. PMI is not displaced. There is no parasternal heave. ABDOMEN: Soft, nontender, nondistended. No peritoneal signs present. No hepatosplenomegaly. No abnormal striae. EXTREMITIES: 2+ femoral and 2+ dorsalis pedis pulses. No cyanosis, clubbing, or edema. SKIN: No gross abnormalities. PERTINENT LABORATORY DATA: Hemoglobin 11. Creatinine 0.79. BNP of 739. IMPRESSION: 1. Atrial fibrillation. 2. Change in mental status. 3. Alzheimer dementia. RECOMMENDATIONS: At this point, we will continue IV Cardizem at 5 mg/hour. We will supplement with p.o. Cardizem at 30 mg q.6 hours and we will increase to 60 mg q.6 hours. We will give her one dose of digoxin 0.25 mg IV. We will try and get her rate controlled. We will try and assess why she is not on anticoagulation therapy. We will cover with [place] in the meantime. Job ID: [id number]
[2018-12-14] MEDS: Enoxaparin Sodium 60 MG/0.6 ML SYRINGE SC SCH (21:07)
[2018-12-15] MEDS: Furosemide 40 MG/4 ML VIAL SLOW IVP SCH ×2 (06:20→12:56)
[2018-12-15] MEDS: ALPRAZolam 0.25 MG TAB PO PRN ×2 (09:43→23:46)
[2018-12-15] MEDS: Enoxaparin Sodium 60 MG/0.6 ML SYRINGE SC SCH ×2 (09:43→21:37)
[2018-12-15] MEDS: Aspirin 325 MG TAB PO SCH (09:43)
--- NOTE | 2018-12-15 10:54 | PDOC.CTH ---
Cardiology Progress Note - Subjective Pt with no specific complaints. Appears angry today as she did yesterday complaining about her position and not being able to eat in her wheelchair. IV CCB stopped after rate controlled. - Objective Vital Signs Temp Pulse Resp BP Pulse Ox 12/15/18 07:32 97.8 F 103 H 18 112/54 L 84 L 12/15/18 06:40 92 L 12/15/18 06:18 90 L 12/15/18 06:17 80 20 90 L 12/15/18 04:45 97.7 F 12/15/18 04:42 97.7 F 12/15/18 03:52 96.3 F L 80 16 109/57 L 92 L 12/15/18 03:22 76 18 95 12/14/18 23:59 97.2 F L 93 18 115/56 L 91 L 12/14/18 23:09 109 H 20 Weight 147 lb 12.8 oz 12/14/18 12/15/18 12/16/18 06:59 06:59 06:59 Intake Total 880 300 Balance 880 300 - Physical Examination General/Neuro: NAD Neck: carotid US brisk, no JVD present Lungs: CTA, unlabored respirations Heart: other: (irr) Abdomen: no HSM, NT/ND, soft Extremities: + femoral B - Telemetry Telemetry Rhythm: irr - Labs Result Diagrams: 12/14/18 04:58 12/14/18 04:58 Troponin/CKMB Troponin I 0.012 ng/mL (< 0.028) 12/14/18 00:28 - Assessment/Plan afib dementia Pt with rate control Unsure why pt not on ACT; also unaware Change CCB to long acting (240mg po) If no contraindications, recommend eliquis and continued rate control No further recommendations Pt to fu with primary sales training manager (Dr. Andrew Alvarenga)
--- NOTE | 2018-12-15 14:36 | PDOC.PN ---
- Subjective Encounter Start Date: 12/15/18 Encounter Start Time: 14:33 Subjective: pt upset and wants to sit up and eat and move around -: denies any chest discomfort or SOB.no new events -: care discussed w at bedside - Objective Resuscitation Status - Order Detail: 12/14/18 12:38 Resuscitation Status Routine Resuscitation Status: DNAR: NO Resuscitation Discussed with: Additional comments: doesn't want chest compressions or intubation MAR Reviewed: Yes Vital Signs & Weight: Vital Signs (12 hours) Temp Pulse Resp BP BP Pulse Ox 12/15/18 12:54 95 105/59 L 12/15/18 12:00 99 F 95 18 105/59 L 91 L 12/15/18 11:24 79 20 93 L 12/15/18 07:32 97.8 F 103 H 18 112/54 L 84 L 12/15/18 06:40 92 L 12/15/18 06:18 90 L 12/15/18 06:17 80 20 90 L 12/15/18 04:45 97.7 F 12/15/18 04:42 97.7 F 12/15/18 03:52 96.3 F L 80 16 109/57 L 92 L 12/15/18 03:22 76 18 95 Weight Weight 147 lb 12.8 oz I&O: 12/14/18 12/15/18 12/16/18 06:59 06:59 06:59 Intake Total 880 300 Balance 880 300 Result Diagrams: 12/14/18 04:58 12/14/18 04:58 Additional Labs: Laboratory Tests 12/13/18 12/13/18 12/13/18 17:50 17:50 21:42 Troponin I 0.013 0.018 B-Natriuretic Peptide 779.7 H 12/14/18 00:28 Troponin I 0.012 B-Natriuretic Peptide Phys Exam - Physical Examination Constitutional: NAD HEENT: PERRLA, moist MMs, sclera anicteric, oral pharynx no lesions Neck: no nodes, no JVD, supple, full ROM Respiratory: no wheezing, no rales, no rhonchi, clear to auscultation bilateral Cardiovascular: RRR, no significant murmur, no rub Gastrointestinal: soft, non-tender, no distention, positive bowel sounds Musculoskeletal: no edema, pulses present Neurological: non-focal, normal sensation, moves all 4 limbs Psychiatric: normal affect, A&O x 3 Skin: no rash Dx/Plan (1) Atrial fibrillation with rapid ventricular response Code(s): I48.91 - UNSPECIFIED ATRIAL FIBRILLATION Status: Acute Comment: NSR. on PO CCB.No OAC as an OP. Lovenox BID here per cardiology (2) Acute on chronic diastolic CHF (congestive heart failure) Code(s): I50.33 - ACUTE ON CHRONIC DIASTOLIC (CONGESTIVE) HEART FAILURE Status : Acute Comment: on IV lasix. apperas euvolemic (3) CAD (coronary artery disease) Code(s): I25.10 - ATHSCL HEART DISEASE OF [place] CORONARY ARTERY W/O ANG PCTRS Status: Chronic Qualifiers: (4) COPD (chronic obstructive pulmonary disease) Status: Chronic Qualifiers: (5) Dementia Code(s): F03.90 - UNSPECIFIED DEMENTIA WITHOUT BEHAVIORAL DISTURBANCE Status: Chronic Comment: Advanced, continue (6) Dyslipidemia Code(s): E78.5 - HYPERLIPIDEMIA, UNSPECIFIED Status: Chronic (7) HTN (hypertension) Code(s): I10 - ESSENTIAL (PRIMARY) HYPERTENSION Status: Chronic Qualifiers: Hypertension type: essential hypertension (8) Hypothyroid Code(s): E03.9 - HYPOTHYROIDISM, UNSPECIFIED Status: Chronic Qualifiers: Hypothyroidism type: unspecified Qualified Code(s): E03.9 - Hypothyroidism , unspecified - Plan plan discussed w/ family, PT/OT, DVT proph w/SCDs will let pt mobilize more w cardiac rehab team -: wants to take her back to [place] w hospice when medically cleraed. -: Discussed w hospice team as well.pt has been accepted -: HR controlled w PO CCB. OAC per cardiology. -: Will notify Dr Rubin as family requesting all consultants before Hospice * .HD stable. * home meds reviewed and as below. * empirc IV ABx and IV steroids per Admitting MD for mild COPD exacerbation. will taper Review of Systems - Review of Systems Constitutional: weakness, malaise. negative: fever, chills, sweats, other ENT: negative: Ear Pain, Ear Discharge, Nose Pain, Nose Discharge, Nose Congestion, Mouth Pain, Mouth Swelling, Throat Pain, Throat Swelling, Other Respiratory: negative: Cough, Dry, Shortness of Breath, Hemoptysis, SOB with Excertion, Pleuritic Pain, Sputum, Wheezing Cardiovascular: negative: chest pain, palpitations, orthopnea, paroxysmal nocturnal dyspnea, edema, light headedness, other Gastrointestinal: negative: Nausea, Vomiting, Abdominal Pain, Diarrhea, Constipation, Melena, Hematochezia, Other Genitourinary: negative: Dysuria, Frequency, Incontinence, Hematuria, Retention , Other Musculoskeletal: negative: Neck Pain, Shoulder Pain, Arm Pain, Back Pain, Hand Pain, Leg Pain, Foot Pain, Other Neurological: negative: Weakness, Numbness, Incoordination, Change in Speech, Confusion, Seizures, Other - Medications/Allergies Allergies/Adverse Reactions: Allergies Allergy/AdvReac Type Severity Reaction Status Date / Time codeine Allergy Verified 10/05/13 15:52 Penicillins Allergy Verified 10/05/13 15:52 Sulfa (Sulfonamide Allergy Verified 10/05/13 15:52 Antibiotics) orange juice AdvReac Verified 11/11/17 11:02 Medications: Current Medications Acetaminophen (Tylenol) 650 mg PO Q4H PRN PRN Reason: Headache/Fever/Mild Pain (1-3) Albuterol/Ipratropium (Duoneb) 3 ml NEB [id number] [facility] Last Admin: 12/15/18 11:24 Dose: 3 ml Alprazolam (Xanax) 0.25 mg PO TIDPRN PRN PRN Reason: Anxiety Last Admin: 12/15/18 09:43 Dose: 0.25 mg Aspirin (Aspirin) 325 mg PO DAILY [facility] Last Admin: 12/15/18 09:43 Dose: 325 mg Diltiazem HCl (Cardizem Cd) 240 mg PO 1400 [facility] Last Admin: 12/15/18 12:54 Dose: 240 mg Enoxaparin Sodium (Lovenox) 60 mg SC 0900,2100 [facility] Last Admin: 12/15/18 09:43 Dose: 60 mg Furosemide (Lasix) 40 mg SLOW IVP 0600,1400 [facility] Last Admin: 12/15/18 12:56 Dose: 40 mg Levofloxacin 750 mg/ Device 150 mls @ 100 mls/hr IVPB 0600 [facility] Last Admin: 12/15/18 06:05 Dose: 150 mls Methylprednisolone Sodium Succinate (Solu-Medrol) 40 mg IVP Q6HR [facility] Last Admin: 12/15/18 12:56 Dose: 40 mg Morphine Sulfate (Roxanol Solution) 10 mg SL Q2H PRN PRN Reason: pain 5-10 Last Admin: 12/14/18 19:41 Dose: 10 mg Ondansetron HCl (Zofran Odt) 4 mg PO Q6H PRN PRN Reason: Nausea/Vomiting Ondansetron HCl (Zofran) 4 mg IVP Q6H PRN PRN Reason: Nausea/Vomiting
[2018-12-15] MEDS ORDERED: Diabetic Tussin 200 MG/10 ML UDCUP PO PRN (21:04)
--- NOTE | 2018-12-15 23:51 | CON ---
DATE OF CONSULTATION: 12/15/2018 SERVICE: Pulmonary Medicine. REASON FOR CONSULT: Respiratory failure. HISTORY OF PRESENT ILLNESS: The patient is an 83-year-old white female with past medical history significant for very advanced dementia and oropharyngeal dysphagia resulting in multiple admissions to the hospital with healthcare-associated pneumonia. She has also had 2 to 3 admissions for atrial fibrillation with RVR and one for dehydration. Ultimately, she saw me in clinic for routine followup at that location. She was tachycardic to the 130s and was extremely uncomfortable from a respiratory standpoint. As such, I redirected her immediately to the emergency department because her saturations were in the 70s. There, she was discovered to be back in atrial fibrillation with RVR and volume overloaded state. Over the last 24 hours, rate control was established. She got several doses of diuretics and her breathing has improved very dramatically. Ultimately, she feels like she is back to baseline. We have spoken at length during our clinic appointment and once again with the today. It appears as though he recognizes her very advanced dementia, was driving many of these underlying issues. At this point, her quality of life at baseline even when she is having a good day is not fantastic. As such, he thinks he would be in keeping with her wishes to transition over to comfort care only. I do think that would be reasonable at this point. PAST MEDICAL HISTORY: 1. Dementia secondary to likely Alzheimer disease. 2. Atrial fibrillation. 3. Chronic hypoxic respiratory failure. 4. Chronic obstructive pulmonary disease, possible. 5. History of colon cancer. 6. TIA. PAST SURGICAL HISTORY: 1. Back surgery. 2. Hysterectomy. 3. Appendectomy. 4. Cholecystectomy. 5. Left colectomy and colostomy. FAMILY HISTORY: Noncontributory. SOCIAL HISTORY: Negative for significant alcohol, tobacco, or illicit drug use. She currently lives in a nursing facility. She had a remote history of smoking, but quit over 10 years ago. MEDICATIONS: List of the patient's medications was reviewed. No specific updates were made at this time. REVIEW OF SYSTEMS: General, head, ears, eyes, nose, throat, cardiovascular, respiratory, GI, , musculoskeletal, neurologic, and skin is negative except as mentioned in the HPI. PHYSICAL EXAMINATION: VITAL SIGNS: Afebrile. Pulse 83, blood pressure 112/62, respirations 18, and saturation 99%, currently on room air. GENERAL: The patient is awake and alert, in no apparent distress. LUNGS: Excellent air entry. There is much improvement in the crackles. They are still present. There is no prolonged expiratory phase or wheezing present. HEART: Normal rate and regular. ABDOMEN: Soft, nontender, and nondistended. Bowel sounds are positive. MUSCULOSKELETAL: No cyanosis or clubbing. No pitting in the bilateral lower extremities. NEUROLOGIC: Grossly nonfocal. LABORATORY DATA: WBC 14.1, hemoglobin 11.0, platelets 87,000. Basic metabolic profile is essentially unremarkable. Cardiac enzymes negative x2 and downtrending. BNP 779 and elevated. Liver function studies were previously unremarkable. TSH was also okay. [place] is below the assay limits of 0.101. Blood cultures x2 and urine cultures negative. IMAGING STUDIES: Chest x-ray demonstrates interstitial prominence. Bilateral pleural effusions are likely layering. Cardiomegaly is noted. Changes of vertebroplasty are noted. ASSESSMENT: 1. Acute hypoxic respiratory failure. 2. Atrial fibrillation with rapid ventricular response. 3. Dementia, advanced. 4. Oropharyngeal dysphagia with recurrent healthcare associated pneumonias. 5. History of dehydration. DISCUSSION AND PLAN: The patient is returning to euvolemia. Be careful about scheduling Lasix on her indefinitely as she has episodes of dehydration. We will probably need to give her a p.r.n. dose on a daily basis if she needs it. Ultimately, rate control are indicated. I do think that Hospice would be an appropriate disposition given her very advanced debility and inability to get stronger through time or participate in a meaningful way with physical therapy. If the family feels this is in keeping with her values, I think that would be a reasonable transition. Pulmonary Critical Care will continue to follow along while she remains in-house. Job ID: [id number]
[2018-12-16] MEDS: Furosemide 40 MG/4 ML VIAL SLOW IVP SCH ×2 (06:45→14:49)
[2018-12-16 08:19] LABS: Anion Gap 13 mmol/L (10-20); BUN (Urea Nitrogen) 29 mg/dL (9.8-20.1); Calc. Creatinine Clearance 53 mL/min (70-130); Calcium 9.2 mg/dL (7.8-10.44); Carbon Dioxide 36 mmol/L (23-31); Chloride 91 mmol/L (98-107); Estimated GFR-MDRD 66; Glucose 151 mg/dL (83-110); Sodium 137 mmol/L (136-145)
[2018-12-16 08:27] LABS: Potassium 2.9 mmol/L (3.5-5.1)
[2018-12-16] MEDS ORDERED: Potassium Chloride 20 MEQ TAB PO SCH (08:45)
[2018-12-16] MEDS: Enoxaparin Sodium 60 MG/0.6 ML SYRINGE SC SCH (08:53)
[2018-12-16] MEDS: Aspirin 325 MG TAB PO SCH (08:53)
[2018-12-16 09:45] LABS: Magnesium 2.2 mg/dL (1.6-2.6); Phosphorus 3.6 mg/dL (2.3-4.7)
--- NOTE | 2018-12-16 10:33 | PDOC.PN ---
- Subjective Encounter Start Date: 12/16/18 Encounter Start Time: 07:00 -: old records requested/rev pt is confused, she reports feeling cold, her heart rate controlled Patient seen and examined. No overnight events - Objective Resuscitation Status - Order Detail: 12/14/18 12:38 Resuscitation Status Routine Resuscitation Status: DNAR: NO Resuscitation Discussed with: Additional comments: doesn't want chest compressions or intubation MAR Reviewed: Yes Vital Signs & Weight: Vital Signs (12 hours) Temp Pulse Resp BP Pulse Ox 12/16/18 08:40 80 16 12/16/18 07:50 98.0 F 80 20 106/61 90 L 12/16/18 04:18 98.1 F 70 22 H 117/65 93 L 12/16/18 02:11 79 16 92 L 12/15/18 23:53 120/58 L 12/15/18 23:50 97.7 F 78 18 91 L Weight Weight 147 lb 12.8 oz I&O: 12/15/18 12/16/18 12/17/18 06:59 06:59 06:59 Intake Total 880 600 Balance 880 600 Result Diagrams: 12/14/18 04:58 12/16/18 07:47 EKG Reviewed by me: Yes (afib) Phys Exam - Physical Examination Constitutional: NAD HEENT: PERRLA, moist MMs, sclera anicteric Neck: no JVD, supple Respiratory: no wheezing, no rales, no rhonchi, clear to auscultation bilateral Cardiovascular: no significant murmur, irregular Gastrointestinal: soft, non-tender, no distention, positive bowel sounds Musculoskeletal: no edema, pulses present Neurological: non-focal, normal sensation Lymphatic: no nodes Psychiatric: normal affect Skin: no rash, normal turgor Dx/Plan (1) Acute on chronic diastolic ACC/AHA stage C congestive heart failure Code(s): I50.33 - ACUTE ON CHRONIC DIASTOLIC (CONGESTIVE) HEART FAILURE Status : Acute Comment: now euvolemic (2) Atrial fibrillation with RVR Code(s): I48.91 - UNSPECIFIED ATRIAL FIBRILLATION Status: Acute Comment: now rate controlled (3) Hypokalemia Code(s): E87.6 - HYPOKALEMIA Status: Acute Comment: replace potassium today (4) Thrombocytopenia Code(s): D69.6 - THROMBOCYTOPENIA, UNSPECIFIED Status: Acute (5) Anemia, normocytic normochromic Code(s): D64.9 - ANEMIA, UNSPECIFIED Status: Chronic (6) CAD (coronary artery disease) Code(s): I25.10 - ATHSCL HEART DISEASE OF [place] CORONARY ARTERY W/O ANG PCTRS Status: Chronic Qualifiers: (7) COPD (chronic obstructive pulmonary disease) Status: Chronic Qualifiers: (8) Chronic diastolic CHF (congestive heart failure) Code(s): I50.32 - CHRONIC DIASTOLIC (CONGESTIVE) HEART FAILURE Status: Chronic (9) Dementia Code(s): F03.90 - UNSPECIFIED DEMENTIA WITHOUT BEHAVIORAL DISTURBANCE Status: Chronic Qualifiers: Dementia type: Alzheimer's disease Comment: (10) Dyslipidemia Code(s): E78.5 - HYPERLIPIDEMIA, UNSPECIFIED Status: Chronic (11) HTN (hypertension) Code(s): I10 - ESSENTIAL (PRIMARY) HYPERTENSION Status: Chronic Qualifiers: Hypertension type: essential hypertension (12) Hypothyroidism Code(s): E03.9 - HYPOTHYROIDISM, UNSPECIFIED Status: Chronic Qualifiers: Hypothyroidism type: unspecified Qualified Code(s): E03.9 - Hypothyroidism , unspecified - Plan cont current plan of care, health and social care teacher * replace potassium * continue rate control * pt is not a good candidate for assisted chronic anticoagulation due to her advanced age and other commodities. * medication reviewed as below * symptomatic treatment * discharge soon, possibly long-term with hospice Review of Systems - Review of Systems Other: not reliable due to dementia - Medications/Allergies Allergies/Adverse Reactions: Allergies Allergy/AdvReac Type Severity Reaction Status Date / Time codeine Allergy Verified 10/05/13 15:52 Penicillins Allergy Verified 10/05/13 15:52 Sulfa (Sulfonamide Allergy Verified 10/05/13 15:52 Antibiotics) orange juice AdvReac Verified 11/11/17 11:02 Medications: Current Medications Acetaminophen (Tylenol) 650 mg PO Q4H PRN PRN Reason: Headache/Fever/Mild Pain (1-3) Albuterol/Ipratropium (Duoneb) 3 ml NEB [id number] [facility] Last Admin: 12/16/18 08:40 Dose: 3 ml Alprazolam (Xanax) 0.25 mg PO TIDPRN PRN PRN Reason: Anxiety Last Admin: 12/15/18 23:46 Dose: 0.25 mg Aspirin (Aspirin) 325 mg PO DAILY [facility] Last Admin: 12/16/18 08:53 Dose: 325 mg Diltiazem HCl (Cardizem Cd) 240 mg PO 1400 [facility] Last Admin: 12/15/18 12:54 Dose: 240 mg Enoxaparin Sodium (Lovenox) 60 mg SC 0900,2100 [facility] Last Admin: 12/16/18 08:53 Dose: 60 mg Furosemide (Lasix) 40 mg SLOW IVP 0600,1400 [facility] Last Admin: 12/16/18 06:45 Dose: 40 mg Guaifenesin (Robitussin Sf) 600 mg PO Q4H PRN PRN Reason: Cough Last Admin: 12/15/18 21:37 Dose: 600 mg Levofloxacin (Levaquin) 500 mg PO 0600 [facility] Last Admin: 12/16/18 06:45 Dose: 500 mg Methylprednisolone Sodium Succinate (Solu-Medrol) 40 mg IVP Q12HR [facility] Last Admin: 12/16/18 08:53 Dose: 40 mg Morphine Sulfate (Roxanol Solution) 10 mg SL Q2H PRN PRN Reason: pain 5-10 Last Admin: 12/14/18 19:41 Dose: 10 mg Ondansetron HCl (Zofran Odt) 4 mg PO Q6H PRN PRN Reason: Nausea/Vomiting Ondansetron HCl (Zofran) 4 mg IVP Q6H PRN PRN Reason: Nausea/Vomiting
[2018-12-16] MEDS ORDERED: Sodium Chloride 0.65% Nasal 44 ML BOT EA NARE PRN (10:34)
[2018-12-16] MEDS ORDERED: Loperamide HCl 2 MG CAP PO PRN (10:34)
[2018-12-16] MEDS ORDERED: Artificial Tears 18 DROP/0.9 ML EA EYE PRN (10:34)
[2018-12-16] MEDS ORDERED: Loratadine 10 MG TAB PO PRN (10:34)
[2018-12-16] MEDS ORDERED: Zolpidem Tartrate 5 MG TAB PO PRN (10:34)
[2018-12-16] MEDS ORDERED: hydrALAZINE 20 MG/ML VIAL SLOW IVP PRN (10:34)
[2018-12-16] MEDS ORDERED: Bisacodyl 10 MG SUPP PR PRN (10:34)
[2018-12-16] MEDS ORDERED: Senokot S 8.6-50 MG TAB PO PRN (10:34)
[2018-12-16] MEDS ORDERED: Eucerin (Mineral Oil/Petrolatum,White) 30 gm Jar TOP PRN (10:34)
[2018-12-16] MEDS ORDERED: Cepastat Lozenges 1 LOZ PO PRN (10:34)
--- NOTE | 2018-12-16 12:03 | DIS ---
DATE OF ADMISSION: 12/14/2018 DATE OF DISCHARGE: 12/16/2018 PRIMARY CARE PHYSICIAN: Luciano Pope MD DISCHARGE DISPOSITION: intermediate with hospice. PRIMARY DISCHARGE DIAGNOSES: 1. Atrial fibrillation with rapid ventricular response, controlled. 2. Acute on chronic diastolic heart failure. 3. Hypokalemia, replaced. 4. Thrombocytopenia. SECONDARY DISCHARGE DIAGNOSES: 1. Hypothyroidism. 2. Advanced Alzheimer dementia. 3. Hypertension. 4. Dyslipidemia. 5. Chronic obstructive pulmonary disease. 6. Chronic diastolic heart failure. 7. Coronary artery disease. 8. Normocytic normochromic anemia. 9. Chronic atrial fibrillation. PRIMARY PROCEDURE/OPERATION: None. RADIOLOGICAL INVESTIGATION: Chest x-ray was unremarkable. SIGNIFICANT LABORATORY DATA: WBC 14.1, hemoglobin 11.0, platelet 87. Sodium 137, potassium 2.9, creatinine 0.82. BNP 580.7. Cardiac enzyme negative. DISCHARGE MEDICATIONS: Following are cardiac medications, 1. Potassium chloride 20 mEq p.o. daily. 2. Cardizem CD 240 mg p.o. daily. 3. Coreg 3.125 mg b.i.d. 4. BuSpar 10 mg p.o. b.i.d. 5. Vitamin B complex one capsule p.o. daily. 6. Trazodone 50 mg p.o. at bedtime. 7. [place] Thyroid 15 mg p.o. daily. 8. Singulair 10 mg daily. 9. Namenda 10 mg p.o. b.i.d. 10. Breo Ellipta one inhalation daily. 11. Flonase nasal spray daily. 12. Pepcid 20 mg p.o. b.i.d. 13. Multaq 400 mg p.o. b.i.d. 14. Vitamin B12 5000 mcg p.o. daily. 15. Colace 100 mg p.o. daily. 16. Aspirin 81 mg p.o. daily. 17. Lasix 40 mg p.o. b.i.d. 18. Levaquin 500 mg p.o. daily for 5 days. CONTRAINDICATION: None. CODE STATUS: DNR. INPATIENT GATEHOUSE ATTENDANT: Dr. Jaramillo was following while in hospital. Dr. Rubin was following while in hospital. ALLERGIES: CODEINE, PENICILLIN, SULFA. DISCHARGE PLAN: Posthospital, the patient will be discharged to alf with hospice. HOSPITAL COURSE: An 83-year-old female with above-mentioned medical problem, who was admitted by Dr. Malin. Please see his H and P for further details. On admission, the patient was encephalopathic, but that was related with her chronic advanced Alzheimer dementia. She was also found with atrial fibrillation with RVR and diastolic heart failure. She was admitted to Telemetry floor. She was treated with Lasix and her heart rate was controlled with Cardizem. Subsequently, eventually, it was changed to Cardizem CD. Her rate was under control. She is not a candidate for chronic anticoagulation therapy because of her other comorbidities. The patient's long-term prognosis is poor and that is why with consultation with other physicians, the patient and family member decided to go with hospice. Paperwork for discharge done. Discharge medication reconciliation done. Please see my progress note from today for further detail. Job ID: [id number]
--- NOTE | 2018-12-16 14:52 | PRG ---
DATE OF SERVICE: 12/16/2018 SERVICE: Pulmonary Medicine. INTERVAL HISTORY: The patient is doing really well from respiratory standpoint. Breathing comfortably. There is no interval change to her condition. Denies any chest pain, fevers, or chills. She is breathing comfortably. Ultimately, she is going to go home with hospice today. PHYSICAL EXAMINATION: VITAL SIGNS: Afebrile, pulse 109, blood pressure 126/59, respirations 16, saturation 93% on 2 L nasal cannula. GENERAL: The patient is awake and alert, in no apparent distress. LUNGS: Decent air entry. Dependent crackles are still present, but improving. HEART: Normal rate, regular. ABDOMEN: Soft, nontender, nondistended. Bowel sounds are positive. MUSCULOSKELETAL: No cyanosis or clubbing. There is 1+ pitting in the bilateral lower extremities. NEUROLOGIC: Grossly nonfocal. LABORATORY DATA: Potassium 2.9. Basic metabolic profile is otherwise unremarkable. Bicarbonate is increased to 36. BNP 580 and significantly improved. Magnesium and phosphorous fall within the normal limits. ASSESSMENT: 1. Acute hypoxic respiratory failure. 2. Atrial fibrillation with rapid ventricular response. 3. Dementia, advanced. 4. Oropharyngeal dysphagia with recurrent pneumonias. 5. History of dehydration. DISCUSSION AND PLAN: The patient is currently stable for transition out of the hospital. It is my understanding, she is going to be going home with hospice today. I do feel this would be an appropriate disposition for her given her advanced debility and poor quality of life as defined by her . Pulmonary will continue to follow along, intermittently if she remains in-house. I have wished the and his family well wishes. Job ID: [id number]
[2018-12-16 15:52] VITALS: BP 123/70; TEMP 97.7
== END 2018-12-16 16:32 | disposition hospice, inpatient (51) | DRG 308 ==
LOC: ERS 16:07 → 2SE 21:00 → OBSVTOIN 12-14 14:26
PROVIDERS: ADMIT Hospitalist; ATTEND Hospitalist
DX: I48.91 Unspecified atrial fibrillation (principal); I50.33 Acute on chronic diastolic (congestive) heart failure; G93.40 Encephalopathy, unspecified; M19.90 Unspecified osteoarthritis, unspecified site; G30.9 Alzheimer's disease, unspecified; Z66 Do not resuscitate; F02.80 Dementia in other diseases classified elsewhere, unspecified severity, without behavioral disturbance, psychotic disturbance, mood disturbance, and anxiety; J44.9 Chronic obstructive pulmonary disease, unspecified; I25.10 Atherosclerotic heart disease of native coronary artery without angina pectoris; E78.5 Hyperlipidemia, unspecified; E87.6 Hypokalemia; D69.6 Thrombocytopenia, unspecified; D64.9 Anemia, unspecified; E03.9 Hypothyroidism, unspecified; Z86.73 Personal history of transient ischemic attack (TIA), and cerebral infarction without residual deficits; Z88.0 Allergy status to penicillin; Z88.2 Allergy status to sulfonamides; Z88.5 Allergy status to narcotic agent; Z90.49 Acquired absence of other specified parts of digestive tract; Z90.710 Acquired absence of both cervix and uterus; Z98.890 Other specified postprocedural states
CPT/HCPCS: 36415; 71045; 80048; 80053; 82330; 82803; 83605; 83735; 83880; 84100; 84443; 84484; 85025; 93005; 94640; J1160; J1650; J1940; J1956; J2060; J2920; J2930; J7050; J7620

== ENCOUNTER 2019-01-16 20:26 | Inpatient (IN) | payer MEDICARE, OTHER ==
[~2019-01-16 20:26] MED LIST changes: +ISOVUE-370 76%-LOCM 1 ML ONE; -Sodium Chloride 0.9% 15 ML NEB ONE
[2019-01-16 21:43] LABS: Actual Bicarbonate (HCO3a) 33.1 mEq/L (22-28); Analyzer IN Cardio ER; Base Excess (BEa) 6.2 mEq/L (-2.0 to +3.0); Calcium, Ionized 1.12 mmol/L (1.12-1.30); Carboxyhemoglobin (COHb) 0.9 gm% (0.0-3.0); Hemoglobin (Hb) 10.4 g/dL (12.0-16.0); O2 Tension (PaO2) 65.9 mmHg (> 60.0); Potassium - ABG Lab 4.34 mmol/L (3.70-5.30); pH, Arterial 7.35 (7.35-7.45)
[2019-01-16 21:50] LABS: Hemoglobin 9.6 g/dL (12.0-16.0); Mean Corpuscular HGB CONC 29.4 g/dL (32.0-36.0); Mean Corpuscular Hemoglobin 25.8 pg (27.0-31.0); Mean Corpuscular Volume 87.8 fL (78.0-98.0); Mean Platelet Volume 13.5 fL (7.4-10.4); Platelet Count 106 thou/uL (130-400); RBC Distribution Width 20.1 % (11.5-14.5); Red Blood Cell (RBC) Count 3.73 mill/uL (4.20-5.40); White Blood Cell (WBC) Count 7.6 thou/uL (4.8-10.8)
[2019-01-16 21:51] LABS: Lymphocytes 23 % (21-51); MDiff Complete? YES; Monocytes 12 % (0-10); Neutrophil 65 % (42-75); Nucleated RBC 3 % (0); Platelet Morphology Comment Appears Decreased; Polychromasia SLIGHT = 2-3 cells (100X) (0-2/hpf)
[2019-01-16 22:33] LABS: Albumin 3.1 g/dL (3.4-4.8)
[2019-01-16 22:34] LABS: Chloride 95 mmol/L (98-107); Potassium 4.5 mmol/L (3.5-5.1); Sodium 131 mmol/L (136-145)
[2019-01-16 22:35] LABS: Calcium 8.2 mg/dL (7.8-10.44); Glucose 138 mg/dL (83-110)
[2019-01-16 22:36] LABS: Globulin 3.2 g/dL (2.4-3.5); Protein, Total 6.3 g/dL (6.0-8.3)
[2019-01-16 22:37] LABS: Anion Gap 9 mmol/L (10-20); Bilirubin, Total 0.4 mg/dL (0.2-1.2); Carbon Dioxide 32 mmol/L (23-31)
[2019-01-16 22:38] LABS: Alkaline Phosphatase 97 U/L (40-150)
[2019-01-16 22:39] LABS: Calc. Creatinine Clearance 0 mL/min (70-130); Estimated GFR-MDRD 53
[2019-01-16 22:40] LABS: BUN (Urea Nitrogen) 30 mg/dL (9.8-20.1)
[2019-01-16 22:41] LABS: ALT (SGPT) 32 U/L (8-55); AST (SGOT) 25 U/L (5-34)
--- NOTE | 2019-01-16 22:47 | RAD ---
PORTABLE AP CHEST RADIOGRAPH: Date: 01-16-19 History: Low oxygen saturation. Hypoxia. Comparison: 12-13-18 FINDINGS: The patient is rotated to the left which accentuates the heart and mediastinal structures. However, t he cardiac silhouette does appear enlarged. Vascular calcifications are seen in an ectatic thoracic a hipolito. There is a small right and small to moderate sized left pleural effusion with associated atelec tasis. There is mild increased right perihilar interstitial densities which could be related to eithe r infectious process or mild asymmetric pulmonary edema. Further evaluation with follow up chest x-ra y is recommended give significant patient rotation which may accentuate right perihilar structures. V ertebroplasty changes are again present within the thoracic spine. Osteopenia is noted. No other inte rval change. IMPRESSION: 1. Bilateral pleural effusions and atelectasis. 2. Increased right perihilar interstitial densities which could be related to infectious process or a symmetric pulmonary edema. The patient is rotated and the perihilar densities could be accentuated. F ollow up evaluation is recommended. 3. Cardiomegaly. POS: [facility]
[2019-01-16 22:58] LABS: ALV-art Gradient 100.145 (0-20); CO2 Tension 61.1 mmHg (35.0-45.0); Puncture Site RRA
[2019-01-16] MEDS ORDERED: DOBUTAMINE 250 MG-D5W 250 ML 250 MG in Premix Bag 1 BAG IV SCH (23:45)
[2019-01-16] MEDS ORDERED: Furosemide 40 MG/4 ML VIAL ONE (23:49)
[2019-01-17] MEDS ORDERED: DOBUTamine 500 mg/250 ml 500 MG in Premix Bag 1 BAG IVPB SCH (00:15)
--- NOTE | 2019-01-17 08:31 | CT ---
CT ANGIOGRAM THORAX WITH IV CONTRAST AND 3D RECONSTRUCTIONS: Date: 01-16-19 History: Hypoxia. Comparison: 05-06-18 FINDINGS: No filling defects are seen in the pulmonary arteries to suggest a pulmonary embolus. Vascular calcifications are again seen in the coronary arteries as well as involving the thoracic aor ta. Thoracic aorta is normal in caliber without evidence of an aortic dissection although there is ar tifact through the distal thoracic aorta due to patient's arms down by the side, limiting adequate ev aluation. Moderate sized bilateral pleural effusions are present on the right which have increased from the enrique or exam. There is consolidation present at each lung base which may be related to passive atelectasis although pneumonia cannot be excluded based on this exam. The heart remains enlarged. There is reflux of contrast into the mildly dilated hepatic veins and IVC . There are mild emphysematous changes in the upper lung diaz, greater on the right. Vertebroplasty changes are seen involving the mid thorax vertebral body as well as multiple lumbar ve rtebral bodies. There is free fluid seen in the upper abdomen, greater in the left upper quadrant. IMPRESSION: 1. Interval increase in bilateral pleural effusions with moderate sized bilateral pleural effusions. Consolidation is present at each lung base, probably related to passive atelectasis but pneumonia can not be excluded. 2. Cardiomegaly with prominent dilatation of the right atrium and distension of the hepatic veins and visualized IVC likely related to right heart decompensation. 3. Dense atherosclerotic vascular calcifications. 4. No CT evidence of a pulmonary embolus. 5. Small amount of ascites in the upper abdomen, greatest in the left upper quadrant. 6. Vertebroplasty changes several lumbar vertebral bodies as well as a midthoracic vertebral body. Th ere is a compression fracture involving the superior endplate of T6 vertebral body with only slight h eight loss present. Exact age is indeterminate. This was not present on the prior study of 05-06-18. POS: [facility]
[2019-01-17] MEDS ORDERED: Senokot S 8.6-50 MG TAB PO PRN (10:50)
[2019-01-17] MEDS ORDERED: Acetaminophen 650 MG Suppository PR PRN (10:50)
[2019-01-17] MEDS ORDERED: Loperamide HCl 2 MG CAP PO PRN (10:50)
[2019-01-17] MEDS ORDERED: Ondansetron ODT 4 MG TAB PO PRN ×2 (10:50→11:15)
[2019-01-17] MEDS ORDERED: Ondansetron PF 4 MG/2 ML Vial IVP PRN ×2 (10:50→11:14)
[2019-01-17] MEDS ORDERED: Lactated Ringer's 1,000 ML IV SCH (11:00)
[2019-01-17] MEDS ORDERED: Enoxaparin Sodium 30 MG/0.3 ML SYRINGE SC SCH (11:15)
[2019-01-17] MEDS: Sodium Chloride 0.9% 1,000 ML IV SCH (11:22)
[2019-01-17] MEDS: Carvedilol 3.125 MG TAB PO SCH (20:01)
[2019-01-17] MEDS: Dronedarone HCl 400 MG TAB PO SCH (20:01)
[2019-01-17] MEDS: traZODone HCl 50 MG TAB PO SCH (20:01)
[2019-01-17] MEDS: busPIRone HCl 10 MG TAB PO SCH (20:01)
[2019-01-17] MEDS ORDERED: OMEGA PO SCH (21:00)
[2019-01-17] MEDS ORDERED: [UNRECOGNIZED DRUG - OTHER] PO SCH (21:00)
[2019-01-17] MEDS ORDERED: LITHIUM ASPARTATE PO SCH (21:00)
[2019-01-17] MEDS ORDERED: ACETYLCYSTEINE PO SCH (21:00)
[2019-01-17] MEDS ORDERED: [UNRECOGNIZED DRUG - OTHER] PO SCH (21:00)
--- NOTE | 2019-01-18 00:34 | HP ---
CHIEF COMPLAINT: Sudden onset of shortness of breath. HISTORY OF PRESENTING ILLNESS: This is an 83-year-old female with past medical history of CHF, COPD, atrial fibrillation with recurrent aspiration pneumonia, presented to the ER with hypoxia of low 80s at the assisted. The patient has a very poor prognosis and Dr. Rubin had discussed hospice with the patient's prior to discharge previously, but the patient's spouse has still not opted for hospice and was interested in to see if the patient can hold off this setback in her breathing. The patient remains DNR. The patient is not able to give any history and history is per her and chart review. On presentation, the patient in the ER was hypotensive and hypoxic and was started on 4 L of oxygen. Eventually, the patient's blood pressure stabilized and she did not require any pressors. During my time of examination, the patient was saturating well on room air. CT of the chest showed bilateral pleural effusion with bilateral lower lobe consolidation versus atelectasis versus pneumonia. The patient was admitted for possible pneumonia, acute respiratory failure, hypotension. PAST MEDICAL HISTORY: Significant for CVA, arrhythmias, atrial fibrillation, hypothyroidism, GERD, irritable bowel syndrome, hypertension, osteoporosis, chronic obstructive pulmonary disease. SURGICAL HISTORY: Significant for appendectomy, hysterectomy, cholecystectomy, multiple back surgeries, tonsillectomy. PSYCHIATRIC HISTORY: Significant for anxiety, depression, and dementia. SOCIAL HISTORY: No history of alcohol use. A former tobacco user. Quit smoking 10 years ago. REVIEW OF SYSTEMS: As above and rest of the systems could not be reviewed as the patient is not responding. KNOWN ALLERGIES: 1. Codeine sulfate. 2. Milk containing products. 3. [place] juice. 4. Penicillins. 5. Sulfa. PHYSICAL EXAMINATION: VITAL SIGNS: Blood pressure 104/65, pulse 64, respiratory rate 18, O2 saturation on room air is around 92%. CONSTITUTION: Vital signs reviewed. The patient remains afebrile. Vital signs are stable. The patient appears to be in pain. The patient is arousable, but not alert or oriented. HEENT: Normocephalic and atraumatic head. Eye examination is within normal limits with normal conjunctivae and eyelids. Pupils are round and reactive to light. External ears and tympanic membranes are within normal limits. Oral mucosa is dry. Trachea midline. No cervical lymphadenopathy. RESPIRATORY: No respiratory distress noted. Nasal cannula is in place, but oxygen has been turned off. Some crackles in the bases. No wheezes. No rales. CARDIOVASCULAR: Within normal limits except for irregularly irregular rhythm. Heart rate is within normal limits. ABDOMEN: Abdominal examination is within normal limits. Nontender. No mass. No peritoneal signs. No rigidity. EXTREMITIES: No swelling. No edema. Pedal pulses are within normal limits. NEUROLOGIC: The patient is moving spontaneously, moaning in pain, just opens to the eyes to touch, but does not make any intelligent conversation. The patient is not oriented. ASSESSMENT AND PLAN: 1. Acute respiratory distress with chest CT showing bilateral pleural effusions, consolidation. The patient is to be treated with IV Levaquin, nasal cannula oxygen p.r.n. Dr. Rubin, her web press operator, has been consulted. 2. Acute on chronic congestive heart failure: BNP is elevated at 1100 plus, continue home Lasix. I am hesitant to use any increased Lasix dosage because of blood pressure being on the lower side. If the patient tolerates and her blood pressure is doing better, we will try to do some IV Lasix to help her with pulmonary edema. 3. Atrial fibrillation: The patient is in atrial fibrillation, well-controlled heart rate, continue patient's home Multaq. 4. Hypertension: The patient is on a lower side of blood pressure. We will continue her home medication. In case her blood pressure trends down, we will hold on her blood pressure medications. 5. Advanced dementia. Continue her home Namenda and also lithium. 6. Follow up on urine and blood cultures. Job ID: [id number]
[2019-01-18] MEDS: Sodium Chloride 0.9% 1,000 ML IV SCH ×2 (03:45→15:22)
[2019-01-18 06:14] LABS: #Lymphocytes 1.5 thou/uL (1.20-3.40); #Monocytes 0.8 thou/uL (0.11-0.59); #Neutrophils 4.8 thou/uL (1.40-6.50); %Basophils 0.3 % (0.0-1.0); %Eosinophils 0.3 % (0.0-10.0); %Lymphocytes 20.6 % (21.0-51.0); %Monocytes 11.3 % (0.0-10.0); %Neutrophils 67.5 % (42.0-75.0); Mean Corpuscular HGB CONC 28.5 g/dL (32.0-36.0); Mean Corpuscular Hemoglobin 25.3 pg (27.0-31.0); Mean Corpuscular Volume 88.7 fL (78.0-98.0); Mean Platelet Volume 7.4 fL (7.4-10.4); Platelet Count 95 thou/uL (130-400); RBC Distribution Width 19.8 % (11.5-14.5); Red Blood Cell (RBC) Count 3.56 mill/uL (4.20-5.40); White Blood Cell (WBC) Count 7.1 thou/uL (4.8-10.8)
[2019-01-18 06:34] LABS: Anion Gap 9 mmol/L (10-20); BUN (Urea Nitrogen) 23 mg/dL (9.8-20.1); Calc. Creatinine Clearance 52 mL/min (70-130); Calcium 8.4 mg/dL (7.8-10.44); Carbon Dioxide 33 mmol/L (23-31); Chloride 100 mmol/L (98-107); Estimated GFR-MDRD 76; Glucose 96 mg/dL (83-110); Potassium 3.9 mmol/L (3.5-5.1); Sodium 138 mmol/L (136-145)
[2019-01-18] MEDS: Thyroid 30 MG TAB PO SCH (08:06)
[2019-01-18] MEDS: Acetaminophen 325 MG TAB PO PRN ×2 (08:06→20:39)
[2019-01-18] MEDS: Potassium Chloride 10 MEQ TAB PO SCH (08:06)
[2019-01-18] MEDS: Montelukast Sodium 10 mg Tablet PO SCH (08:07)
[2019-01-18] MEDS: Lactinex Tablet PO SCH (08:07)
[2019-01-18] MEDS: busPIRone HCl 10 MG TAB PO SCH ×2 (08:08→20:37)
[2019-01-18] MEDS: Carvedilol 3.125 MG TAB PO SCH ×2 (08:08→20:40)
[2019-01-18] MEDS: Docusate 100 MG CAP PO SCH (08:08)
[2019-01-18] MEDS: Dronedarone HCl 400 MG TAB PO SCH ×2 (08:08→20:37)
[2019-01-18] MEDS: Fluticasone Propionate Nasal Spray 16 gm Bottle NASAL SCH (08:08)
[2019-01-18] MEDS: Famotidine 20 MG TAB PO SCH (08:08)
[2019-01-18] MEDS: Polyethylene Glycol 3350 17 GM Packet PO SCH (08:09)
[2019-01-18] MEDS: Furosemide 20 MG TAB PO SCH (08:09)
[2019-01-18] MEDS: Aspirin 81 mg Enteric Coated Tablet PO SCH (08:09)
[2019-01-18] MEDS: Stress 600 With Zinc 1 TAB PO SCH (08:28)
[2019-01-18] MEDS ORDERED: ALPHA LIPOIC ACID PO SCH (09:00)
--- NOTE | 2019-01-18 13:00 | PDOC.PN ---
- Subjective Encounter Start Date: 01/18/19 Encounter Start Time: 12:59 Subjective: Seen and examined -c/o feeling cold and she is still hypotensive -: otherwise doing ok - Objective Resuscitation Status - Order Detail: 01/17/19 10:50 Resuscitation Status Routine Resuscitation Status: DNAR: NO Resuscitation Discussed with: previous, out of hospital dnr Vital Signs & Weight: Vital Signs (12 hours) Temp Pulse Resp BP Pulse Ox 01/18/19 11:22 97.8 F 79 20 71/49 L 97 01/18/19 08:10 66 01/18/19 08:00 91 L 01/18/19 07:48 97.5 F L 66 20 93/59 L 90 L 01/18/19 04:00 98.4 F 82 20 89/55 L 90 L Weight Weight 157 lb 9.6 oz I&O: 01/17/19 01/18/19 01/19/19 06:59 06:59 06:59 Intake Total 625 Balance 625 Result Diagrams: 01/18/19 05:50 01/18/19 05:50 Phys Exam - Physical Examination Constitutional: NAD HEENT: PERRLA, moist MMs, sclera anicteric, TM's clear Neck: no nodes, no JVD, supple, full ROM Respiratory: no wheezing, no rales, no rhonchi Diminished breth sounds at the bases Cardiovascular: no significant murmur Gastrointestinal: non-tender, no distention Musculoskeletal: no edema, pulses present Dx/Plan (1) Pleural effusion Code(s): J90 - PLEURAL EFFUSION, NOT ELSEWHERE CLASSIFIED Status: Acute (2) Pneumonia Code(s): J18.9 - PNEUMONIA, UNSPECIFIED ORGANISM Status: Acute (3) Hypotension Status: Acute (4) Acute on chronic diastolic ACC/AHA stage C congestive heart failure Code(s): I50.33 - ACUTE ON CHRONIC DIASTOLIC (CONGESTIVE) HEART FAILURE Status : Acute Comment: now euvolemic (5) Atrial fibrillation with RVR Code(s): I48.91 - UNSPECIFIED ATRIAL FIBRILLATION Status: Acute Comment: now rate controlled (6) Anemia, normocytic normochromic Code(s): D64.9 - ANEMIA, UNSPECIFIED Status: Chronic (7) CAD (coronary artery disease) Code(s): I25.10 - ATHSCL HEART DISEASE OF [place] CORONARY ARTERY W/O ANG PCTRS Status: Chronic Qualifiers: (8) COPD (chronic obstructive pulmonary disease) Status: Chronic Qualifiers: (9) Chronic diastolic CHF (congestive heart failure) Code(s): I50.32 - CHRONIC DIASTOLIC (CONGESTIVE) HEART FAILURE Status: Chronic - Plan plan discussed w/ family, continue antibiotics, social media developer, respiratory therapy asking about the hospice team -: TSH eval given hypotension and cold intolerance -: Awaiting her Tilesetter input * .
[2019-01-18] MEDS: traZODone HCl 50 MG TAB PO SCH (20:37)
--- NOTE | 2019-01-18 23:34 | CON ---
DATE OF CONSULTATION: 01/18/2019 HISTORY OF PRESENT ILLNESS: Julia Adame is an 83-year-old female. She has advanced dementia. History is obtained from her . Apparently, she presented with hypoxemia and shortness of breath. Chest radiograph is consistent with congestive heart failure. PAST MEDICAL HISTORY: Remarkable for: 1. CVA. 2. Dementia. 3. Atrial fibrillation. 4. Pneumonia in November of this year. 5. History of reportedly COPD. 6. History of swallowing dysfunction with no feeding tube in place. 7. History of sleep apnea. 8. History of tonsillectomy. 9. Status post hysterectomy. 10. History of cataract surgery. 11. History of appendectomy. 12. History of multiple back surgeries. SOCIAL HISTORY: Fifty pack-year smoker. Nondrinker. FAMILY HISTORY: Negative for lung disease in early age. REVIEW OF SYSTEMS: 10 point review of systems completed, not obtainable. ALLERGIES: SHE REPORTS ALLERGIES TO CODEINE, PENICILLIN, AND SULFA. PHYSICAL EXAMINATION: GENERAL: She is lying flat in bed. She is in no distress. VITAL SIGNS: She is afebrile. Heart rate is in the 70s, respiratory rate is in the teens to low 20s, oximetry is in the low 90s on 4 L cannula, blood pressure has been in the 70s to 90s today. HEAD: Unremarkable. NECK: Unremarkable. She appears her age. LUNGS: Remarkable for crackles in both lung bases. HEART: Regular rhythm. There is grade 2/6 systolic murmur. ABDOMEN: Soft and nontender. EXTREMITIES: Without edema. NEUROLOGIC: Grossly nonfocal. She is oriented to her , but that is it. LABORATORY DATA: White count 7.1, hemoglobin 9, platelets 95,000. Sodium 138, potassium 3.9, chloride 100, bicarb 33, BUN 23, and creatinine 0.73. IMPRESSION: 1. Recurrent congestive heart failure. 2. Advanced dementia. is uncertain about hospice and is afraid that his will not get care and she will not have access to physicians if she does go into a hospice environment where she lives. I had a long discussion with him about the options. 3. There is a really very little for me to do, probably very little that can be done given her relative hypotension. She certainly cannot be aggressively diuresed. Intake and output are not being recorded. Weights are totally inaccurate given that she is one weighted at 130 pounds, another weighted at 157 pounds in this admission. 4. I will follow along with the other physicians mainly for support can be done for her. TIME SPENT: This is a 70-minute consult, with greater than 50% of the time spent on the unit, coordinating care, reviewing records. Remainder of time was spent in the room with the . Job ID: [id number] [facility]aman
[2019-01-19] MEDS: Sodium Chloride 0.9% 1,000 ML IV SCH (04:12)
[2019-01-19] MEDS: busPIRone HCl 10 MG TAB PO SCH ×2 (07:56→20:23)
[2019-01-19] MEDS: Dronedarone HCl 400 MG TAB PO SCH ×2 (07:56→20:23)
[2019-01-19] MEDS: Lactinex Tablet PO SCH (07:56)
[2019-01-19] MEDS: Furosemide 20 MG TAB PO SCH (07:56)
[2019-01-19] MEDS: Potassium Chloride 10 MEQ TAB PO SCH (07:56)
[2019-01-19] MEDS: Montelukast Sodium 10 mg Tablet PO SCH (07:56)
[2019-01-19] MEDS: Aspirin 81 mg Enteric Coated Tablet PO SCH (07:57)
[2019-01-19] MEDS: Famotidine 20 MG TAB PO SCH (07:57)
[2019-01-19] MEDS: Thyroid 30 MG TAB PO SCH (07:57)
[2019-01-19] MEDS: Stress 600 With Zinc 1 TAB PO SCH (07:57)
[2019-01-19] MEDS: Docusate 100 MG CAP PO SCH (07:57)
[2019-01-19] MEDS: Carvedilol 3.125 MG TAB PO SCH ×2 (07:58→20:23)
[2019-01-19] MEDS: Polyethylene Glycol 3350 17 GM Packet PO SCH (07:59)
[2019-01-19] MEDS: Fluticasone Propionate Nasal Spray 16 gm Bottle NASAL SCH (07:59)
--- NOTE | 2019-01-19 13:18 | PRG ---
DATE OF SERVICE: 01/19/2019 SUBJECTIVE: Julia Adame is clinically unchanged. She is comfortable in bed. Her is not in the room. OBJECTIVE: VITAL SIGNS: Stable. She is afebrile. Heart rate is 84, respiratory rate is 20, oximetry is 92% on 4 L, and blood pressure 77/53. LUNGS: Unchanged. HEART: Unchanged. ABDOMEN: Unchanged. IMPRESSION: 1. Congestive heart failure. 2. Dementia, that is advanced. 3. Extreme deconditioning. In my opinion, she is probably stable to go back to the halfway. We will sign off. Job ID: [id number]
[2019-01-19] MEDS: traZODone HCl 50 MG TAB PO SCH (20:23)
--- NOTE | 2019-01-19 20:53 | PDOC.PN ---
- Subjective Encounter Start Date: 01/19/19 Encounter Start Time: 09:20 Patient seen and examined for CHF. No new complaints. No overnight events - Objective Resuscitation Status - Order Detail: 01/17/19 10:50 Resuscitation Status Routine Resuscitation Status: DNAR: NO Resuscitation Discussed with: previous, out of hospital dnr MAR Reviewed: Yes Vital Signs & Weight: Vital Signs (12 hours) Temp Pulse Resp BP Pulse Ox 01/19/19 20:00 97.5 F L 84 18 86/61 L 95 Weight Weight 157 lb 9.6 oz I&O: 01/18/19 01/19/19 01/20/19 06:59 06:59 06:59 Intake Total 625 600 600 Balance 625 600 600 Result Diagrams: 01/18/19 05:50 01/18/19 05:50 Phys Exam - Physical Examination Constitutional: NAD Respiratory: no wheezing Dec AE at bases Cardiovascular: RRR, no rub Gastrointestinal: soft, positive bowel sounds Dx/Plan - Plan DVT proph w/SCDs 1. Acute hypoxic resp failure due to B/L Pleural effusion/CHF 2. Acute on chronic diastolic HF exacerbation 3. Advanced Dementia 4. Chronic Afib - not a candidate for full anticoag 5. Chronic thrombocytopenia 6. CAD 7. HTN 8. Other issues per previous notes PLAN: DC IVF Change Cardizem CD to 30 mg ACHS Cont PO Lasix Cont other meds as below DC planning Review of Systems - Review of Systems Other: Cannot obtain due to current mentation. - Medications/Allergies Allergies/Adverse Reactions: Allergies Allergy/AdvReac Type Severity Reaction Status Date / Time codeine Allergy Verified 10/05/13 15:52 Penicillins Allergy Verified 10/05/13 15:52 Sulfa (Sulfonamide Allergy Verified 10/05/13 15:52 Antibiotics) orange juice AdvReac Verified 11/11/17 11:02 Medications: Current Medications Acetaminophen (Tylenol) 650 mg PO Q4H PRN PRN Reason: Headache/Fever/Mild Pain (1-3) Last Admin: 01/18/19 20:39 Dose: 650 mg Acetaminophen (Tylenol) 650 mg OR Q4H PRN PRN Reason: Headache/Fever/Mild Pain (1-3) Acidophilus (Floranex) 1 tab PO DAILY [facility] Last Admin: 01/19/19 07:56 Dose: 1 tab Aspirin (Ecotrin) 81 mg PO DAILY [facility] Last Admin: 01/19/19 07:57 Dose: 81 mg Buspirone HCl (Buspar) 10 mg PO BID [facility] Last Admin: 01/19/19 20:23 Dose: 10 mg Carvedilol (Coreg) 3.125 mg PO BID [facility] Last Admin: 01/19/19 20:23 Dose: 3.125 mg Diltiazem HCl (Cardizem) 30 mg PO ACHS [facility] Docusate Sodium (Colace) 100 mg PO DAILY [facility] Last Admin: 01/19/19 07:57 Dose: 100 mg Dronedarone (Multaq) 400 mg PO BID [facility] Last Admin: 01/19/19 20:23 Dose: 400 mg Fluticasone Propionate (Flonase Nasal [place]) 0 gm NASAL DAILY [facility] Last Admin: 01/19/19 07:59 Dose: 2 sprays Furosemide (Lasix) 20 mg PO DAILY [facility] Last Admin: 01/19/19 07:56 Dose: 20 mg Hyoscyamine Sulfate (Levsin) 0.125 mg PO BID PRN PRN Reason: abdominal cramps Loperamide HCl (Imodium) 2 mg PO PRN PRN PRN Reason: Diarrhea/Loose Stools Memantine (Namenda) 10 mg PO BID [facility] Last Admin: 01/19/19 20:23 Dose: 10 mg Montelukast Sodium (Singulair) 10 mg PO DAILY [facility] Last Admin: 01/19/19 07:56 Dose: 10 mg Multivitamins (Theragran) 1 tab PO DAILY [facility] Multivitamins/Zinc (Stress 600 With Zinc) 1 tab PO DAILY [facility] Last Admin: 01/19/19 07:57 Dose: 1 tab Ondansetron HCl (Zofran) 4 mg IVP Q6H PRN PRN Reason: Nausea/Vomiting Ondansetron HCl (Zofran Odt) 4 mg PO Q6H PRN PRN Reason: Nausea/Vomiting Polyethylene Glycol (Miralax) 17 gm PO DAILY [facility] Last Admin: 01/19/19 07:59 Dose: 17 gm Potassium Chloride (Klor-Con 10) 10 meq PO DAILY [facility] Last Admin: 01/19/19 07:56 Dose: 10 meq Senna/Docusate Sodium (Senokot S) 2 tab PO BID PRN PRN Reason: Constipation Thyroid ([place] Thyroid) 15 mg PO DAILY [facility] Last Admin: 01/19/19 07:57 Dose: 15 mg Trazodone HCl (Desyrel) 50 mg PO [facility] Last Admin: 01/19/19 20:23 Dose: 50 mg
[2019-01-20] MEDS: Carvedilol 3.125 MG TAB PO SCH (08:15)
[2019-01-20] MEDS: Aspirin 81 mg Enteric Coated Tablet PO SCH (08:21)
[2019-01-20] MEDS: busPIRone HCl 10 MG TAB PO SCH (08:21)
[2019-01-20] MEDS: Dronedarone HCl 400 MG TAB PO SCH (08:21)
[2019-01-20] MEDS: Stress 600 With Zinc 1 TAB PO SCH (08:21)
[2019-01-20] MEDS: Potassium Chloride 10 MEQ TAB PO SCH (08:21)
[2019-01-20] MEDS: Montelukast Sodium 10 mg Tablet PO SCH (08:21)
[2019-01-20] MEDS: Thyroid 30 MG TAB PO SCH (08:21)
[2019-01-20] MEDS: Fluticasone Propionate Nasal Spray 16 gm Bottle NASAL SCH (08:22)
[2019-01-20] MEDS: Lactinex Tablet PO SCH (08:22)
[2019-01-20] MEDS: Docusate 100 MG CAP PO SCH (08:22)
[2019-01-20] MEDS: Furosemide 20 MG TAB PO SCH (08:32)
[2019-01-20] MEDS: Polyethylene Glycol 3350 17 GM Packet PO SCH (08:32)
[2019-01-20] MEDS ORDERED: Multivit, Therapeutic 1 TAB PO SCH (09:00)
[2019-01-20 16:31] VITALS: BP 90/63; TEMP 97.9
--- NOTE | 2019-01-21 09:26 | EKG ---
Test Reason : Blood Pressure : / mmHG Vent. Rate : 074 BPM Atrial Rate : 147 BPM P-R Int : 000 ms QRS Dur : 162 ms QT Int : 454 ms P-R-T Axes : 000 -75 033 degrees QTc Int : 503 ms Atrial fibrillation with a competing junctional pacemaker with premature ventricular or aberrantly co nducted complexes Left axis deviation Right bundle branch block Possible Anteroseptal infarct , age undetermined Abnormal ECG Confirmed by AZAM WASHINGTON ([id number]), assistant production editor BELINDA BORDEN ([id number]) on 01/21/2019 9:25:59 AM Referred By: Confirmed By:AZAM WASHINGTON
--- NOTE | 2019-01-22 02:14 | DIS ---
DATE OF ADMISSION: 01/17/2019 DATE OF DISCHARGE: 01/20/2019 FOLLOWUP: 1. Follow up with Dr. Luciano Pope in 1 week. 2. Follow up with Dr. Julian Silverman in 2 to 3 weeks. ALLERGIES: THE PATIENT IS ALLERGIC TO CODEINE, PENICILLIN, AND SULFA. THE PATIENT WAS SEEN AND EXAMINED ON THE DAY OF DISCHARGE. DENIES ANY NEW COMPLAINTS. SHORTNESS OF BREATH IS IMPROVING. INPATIENT [employer]ER: Pulmonary, Dr. Silverman. BRIEF HOSPITAL COURSE: The patient is an 83-year-old female with congestive heart failure and atrial fibrillation, presented to the hospital with shortness of breath on 01/17/2019. Please refer to the history and physical for further details. The patient was admitted to the hospital with a diagnosis of acute hypoxic respiratory failure secondary to congestive heart failure exacerbation. She was found to have bilateral pleural effusion. The patient was evaluated by Pulmonary, Dr. Silverman. She showed good improvement with diuretics. The patient was found to have significant hypotension, for which the Cardizem dose has been changed to 30 mg four times a day from 240 mg daily. All other home medications were left unchanged. Plan of care was discussed with the patient. There was no family at the bedside. SIGNIFICANT LABORATORY DATA: WBC 7.6 with hemoglobin 9.6 and platelets of 106. D-dimer was 3.48. ABGs on admission showed pH 7.35, pCO2 of 61.1, bicarbonate 33.1 with pO2 of 65.9. Creatinine at discharge is 0.73. TSH was normal. BNP was 1400. Troponin was negative. FINAL DIAGNOSES: 1. Acute hypoxic respiratory failure. 2. Acute on chronic diastolic heart failure exacerbation. 3. Bilateral pleural effusion. 4. Advanced dementia. 5. Chronic atrial fibrillation. 6. Chronic thrombocytopenia. 7. Coronary artery disease. 8. Hypertension. 9. Osteoporosis. 10. Irritable bowel syndrome. 11. Gastroesophageal reflux disease. 12. Chronic obstructive pulmonary disease. 13. Chronic anemia. 14. Hyponatremia. 15. Thrombocytopenia. TIME SPENT: Total time coordinating the discharge of this patient was 38 minutes. Job ID: [id number]
== END 2019-01-20 16:32 | DRG 291 ==
LOC: ERS 20:26 → CCU 01-17 01:54 → T4-A 01-17 10:37
PROVIDERS: ADMIT Internal Medicine; ATTEND Internal Medicine
DX: I11.0 Hypertensive heart disease with heart failure (principal); J96.01 Acute respiratory failure with hypoxia; I50.33 Acute on chronic diastolic (congestive) heart failure; Z66 Do not resuscitate; F03.90 Unspecified dementia, unspecified severity, without behavioral disturbance, psychotic disturbance, mood disturbance, and anxiety; I48.2 Chronic atrial fibrillation; D69.6 Thrombocytopenia, unspecified; I25.10 Atherosclerotic heart disease of native coronary artery without angina pectoris; J44.9 Chronic obstructive pulmonary disease, unspecified; E03.9 Hypothyroidism, unspecified; K21.9 Gastro-esophageal reflux disease without esophagitis; K58.9 Irritable bowel syndrome, unspecified; M81.0 Age-related osteoporosis without current pathological fracture; I95.9 Hypotension, unspecified; D64.9 Anemia, unspecified; Z91.011 Allergy to milk products; Z91.018 Allergy to other foods; Z86.73 Personal history of transient ischemic attack (TIA), and cerebral infarction without residual deficits; Z90.49 Acquired absence of other specified parts of digestive tract; Z90.710 Acquired absence of both cervix and uterus; Z90.89 Acquired absence of other organs; Z87.891 Personal history of nicotine dependence; Z88.0 Allergy status to penicillin; Z88.2 Allergy status to sulfonamides; Z88.5 Allergy status to narcotic agent
CPT/HCPCS: 36415; 71045; 71275; 80048; 80053; 82805; 83880; 84443; 84484; 85025; 85379; 87040; 87086; 87804; 93005; J1250; J1650; J1940; J1956; Q9966